=== PATIENT | female | born 1935 | race Caucasian/White ===

== ENCOUNTER → 2016-03-18 | Outpatient (CLI) | payer OTHER, MEDICARE ==
[~2016-03-18] MED LIST: ACET-1256 PO; ACET-1311 PO; AMIO200T PO; ASPEC81 PO; BUME1TAB PO; CALC-392 PO; CALC600T69 PO; CARV3.122 PO; CHOL2000 PO; CMD/25 PO; CMD4 PO; CPR500 PO; CRD60 PO; CRDCD180 PO; DILT30TA PO; ESTR1CRE PV; FAMO20TA11 PO; FERR325T18 PO; FLUT0.15 NAE; GABA-112 PO; GABA-113 PO; GABA1CAP PO; GABA1SOL4 PO; HYDR12.56 PO; INVAV1 IV; LACTCAP3 PO; LEVO50TA PO; LEVO75TA PO; LEVO75TA5 PO; LISI40TA PO; LPT20 PO; MCRK20 PO; METHPOW7 PO; METR500T PO; MGNO400 PO; NF84 PO; NRN/300 PO; OXYC1TAB3 PO; POLY1POW2 PO; POLY335019 PO; PRAV40TA2 PO; PRLSR20 PO; RXC5 PO; SERT25TA PO; TRAZ50TA35 PO; VANC5CAP PO; WARF1TAB PO; ZLF50 PO; ZNT150 PO
[2016-03-18 13:54] LABS: MEAN CORPUSCULAR HEMOGLOBIN 31.1 pg (25-34); MEAN CORPUSCULAR HGB CONC 33.1 g/dl (32-36); MEAN PLATELET VOLUME 10.5 fL (7.4-10.4); PLATELET COUNT 245 K/uL (130-400); RED BLOOD COUNT 3.83 M/uL (4.2-5.4); WHITE BLOOD COUNT 9.44 K/uL (4.8-10.8)
[2016-03-18 14:01] LABS: URINE APPEARANCE CLEAR (CLEAR); URINE BILIRUBIN NEG (NEG); URINE COLOR YELLOW; URINE EPITHELIAL CELL AUTO >30 /lpf (0-5); URINE NITRITE NEG (NEG); UROBILINOGEN NEG (NEG)
[2016-03-18 14:04] LABS: MANUAL MICROSCOPIC REQUIRED? NO; REVIEW REQ? YES
[2016-03-18 14:25] LABS: URINE PROTIEN/CREAT RATIO 0.1 (0-0.2); URINE TOTAL PROTEIN 7.9 mg/dl (0-11.9)
[2016-03-18 14:30] LABS: BLOOD UREA NITROGEN 46 mg/dl (7-18); BUN/CREATININE RATIO 26.8 (10-20); CALCIUM 9.6 mg/dl (8.5-10.1); CARBON DIOXIDE 26 mmol/L (21-32); CHLORIDE 103 mmol/L (98-107); GLUCOSE 103 mg/dl (70-99); MAGNESIUM 1.9 mg/dl (1.8-2.4); POTASSIUM 4.4 mmol/L (3.5-5.1); SODIUM 141 mmol/L (136-145)
== END | disposition home or self-care (01) ==
LOC: C.LABBC 10:06
PROVIDERS: ATTEND Internal Medicine Nephrology
DX: R60.9 Edema, unspecified (principal); N18.3 Chronic kidney disease, stage 3 (moderate); E22.9 Hyperfunction of pituitary gland, unspecified; D64.9 Anemia, unspecified; E03.9 Hypothyroidism, unspecified; B18.2 Chronic viral hepatitis C; I12.9 Hypertensive chronic kidney disease with stage 1 through stage 4 chronic kidney disease, or unspecified chronic kidney disease

== ENCOUNTER 2016-05-08 17:40 | Observation (INO) | payer OTHER, MEDICARE ==
[~2016-05-08] VITALS: Ht 149.9 cm; Wt 83.4 kg
[~2016-05-08 17:40] MED LIST changes: -ACET-1256 PO; -ACET-1311 PO; -ASPEC81 PO; -BUME1TAB PO; -CALC-392 PO; -CALC600T69 PO; -CARV3.122 PO; -CHOL2000 PO; -CMD4 PO; -CPR500 PO; -CRD60 PO; -CRDCD180 PO; -DILT30TA PO; -FAMO20TA11 PO; -FERR325T18 PO; -FLUT0.15 NAE; -GABA-112 PO; -GABA1CAP PO; -GABA1SOL4 PO; -INVAV1 IV; -LACTCAP3 PO; -LEVO75TA PO; -LEVO75TA5 PO; -LPT20 PO; -MCRK20 PO; -METHPOW7 PO; -METR500T PO; -MGNO400 PO; -NF84 PO; -NRN/300 PO; -OXYC1TAB3 PO; -POLY1POW2 PO; -POLY335019 PO; -RXC5 PO; -VANC5CAP PO; -WARF1TAB PO; -ZLF50 PO; -ZNT150 PO
--- NOTE | 2016-05-08 19:07 | EMERGENCY ROOM VISIT NOTE ---
History Report prepared by Abby: Mehdi Kern Under the Supervision of: Dr. Martin Nuñez M.D. First contact with patient: 18:44 Chief Complaint: ABDOMINAL PAIN Stated Complaint: ABD PAIN Nursing Triage Summary: pt reports LLQ pain since monday that has been intermittent , pt reports decreased po intake , states last normal BM mon, denies NV History of Present Illness The patient is a 81 year old female who presents to the Emergency Room with complaints of waxing and waning left lower quadrant abdominal pain that began on Monday morning, two days prior to arrival. The patient states that when her pain was most severe it was a 7/10 in severity. Her pain is worsened with movement, there is no radiation of her pain into her back. She does note having some lose stools recently, but no diarrhea. She does have black stools, which is at baseline for her due to the iron tablets that she takes. 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 She denies LOC, headache, fevers, chills, diaphoresis, visual changes, neck pain, chest pain, breathing difficulties, nausea, vomiting, hematochezia, urinary symptoms, numbness, weakness, lymphadenopathy, rash, or other complaints. 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 A total of ten systems were reviewed and were otherwise negative. Past Medical & Surgical Medical Problems: (1) Acute diverticulitis (2) Benign hypertension (3) Tonsillar cancer Surgical Problems: (1) S/P cholecystectomy Family History No pertinent family history secondary to age. Social History Smoking Status: Never Smoker Alcohol Use: none Marital Status: single Occupation Status: retired Current/Historical Medications Scheduled Amiodarone Hcl (Cordarone), 200 MG PO DAILY Hydrochlorothiazide (Hctz), 12.5 MG PO DAILY Levothyroxine Sodium (Synthroid), 50 MCG PO DAILY Lisinopril (Zestril), 40 MG PO DAILY Sertraline (Zoloft), 25 MG PO DAILY Warfarin Sod (Coumadin), 2.5-5 MG PO DAILY Scheduled PRN Gabapentin (Neurontin), 300-600 MG PO HS PRN Trazodone Hcl (Trazodone), 25-50 MG PO HS PRN Allergies Coded Allergies: Sulfa Antibiotics (Verified Allergy, Intermediate, fever, 05/08/16) Morphine and Related (Verified Allergy, Unknown, unknown, 05/08/16) Penicillins (Unverified Allergy, Unknown, HIVES, 05/08/16) Physical Exam Vital Signs Date Time Temp Pulse Resp B/P Pulse Ox O2 Delivery O2 Flow Rate FiO2 05/08/16 22:30 68 20 119/69 95 Room Air 05/08/16 20:45 64 16 138/78 97 Room Air 05/08/16 19:28 66 18 150/66 98 Room Air 05/08/16 17:51 36.9 67 18 135/79 97 Room Air Physical Exam GENERAL: Awake, alert, well-appearing, in no distress HENT: Normocephalic, atraumatic. Oropharynx unremarkable. EYES: Normal conjunctiva. Sclera non-icteric. NECK: Supple. No nuchal rigidity. FROM. No JVD. RESPIRATORY: Clear to auscultation. CARDIAC: Regular rate, normal rhythm. Extremities warm and well perfused. Pulses equal. ABDOMEN: Soft, non-distended. There is tenderness to palpation in the LLQ with rebounding. No masses. RECTAL: Deferred. MUSCULOSKELETAL: Chest examination reveals no tenderness. The back is symmetrical on inspection without obvious abnormality. There is no CVA tenderness to palpation. No joint edema. LOWER EXTREMITIES: Calves are equal size bilaterally and non-tender. 1+ edema bilaterally No discoloration. NEURO: Normal sensorium. No sensory or motor deficits noted. SKIN: No rash or jaundice noted. Medical Decision & Procedures ER Provider Diagnostic Interpretation: X ray results as stated below per my interpretation and radiologist interpretation. Other radiology results as stated below per my review and radiologist interpretation ABDOMEN AND PELVIS CT WITHOUT CONTRAST CT DOSE: 880.35 mGy.cm HISTORY: Left flank pain LLQ pain. Prior al. TECHNIQUE: Multiaxial CT images of the abdomen and pelvis were performed without contrast. COMPARISON STUDY: 01/26/2015 FINDINGS: Lung bases are clear. Prior cholecystectomy. Several calcified granulomas of the liver as well as spleen. Kidneys negative for hydronephrosis or calcification. Abdominal bowel pattern is nonobstructive. pelvis shows evidence for considerable wall thickening of the sigmoid with pericolonic infiltrative change. May be mild secondary inflammatory change of the left ovary with minimal inflammatory changes of the right. Abscess collection or phlegmon, however is not appreciated. Bladder is midline. There is no significant free fluid within the pelvic cul-de-sac. The appearance is consistent with that of acute diverticulitis. IMPRESSION: 1. Acute diverticulitis of the sigmoid. 2. Considerable wall thickening and pericolonic infiltrative change. 3. Infiltrative changes potentially extending to the ovaries 4. No evidence for abscess collection or obstruction Electronically signed by: Mich Velez M.D. 05/08/2016 9:30 PM Dictated Date/Time: 05/08/2016 9:27 PM Laboratory Results 05/08/16 19:42 Red Blood Count 4.01, Mean Corpuscular Volume 92.5, Mean Corpuscular Hemoglobin 31.4, Mean Corpuscular Hemoglobin Concent 34.0, Mean Platelet Volume 9.9, Neutrophils (%) (Auto) 77.2, Lymphocytes (%) (Auto) 13.5, Monocytes (%) (Auto) 7.3, Eosinophils (%) (Auto) 1.4, Basophils (%) (Auto) 0.2, Neutrophils # (Auto) 12.54, Lymphocytes # (Auto) 2.19, Monocytes # (Auto) 1.19, Eosinophils # (Auto) 0.22, Basophils # (Auto) 0.03 05/08/16 19:42 Test 05/08/16 19:42 05/08/16 20:45 White Blood Count 16.23 K/uL (4.8-10.8) Red Blood Count 4.01 M/uL (4.2-5.4) Hemoglobin 12.6 g/dL (12.0-16.0) Hematocrit 37.1 % (37-47) Mean Corpuscular Volume 92.5 fL (80-100) Mean Corpuscular Hemoglobin 31.4 pg (25-34) Mean Corpuscular Hemoglobin Concent 34.0 g/dl (32-36) Platelet Count 215 K/uL (130-400) Mean Platelet Volume 9.9 fL (7.4-10.4) Neutrophils (%) (Auto) 77.2 % Lymphocytes (%) (Auto) 13.5 % Monocytes (%) (Auto) 7.3 % Eosinophils (%) (Auto) 1.4 % Basophils (%) (Auto) 0.2 % Neutrophils # (Auto) 12.54 K/uL (1.4-6.5) Lymphocytes # (Auto) 2.19 K/uL (1.2-3.4) Monocytes # (Auto) 1.19 K/uL (0.11-0.59) Eosinophils # (Auto) 0.22 K/uL (0-0.5) Basophils # (Auto) 0.03 K/uL (0-0.2) RDW Standard Deviation 47.9 fL (36.4-46.3) RDW Coefficient of Variation 14.1 % (11.5-14.5) Immature Granulocyte % (Auto) 0.4 % Immature Granulocyte # (Auto) 0.06 K/uL (0.00-0.02) Prothrombin Time 40.8 SECONDS (9.0-12.0) Prothromb Time International Ratio 3.6 (0.9-1.1) Activated Partial Thromboplast Time 49.3 SECONDS (21.0-31.0) Partial Thromboplastin Ratio 1.9 Anion Gap 10.0 mmol/L (3-11) Est Creatinine Clear Calc Drug Dose 22.5 ml/min Estimated GFR () 29.9 Estimated GFR (Non- 25.8 BUN/Creatinine Ratio 28.6 (10-20) Calcium Level 9.6 mg/dl (8.5-10.1) Total Bilirubin 0.4 mg/dl (0.2-1) Direct Bilirubin 0.1 mg/dl (0-0.2) Aspartate Amino Transf (AST/SGOT) 19 U/L (15-37) Alanine Aminotransferase (ALT/SGPT) 27 U/L (12-78) Alkaline Phosphatase 112 U/L (45-117) Total Protein 7.2 gm/dl (6.4-8.2) Albumin 3.1 gm/dl (3.4-5.0) Lipase 150 U/L (73-393) Urine Color YELLOW Urine Appearance CLEAR (CLEAR) Urine pH 5.5 (4.5-7.5) Urine Specific [place] 1.020 (1.000-1.030) Urine Protein NEG (NEG) Urine Glucose (UA) NEG (NEG) Urine Ketones NEG (NEG) Urine Occult Blood TRACE (NEG) Urine Nitrite NEG (NEG) Urine Bilirubin NEG (NEG) Urine Urobilinogen NEG (NEG) Urine Leukocyte Esterase NEG (NEG) Urine RBC 0-4 /hpf (0-4) Urine WBC 1-5 /hpf (0-5) Urine Epithelial Cells 0-5 /lpf (0-5) Urine Bacteria 2+ (NEG) Laboratory results reviewed by me Medications Administered Medications (Trade) Dose Ordered Sig/Mazin Route Start Time Stop Time Status Last Admin Dose Admin Sodium Chloride (Nss 500ml) 500 ml @ 999 mls/hr Q31M STAT IV 05/08/16 19:44 05/08/16 20:14 DC 05/08/16 19:44 999 MLS/HR Ciprofloxacin/ Dextrose (Cipro / D5w) 400 mg NOW STAT IV 05/08/16 21:54 05/08/16 21:56 DC 05/08/16 22:24 400 MG Metronidazole (Flagyl / Nss) 500 mg NOW STAT IV 05/08/16 21:54 05/08/16 21:56 DC 05/08/16 22:23 500 MG ED Course 1858: The patient was evaluated in room A11. A complete history and physical exam was performed. 1941: I checked on the patient at this time, she does not want anything for her pain at this time. Her daughter is at bedside now. 1943: Ordered Sodium Chloride 500 mL @ 999 mL/hr IV 2153: Ordered Metronidazole 500 mg IV, Ciprofloxacin/Dextrose 400 mg IV. 2201: I checked on the patient at this time. She was doing well. 2209: I discussed the case with Dr. Rach Huynh [facility] Hospitalist at this time, he will evaluate the patient for further treatment. Medical Decision Triage Nursing notes reviewed. The patient's presentation and history were concerning for abdominal pain. Etiologies such as diverticulitis, obstruction, inflammatory bowel disease, renal colic, PUD, biliary pathology, pancreatitis, mesenteric ischemia, aortic pathology, infections, genitourinary, UTI, perforated viscus, appendicitis,as well as others were entertained. The patient was evaluated. She is tender in the left lower quadrant. She declined analgesia. The patient was hydrated. She had a 16,000 white count on CBC. Urinalysis was unremarkable. Creatinine revealed some mild renal insufficiency which the patient states is baseline. She had some dehydration noted as well. Her LFTs and lipase were unremarkable. CT imaging was performed and revealed acute diverticulitis. No abscess or perforation. Given the findings further evaluation and management in the hospital was felt to be appropriate. The patient was given Cipro and Flagyl IV. Consultation was made with internal medicine. The patient was evaluated for further treatment. The chart was completed utilizing [employer] Speech voice recognition software. Grammatical errors, random word insertions, pronoun errors, and incomplete sentences are an occasional consequence of this system due to software limitations, ambient noise, and hardware issues. Any formal questions or concerns about the content, text, or information contained within the body of this dictation should be directly addressed to the physician for clarification. Consults Time Called: 2199 Consulting Physician: Dr. Rach HICKS Hospitalist Returned Call: 2209 I discussed the case with Dr. Rach HICKS Hospitalanne-marie at this time, he will evaluate the patient for further treatment. Impression Primary Impression: Diverticulitis Scribe Attestation The scribe's documentation has been prepared under my direction and personally reviewed by me in its entirety. I confirm that the note above accurately reflects all work, treatment, procedures, and medical decision making performed by me. Departure Information Dispostion Being Evaluated By Hospitalist Referrals Kwadwo Cannon D.O.Int.Med. (PCP) Patient Instructions My [facility]
[2016-05-08] MEDS ORDERED: SODIUM CHLORIDE 0.9% 500ML 500 ML IV STA (19:44)
[2016-05-08 19:55] LABS: BASO % 0.2 %; BASO ABS # 0.03 K/uL (0-0.2); COMPLETE YES; EOS % 1.4 %; HEMATOCRIT 37.1 % (37-47); IG% 0.4 %; LYMPH % 13.5 %; LYMPH ABS # 2.19 K/uL (1.2-3.4); MEAN CELL VOLUME 92.5 fL (80-100); MEAN CORPUSCULAR HEMOGLOBIN 31.4 pg (25-34); MEAN PLATELET VOLUME 9.9 fL (7.4-10.4); MONO % 7.3 %; NEUT % 77.2 %; PLATELET COUNT 215 K/uL (130-400); RED BLOOD COUNT 4.01 M/uL (4.2-5.4); WHITE BLOOD COUNT 16.23 K/uL (4.8-10.8)
[2016-05-08 20:14] LABS: BUN/CREATININE RATIO 28.6 (10-20); CALCIUM 9.6 mg/dl (8.5-10.1); CREATININE 1.8 mg/dl (0.60-1.20); POTASSIUM 3.9 mmol/L (3.5-5.1)
[2016-05-08 21:28] LABS: MANUAL MICROSCOPIC REQUIRED? YES; URINE APPEARANCE CLEAR (CLEAR); URINE BILIRUBIN NEG (NEG); URINE COLOR YELLOW; URINE NITRITE NEG (NEG); URINE PH 5.5 (4.5-7.5); UROBILINOGEN NEG (NEG)
[2016-05-08 21:29] LABS: REVIEW REQ? NO
[2016-05-08 21:30] LABS: URINE RBC 0-4 /hpf (0-4)
[2016-05-08 21:31] LABS: URINE BACTERIA 2+ (NEG); ZZUR CULT IF INDIC CLEAN CATCH YES
--- NOTE | 2016-05-08 21:31 | DIAGNOSTIC IMAGING REPORT ---
ABDOMEN AND PELVIS CT WITHOUT CONTRAST CT DOSE: 880.35 mGy.cm HISTORY: Left flank pain LLQ pain. Prior al. TECHNIQUE: Multiaxial CT images of the abdomen and pelvis were performed without contrast. COMPARISON STUDY: 01/26/2015 FINDINGS: Lung bases are clear. Prior cholecystectomy. Several calcified granulomas of the liver as well as spleen. Kidneys negative for hydronephrosis or calcification. Abdominal bowel pattern is nonobstructive. pelvis shows evidence for considerable wall thickening of the sigmoid with pericolonic infiltrative change. May be mild secondary inflammatory change of the left ovary with minimal inflammatory changes of the right. Abscess collection or phlegmon, however is not appreciated. Bladder is midline. There is no significant free fluid within the pelvic cul-de-sac. The appearance is consistent with that of acute diverticulitis. IMPRESSION: 1. Acute diverticulitis of the sigmoid. 2. Considerable wall thickening and pericolonic infiltrative change. 3. Infiltrative changes potentially extending to the ovaries 4. No evidence for abscess collection or obstruction Electronically signed by: Mich Velez M.D. 05/08/2016 9:30 PM Dictated Date/Time: 05/08/2016 9:27 PM
[2016-05-08] MEDS ORDERED: METRONIDAZOLE 500MG / 100ML NSS IV STA (21:54)
[2016-05-08] MEDS ORDERED: CIPROFLOXACIN 400MG / 200ML D5W IV STA (21:54)
[2016-05-08 22:16] LABS: PARTIAL THROMBOPLASTIN RATIO 1.9; PROTHROMBIN TIME (PATIENT) 40.8 SECONDS (9.0-12.0)
[2016-05-08 22:31] LABS: INR 3.6 (0.9-1.1)
[2016-05-08] MEDS ORDERED: MAGNESIUM HYDROXIDE SUSP 30 ML UDC PO PRN (23:00)
[2016-05-08] MEDS ORDERED: TRAZODONE HCL 50 MG TAB PO PRN (23:00)
[2016-05-08] MEDS ORDERED: ACETAMINOPHEN 325 MG TAB PO PRN (23:00)
[2016-05-08] MEDS ORDERED: POLYETHYLENE (MIRALAX) 17 GM PACK PO PRN (23:00)
[2016-05-08] MEDS ORDERED: ONDANSETRON INJ 2 MG/ML 2 ML VIAL IV PRN (23:00)
[2016-05-08] MEDS ORDERED: GABAPENTIN 300 MG CAP PO PRN (23:00)
[2016-05-08] MEDS ORDERED: ALUMINUM/MAGNESIUM/SIMETH (MAALOX MAX) 30 ML UDC PO PRN (23:00)
--- NOTE | 2016-05-08 23:15 | History and Physical ---
History & Physical Date & Time of Service: May 08, 2016 at 23:07 Chief Complaint: Abd Pain Primary Care Physician: Kwadwo Cannon D.O.Int.Med. History of Present Illness Source: patient Bertha is an 81 year old female who has had a 4 day history of LLQ abdominal pain , nausea, loose stool and anorexia. She was found to have acute sigmoid diverticulitis on CT scan. She reports the pain is sharp, radiates across her abdomen, 7/10 severity, worse with movements, and does not have any factors which improve it. She thought she may have C. Difficile which she has had before. She has not had any recent antibiotic use. The nausea was intermittent and has not happened today, but was more over the first 2 days of her symptoms. Currently her pain is still 6/10 severity. Past Medical/Surgical History Medical Problems: Hypertension Tonsillar cancer History of stroke Atrial fibrillation, on coumadin PSHx: None Family History No pertinent FHx Social History Smoking Status: Never Smoker Marital Status: single Housing status: other (Lives in Assisted living at [facility]) Occupational Status: retired Allergies Coded Allergies: Sulfa Antibiotics (Verified Allergy, Intermediate, fever, 05/08/16) Morphine and Related (Verified Allergy, Unknown, unknown, 05/08/16) Penicillins (Unverified Allergy, Unknown, HIVES, 05/08/16) Home Medications Scheduled Amiodarone Hcl (Cordarone), 200 MG PO DAILY Hydrochlorothiazide (Hctz), 12.5 MG PO DAILY Levothyroxine Sodium (Synthroid), 50 MCG PO DAILY Lisinopril (Zestril), 40 MG PO DAILY Sertraline (Zoloft), 25 MG PO DAILY Warfarin Sod (Coumadin), 2.5-5 MG PO DAILY Scheduled PRN Gabapentin (Neurontin), 300-600 MG PO HS PRN Trazodone Hcl (Trazodone), 25-50 MG PO HS PRN Review of Systems See HPI for pertinent positives & negatives. A total of 10 systems reviewed and were otherwise negative. Physical Exam Vital Signs Date Time Temp Pulse Resp B/P Pulse Ox O2 Delivery O2 Flow Rate FiO2 05/08/16 22:30 68 20 119/69 95 Room Air 05/08/16 20:45 64 16 138/78 97 Room Air 05/08/16 19:28 66 18 150/66 98 Room Air 05/08/16 17:51 36.9 67 18 135/79 97 Room Air General Appearance: WD/WN, + mild distress Head: normocephalic, atraumatic Eyes: normal inspection, PERRL ENT: normal ENT inspection, TMs normal Neck: supple, no JVD Respiratory/Chest: chest non-tender, lungs clear, normal breath sounds, no respiratory distress Cardiovascular: regular rate, rhythm, no murmur, normal peripheral pulses Abdomen/GI: + tenderness (LLQ tenderness, faint bowel sounds, with guarding, no rebound), + distended, + guarding Back: no CVA tenderness, no muscle spasm Extremities/Musculoskelatal: no pedal edema Neurologic/Psych: alert, normal mood/affect, oriented x 3 Skin: no rash Diagnostics Laboratory Results Results Past 24 Hours Test 05/08/16 19:42 05/08/16 20:45 Range/Units White Blood Count 16.23 4.8-10.8 K/uL Red Blood Count 4.01 4.2-5.4 M/uL Hemoglobin 12.6 12.0-16.0 g/dL Hematocrit 37.1 37-47 % Mean Corpuscular Volume 92.5 80-100 fL Mean Corpuscular Hemoglobin 31.4 25-34 pg Mean Corpuscular Hemoglobin Concent 34.0 32-36 g/dl Platelet Count 215 130-400 K/uL Mean Platelet Volume 9.9 7.4-10.4 fL Neutrophils (%) (Auto) 77.2 % Lymphocytes (%) (Auto) 13.5 % Monocytes (%) (Auto) 7.3 % Eosinophils (%) (Auto) 1.4 % Basophils (%) (Auto) 0.2 % Neutrophils # (Auto) 12.54 1.4-6.5 K/uL Lymphocytes # (Auto) 2.19 1.2-3.4 K/uL Monocytes # (Auto) 1.19 0.11-0.59 K/uL Eosinophils # (Auto) 0.22 0-0.5 K/uL Basophils # (Auto) 0.03 0-0.2 K/uL RDW Standard Deviation 47.9 36.4-46.3 fL RDW Coefficient of Variation 14.1 11.5-14.5 % Immature Granulocyte % (Auto) 0.4 % Immature Granulocyte # (Auto) 0.06 0.00-0.02 K/uL Prothrombin Time 40.8 9.0-12.0 SECONDS Prothromb Time International Ratio 3.6 0.9-1.1 Activated Partial Thromboplast Time 49.3 21.0-31.0 SECONDS Partial Thromboplastin Ratio 1.9 Sodium Level 142 136-145 mmol/L Potassium Level 3.9 3.5-5.1 mmol/L Chloride Level 104 98-107 mmol/L Carbon Dioxide Level 28 21-32 mmol/L Anion Gap 10.0 3-11 mmol/L Blood Urea Nitrogen 52 7-18 mg/dl Creatinine 1.80 0.60-1.20 mg/dl Est Creatinine Clear Calc Drug Dose 22.5 ml/min Estimated GFR () 29.9 Estimated GFR (Non- 25.8 BUN/Creatinine Ratio 28.6 10-20 Random Glucose 100 70-99 mg/dl Calcium Level 9.6 8.5-10.1 mg/dl Total Bilirubin 0.4 0.2-1 mg/dl Direct Bilirubin 0.1 0-0.2 mg/dl Aspartate Amino Transf (AST/SGOT) 19 15-37 U/L Alanine Aminotransferase (ALT/SGPT) 27 12-78 U/L Alkaline Phosphatase 112 45-117 U/L Total Protein 7.2 6.4-8.2 gm/dl Albumin 3.1 3.4-5.0 gm/dl Lipase 150 73-393 U/L Urine Color YELLOW Urine Appearance CLEAR CLEAR Urine pH 5.5 4.5-7.5 Urine Specific [place] 1.020 1.000-1.030 Urine Protein NEG NEG Urine Glucose (UA) NEG NEG Urine Ketones NEG NEG Urine Occult Blood TRACE NEG Urine Nitrite NEG NEG Urine Bilirubin NEG NEG Urine Urobilinogen NEG NEG Urine Leukocyte Esterase NEG NEG Urine RBC 0-4 0-4 /hpf Urine WBC 1-5 0-5 /hpf Urine Epithelial Cells 0-5 0-5 /lpf Urine Bacteria 2+ NEG Microbiology Results 05/08/16 Urine Culture, Received Pending Diagnostic Radiology CT ABDOMEN PELVIS: IMPRESSION: 1. Acute diverticulitis of the sigmoid. 2. Considerable wall thickening and pericolonic infiltrative change. 3. Infiltrative changes potentially extending to the ovaries 4. No evidence for abscess collection or obstruction Impression Assessment and Plan Documented By: Wilfred Loyd 81 yo F with history of a fib on coumadin presents with LLQ abdominal pain, nausea, anorexia - found to have acute diverticulitis on CT. Has a WBC of 16, has been unable to keep PO down well. Plan: Acute diverticulitis - Clear liquid diet - Advance as tolerated - Continue Cipro and Flagyl IV, switch to PO when tolerating oral better Dehydration - 2L maintenance IV fluids overnight - Continue to monitor Atrial fibrillation - Continue amiodarone and coumadin Hypertension - Continue HCTZ and Lisinopril CKD stage 4 - Renal dosing of medications VTE: On coumadin Resident Physician Supervision Note: I was present with [Name of resident] during the history and exam. I discussed the case with the resident and agree with the findings and plan as documented in the note. Any exceptions or clarifications are listed here: 81 y/o F admitted with LLQ - diverticulitis diagnosed on CT Has not had fevers - poor kavita and weakness but no vomiting OE AAO x 3 CTAB NT, ND no C/C/E P: Monitor overnight due to pts age and weakness Introduce soft diet ABx IVF, pain control Consider AM DC if tolerating PO and pt feels she can manage independently Level of Care Med/Surg Resuscitation Status FULL RESUSCITATION VTE Prophylaxis VTE Risk Assessment Done? Y/N: Yes Risk Level: Moderate Given or contraindicated: Warfarin (Coumadin) Resident Tracking Resident Involvement: Resident Care Provided Care Provided: Adult Hospital Medicine
[2016-05-09] VITALS (7 sets, daily range): BP systolic 108–152; BP diastolic 52–72; PULSE 63–70; TEMP 36.8–37.4; O2SAT 94–97; Ht 149.9 cm; Wt 83.4 kg
[2016-05-09] MEDS ORDERED: CIPROFLOXACIN CONSULT ACTIVE PRN ×2 (01:00)
[2016-05-09] MEDS: SODIUM CHLOR 0.45% + 20MEQ KCL 1,000 ML IV SCH ×2 (01:06→11:19)
[2016-05-09] MEDS ORDERED: IV FLUIDS COMPLETED PRN (01:30)
[2016-05-09] MEDS: METRONIDAZOLE / NSS 500 MG in PREMIXED NSS 100 ML IV SCH ×3 (06:14→21:36)
[2016-05-09] MEDS: LEVOTHYROXINE 50 MCG TAB PO SCH (06:14)
[2016-05-09 06:44] LABS: BASO % 0.2 %; BASO ABS # 0.03 K/uL (0-0.2); COMPLETE YES; EOS % 1.8 %; HEMATOCRIT 33.8 % (37-47); IG% 0.3 %; LYMPH % 16.9 %; LYMPH ABS # 2.38 K/uL (1.2-3.4); MEAN CELL VOLUME 90.9 fL (80-100); MEAN CORPUSCULAR HEMOGLOBIN 30.4 pg (25-34); MEAN CORPUSCULAR HGB CONC 33.4 g/dl (32-36); MEAN PLATELET VOLUME 9.6 fL (7.4-10.4); MONO % 8.3 %; NEUT % 72.5 %; PLATELET COUNT 218 K/uL (130-400); RED BLOOD COUNT 3.72 M/uL (4.2-5.4); WHITE BLOOD COUNT 14.09 K/uL (4.8-10.8)
[2016-05-09 07:14] LABS: BUN/CREATININE RATIO 27.5 (10-20); CALCIUM 9.1 mg/dl (8.5-10.1); CREATININE 1.5 mg/dl (0.60-1.20); POTASSIUM 4.1 mmol/L (3.5-5.1)
[2016-05-09 07:17] LABS: ALB/GLOB RATIO 0.8 (0.9-2)
[2016-05-09] MEDS: HYDROCHLOROTHIAZIDE 25 MG TAB PO SCH (08:26)
[2016-05-09] MEDS: AMIODARONE 200 MG TAB PO SCH (08:28)
[2016-05-09] MEDS: SERTRALINE HCL 50 MG TAB PO SCH (08:28)
[2016-05-09] MEDS: LISINOPRIL 40 MG TAB PO SCH (08:28)
[2016-05-09 10:37] LABS: PROTHROMBIN TIME (PATIENT) 44.1 SECONDS (9.0-12.0)
[2016-05-09 10:46] LABS: INR 3.9 (0.9-1.1)
[2016-05-09] MEDS ORDERED: WARFARIN SOD 5 MG TAB PO SCH (16:00)
[2016-05-09] MEDS ORDERED: ACET-1311 PO (17:33)
[2016-05-09] MEDS ORDERED: BUME1TAB PO (17:38)
[2016-05-09] MEDS ORDERED: CALC600T69 PO (17:42)
[2016-05-09] MEDS ORDERED: CARV3.122 PO (17:44)
[2016-05-09] MEDS ORDERED: METHPOW7 PO (17:47)
[2016-05-09] MEDS ORDERED: FERR325T18 PO (17:47)
[2016-05-09] MEDS ORDERED: GABA1CAP PO (17:55)
[2016-05-09] MEDS ORDERED: GABA-113 PO (17:57)
[2016-05-09] MEDS ORDERED: LEVO75TA5 PO (17:58)
[2016-05-09] MEDS ORDERED: CHOL2000 PO (17:59)
[2016-05-09] MEDS ORDERED: POLY1POW2 PO (17:59)
[2016-05-09] MEDS ORDERED: TRAZ50TA35 PO (18:03)
--- NOTE | 2016-05-09 20:14 | Progress Note ---
Subjective Date of Service: May 09, 2016. Subjective Pt evaluation today including: conversation w/ patient, physical exam, chart review, lab review, review of studies, review of inpatient medication list feeling better pain better still has pain though but not as bad. had some diarrhea. ate clears OK but afraid to try much more solid yet. no f/c/s. Problem List Medical Problems: (1) Diverticulitis Status: Acute (2) Left lower quadrant pain Status: Acute Review of Systems ros otherwise negative except for as above Objective Vital Signs Date Time Temp Pulse Resp B/P Pulse Ox O2 Delivery O2 Flow Rate FiO2 05/09/16 16:09 148/67 05/09/16 16:05 97 Room Air 05/09/16 15:01 36.8 63 18 152/72 97 Room Air 05/09/16 07:52 Room Air 05/09/16 07:19 36.8 63 18 108/54 94 Room Air 05/09/16 00:20 36.9 69 18 138/68 97 Room Air 05/08/16 23:33 65 18 127/59 95 Room Air 05/08/16 22:30 68 20 119/69 95 Room Air 05/08/16 20:45 64 16 138/78 97 Room Air Physical Exam General Appearance: no apparent distress Eyes: EOMI ENT: hearing grossly normal Neck: trachea midline Respiratory/Chest: no respiratory distress, no accessory muscle use Abdomen: soft, + tenderness (LLQ no guarding rebound or rigidity) 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, alert, normal mood/affect Skin: normal color, warm/dry Laboratory Results Last 24 Hours Test 05/08/16 20:45 05/09/16 06:22 05/09/16 09:45 Urine Color YELLOW Urine Appearance CLEAR Urine pH 5.5 Urine Specific [place] 1.020 Urine Protein NEG Urine Glucose (UA) NEG Urine Ketones NEG Urine Occult Blood TRACE Urine Nitrite NEG Urine Bilirubin NEG Urine Urobilinogen NEG Urine Leukocyte Esterase NEG Urine RBC 0-4 /hpf Urine WBC 1-5 /hpf Urine Epithelial Cells 0-5 /lpf Urine Bacteria 2+ White Blood Count 14.09 K/uL Red Blood Count 3.72 M/uL Hemoglobin 11.3 g/dL Hematocrit 33.8 % Mean Corpuscular Volume 90.9 fL Mean Corpuscular Hemoglobin 30.4 pg Mean Corpuscular Hemoglobin Concent 33.4 g/dl Platelet Count 218 K/uL Mean Platelet Volume 9.6 fL Neutrophils (%) (Auto) 72.5 % Lymphocytes (%) (Auto) 16.9 % Monocytes (%) (Auto) 8.3 % Eosinophils (%) (Auto) 1.8 % Basophils (%) (Auto) 0.2 % Neutrophils # (Auto) 10.21 K/uL Lymphocytes # (Auto) 2.38 K/uL Monocytes # (Auto) 1.17 K/uL Eosinophils # (Auto) 0.26 K/uL Basophils # (Auto) 0.03 K/uL RDW Standard Deviation 46.5 fL RDW Coefficient of Variation 14.0 % Immature Granulocyte % (Auto) 0.3 % Immature Granulocyte # (Auto) 0.04 K/uL Sodium Level 141 mmol/L Potassium Level 4.1 mmol/L Chloride Level 107 mmol/L Carbon Dioxide Level 23 mmol/L Anion Gap 11.0 mmol/L Blood Urea Nitrogen 41 mg/dl Creatinine 1.50 mg/dl Est Creatinine Clear Calc Drug Dose 27.1 ml/min Estimated GFR () 37.2 Estimated GFR (Non- 32.1 BUN/Creatinine Ratio 27.5 Random Glucose 112 mg/dl Calcium Level 9.1 mg/dl Total Bilirubin 0.5 mg/dl Aspartate Amino Transf (AST/SGOT) 16 U/L Alanine Aminotransferase (ALT/SGPT) 25 U/L Alkaline Phosphatase 97 U/L Total Protein 6.4 gm/dl Albumin 2.9 gm/dl Globulin 3.5 gm/dl Albumin/Globulin Ratio 0.8 Prothrombin Time 44.1 SECONDS Prothromb Time International Ratio 3.9 Assessment and Plan Acute diverticulitis - imprvoing -change to full liquid -keep cipro/flagyl IV for now change to PO tomorrow Dehydration - continue IVFs, follow BMP and status Atrial fibrillation - Continue amiodarone and coumadin (holding for now since INR high) Hypertension - Continue HCTZ and Lisinopril, follow; hold bumex CKD stage 4 - Renal dosing of medications DVT proph -coumadin
[2016-05-09] MEDS ORDERED: CIPROFLOXACIN / D5W 400 MG in PREMIXED IN D5W 200 ML IV SCH (22:00)
[2016-05-09] MEDS ORDERED: GABAPENTIN 100 MG CAP PO ONE (22:37)
[2016-05-09] MEDS ORDERED: TRAZODONE HCL 50 MG TAB PO ONE (22:45)
[2016-05-09] MEDS ORDERED: CARVEDILOL 3.125 MG TAB PO ONE (22:45)
[2016-05-10] MEDS: METRONIDAZOLE / NSS 500 MG in PREMIXED NSS 100 ML IV SCH (05:48)
[2016-05-10] MEDS: LEVOTHYROXINE 50 MCG TAB PO SCH (05:49)
[2016-05-10 06:13] LABS: HEMATOCRIT 32.5 % (37-47); MEAN CELL VOLUME 92.3 fL (80-100); MEAN CORPUSCULAR HEMOGLOBIN 30.4 pg (25-34); MEAN CORPUSCULAR HGB CONC 32.9 g/dl (32-36); MEAN PLATELET VOLUME 10.1 fL (7.4-10.4); PLATELET COUNT 205 K/uL (130-400); RED BLOOD COUNT 3.52 M/uL (4.2-5.4); WHITE BLOOD COUNT 10.91 K/uL (4.8-10.8)
[2016-05-10 06:30] LABS: PROTHROMBIN TIME (PATIENT) 41.4 SECONDS (9.0-12.0)
[2016-05-10 06:32] LABS: INR 3.7 (0.9-1.1)
[2016-05-10 06:48] LABS: BUN/CREATININE RATIO 20.6 (10-20); CALCIUM 8.5 mg/dl (8.5-10.1); CREATININE 1.2 mg/dl (0.60-1.20)
[2016-05-10 07:24] VITALS: BP 102/64; PULSE 63; TEMP 36.5; O2SAT 95
[2016-05-10 08:15] VITALS: BP 116/74; PULSE 100
[2016-05-10] MEDS: SERTRALINE HCL 50 MG TAB PO SCH (08:40)
[2016-05-10] MEDS: LISINOPRIL 40 MG TAB PO SCH (08:41)
[2016-05-10] MEDS: AMIODARONE 200 MG TAB PO SCH (08:41)
[2016-05-10] MEDS: HYDROCHLOROTHIAZIDE 25 MG TAB PO SCH (08:42)
[2016-05-10] MEDS ORDERED: CIPROFLOXACIN 500 MG TAB PO SCH (09:00)
[2016-05-10] MEDS ORDERED: CARVEDILOL 3.125 MG TAB PO SCH (09:00)
[2016-05-10 09:17] VITALS: BP 116/74; PULSE 100
[2016-05-10] MEDS ORDERED: CPR500 PO (10:59)
[2016-05-10] MEDS ORDERED: METR500T PO (10:59)
--- NOTE | 2016-05-10 11:03 | Discharge Instructions ---
Discharge Instructions Date of Service May 10, 2016. Admission Reason for Admission: Acute Diverticulitis Discharge Discharge Diagnosis / Problem: diverticulitis Discharge Goals Goal(s): Diagnostic testing, Therapeutic intervention Activity Recommendations Activity Limitations: resume your previous activity . Instructions / Follow-Up Instructions / Follow-Up for the diverticulitis - continue your antibiotics for the next 10 days -- cipro next dose tonight, flagyl next dose late this afternoon -follow up with Dr Cannon by the end of the week --have labs checked on : PT/INR, BMP --while we're not technically changing your dose of coumadin - we want you to hold off on taking it for the next two days at least -- after your repeat INR on , your coumadin will either be resumed or held based on your lab results Current Hospital Diet Patient's current hospital diet: Regular Diet Discharge Diet Recommended Diet: Regular Diet Pending Studies Studies pending at discharge: no Medical Emergencies . Who to Call and When: Medical Emergencies: If at any time you feel your situation is an emergency, please call 911 immediately. . Non-Emergent Contact Non-Emergency issues call your: Primary Care Provider . . "Provider Documentation" section prepared by Haseeb Briggs. VTE Core Measure Inpt VTE Proph given/why not?: Warfarin (Coumadin)
[2016-05-10] MEDS ORDERED: METRONIDAZOLE 500 MG TAB PO SCH (14:00)
[2016-05-10 15:27] VITALS: BP 129/83; PULSE 103; TEMP 36.5; O2SAT 97
[2016-05-10 15:36] VITALS: PULSE 115
[2016-05-10] MEDS ORDERED: WARFARIN SOD 2.5 MG TAB PO SCH ×2 (16:00)
--- NOTE | 2016-05-10 19:49 | Discharge Summary ---
Discharge Summary Date of Service May 10, 2016. Discharge Summary Admission Date: May 08, 2016 at 23:06 Discharge Date: May 10, 2016 Discharge Disposition: Home Principal Diagnosis: diverticulitis Procedures: CT showing diverticulitis no perf presley snesitive E Coli on urine culture elevated INR Medication Reconciliation New Medications: Ciprofloxacin (Ciprofloxacin HCl) 500 Mg Tab 1 TAB PO BID, #20 TAB Metronidazole (Flagyl) 500 Mg Tab 500 MG PO TID, #30 TAB Continued Medications: Acetaminophen (Tylenol) 325 Mg Tab 650 MG PO Q8 PRN for Pain, TAB Bumetanide (Bumex) 1 Mg Tab 1 MG PO BID, TAB Calcium Carbonate (Calcium-Carb 600) 600 Mg Tab 1 TAB PO BID Carvedilol (Coreg) 3.125 Mg Tab 1 TAB PO BID for 30 Days, #60 TAB 3 Refills Cholecalciferol (Vitamin D3) 2,000 Unit Cap 1 CAP PO DAILY for 30 Days, #30 CAP 3 Refills Ferrous Gluconate (Ferrous Gluconate) 324 Mg Tab 324 MG PO DAILY, TAB Gabapentin (Neurontin) 100 Mg Cap 200 MG PO PM, CAP Gabapentin (Neurontin) 300 Mg Cap 300 MG PO PM, CAP Levothyroxine Sodium (Levothyroxine Sodium) 75 Mcg Tab 1 TAB PO DAILY for 30 Days, #30 TAB 5 Refills Lisinopril (Zestril) 40 Mg Tab 40 MG PO DAILY, TAB Methylcellulose (Laxative) (Citrucel Fiber Laxative) 1 Pow Pow PO DAILY PRN for Constipation Polyethylene Glycol 3350 (Bulk (Polyethylene Glycol 3350) 1 Pow Pow 17 GM PO DAILY for 30 Days, #527 GM 11 Refills Sertraline (Zoloft) 25 Mg Tab 25 MG PO DAILY, TAB Trazodone Hcl (Trazodone) 50 Mg Tab 50 MG PO PM, TAB Warfarin Sod (Coumadin) 2.5 Mg Tab 2.5-5 MG PO DAILY, TAB 2.5 mg TU, THURS, SAT, 5mg SUN, MON, WED, FRI Discharge Exam Physical Exam: General Appearance: no apparent distress Eyes: EOMI ENT: hearing grossly normal Neck: trachea midline Respiratory/Chest: no respiratory distress, no accessory muscle use Abdomen / GI: non tender (minimal LLQ tenderness), soft Neurologic/Psychiatric: 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 f/u BMP as outpt Atrial fibrillation - Continue amiodarone and coumadin (holding for now since INR high - next INR ) Hypertension - Continue HCTZ and Lisinopril, follow; BMP 05/12 CKD stage 4 - Renal dosing of medications DVT proph -coumadin (on hold pending further INR as above) Total Time Spent: Greater than 30 minutes This includes examination of the patient, discharge planning, medication reconciliation, and communication with other providers. Discharge Instructions Please refer to the electronic Patient Visit Report (Discharge Instructions) for additional information. Additional Copies To Kwadwo Cannon D.O.Int.Med.
[2016-05-10] MEDS ORDERED: TRAZODONE HCL 50 MG TAB PO SCH (21:00)
[2016-05-10] MEDS ORDERED: GABAPENTIN 100 MG CAP PO SCH (21:00)
[2016-07-25] MEDS ORDERED: CMD/25 PO (11:19)
[2016-07-25] MEDS ORDERED: WARF1TAB PO (11:19)
[2016-07-25] MEDS ORDERED: BUME1TAB PO (11:19)
[2016-07-25] MEDS ORDERED: FLUT0.15 NAE (11:19)
[2016-07-25] MEDS ORDERED: CHOL2000 PO (11:19)
[2016-07-25] MEDS ORDERED: LACTCAP3 PO (11:19)
[2016-07-25] MEDS ORDERED: CARV3.122 PO (11:19)
[2016-07-25] MEDS ORDERED: SERT25TA PO (11:19)
[2016-07-25] MEDS ORDERED: LISI40TA PO (11:19)
[2016-07-25] MEDS ORDERED: POLY335019 PO (11:19)
[2016-07-25] MEDS ORDERED: GABA-112 PO (11:19)
[2016-07-25] MEDS ORDERED: METHPOW7 PO (11:19)
[2016-07-25] MEDS ORDERED: LEVO75TA PO (11:19)
[2016-07-25] MEDS ORDERED: NRN/300 PO (11:19)
[2016-07-25] MEDS ORDERED: CALC-392 PO (11:19)
[2016-09-26] MEDS ORDERED: MCRK20 PO (13:56)
[2016-09-26] MEDS ORDERED: RXC5 PO (13:56)
[2016-09-26] MEDS ORDERED: MGNO400 PO (13:56)
[2016-09-26] MEDS ORDERED: INVAV1 IV (13:56)
[2016-09-26] MEDS ORDERED: ZLF50 PO (13:56)
[2016-09-26] MEDS ORDERED: VANC5CAP PO (13:56)
[2016-09-26] MEDS ORDERED: CRD60 PO (13:56)
[2016-09-26] MEDS ORDERED: ZNT150 PO (13:56)
[2016-09-27] MEDS ORDERED: INVAV1 IV (12:56)
[2016-09-27] MEDS ORDERED: VANC5CAP PO (12:56)
[2016-09-27] MEDS ORDERED: RXC5 PO (13:49)
[2016-10-06] MEDS ORDERED: LPT20 PO (09:38)
[2016-10-06] MEDS ORDERED: CMD4 PO (09:38)
[2016-10-06] MEDS ORDERED: CRDCD180 PO (09:38)
[2016-10-06] MEDS ORDERED: ASPEC81 PO (09:38)
[2016-10-06] MEDS ORDERED: GABA1SOL4 PO (09:38)
== END 2016-05-10 18:42 | disposition home or self-care (01) ==
LOC: ENRESERVDT → ENRESERVTM → C.EDB 17:40 → C.MSW 23:06
PROVIDERS: ADMIT Internal Medicine; ATTEND Family Medicine
DX: K57.92 Diverticulitis of intestine, part unspecified, without perforation or abscess without bleeding (principal); R79.1 Abnormal coagulation profile; E86.0 Dehydration; I48.91 Unspecified atrial fibrillation; N18.4 Chronic kidney disease, stage 4 (severe); I12.9 Hypertensive chronic kidney disease with stage 1 through stage 4 chronic kidney disease, or unspecified chronic kidney disease; Z88.2 Allergy status to sulfonamides; Z88.5 Allergy status to narcotic agent; Z88.0 Allergy status to penicillin; Z79.01 Long term (current) use of anticoagulants; Z86.73 Personal history of transient ischemic attack (TIA), and cerebral infarction without residual deficits; Z90.49 Acquired absence of other specified parts of digestive tract

== ENCOUNTER → 2016-07-29 | Day surgery (SDC) | payer OTHER, MEDICARE ==
[2016-07-22 13:41] VITALS: Ht 149.9 cm; Wt 80.9 kg
--- NOTE | 2016-07-25 11:36 | PAT Medication Instructions ---
Service Date Jul 25, 2016. Current Home Medication List Acetaminophen (Tylenol), 650 MG PO Q8 PRN for Pain Bumetanide (Bumex), 1 MG PO BID Calcium Carbonate (Calcium Carbonate), 1 TAB PO BID Carvedilol (Coreg), 3.125 MG PO BID Cholecalciferol (Vitamin D3), 1 CAP PO DAILY Fluticasone Propionate (Nasal) (Flonase Allergy Relief), 2 SPRAY KETTY DAILY PRN for PRN Gabapentin (Neurontin), 2 CAP PO QPM Gabapentin (Neurontin), 300 MG PO QPM Lactobacillus (Acidophilus), 1 CAP PO DAILY Levothyroxine Sodium (Synthroid), 75 MCG PO QAM Lisinopril (Zestril), 40 MG PO DAILY Methylcellulose (Laxative) (Citrucel Fiber Laxative), 1 TBS PO DAILY PRN for Constipation Polyethylene Glycol 3350 (Miralax), 17 GM PO DAILY PRN for Constipation Sertraline (Zoloft), 0.5 TAB PO DAILY Warfarin Sod (Coumadin), 2.5 MG PO 5XWK Warfarin Sodium (Coumadin), 1 TAB PO 2XWK Medication Instructions For Your Scheduled Surgery - Instructions per prescribing physician and : Warfarin Sod (Coumadin) - Hold the following medications the morning of surgery: Lisinopril (Zestril), 40 MG PO DAILY Cholecalciferol (Vitamin D3), 1 CAP PO DAILY Lactobacillus (Acidophilus), 1 CAP PO DAILY Methylcellulose (Laxative) (Citrucel Fiber Laxative), 1 TBS PO DAILY PRN for Constipation Polyethylene Glycol 3350 (Miralax), 17 GM PO DAILY PRN for Constipation Bumetanide (Bumex), 1 MG PO BID Calcium Carbonate (Calcium Carbonate), 1 TAB PO BID - Take the following medications the morning of surgery with a sip of water OTHERWISE NOTHING TO EAT OR DRINK AFTER MIDNIGHT: Acetaminophen (Tylenol), 650 MG PO Q8 PRN for Pain (may take if needed up to 4 hours prior to surgery) Carvedilol (Coreg), 3.125 MG PO BID Levothyroxine Sodium (Synthroid), 75 MCG PO QAM Sertraline (Zoloft), 0.5 TAB PO DAILY Fluticasone Propionate (Nasal) (Flonase Allergy Relief), 2 SPRAY KETTY DAILY PRN for PRN - Take the following medications as scheduled the night before surgery: Acetaminophen (Tylenol), 650 MG PO Q8 PRN for Pain Carvedilol (Coreg), 3.125 MG PO BID Gabapentin (Neurontin), 2 CAP PO QPM Gabapentin (Neurontin), 300 MG PO QPM Bumetanide (Bumex), 1 MG PO BID Calcium Carbonate (Calcium Carbonate), 1 TAB PO BID If you have any questions please call us at [phone] or [phone] or [phone]
[~2016-07-29] VITALS: Ht 149.9 cm; Wt 80.9 kg
[~2016-07-29] MED LIST changes: +ACET-1256 PO; +ACET-1311 PO; -AMIO200T PO; +ASPEC81 PO; +BUME1TAB PO; +CALC-392 PO; +CARV3.122 PO; +CHOL2000 PO; +CMD4 PO; +CRD60 PO; +CRDCD180 PO; +DILT30TA PO; -ESTR1CRE PV; +FAMO20TA11 PO; +FAMO40TA6 PO; +FLUT0.15 NAE; +GABA-112 PO; -GABA-113 PO; +GABA1SOL4 PO; -HYDR12.56 PO; +INVAV1 IV; +LACTCAP3 PO; -LEVO50TA PO; +LEVO75TA PO; +LIDOCAINE HCL 2% 2 ML VIAL (20MG/ML) ONE; +LPT20 PO; +MCRK20 PO; +METHPOW7 PO; +MGNO400 PO; +NF84 PO; +NRN/300 PO; +ONDA4TAB10 SL; +OXYC1TAB3 PO; +POLY335019 PO; -PRAV40TA2 PO; -PRLSR20 PO; +PROPOFOL IV EMULSION 10 MG/ML 20 ML VIAL IV ONE; +RXC5 PO; +SODIUM CHLORIDE 0.9% 500ML 500 ML IV ONE; -TRAZ50TA35 PO; +VANC5CAP PO; +WARF1TAB PO; +ZLF50 PO; +ZNT150 PO
[2016-07-29 13:03] VITALS: TEMP 36.5
--- NOTE | 2016-07-29 13:36 | Endo History and Physical ---
History & Physical Date of Service: Jul 29, 2016. Chief Complaint: Anemia Referring Physician: Kwadwo Cannon History of Present Illness 81 yo CF who presents for EGD and colonoscopy secondary to anemia. Past Surgical History Hx Cardiac Surgery: No Hx Internal Defibrillator: No Hx Pacemaker: No Hx Abdominal Surgery: Yes (CHRISTEN, D&C) Hx of Implantable Prosthesis: No Hx Post-Op Nausea and Vomiting: No Hx Cancer Surgery: Yes (VULVECTOMY, TONSILLAR BIOPSIES) Hx Thoracic Surgery: No Hx Orthopedic: No Hx Urinary Tract Surgery: No Family History None Social History Smoking Status: Former Smoker Hx Substance Use: No Hx Alcohol Use: Yes (OCCASIONAL) Allergies Coded Allergies: Morphine and Related (Verified Allergy, Severe, "IT STOPPED MY HEART", 07/22) Sulfa Antibiotics (Verified Allergy, Intermediate, fever, 07/22/16) Penicillins (Unverified Allergy, Unknown, HIVES, 07/22/16) Current Medications Reported Home Medications Medications Dose Route/Sig Max Daily Dose Days Date Category Vitamin D3 (Cholecalciferol) 2,000 Unit Cap 1 Cap PO DAILY 90 07/25/16 Reported Zoloft (Sertraline HCl) 25 Mg Tab 0.5 Tab PO DAILY 07/25/16 Reported Miralax (Polyethylene Glycol 3350) 1 Pow Pow 17 Gm PO DAILY PRN 07/25/16 Reported Zestril (Lisinopril) 40 Mg Tab 40 Mg PO DAILY 07/25/16 Reported Synthroid (Levothyroxine Sodium) 75 Mcg Tab 75 Mcg PO QAM 07/25/16 Reported Neurontin (Gabapentin) 300 Mg Cap 300 Mg PO QPM 07/25/16 Reported Neurontin (Gabapentin) 100 Mg Cap 2 Cap PO QPM 07/25/16 Reported Flonase Allergy Relief (Fluticasone Propionate (Nasal)) 50 Mcg/Act Spr 2 [place] KETTY DAILY PRN 07/25/16 Reported Coumadin (Warfarin Sodium) 1 Mg Tab 1 Tab PO 2XWK 30 07/25/16 Reported Coumadin (Warfarin Sod) 2.5 Mg Tab 2.5 Mg PO 5XWK 07/25/16 Reported Citrucel Fiber Laxative (Methylcellulose (Laxative)) 1 Pow Pow 1 Tbs PO DAILY PRN 07/25/16 Reported Coreg (Carvedilol) 3.125 Mg Tab 3.125 Mg PO BID 07/25/16 Reported Calcium Carbonate 600 Mg Tab 1 Tab PO BID 07/25/16 Reported Bumex (Bumetanide) 1 Mg Tab 1 Mg PO BID 07/25/16 Reported Acidophilus (Lactobacillus) 1 Cap Cap 1 Cap PO DAILY 07/25/16 Reported Tylenol (Acetaminophen) 325 Mg Tab 650 Mg PO Q8 PRN 05/09/16 Reported Vital Signs Weight (Kilograms): 80.91 Height (Feet): 4 Height (Inches): 11 Date Time Temp Pulse Resp B/P (MAP) Pulse Ox O2 Delivery O2 Flow Rate FiO2 07/29/16 13:03 36.5 59 20 172/69 (103) 99 Room Air Physical Exam General Appearance: WD/WN, no apparent distress Respiratory/Chest: Auscultation: breath sounds normal Cardiovascular: Heart Auscultation: RRR Abdomen: Bowel Sounds: normal Inspection & Palpation: soft, non-distended, no tenderness, guarding & rebound Assessment and Plan Assessment: 81 yo CF who presents for EGD and colonoscopy secondary to anemia. Plan: Proceed with EGD and colonoscopy.
--- NOTE | 2016-07-29 13:55 | Discharge Instructions ---
Endoscopy Patient Instructions Date / Procedure(s) Performed Jul 29, 2016. Colonoscopy, EGD Allergy Information Coded Allergies: Morphine and Related (Verified Allergy, Severe, "IT STOPPED MY HEART", 07/22) Sulfa Antibiotics (Verified Allergy, Intermediate, fever, 07/22/16) Penicillins (Unverified Allergy, Unknown, HIVES, 07/22/16) Discharge Date / Findings Jul 29, 2016. EGD: Mild Gastritis Colonoscopy: Diverticulosis, Internal hemorrhoids Medication Instructions Stopped Medication(s): Coumadin, bridged with lovenox 07/28/16 OK to resume all medications today as prescribed Medications Dose Route/Sig Max Daily Dose Days Date Category Vitamin D3 (Cholecalciferol) 2,000 Unit Cap 1 Cap PO DAILY 90 07/25/16 Reported Zoloft (Sertraline HCl) 25 Mg Tab 0.5 Tab PO DAILY 07/25/16 Reported Miralax (Polyethylene Glycol 3350) 1 Pow Pow 17 Gm PO DAILY PRN 07/25/16 Reported Zestril (Lisinopril) 40 Mg Tab 40 Mg PO DAILY 07/25/16 Reported Synthroid (Levothyroxine Sodium) 75 Mcg Tab 75 Mcg PO QAM 07/25/16 Reported Neurontin (Gabapentin) 300 Mg Cap 300 Mg PO QPM 07/25/16 Reported Neurontin (Gabapentin) 100 Mg Cap 2 Cap PO QPM 07/25/16 Reported Flonase Allergy Relief (Fluticasone Propionate (Nasal)) 50 Mcg/Act Spr 2 [place] KETTY DAILY PRN 07/25/16 Reported Coumadin (Warfarin Sodium) 1 Mg Tab 1 Tab PO 2XWK 30 07/25/16 Reported Coumadin (Warfarin Sod) 2.5 Mg Tab 2.5 Mg PO 5XWK 07/25/16 Reported Citrucel Fiber Laxative (Methylcellulose (Laxative)) 1 Pow Pow 1 Tbs PO DAILY PRN 07/25/16 Reported Coreg (Carvedilol) 3.125 Mg Tab 3.125 Mg PO BID 07/25/16 Reported Calcium Carbonate 600 Mg Tab 1 Tab PO BID 07/25/16 Reported Bumex (Bumetanide) 1 Mg Tab 1 Mg PO BID 07/25/16 Reported Acidophilus (Lactobacillus) 1 Cap Cap 1 Cap PO DAILY 07/25/16 Reported Tylenol (Acetaminophen) 325 Mg Tab 650 Mg PO Q8 PRN 05/09/16 Reported Provider Instructions Activity Restrictions - No exercising or heavy lifting for 24 hours. - Do not drink alcohol the day of the procedure. - Do not drive a car or operate machinery until the day after the procedure. - Do not make any important decisions or sign important papers in 24 hours after the procedure. Following Day: - Return to full activity which may include returning to work/school. Diet Start your diet with liquids and light foods (jello, soup, juice, toast). Then eat your usual diet if not nauseated. Treatment For Common After Affects For mild abdominal pain, bloating, or excessive gas: - Rest - Eat lightly - Lie on right side Follow-Up Information Follow-up with Kwadwo Cannon as scheduled Anesthesia Information What You Should Know You have had a procedure that required some medicine to reduce anxiety and discomfort. This treatment is called moderate sedation. After receiving the treatment, you may be sleepy, but you will be able to breathe on your own. The effects of the treatment may last for several hours. Follow these instructions along with Activity/Diet recommendations noted above: * Do NOT do anything where dizziness or clumsiness would be dangerous. * Rest quietly at home today, then you can be up and about tomorrow. * Have a responsible person stay with you the rest of today. * You may have had an I.V. today. If so, you may take the dressing off later today. Recommendations Call your doctor if: * Trouble breathing * Continuous vomiting for more than 24 hours * Temperature above 101 degrees * Severe abdominal pain or bloating * Pain not relieved by pain medicine ordered * There is increased drainage or redness from any incision * A large amount of rectal bleeding greater than 2-3 tablespoons. (If you had a polyp/s removed or have hemorrhoids, a small amount of blood - from the rectum is to be expected.) * You have any unanswered questions or concerns. IN THE EVENT OF A SERIOUS EMERGENCY, GO TO THE NEAREST EMERGENCY ROOM Your discharge instructions were prepared by provider Ronald Greenfield. Patient Instructions Signature Page Bertha Dubose Patient (or Guardian) Signature/Date: I have read and understand the instructions given to me by my caregivers. Caregiver/RN/Doctor Signature/Date: The above-named patient and/or guardian has received patient instructions on this date. + Original Patient Signature Page (only) stays with chart. Please make copy for patient.
--- NOTE | 2016-07-29 14:00 | GI REPORT ---
Procedure Date: 07/29/2016 1:19 PM Procedure: Upper GI endoscopy Indications: Iron deficiency anemia Medicines: Monitored Anesthesia Care Complications: No immediate complications. Estimated Blood Loss: Estimated blood loss: none. Procedure: Pre-Anesthesia Assessment: - Prior to the procedure, a History and Physical was performed, and patient medications and allergies were reviewed. The patient's tolerance of previous anesthesia was also reviewed. The risks and benefits of the procedure and the sedation options and risks were discussed with the patient. All questions were answered, and informed consent was obtained. Prior Anticoagulants: The patient last took Coumadin (warfarin) 2 days and Lovenox (enoxaparin) 1 day prior to the procedure. ASA Grade Assessment: III - A patient with severe systemic disease. After reviewing the risks and benefits, the patient was deemed in satisfactory condition to undergo the procedure. After obtaining informed consent, the endoscope was passed under direct vision. Throughout the procedure, the patient's blood pressure, pulse, and oxygen saturations were monitored continuously. The scope was introduced through the mouth, and advanced to the second part of duodenum. The upper GI endoscopy was accomplished without difficulty. The patient tolerated the procedure well. Findings: The esophagus was normal. Localized minimal inflammation characterized by erythema was found in the gastric antrum. The examined duodenum was normal. Impression: - Normal esophagus. - Gastritis. - Normal examined duodenum. - No specimens collected. Recommendation: - Resume previous diet. - Continue present medications. - Perform a colonoscopy today. Ronald Greenfield DO 07/29/2016 1:59:47 PM This report has been signed electronically. Note Initiated On: 07/29/2016 1:19 PM I attest to the content of the Intraoperative Record and orders documented therein, exceptions below
--- NOTE | 2016-07-29 14:04 | GI REPORT ---
Procedure Date: 07/29/2016 1:42 PM Procedure: Colonoscopy Indications: Iron deficiency anemia Medicines: Monitored Anesthesia Care Complications: No immediate complications. Estimated Blood Loss: Estimated blood loss: none. Procedure: Pre-Anesthesia Assessment: - Prior to the procedure, a History and Physical was performed, and patient medications and allergies were reviewed. The patient's tolerance of previous anesthesia was also reviewed. The risks and benefits of the procedure and the sedation options and risks were discussed with the patient. All questions were answered, and informed consent was obtained. Prior Anticoagulants: The patient last took Coumadin (warfarin) 2 days and Lovenox (enoxaparin) 1 day prior to the procedure. ASA Grade Assessment: III - A patient with severe systemic disease. After reviewing the risks and benefits, the patient was deemed in satisfactory condition to undergo the procedure. After I obtained informed consent, the scope was passed under direct vision. Throughout the procedure, the patient's blood pressure, pulse, and oxygen saturations were monitored continuously. The Scope was introduced through the anus and advanced to the terminal ileum. The colonoscopy was performed without difficulty. The patient tolerated the procedure well. The quality of the bowel preparation was good. The terminal ileum, ileocecal valve, appendiceal orifice, and rectum were photographed. Findings: Multiple small-mouthed diverticula were found in the sigmoid colon. Non-bleeding internal hemorrhoids were found during retroflexion. The hemorrhoids were small. Impression: - Diverticulosis in the sigmoid colon. - Non-bleeding internal hemorrhoids. - No specimens collected. Recommendation: - Resume previous diet. - Continue present medications. - No repeat colonoscopy due to age and the absence of advanced adenomas. - Return to primary care physician as previously scheduled. - No findings on this exam to explain patient's anemia. Ronald Greenfield DO 07/29/2016 2:04:26 PM This report has been signed electronically. Note Initiated On: 07/29/2016 1:42 PM I attest to the content of the Intraoperative Record and orders documented therein, exceptions below
[2016-07-29 14:40] VITALS: BP 134/48; PULSE 59; O2SAT 99
--- NOTE | 2016-07-29 14:42 | Anesthesiology Progress Note ---
Anesthesia Post Op Note Date & Time Jul 29, 2016 at 14:41 Vital Signs Pain Intensity: 0 Vital Signs Past 12 Hours Date Time Temp Pulse Resp B/P (MAP) Pulse Ox O2 Delivery O2 Flow Rate FiO2 07/29/16 14:26 58 18 130/61 (84) 99 Room Air 07/29/16 14:14 56 18 121/47 (71) 100 Room Air 07/29/16 13:58 57 18 109/39 (62) 99 Room Air 07/29/16 13:03 36.5 59 20 172/69 (103) 99 Room Air Notes Mental Status: alert / awake / arousable, participated in evaluation Pt Amnestic to Procedure: Yes Nausea / Vomiting: adequately controlled Pain: adequately controlled Airway Patency, RR, SpO2: stable & adequate BP & HR: stable & adequate Hydration State: stable & adequate Anesthetic Complications: no major complications apparent
== END | disposition home or self-care (01) ==
LOC: C.GI 12:18
PROVIDERS: ATTEND Internal Medicine
DX: D50.9 Iron deficiency anemia, unspecified (principal); K29.70 Gastritis, unspecified, without bleeding; K57.30 Diverticulosis of large intestine without perforation or abscess without bleeding; K64.8 Other hemorrhoids

== ENCOUNTER → 2016-08-16 | Outpatient (CLI) | payer OTHER, MEDICARE ==
[~2016-08-16] MED LIST changes: -LIDOCAINE HCL 2% 2 ML VIAL (20MG/ML) ONE; -PROPOFOL IV EMULSION 10 MG/ML 20 ML VIAL IV ONE; -SODIUM CHLORIDE 0.9% 500ML 500 ML IV ONE
--- NOTE | 2016-08-16 14:37 | DIAGNOSTIC IMAGING REPORT ---
VIDEO SWALLOW HISTORY: R13.14 Esophageal [id number] TECHNIQUE: Video fluoroscopic evaluation of swallowing was performed in the AP and lateral projections by the speech pathology staff. The patient is fed nectar-thick and thin liquid barium, a barium coated wafer, and barium pudding. FLUOROSCOPY TIME: 2.7 minutes. A cine loop submitted. COMPARISON STUDY: Barium swallow 01/23/2015. FINDINGS: Multiple episodes of penetration. However, no aspiration identified during the examination. Mild vallecular residue with the barium pudding. IMPRESSION: 1. No aspiration identified. 2. Please see the speech pathologist report for detailed findings and recommendations. Electronically signed by: Ellis Oquendo M.D. 08/16/2016 2:36 PM Dictated Date/Time: 08/16/2016 2:33 PM
--- NOTE | 2016-08-16 16:28 | SWALLOWING EVALUATION ---
HISTORY: This 81 year-old woman, was referred for a VFSS at [facility] in order address concerns of swallowing difficulty and feelings of food getting stuck. 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 Patient had an EGD on 07/29/2016 results showed a normal esophagus. She also had a Barium Swallow Study in 2014 that demonstrated BUSHRA, hiatal hernia and inability of a barium tablet to pass through the G-E junction. Currently the patient's diet level is regular and she is self-limiting to slippery solids. PROCEDURE: The patient was seen in the Radiology Department of [facility] for the VFSS. Cursory examination of the oral cavity revealed adequate dentition. Movement of the articulators was WNL. It should be noted that on palpation the patient's (L) neck (where she received XRT) was noted to be fibrosed and rigid as compared to her (R) neck. The patient was seated on a stool and was viewed in both the Anterior-Posterior (A-P) and Lateral planes. Volitional phonation exercises completed in the A-P plane revealed bilateral vocal fold movement and vocal intensity within functional limits. In the lateral plane, the patient was given the following boluses: 1 tsp. thin liquid barium x 2, single swallow thin liquid barium self-presented from a cup, sequential swallows of thin liquid barium self-presented from a cup, 1 tsp. nectar-thick liquid barium, single swallow nectar-thick liquid barium self-presented from a cup, sequential swallows nectar-thick liquid barium self-presented from a cup, 1 tsp. barium pudding, and 1 club cracker with barium pudding. The patient was then repositioned into the A-P plane and given 1 tsp. barium pudding. RESULTS: Oral Stage: Labial closure was adequate. There was a cohesive bolus held between the tongue and the palatal seal. Mastication was slow and disorganized. There was slowed tongue motion in bolus transport, but bolus always moved posteriorly. There was a collection of residue on the oral structures after the first swallow, but sequential swallows cleared all of the bolus. Swallow was delayed with the bolus head at the level of the pyriforms when pharyngeal swallow was initiated. Patient showed mild oral dysphagia, but can be considered to be WFL for her age. Pharyngeal Stage: Soft palate elevation was complete. There was partial superior movement of thyroid cartilage and partial approximation of the arytenoids to the base of the epiglottis. There was partial anterior excursion of the hyoid. Epiglottic inversion was complete. Laryngeal vestibular closure was incomplete with a narrow column of contrast in the laryngeal vestibule. Pharyngeal stripping wave was present, but diminished. Pharyngeal contraction was complete. There was partial distension and partial obstruction of flow of the pharyngoesophageal segment opening. Tongue base retraction was complete. There was pharyngeal residue with trace residue on the valleculae and in the pyriforms. Patient showed mild pharyngeal dysphagia without penetration or aspiration. Movement of the pharyngeal structures was reduced; however, this is secondary to the radiation therapy sustained tonsillar cancer. Reduced movement causes difficulty clearing residue from the pharyngeal cavity. Esophageal Stage: There was no significant esophageal bolus retention with the pudding bolus given in the AP plane; however, this patient has a history of esophageal dysmotility and had marked difficulty clearing the cracker bolus from the pharynx and cervical esophagus. SUMMARY/RECOMMENDATIONS: This patient presents with mild oral-pharyngeal dysphagia characterized by reduced tongue movement and reduced movement of the pharyngeal structures. In addition, the patient presents with s/s esophageal dysfunction. The following is recommended: 1. Slippery regular diet. Choose foods that are loose, slippery, and moist. Avoid foods that thick, pasty, and doughy. Use condiments as necessary to make foods slippery. 2. GERD precautions: patient should be seated fully upright during and for 30 minutes after meals. Alternate solids and liquids. Take small bites and sips. Head of bed elevated AT LEAST 30-degrees at ALL times-even for sleep. 3. Patient would benefit from a GI consultation re: s/s BUSHRA, esophageal motility disorder, and globus sensation. 4. Patient would benefit from outpatient speech services for strengthening muscles used in swallowing. 5. Patient and her son are interested in pursuing therapeutic massage and/or acupuncture to address the fibrotic tissue in the patient's (L) neck s/p XRT. This was encouraged by CASHIER MANAGER. A summary of the results and recommendations was discussed with patient and her son and understanding was verbalized immediately following the study. Thank you for referral of this patient. Please contact me at if any additional information is needed. Phyllis Kasper STSLP
== END | disposition home or self-care (01) ==
LOC: C.RAD 13:19
PROVIDERS: ATTEND Family Medicine
DX: R13.14 Dysphagia, pharyngoesophageal phase (principal); R63.3 Feeding difficulties; M26.4 Malocclusion, unspecified

== ENCOUNTER 2016-09-16 01:43 | Inpatient (IN) | payer OTHER, MEDICARE ==
[~2016-09-16] VITALS: Ht 149.9 cm; Wt 76.6 kg
[2016-09-16] VITALS (40 sets, daily range): BP systolic 75–165; BP diastolic 40–81; PULSE 60–86; TEMP 36.7–37.7; O2SAT 88–100; Ht 149.9 cm; Wt 76.6 kg
[~2016-09-16 01:43] MED LIST changes: -ACET-1256 PO; -ASPEC81 PO; -CMD4 PO; -CRD60 PO; -CRDCD180 PO; -DILT30TA PO; -FAMO20TA11 PO; -FAMO40TA6 PO; -GABA1SOL4 PO; -INVAV1 IV; -LPT20 PO; -MCRK20 PO; -MGNO400 PO; -NF84 PO; -ONDA4TAB10 SL; -OXYC1TAB3 PO; -RXC5 PO; -VANC5CAP PO; -ZLF50 PO; -ZNT150 PO
[2016-09-16] MEDS ORDERED: ONDANSETRON INJ 2 MG/ML 2 ML VIAL IV STA (01:56)
[2016-09-16] MEDS ORDERED: MoRPHine SULFATE 4 MG/ML 1 ML CARP\\VIAL IV STA (01:56)
[2016-09-16] MEDS ORDERED: FENTANYL CITRATE INJ 50 MCG/1 ML 2 ML VIAL IV STA (02:00)
[2016-09-16] MEDS ORDERED: OPTIRAY 320 IV PRN (02:15)
[2016-09-16 02:23] LABS: URINE APPEARANCE CLEAR (CLEAR); URINE BILIRUBIN NEG (NEG); URINE COLOR YELLOW; URINE NITRITE NEG (NEG); URINE SPECIFIC GRAVITY 1.019 (1.000-1.030); UROBILINOGEN NEG (NEG); ZZUR CULT IF INDIC CLEAN CATCH NO
[2016-09-16 02:26] LABS: MANUAL MICROSCOPIC REQUIRED? NO; REVIEW REQ? NO
[2016-09-16 03:04] LABS: BASO % 0.2 %; BASO ABS # 0.02 K/uL (0-0.2); COMPLETE YES; EOS % 3.5 %; HEMATOCRIT 37.9 % (37-47); IG% 0.3 %; LYMPH % 19.7 %; LYMPH ABS # 2.02 K/uL (1.2-3.4); MEAN CELL VOLUME 92.9 fL (80-100); MEAN CORPUSCULAR HEMOGLOBIN 30.1 pg (25-34); MEAN CORPUSCULAR HGB CONC 32.5 g/dl (32-36); MEAN PLATELET VOLUME 9.5 fL (7.4-10.4); MONO % 6.7 %; NEUT % 69.6 %; PLATELET COUNT 232 K/uL (130-400); RED BLOOD COUNT 4.08 M/uL (4.2-5.4); WHITE BLOOD COUNT 10.23 K/uL (4.8-10.8)
[2016-09-16 03:22] LABS: BUN/CREATININE RATIO 22.3 (10-20); CALCIUM 8.7 mg/dl (8.5-10.1); CREATININE 1.7 mg/dl (0.60-1.20); POTASSIUM 4.3 mmol/L (3.5-5.1)
[2016-09-16] MEDS ORDERED: METRONIDAZOLE 500MG / 100ML NSS IV STA (04:46)
[2016-09-16] MEDS ORDERED: LEVAQUIN 750MG / 150ML D5W IV ONE (05:00)
[2016-09-16] MEDS ORDERED: PHYTONADIONE INJ 5 MG in SODIUM CHLORIDE 0.9% 50ML 50 ML IV ONE (05:00)
[2016-09-16 05:02] LABS: INR 1.3 (0.9-1.1); PROTHROMBIN TIME (PATIENT) 13.5 SECONDS (9.0-12.0)
--- NOTE | 2016-09-16 05:35 | EMERGENCY ROOM VISIT NOTE ---
History Report prepared by Abby: Sánchez Gallardo Under the Supervision of: Dr. Finn Villagran D.O. First contact with patient: 01:51 Chief Complaint: ABDOMINAL PAIN Stated Complaint: AB PAIN History of Present Illness The patient is a 81 year old female who presents to the Emergency Room with complaints of persistent left sided abdominal pain beginning several hours ago. She has a history of diverticulitis and states that her current pain feels similar. She states that nothing improves or worsens her symptoms. The patient denies any fevers, vomiting, or diarrhea. Her diverticulitis has been treated with antibiotics in the past. She notes that she recently had a biopsy of her tongue and tonsil at [facility]. She is on Coumadin for A-fib. Source of History: patient Onset: several hours ago Position: abdomen (left side) Timing: other (persistent) Modifying Factors (Worsening): other (none) Modifying Factors (Relieving): other (none) Associated Symptoms: No fevers, No vomiting, No diarrhea Review of Systems See HPI for pertinent positives and negatives. A total of ten systems were reviewed and were otherwise negative. Past Medical & Surgical Medical Problems: (1) A-fib (2) Acute diverticulitis (3) Benign hypertension (4) Tonsillar cancer Surgical Problems: (1) S/P cholecystectomy Family History No pertinent family history stated. Social History Smoking Status: Former Smoker Alcohol Use: none Marital Status: single Occupation Status: retired Current/Historical Medications Scheduled Bumetanide (Bumex), 1 MG PO BID Calcium Carbonate (Calcium Carbonate), 1 TAB PO BID Carvedilol (Coreg), 3.125 MG PO BID Cholecalciferol (Vitamin D3), 1 CAP PO DAILY Gabapentin (Neurontin), 2 CAP PO QPM Gabapentin (Neurontin), 300 MG PO QPM Lactobacillus (Acidophilus), 1 CAP PO DAILY Levothyroxine Sodium (Synthroid), 75 MCG PO QAM Lisinopril (Zestril), 40 MG PO DAILY Sertraline (Zoloft), 0.5 TAB PO DAILY Warfarin Sod (Coumadin), 2.5 MG PO 5XWK Warfarin Sodium (Coumadin), 1 TAB PO 2XWK Scheduled PRN Acetaminophen (Tylenol), 650 MG PO Q8 PRN for Pain Fluticasone Propionate (Nasal) (Flonase Allergy Relief), 2 SPRAY KETTY DAILY PRN for PRN Methylcellulose (Laxative) (Citrucel Fiber Laxative), 1 TBS PO DAILY PRN for Constipation Polyethylene Glycol 3350 (Miralax), 17 GM PO DAILY PRN for Constipation Allergies Coded Allergies: Morphine and Related (Verified Allergy, Severe, "IT STOPPED MY HEART", ) Sulfa Antibiotics (Verified Allergy, Intermediate, fever, 09/16/16) Penicillins (Verified Allergy, Unknown, HIVES, 09/16/16) Physical Exam Vital Signs Date Time Temp Pulse Resp B/P (MAP) Pulse Ox O2 Delivery O2 Flow Rate FiO2 09/16/16 05:15 83 09/16/16 04:43 82 16 94 09/16/16 04:31 109/57 09/16/16 04:28 84 17 92 09/16/16 04:13 81 15 93 09/16/16 03:58 82 18 95 09/16/16 03:31 111/32 09/16/16 03:28 84 12 95 09/16/16 03:13 82 12 94 09/16/16 03:01 118/37 09/16/16 02:58 82 21 95 09/16/16 02:43 84 16 97 09/16/16 02:31 133/64 09/16/16 02:28 83 18 97 09/16/16 02:13 83 17 97 09/16/16 02:01 124/55 09/16/16 02:01 83 09/16/16 01:58 83 17 95 09/16/16 01:51 37.2 84 18 129/77 95 Room Air 09/16/16 01:50 129/77 Physical Exam GENERAL: Awake, alert, well-appearing, in no distress HENT: Normocephalic, atraumatic. Oropharynx unremarkable. EYES: Normal conjunctiva. Sclera non-icteric. NECK: Supple. No nuchal rigidity. FROM. No JVD. RESPIRATORY: Clear to auscultation. CARDIAC: Regular rate, normal rhythm. Extremities warm and well perfused. Pulses equal. ABDOMEN: Soft, non-distended. Mild LLQ tenderness to palpation. No rebound or guarding. No masses . RECTAL: Deferred. MUSCULOSKELETAL: Chest examination reveals no tenderness. The back is symmetrical on inspection without obvious abnormality. There is no CVA tenderness to palpation. No joint edema. LOWER EXTREMITIES: Calves are equal size bilaterally and non-tender. No edema. No discoloration. NEURO: Normal sensorium. No sensory or motor deficits noted. SKIN: No rash or jaundice noted. Medical Decision & Procedures ER Provider Diagnostic Interpretation: CT results per statrad and my review. CT ABDOMEN & PELVIS: Comparison: CT Abdomen/pelvis 05/08/16. Mild inflammatory change adjacent to the sigmoid colon, compatible with acute diverticulitis, complicated by perforation with scattered intraperitoneal free air throughout the abdomen. No evidence of bowel obstruction. Appendix is normal. Gallbladder is surgically absent. Several small calcified granulomas in the liver and spleen. Small hiatal hernia. One View Chest X-ray interpreted by me: negative for infiltrate. Laboratory Results 09/16/16 02:55 Red Blood Count 4.08, Mean Corpuscular Volume 92.9, Mean Corpuscular Hemoglobin 30.1, Mean Corpuscular Hemoglobin Concent 32.5, Mean Platelet Volume 9.5, Neutrophils (%) (Auto) 69.6, Lymphocytes (%) (Auto) 19.7, Monocytes (%) (Auto) 6.7, Eosinophils (%) (Auto) 3.5, Basophils (%) (Auto) 0.2, Neutrophils # (Auto) 7.11, Lymphocytes # (Auto) 2.02, Monocytes # (Auto) 0.69, Eosinophils # (Auto) 0.36, Basophils # (Auto) 0.02 09/16/16 02:55 Test 09/16/16 02:05 09/16/16 02:55 Urine Color YELLOW Urine Appearance CLEAR (CLEAR) Urine pH 8.0 (4.5-7.5) Urine Specific [place] 1.019 (1.000-1.030) Urine Protein NEG (NEG) Urine Glucose (UA) NEG (NEG) Urine Ketones NEG (NEG) Urine Occult Blood NEG (NEG) Urine Nitrite NEG (NEG) Urine Bilirubin NEG (NEG) Urine Urobilinogen NEG (NEG) Urine Leukocyte Esterase MODERATE (NEG) Urine WBC (Auto) 5-10 /hpf (0-5) Urine RBC (Auto) 0-4 /hpf (0-4) Urine Hyaline Casts (Auto) 0 /lpf (0-5) Urine Epithelial Cells (Auto) 10-20 /lpf (0-5) Urine Bacteria (Auto) NEG (NEG) White Blood Count 10.23 K/uL (4.8-10.8) Red Blood Count 4.08 M/uL (4.2-5.4) Hemoglobin 12.3 g/dL (12.0-16.0) Hematocrit 37.9 % (37-47) Mean Corpuscular Volume 92.9 fL (80-100) Mean Corpuscular Hemoglobin 30.1 pg (25-34) Mean Corpuscular Hemoglobin Concent 32.5 g/dl (32-36) Platelet Count 232 K/uL (130-400) Mean Platelet Volume 9.5 fL (7.4-10.4) Neutrophils (%) (Auto) 69.6 % Lymphocytes (%) (Auto) 19.7 % Monocytes (%) (Auto) 6.7 % Eosinophils (%) (Auto) 3.5 % Basophils (%) (Auto) 0.2 % Neutrophils # (Auto) 7.11 K/uL (1.4-6.5) Lymphocytes # (Auto) 2.02 K/uL (1.2-3.4) Monocytes # (Auto) 0.69 K/uL (0.11-0.59) Eosinophils # (Auto) 0.36 K/uL (0-0.5) Basophils # (Auto) 0.02 K/uL (0-0.2) RDW Standard Deviation 46.4 fL (36.4-46.3) RDW Coefficient of Variation 13.7 % (11.5-14.5) Immature Granulocyte % (Auto) 0.3 % Immature Granulocyte # (Auto) 0.03 K/uL (0.00-0.02) Prothrombin Time 13.5 SECONDS (9.0-12.0) Prothromb Time International Ratio 1.3 (0.9-1.1) Anion Gap 6.0 mmol/L (3-11) Est Creatinine Clear Calc Drug Dose 23.7 ml/min Estimated GFR () 32.0 Estimated GFR (Non- 27.6 BUN/Creatinine Ratio 22.3 (10-20) Calcium Level 8.7 mg/dl (8.5-10.1) Total Bilirubin 0.3 mg/dl (0.2-1) Direct Bilirubin 0.1 mg/dl (0-0.2) Aspartate Amino Transf (AST/SGOT) 22 U/L (15-37) Alanine Aminotransferase (ALT/SGPT) 31 U/L (12-78) Alkaline Phosphatase 96 U/L (45-117) Total Protein 6.4 gm/dl (6.4-8.2) Albumin 2.6 gm/dl (3.4-5.0) Lipase 102 U/L (73-393) Laboratory results reviewed by me Medications Administered Medications (Trade) Dose Ordered Sig/Mazin Route Start Time Stop Time Status Last Admin Dose Admin Ondansetron HCl (Zofran Inj) 4 mg NOW STAT IV 09/16/16 01:56 09/16/16 01:59 DC 09/16/16 02:42 4 MG Fentanyl Citrate (Fentanyl Inj) 25 mcg NOW STAT IV 09/16/16 02:00 09/16/16 02:01 DC 09/16/16 02:41 25 MCG Metronidazole (Flagyl / Nss) 500 mg NOW STAT IV 09/16/16 04:46 09/16/16 04:48 DC 09/16/16 05:23 500 MG Levofloxacin (Levaquin / D5W) 750 mg NOW ONCE IV 09/16/16 05:00 09/16/16 05:01 DC 09/16/16 05:23 750 MG ED Course 0153: The patient was evaluated in room B12B. A complete history and physical exam was performed. 0156: Ordered Zofran Inj 4 mg IV. 0200: Ordered Fentanyl Inj 25 mcg IV. 0446: Ordered Flagyl / NSS 500 mg IV. 0500: Ordered Levaquin / D5w 750 mg IV, Phytonadione 5 mg / Sodium Chloride 50.5 ml @ 101 mls/hr IV. Upon reexamination, the patient was resting comfortably. I discussed the test results and treatment plan with her. The patient will be evaluated for further management. Medical Decision Differential diagnosis: Etiologies such as appendicitis, diverticulitis, PUD, biliary pathology, UTI, pancreatitis, obstruction, mesenteric ischemia, aortic pathology, infections, inflammatory bowel disease, renal colic, as well as others were entertained. Spoke with the patient's son was a test fixture designer in [place] he states that she has been on a course of prednisone for an issue with her jaw and has been seen at [facility] over the past 2 weeks. Patient also has been off her Coumadin and has been bridged with heparin and Lovenox for her atrial fibrillation she is prone to TIAs due to her atrial fibrillation if she is not anticoagulated. Patient's INR is currently 1.3 I will not give the patient vitamin K the INR will be watched and the patient's clinical course will be evaluated for potential surgery Case was discussed with Dr. Vera from surgery and the case was discussed with the [facility] medical hospitalist specialists Consults Time Called: [id number] Consulting Physician: Dr. Vera -General Surgery Returned Call: [phone] Discussed the patient's case. Dr. Vera recommends that the patient be admitted as an inpatient to the hospitalist service and he will see the patient as an inpatient. Additional Consults: Time Called: [id number] Consulted Physician: Dr. Aceves -[facility] [place] Returned Call: [phone] Additional Comments: Discussed the patient's case. The patient will be evaluated for further treatment and disposition. Impression Primary Impression: Diverticulitis of intestine with perforation Scribe Attestation The scribe's documentation has been prepared under my direction and personally reviewed by me in its entirety. I confirm that the note above accurately reflects all work, treatment, procedures, and medical decision making performed by me. Departure Information Dispostion Being Evaluated By Hospitalist Referrals No Doctor, Assigned (PCP) Patient Instructions My [facility]
[2016-09-16] MEDS ORDERED: AZTREONAM IV 2,000 MG in DEXTROSE 5% 100ML 100 ML IV SCH ×2 (07:00→08:00)
[2016-09-16] MEDS ORDERED: NURSING VERBAL MED ORDER ONE ×5 (07:00→20:00)
[2016-09-16] MEDS ORDERED: SODIUM CHLORIDE 0.9% 500ML 500 ML IV SCH ×2 (07:15)
--- NOTE | 2016-09-16 07:26 | DIAGNOSTIC IMAGING REPORT ---
CT SCAN OF THE ABDOMEN AND PELVIS WITHOUT IV CONTRAST CLINICAL HISTORY: Generalized abdominal pain. COMPARISON STUDY: Abdominal CT dated 05/08/2016. TECHNIQUE: CT scan of the abdomen and pelvis is performed from the lung bases to the proximal femora. Images are reviewed in the axial, sagittal, and coronal planes. IV contrast was not administered for this examination as per the referring clinician. Note that the examination was performed and significant suboptimal fashion without oral and IV contrast. Automated dose control exposure was utilized. A dose lowering technique was utilized adhering to the principles of ALARA. CT DOSE: 810.37 mGycm FINDINGS: Lung bases: The heart is normal in size and without pericardial effusion. The lung bases are clear. There is a small hiatal hernia. Liver: The unenhanced liver is normal in size, contour, and attenuation. There are numerous calcified hepatic granulomas. There is no intrahepatic biliary ductal dilatation. Gallbladder: Surgically absent noting clips in the gallbladder fossa. Spleen: Normal in size and attenuation. There are numerous calcified splenic granulomas. Pancreas: The unenhanced pancreas is moderately atrophic and grossly unremarkable. Adrenal glands: Unremarkable. Kidneys: The unenhanced kidneys are atrophic and without hydronephrosis. There are no renal calculi identified. There is no evidence of contour deforming renal mass lesion. Abdominal vasculature: The abdominal aorta is normal in course and caliber noting moderate atherosclerotic calcification. Bowel: No bowel obstruction is seen. There is mild to moderate colonic diverticulosis. There is only mild induration seen around the proximal sigmoid colon with trace fluid in the left paracolic gutter. This may represent early/mild versus resolving diverticulitis. No organized fluid collection is seen to suggest abscess. The appendix is well-visualized and normal. Peritoneum: There are numerous small foci of intraperitoneal free air, greatest below the diaphragm and in the pelvis. No abdominal ascites is identified. A fat-containing umbilical hernia is identified. Foci of induration within the ventral abdominal pannus are likely related to subcutaneous injections. Lymphadenopathy: None. Pelvic viscera: The bladder, uterus, and adnexa are normal as visualized. Skeletal structures: The skeletal structures are osteopenic. Mild to moderate lumbosacral spondylosis is observed. No lytic or blastic lesions are seen. IMPRESSION: 1. Suboptimal examination without oral and IV contrast. 2. There is mild to moderate colonic diverticulosis. Mild inflammatory change and trace fluid is seen adjacent to the sigmoid colon suggesting mild/early versus resolving diverticulitis. 3. There is evidence of perforation, with numerous small foci of intraperitoneal free air. No abscess is seen. Surgical consultation is advised. 4. There is no bowel obstruction. 5. Small hiatal hernia. 6. Additional findings as above. Electronically signed by: Inocencio Rivera M.D. 09/16/2016 7:24 AM Dictated Date/Time: 09/16/2016 7:18 AM
[2016-09-16] MEDS ORDERED: VANCOMYCIN INJ 1,000 MG in SODIUM CHLORIDE 0.9% 250ML 250 ML IV SCH ×2 (07:30→10:00)
[2016-09-16] MEDS ORDERED: VANCOMYCIN CONSULT ACTIVE PRN (07:30)
--- NOTE | 2016-09-16 07:42 | DIAGNOSTIC IMAGING REPORT ---
CHEST ONE VIEW PORTABLE CLINICAL HISTORY: 81 years-old Female presenting with preop. TECHNIQUE: Portable upright AP view of the chest was obtained. COMPARISON: 08/30/2013. FINDINGS: Atherosclerosis of aortic arch. Cardiac silhouette remains enlarged. Lungs and pleural spaces clear. Osseous structures and upper abdomen normal. IMPRESSION: 1. No acute cardiopulmonary disease. 2. Cardiomegaly. Electronically signed by: Conor Mojica M.D. 09/16/2016 7:40 AM Dictated Date/Time: 09/16/2016 7:39 AM
[2016-09-16] MEDS ORDERED: METOPROLOL TARTRATE 1 MG/ML VIAL IV PRN (08:00)
[2016-09-16] MEDS ORDERED: METRONIDAZOLE / NSS 500 MG in PREMIXED NSS 100 ML IV SCH (08:00)
[2016-09-16] MEDS ORDERED: LORAZEPAM 2 MG/ML 1 ML VIAL IV PRN (08:00)
[2016-09-16] MEDS: ALBUMIN HUMAN 25% 12.5 GM/50 ML VIAL IV SCH ×6 (08:30→23:47)
--- NOTE | 2016-09-16 09:27 | History and Physical ---
History & Physical Date & Time of Service: Sep 16, 2016 at 09:15 Chief Complaint: Perforated Abdominal Viscus, Sepsis Primary Care Physician: Kwadwo Cannon, D.O.Int.Med. History of Present Illness This patient presented with left lower quadrant abdominal pain and history of diverticulitis. She was treated for diverticulosis in the spring. She has such going colonoscopy which showed diverticulitis. She has been recently bridged with anticoagulation for a tongue biopsy. 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 General surgery was consulted and felt this should be managed conservatively. The patient however was behaving slightly like septic shock in the ER with low blood pressure and is elected that she be placed in the intensive care unit for closer monitoring at time of my visiting her lactic acid was pending she only received 500 mL's of volume resuscitation I ordered additional liter with close monitoring of her blood pressure when she goes to the ICU because of a history of diastolic heart failure being on Lasix and metoprolol at home. Past Medical/Surgical History Medical Problems: (1) A-fib Status: Chronic (2) Benign hypertension Status: Resolved (3) Tonsillar cancer Status: Resolved Chronic diastolic heart failure Diverticulitis Chronic kidney disease stage III CVA Hypertension sick sinus syndrome, left bundle branch block Hypothyroidism Depression Family History Family history of coronary disease Social History Smoking Status: Former Smoker Marital Status: single Housing status: other Occupational Status: retired Allergies Coded Allergies: Morphine and Related (Verified Allergy, Severe, "IT STOPPED MY HEART", ) Sulfa Antibiotics (Verified Allergy, Intermediate, fever, 09/16/16) Penicillins (Verified Allergy, Unknown, HIVES, 09/16/16) Home Medications Scheduled Bumetanide (Bumex), 1 MG PO BID Calcium Carbonate (Calcium Carbonate), 1 TAB PO BID Carvedilol (Coreg), 3.125 MG PO BID Cholecalciferol (Vitamin D3), 1 CAP PO DAILY Gabapentin (Neurontin), 2 CAP PO QPM Gabapentin (Neurontin), 300 MG PO QPM Lactobacillus (Acidophilus), 1 CAP PO DAILY Levothyroxine Sodium (Synthroid), 75 MCG PO QAM Lisinopril (Zestril), 40 MG PO DAILY Sertraline (Zoloft), 0.5 TAB PO DAILY Warfarin Sod (Coumadin), 2.5 MG PO 5XWK Warfarin Sodium (Coumadin), 1 TAB PO 2XWK Scheduled PRN Acetaminophen (Tylenol), 650 MG PO Q8 PRN for Pain Fluticasone Propionate (Nasal) (Flonase Allergy Relief), 2 SPRAY KETTY DAILY PRN for PRN Methylcellulose (Laxative) (Citrucel Fiber Laxative), 1 TBS PO DAILY PRN for Constipation Polyethylene Glycol 3350 (Miralax), 17 GM PO DAILY PRN for Constipation Review of Systems ROS: well nourished well developed No double vision blurry vision No problems with speech or swallowing No palpitations, chest pain or pressure No Wheezing or breathing issues LLQ abdominal pain but no nausea vomiting diarrhea changes in appetite or weight No burning urine urine frequency or changes in color No focal joint pain or muscle pain No skin rashes or oral lesions No unusual bruising or bleeding No focused back pain or numbness or loss of strength No changes in memory or confusion Physical Exam Vital Signs Date Time Temp Pulse Resp B/P (MAP) Pulse Ox O2 Delivery O2 Flow Rate FiO2 09/16/16 09:07 37.2 72 18 126/59 (81) 94 Room Air 09/16/16 08:34 80 22 99/27 96 09/16/16 08:10 74 09/16/16 08:00 73 22 101/42 94 Room Air 09/16/16 07:58 75 18 94 09/16/16 07:53 96 Room Air 09/16/16 07:51 98/43 09/16/16 07:48 80 17 97 09/16/16 07:41 100/52 09/16/16 07:39 111/45 09/16/16 07:38 80 13 98 09/16/16 07:31 98/50 09/16/16 07:28 81 14 99 09/16/16 07:26 85/59 09/16/16 07:18 80 20 96 09/16/16 07:11 101/53 09/16/16 07:08 85 18 96 09/16/16 07:01 102/47 09/16/16 06:58 81 18 93 09/16/16 06:56 95/46 09/16/16 06:48 83 15 94 09/16/16 06:47 86/46 09/16/16 06:38 81 12 92 09/16/16 06:31 80/40 09/16/16 06:28 88 20 09/16/16 06:18 85 17 95 09/16/16 06:08 82 14 95 09/16/16 06:01 104/44 09/16/16 05:58 83 15 94 09/16/16 05:48 82 14 95 09/16/16 05:38 81 112/49 96 Room Air 09/16/16 05:38 81 17 112/49 95 09/16/16 05:33 82 16 96 09/16/16 05:31 86/46 09/16/16 05:18 83 15 96 09/16/16 05:15 83 09/16/16 05:03 84 19 94 09/16/16 05:01 118/51 09/16/16 04:48 82 13 93 09/16/16 04:43 82 16 94 09/16/16 04:31 109/57 09/16/16 04:28 84 17 92 09/16/16 04:13 81 15 93 09/16/16 03:58 82 18 95 09/16/16 03:31 111/32 09/16/16 03:28 84 12 95 09/16/16 03:13 82 12 94 09/16/16 03:01 118/37 09/16/16 02:58 82 21 95 09/16/16 02:43 84 16 97 09/16/16 02:31 133/64 09/16/16 02:28 83 18 97 09/16/16 02:13 83 17 97 09/16/16 02:01 124/55 09/16/16 02:01 83 09/16/16 01:58 83 17 95 09/16/16 01:51 37.2 84 18 129/77 95 Room Air 09/16/16 01:50 129/77 General Appearance: WD/WN, + mild distress Head: normocephalic, atraumatic Eyes: PERRL, EOMI Neck: supple, no JVD Respiratory/Chest: chest non-tender, lungs clear, normal breath sounds Cardiovascular: regular rate, rhythm, no murmur Abdomen/GI: normal bowel sounds, + tenderness, + guarding, + pertinent finding (peritoneal irritation) Back: normal inspection, no CVA tenderness Extremities/Musculoskelatal: no pedal edema, normal range of motion Neurologic/Psych: alert, oriented x 3 Diagnostics Laboratory Results Results Past 24 Hours Test 09/16/16 02:05 09/16/16 02:55 09/16/16 07:49 Range/Units Urine Color YELLOW Urine Appearance CLEAR CLEAR Urine pH 8.0 4.5-7.5 Urine Specific [place] 1.019 1.000-1.030 Urine Protein NEG NEG Urine Glucose (UA) NEG NEG Urine Ketones NEG NEG Urine Occult Blood NEG NEG Urine Nitrite NEG NEG Urine Bilirubin NEG NEG Urine Urobilinogen NEG NEG Urine Leukocyte Esterase MODERATE NEG Urine WBC (Auto) 5-10 0-5 /hpf Urine RBC (Auto) 0-4 0-4 /hpf Urine Hyaline Casts (Auto) 0 0-5 /lpf Urine Epithelial Cells (Auto) 10-20 0-5 /lpf Urine Bacteria (Auto) NEG NEG White Blood Count 10.23 4.8-10.8 K/uL Red Blood Count 4.08 4.2-5.4 M/uL Hemoglobin 12.3 12.0-16.0 g/dL Hematocrit 37.9 37-47 % Mean Corpuscular Volume 92.9 80-100 fL Mean Corpuscular Hemoglobin 30.1 25-34 pg Mean Corpuscular Hemoglobin Concent 32.5 32-36 g/dl Platelet Count 232 130-400 K/uL Mean Platelet Volume 9.5 7.4-10.4 fL Neutrophils (%) (Auto) 69.6 % Lymphocytes (%) (Auto) 19.7 % Monocytes (%) (Auto) 6.7 % Eosinophils (%) (Auto) 3.5 % Basophils (%) (Auto) 0.2 % Neutrophils # (Auto) 7.11 1.4-6.5 K/uL Lymphocytes # (Auto) 2.02 1.2-3.4 K/uL Monocytes # (Auto) 0.69 0.11-0.59 K/uL Eosinophils # (Auto) 0.36 0-0.5 K/uL Basophils # (Auto) 0.02 0-0.2 K/uL RDW Standard Deviation 46.4 36.4-46.3 fL RDW Coefficient of Variation 13.7 11.5-14.5 % Immature Granulocyte % (Auto) 0.3 % Immature Granulocyte # (Auto) 0.03 0.00-0.02 K/uL Prothrombin Time 13.5 9.0-12.0 SECONDS Prothromb Time International Ratio 1.3 0.9-1.1 Sodium Level 139 136-145 mmol/L Potassium Level 4.3 3.5-5.1 mmol/L Chloride Level 105 98-107 mmol/L Carbon Dioxide Level 28 21-32 mmol/L Anion Gap 6.0 3-11 mmol/L Blood Urea Nitrogen 38 7-18 mg/dl Creatinine 1.70 0.60-1.20 mg/dl Est Creatinine Clear Calc Drug Dose 23.7 ml/min Estimated GFR () 32.0 Estimated GFR (Non- 27.6 BUN/Creatinine Ratio 22.3 10-20 Random Glucose 124 70-99 mg/dl Calcium Level 8.7 8.5-10.1 mg/dl Total Bilirubin 0.3 0.2-1 mg/dl Direct Bilirubin 0.1 0-0.2 mg/dl Aspartate Amino Transf (AST/SGOT) 22 15-37 U/L Alanine Aminotransferase (ALT/SGPT) 31 12-78 U/L Alkaline Phosphatase 96 45-117 U/L Total Protein 6.4 6.4-8.2 gm/dl Albumin 2.6 3.4-5.0 gm/dl Lipase 102 73-393 U/L Microbiology Results 09/16/16 Blood Culture, Manda Batch Pending 09/16/16 Blood Culture, Manda Batch Pending Diagnostic Radiology CT scan abdomen and pelvis shows colonic diverticuli and free air present in the abdomen other (sinus rhythm) Impression Assessment and Plan [id number] female with sepsis from ruptured viscus Sepsis lactic acid is pending 1500 MLS of fluid given her history of diastolic heart failure ICU monitoring blood cultures evaluated by general surgery Desire George serial labs History of A. fib currently in sinus given hypotension we'll hold carvedilol and anticoagulation will a cardiology oversight reinstitute beta faustino when possible when necessary metoprolol if needed IV Nothing by mouth status converting Synthroid iv History of chronic diastolic heart failure we will hold Bumex Oral thrush was noted on initial intake exam we'll use Diflucan as his nothing by mouth For depression as a left ventricular resident on his held if needed Ativan with me use IV Advanced Directives Existing Living Will: No Existing Power of Sales Performance Manager: No VTE Prophylaxis VTE Risk Assessment Done? Y/N: Yes Risk Level: Moderate Given or contraindicated: T.E.D. Stockings, SCD's
[2016-09-16] MEDS ORDERED: HYDROmorphone INJ 1 MG/ML SYR ONE (09:29)
--- NOTE | 2016-09-16 09:40 | Surgery Consultation ---
Consultation Date of Consultation: Sep 16, 2016. Attending Physician: Nathen Deras M.D. History of Present Illness pt had recent tongue bx ( benign according to pt)...has been constipated secondary to pain meds. yesterday afternoon she started having suprapubic pain which worsened. had her first bout of diverticulitis requiring hospitilization in April of this year. CT shows diverticulitis with small pockets of free air. Past Medical/Surgical History Medical Problems: (1) Diverticulitis Status: Acute (2) Diverticulitis of intestine with perforation Status: Acute (3) Left lower quadrant pain Status: Acute Social History Smoking Status: Former Smoker Marital Status: single Occupation Status: retired Allergies Coded Allergies: Morphine and Related (Verified Allergy, Severe, "IT STOPPED MY HEART", ) Sulfa Antibiotics (Verified Allergy, Intermediate, fever, 09/16/16) Penicillins (Verified Allergy, Unknown, HIVES, 09/16/16) Home Medications Scheduled Bumetanide (Bumex), 1 MG PO BID Calcium Carbonate (Calcium Carbonate), 1 TAB PO BID Carvedilol (Coreg), 3.125 MG PO BID Cholecalciferol (Vitamin D3), 1 CAP PO DAILY Gabapentin (Neurontin), 2 CAP PO QPM Gabapentin (Neurontin), 300 MG PO QPM Lactobacillus (Acidophilus), 1 CAP PO DAILY Levothyroxine Sodium (Synthroid), 75 MCG PO QAM Lisinopril (Zestril), 40 MG PO DAILY Sertraline (Zoloft), 0.5 TAB PO DAILY Warfarin Sod (Coumadin), 2.5 MG PO 5XWK Warfarin Sodium (Coumadin), 1 TAB PO 2XWK Scheduled PRN Acetaminophen (Tylenol), 650 MG PO Q8 PRN for Pain Fluticasone Propionate (Nasal) (Flonase Allergy Relief), 2 SPRAY KETTY DAILY PRN for PRN Methylcellulose (Laxative) (Citrucel Fiber Laxative), 1 TBS PO DAILY PRN for Constipation Polyethylene Glycol 3350 (Miralax), 17 GM PO DAILY PRN for Constipation Current Inpatient Medications Current Inpatient Medications Medications (Trade) Dose Ordered Sig/Mazin Route Start Time Stop Time Status Last Admin Dose Admin Ioversol (Optiray 320) 100 ml UD PRN IV 09/16/16 02:15 8/1/17 02:14 Vancomycin HCl 1000 mg/Sodium Chloride 270 ml @ 125 mls/hr TODAY@0730 IV 09/16/16 07:30 09/16/16 12:00 09/16/16 07:38 125 MLS/HR Aztreonam 2000 mg/ Dextrose 110 ml @ 100 mls/hr Q8H IV 09/16/16 07:00 09/26/16 06:59 UNV Metronidazole 500 mg/Prmx 100 ml @ 100 mls/hr Q8H IV 09/16/16 07:00 09/26/16 06:59 UNV Albumin Human (Albumin 25%) 12.5 gm TODAY@0730,0830 IV 09/16/16 07:30 09/16/16 12:00 Aztreonam 2000 mg/ Dextrose 110 ml @ 100 mls/hr TODAY@0800 IV 09/16/16 08:00 09/16/16 14:00 09/16/16 07:39 100 MLS/HR Vancomycin HCl (Consult) 1 ea UD PRN N/A 09/16/16 07:30 10/16/16 07:29 Sodium Chloride 1,000 ml @ 80 mls/hr [id number] IV 09/16/16 07:54 10/16/16 07:53 Lorazepam (Ativan Inj) 0.5 mg Q4H PRN IV 09/16/16 08:00 10/16/16 07:59 Ciprofloxacin/ Dextrose 400 mg/ Prmx 200 ml @ 100 mls/hr Q12 IV 09/16/16 09:00 09/26/16 08:59 UNV Levothyroxine Sodium 35 mcg/ Syringe 1.75 ml @ 2 mls/min DAILY@09 IV 09/16/16 10:00 10/16/16 09:59 Metoprolol Tartrate (Lopressor Iv) 5 mg Q4H PRN IV 09/16/16 08:00 10/16/16 07:59 Vancomycin HCl 1000 mg/Sodium Chloride 270 ml @ 125 mls/hr 1000 IV 09/16/16 10:00 09/16/16 12:10 Fluconazole/ Sodium Chloride 100 mg/Prmx 50 ml @ 100 mls/hr DAILY IV 09/17/16 09:00 09/27/16 08:59 UNV Hydromorphone HCl (Dilaudid Inj) 1 mg NOW ONCE IV 09/16/16 09:45 09/16/16 09:46 Review of Systems Constitutional: + fever ENT: + problem reported (recent tongue biopsy) Abdomen: + pain, + constipation Physical Exam Date Time Temp Pulse Resp B/P (MAP) Pulse Ox O2 Delivery O2 Flow Rate FiO2 09/16/16 09:07 37.2 72 18 126/59 (81) 94 Room Air 09/16/16 08:34 80 22 99/27 96 09/16/16 08:10 74 09/16/16 08:00 73 22 101/42 94 Room Air 09/16/16 07:58 75 18 94 09/16/16 07:53 96 Room Air 09/16/16 07:51 98/43 09/16/16 07:48 80 17 97 09/16/16 07:41 100/52 09/16/16 07:39 111/45 09/16/16 07:38 80 13 98 09/16/16 07:31 98/50 09/16/16 07:28 81 14 99 09/16/16 07:26 85/59 09/16/16 07:18 80 20 96 09/16/16 07:11 101/53 09/16/16 07:08 85 18 96 09/16/16 07:01 102/47 09/16/16 06:58 81 18 93 09/16/16 06:56 95/46 09/16/16 06:48 83 15 94 09/16/16 06:47 86/46 09/16/16 06:38 81 12 92 09/16/16 06:31 80/40 09/16/16 06:28 88 20 09/16/16 06:18 85 17 95 09/16/16 06:08 82 14 95 09/16/16 06:01 104/44 09/16/16 05:58 83 15 94 09/16/16 05:48 82 14 95 09/16/16 05:38 81 112/49 96 Room Air 09/16/16 05:38 81 17 112/49 95 09/16/16 05:33 82 16 96 09/16/16 05:31 86/46 09/16/16 05:18 83 15 96 09/16/16 05:15 83 09/16/16 05:03 84 19 94 09/16/16 05:01 118/51 09/16/16 04:48 82 13 93 09/16/16 04:43 82 16 94 09/16/16 04:31 109/57 09/16/16 04:28 84 17 92 09/16/16 04:13 81 15 93 09/16/16 03:58 82 18 95 09/16/16 03:31 111/32 09/16/16 03:28 84 12 95 09/16/16 03:13 82 12 94 09/16/16 03:01 118/37 09/16/16 02:58 82 21 95 09/16/16 02:43 84 16 97 09/16/16 02:31 133/64 09/16/16 02:28 83 18 97 09/16/16 02:13 83 17 97 09/16/16 02:01 124/55 09/16/16 02:01 83 09/16/16 01:58 83 17 95 09/16/16 01:51 37.2 84 18 129/77 95 Room Air 09/16/16 01:50 129/77 General Appearance: + mild distress Head: normocephalic, atraumatic Eyes: PERRL, EOMI ENT: hearing grossly normal Neck: supple, no JVD Respiratory/Chest: no respiratory distress, no accessory muscle use Cardiovascular: + irregularly irregular Abdomen/GI: + pertinent finding (soft. suprapubic and LLQ ttp. no peritoneal signs. ) Neurologic/Psych: alert, oriented x 3 Skin: normal color, warm/dry Laboratory Results Last 24 Hours Test 09/16/16 02:05 09/16/16 02:55 09/16/16 07:49 Urine Color YELLOW Urine Appearance CLEAR Urine pH 8.0 Urine Specific [place] 1.019 Urine Protein NEG Urine Glucose (UA) NEG Urine Ketones NEG Urine Occult Blood NEG Urine Nitrite NEG Urine Bilirubin NEG Urine Urobilinogen NEG Urine Leukocyte Esterase MODERATE Urine WBC (Auto) 5-10 /hpf Urine RBC (Auto) 0-4 /hpf Urine Hyaline Casts (Auto) 0 /lpf Urine Epithelial Cells (Auto) 10-20 /lpf Urine Bacteria (Auto) NEG White Blood Count 10.23 K/uL Red Blood Count 4.08 M/uL Hemoglobin 12.3 g/dL Hematocrit 37.9 % Mean Corpuscular Volume 92.9 fL Mean Corpuscular Hemoglobin 30.1 pg Mean Corpuscular Hemoglobin Concent 32.5 g/dl Platelet Count 232 K/uL Mean Platelet Volume 9.5 fL Neutrophils (%) (Auto) 69.6 % Lymphocytes (%) (Auto) 19.7 % Monocytes (%) (Auto) 6.7 % Eosinophils (%) (Auto) 3.5 % Basophils (%) (Auto) 0.2 % Neutrophils # (Auto) 7.11 K/uL Lymphocytes # (Auto) 2.02 K/uL Monocytes # (Auto) 0.69 K/uL Eosinophils # (Auto) 0.36 K/uL Basophils # (Auto) 0.02 K/uL RDW Standard Deviation 46.4 fL RDW Coefficient of Variation 13.7 % Immature Granulocyte % (Auto) 0.3 % Immature Granulocyte # (Auto) 0.03 K/uL Prothrombin Time 13.5 SECONDS Prothromb Time International Ratio 1.3 Sodium Level 139 mmol/L Potassium Level 4.3 mmol/L Chloride Level 105 mmol/L Carbon Dioxide Level 28 mmol/L Anion Gap 6.0 mmol/L Blood Urea Nitrogen 38 mg/dl Creatinine 1.70 mg/dl Est Creatinine Clear Calc Drug Dose 23.7 ml/min Estimated GFR () 32.0 Estimated GFR (Non- 27.6 BUN/Creatinine Ratio 22.3 Random Glucose 124 mg/dl Calcium Level 8.7 mg/dl Total Bilirubin 0.3 mg/dl Direct Bilirubin 0.1 mg/dl Aspartate Amino Transf (AST/SGOT) 22 U/L Alanine Aminotransferase (ALT/SGPT) 31 U/L Alkaline Phosphatase 96 U/L Total Protein 6.4 gm/dl Albumin 2.6 gm/dl Lipase 102 U/L Assessment & Plan 1. diverticulitis with perforation clinically stable and pain localized will try conservative tx. not out of the babb yet for possible ex-lap rec IV heparin over lovenox in case she needs urgent OR NPO/IV antibiotics will need to follow closely clinically
[2016-09-16] MEDS ORDERED: HYDROmorphone INJ 1 MG/ML SYR IV ONE (09:45)
[2016-09-16] MEDS: SODIUM CHLORIDE 0.9% 1000ML 1,000 ML IV SCH ×2 (09:48→20:03)
[2016-09-16] MEDS ORDERED: CIPROFLOXACIN / D5W 400 MG in PREMIXED IN D5W 200 ML IV SCH (10:00)
[2016-09-16] MEDS: FLUCONAZOLE / NSS 100 MG in PREMIXED NSS 50 ML IV SCH (10:25)
[2016-09-16] MEDS: LEVOTHYROXINE SODIUM INJ 35 MCG in SYRINGE 0 ML IV SCH (10:25)
[2016-09-16] MEDS ORDERED: HEPARIN 25,000 UNIT/500ML D5W 500 ML IV PRN (11:15)
[2016-09-16] MEDS ORDERED: HEPARIN IV BOLUS 5,000 UNIT in SYRINGE 0 ML IV ONE (11:15)
[2016-09-16 11:54] LABS: MEAN CELL VOLUME 94.2 fL (80-100); MEAN CORPUSCULAR HEMOGLOBIN 30.7 pg (25-34); MEAN PLATELET VOLUME 9.3 fL (7.4-10.4); PLATELET COUNT 199 K/uL (130-400); RED BLOOD COUNT 3.29 M/uL (4.2-5.4); WHITE BLOOD COUNT 8.67 K/uL (4.8-10.8)
[2016-09-16 11:59] LABS: INR 1.4 (0.9-1.1); PARTIAL THROMBOPLASTIN RATIO 1.2
[2016-09-16 12:00] LABS: MEAN CORPUSCULAR HGB CONC 32.6 g/dl (32-36)
--- NOTE | 2016-09-16 13:35 | Critical Care Consultation ---
Critical Care Consultation Date of Consultation: Sep 16, 2016. Attending Physician: Nathen Deras M.D. Reason for Consultation: Severe sepsis History of Present Illness This is a pleasant 81 year old female with h/o diverticulosis with diverticulitis earlier this year came to ED complaining of abdominal pain in the LLQ and lower abdomen. It started yesterday, similar to her last episode of diverticulitis except for lower abdomen/suprapubic pain. Denies nausea and vomiting, had fever of 102F last night, denies chills. Occasionally she has blood in her stool, per patient secondary to hemorrhoids, was investigated with a colonoscopy. She has a history of a-fib, on Coumadin for many years. It was held and changed to Coumadin for tongue biopsy 4 days ago. She continued Lovenox, last dose was yesterday, and started Coumadin 3 days ago. She felt constipated post procedure The patient received approx 1.5 liters NS so far. She also has a history of CKD stage 3, mild emphysema, and tonsillar cancer. Currently she feels well, hemodynamics improved quickly and remained stable. 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 H/o cholecystectomy Social History Smoking Status: Former Smoker Marital Status: single Occupation Status: retired Allergies Coded Allergies: Sulfa Antibiotics (Verified Allergy, Intermediate, fever, 09/16/16) Penicillins (Verified Allergy, Unknown, HIVES, 09/16/16) Home Medications Scheduled Bumetanide (Bumex), 1 MG PO BID Calcium Carbonate (Calcium Carbonate), 1 TAB PO BID Carvedilol (Coreg), 3.125 MG PO BID Cholecalciferol (Vitamin D3), 1 CAP PO DAILY Gabapentin (Neurontin), 2 CAP PO QPM Gabapentin (Neurontin), 300 MG PO QPM Lactobacillus (Acidophilus), 1 CAP PO DAILY Levothyroxine Sodium (Synthroid), 75 MCG PO QAM Lisinopril (Zestril), 40 MG PO DAILY Sertraline (Zoloft), 0.5 TAB PO DAILY Warfarin Sod (Coumadin), 2.5 MG PO 5XWK Warfarin Sodium (Coumadin), 1 TAB PO 2XWK Scheduled PRN Acetaminophen (Tylenol), 650 MG PO Q8 PRN for Pain Fluticasone Propionate (Nasal) (Flonase Allergy Relief), 2 SPRAY KETTY DAILY PRN for PRN Methylcellulose (Laxative) (Citrucel Fiber Laxative), 1 TBS PO DAILY PRN for Constipation Polyethylene Glycol 3350 (Miralax), 17 GM PO DAILY PRN for Constipation Current Inpatient Medications Current Inpatient Medications Medications (Trade) Dose Ordered Sig/Mazin Route Start Time Stop Time Status Last Admin Dose Admin Ioversol (Optiray 320) 100 ml UD PRN IV 09/16/16 02:15 09/20/16 02:14 Metronidazole 500 mg/Prmx 100 ml @ 100 mls/hr Q8H IV 09/16/16 14:00 09/26/16 13:59 Sodium Chloride 1,000 ml @ 80 mls/hr [id number] IV 09/16/16 07:54 10/16/16 07:53 09/16/16 09:48 80 MLS/HR Lorazepam (Ativan Inj) 0.5 mg Q4H PRN IV 09/16/16 08:00 10/16/16 07:59 Ciprofloxacin/ Dextrose 400 mg/ Prmx 200 ml @ 100 mls/hr Q12H IV 09/16/16 10:00 09/26/16 09:59 09/16/16 09:48 100 MLS/HR Levothyroxine Sodium 35 mcg/ Syringe 1.75 ml @ 2 mls/min DAILY@09 IV 09/16/16 10:00 10/16/16 09:59 09/16/16 10:25 2 MLS/MIN Metoprolol Tartrate (Lopressor Iv) 5 mg Q4H PRN IV 09/16/16 08:00 10/16/16 07:59 Fluconazole/ Sodium Chloride 100 mg/Prmx 50 ml @ 100 mls/hr Q24H IV 09/16/16 10:00 09/26/16 09:59 09/16/16 10:25 100 MLS/HR Albumin Human (Albumin 25%) 25 gm Q6H IV 09/16/16 12:00 09/19/16 10:44 Heparin Sodium/ Dextrose 500 ml @ 22 mls/hr [id number] PRN IV 09/16/16 11:15 10/16/16 11:14 09/16/16 11:24 22 MLS/HR Review of Systems Constitutional: + fever, No chills Respiratory: No cough, No sputum, No wheezing, No shortness of breath, No dyspnea on exertion Cardiovascular: No chest pain, No edema Abdomen: + pain, + constipation, + GI bleeding (Occasionally), No nausea, No vomiting Genitourinary - Female: No dysuria, No urinary frequency Neurologic: No memory loss, No weakness Physical Exam Date Time Temp Pulse Resp B/P (MAP) Pulse Ox O2 Delivery O2 Flow Rate FiO2 09/16/16 12:01 100 Nasal Cannula 2.0 09/16/16 11:01 37.1 63 15 92/41 (58) 99 Room Air 09/16/16 10:30 68 12 111/53 (72) 100 09/16/16 10:01 63 12 108/40 (62) 09/16/16 09:07 37.2 72 18 126/59 (81) 94 Room Air 09/16/16 08:34 80 22 99/27 96 09/16/16 08:10 74 09/16/16 08:00 73 22 101/42 94 Room Air 09/16/16 07:58 75 18 94 09/16/16 07:53 96 Room Air 09/16/16 07:51 98/43 09/16/16 07:48 80 17 97 09/16/16 07:41 100/52 09/16/16 07:39 111/45 09/16/16 07:38 80 13 98 09/16/16 07:31 98/50 09/16/16 07:28 81 14 99 09/16/16 07:26 85/59 09/16/16 07:18 80 20 96 09/16/16 07:11 101/53 09/16/16 07:08 85 18 96 09/16/16 07:01 102/47 09/16/16 06:58 81 18 93 09/16/16 06:56 95/46 09/16/16 06:48 83 15 94 09/16/16 06:47 86/46 09/16/16 06:38 81 12 92 09/16/16 06:31 80/40 09/16/16 06:28 88 20 09/16/16 06:18 85 17 95 09/16/16 06:08 82 14 95 09/16/16 06:01 104/44 09/16/16 05:58 83 15 94 09/16/16 05:48 82 14 95 09/16/16 05:38 81 112/49 96 Room Air 09/16/16 05:38 81 17 112/49 95 09/16/16 05:33 82 16 96 09/16/16 05:31 86/46 09/16/16 05:18 83 15 96 09/16/16 05:15 83 09/16/16 05:03 84 19 94 09/16/16 05:01 118/51 09/16/16 04:48 82 13 93 09/16/16 04:43 82 16 94 09/16/16 04:31 109/57 09/16/16 04:28 84 17 92 09/16/16 04:13 81 15 93 09/16/16 03:58 82 18 95 09/16/16 03:31 111/32 09/16/16 03:28 84 12 95 09/16/16 03:13 82 12 94 09/16/16 03:01 118/37 09/16/16 02:58 82 21 95 09/16/16 02:43 84 16 97 09/16/16 02:31 133/64 09/16/16 02:28 83 18 97 09/16/16 02:13 83 17 97 09/16/16 02:01 124/55 09/16/16 02:01 83 09/16/16 01:58 83 17 95 09/16/16 01:51 37.2 84 18 129/77 95 Room Air 09/16/16 01:50 129/77 General Appearance: well-appearing, WD/WN, no apparent distress Head: normocephalic, atraumatic Eyes: PERRLA, no discharge Neck: trachea midline, supple Respiratory: clear to auscultation, no respiratory distress Cardiovasular: regular rate/rhythm, normal S1S2, no M/G/R Abdomen: LLQ TTP, suprapubic TTP, guarding Upper Extremities: no edema Lower Extremities: no edema Neuro: alert, oriented x 3, normal motor exam, normal sensation Laboratory Results Last 24 Hours Test 09/16/16 02:05 09/16/16 02:55 09/16/16 09:40 09/16/16 11:23 Urine Color YELLOW Urine Appearance CLEAR Urine pH 8.0 Urine Specific [place] 1.019 Urine Protein NEG Urine Glucose (UA) NEG Urine Ketones NEG Urine Occult Blood NEG Urine Nitrite NEG Urine Bilirubin NEG Urine Urobilinogen NEG Urine Leukocyte Esterase MODERATE Urine WBC (Auto) 5-10 /hpf Urine RBC (Auto) 0-4 /hpf Urine Hyaline Casts (Auto) 0 /lpf Urine Epithelial Cells (Auto) 10-20 /lpf Urine Bacteria (Auto) NEG White Blood Count 10.23 K/uL 8.67 K/uL Red Blood Count 4.08 M/uL 3.29 M/uL Hemoglobin 12.3 g/dL 10.1 g/dL Hematocrit 37.9 % 31.0 % Mean Corpuscular Volume 92.9 fL 94.2 fL Mean Corpuscular Hemoglobin 30.1 pg 30.7 pg Mean Corpuscular Hemoglobin Concent 32.5 g/dl 32.6 g/dl Platelet Count 232 K/uL 199 K/uL Mean Platelet Volume 9.5 fL 9.3 fL Neutrophils (%) (Auto) 69.6 % Lymphocytes (%) (Auto) 19.7 % Monocytes (%) (Auto) 6.7 % Eosinophils (%) (Auto) 3.5 % Basophils (%) (Auto) 0.2 % Neutrophils # (Auto) 7.11 K/uL Lymphocytes # (Auto) 2.02 K/uL Monocytes # (Auto) 0.69 K/uL Eosinophils # (Auto) 0.36 K/uL Basophils # (Auto) 0.02 K/uL RDW Standard Deviation 46.4 fL 48.6 fL RDW Coefficient of Variation 13.7 % 14.2 % Immature Granulocyte % (Auto) 0.3 % Immature Granulocyte # (Auto) 0.03 K/uL Prothrombin Time 13.5 SECONDS 15.0 SECONDS Prothromb Time International Ratio 1.3 1.4 Sodium Level 139 mmol/L Potassium Level 4.3 mmol/L Chloride Level 105 mmol/L Carbon Dioxide Level 28 mmol/L Anion Gap 6.0 mmol/L Blood Urea Nitrogen 38 mg/dl Creatinine 1.70 mg/dl Est Creatinine Clear Calc Drug Dose 23.7 ml/min Estimated GFR () 32.0 Estimated GFR (Non- 27.6 BUN/Creatinine Ratio 22.3 Random Glucose 124 mg/dl Calcium Level 8.7 mg/dl Total Bilirubin 0.3 mg/dl Direct Bilirubin 0.1 mg/dl Aspartate Amino Transf (AST/SGOT) 22 U/L Alanine Aminotransferase (ALT/SGPT) 31 U/L Alkaline Phosphatase 96 U/L Total Protein 6.4 gm/dl Albumin 2.6 gm/dl Lipase 102 U/L Lactic Acid Level 0.5 mmol/L Activated Partial Thromboplast Time 32.4 SECONDS Partial Thromboplastin Ratio 1.[address] abdomen/pelvis: 1. Suboptimal examination without oral and IV contrast. 2. There is mild to moderate colonic diverticulosis. Mild inflammatory change and trace fluid is seen adjacent to the sigmoid colon suggesting mild/early versus resolving diverticulitis. 3. There is evidence of perforation, with numerous small foci of intraperitoneal free air. No abscess is seen. Surgical consultation is advised. 4. There is no bowel obstruction. 5. Small hiatal hernia. 6. Additional findings as above Assessment & Plan 81 year old female presents with: Perforated viscus Diverticulitis A-fib Diastolic dysfunction CKD stage III Plan: Continue on antibiotics, on Cipro and Flagyl. S/p Vanco, Levaquin and Azactam Check blood cultures Not in shock, normal hemodynamics, lactic acid negative NPO Albumin infusion every 6 hours, can reduce mortality in case of peritonitis Surgical evaluation noted, non-surgical management for the time being. Possible exploratory laparotomy depending on her evolution Hold diuretics, continue maintenance IV fluids Hold antihypertensives as well for the time being Start on heparin drip for afib. Per son she had CVA in the past after withholding anticoagulation for a short period of time. Renal function at baseline Critical care time spent 30 minutes Discussed with the patient's 2 sons.
[2016-09-16] MEDS ORDERED: ACETAMINOPHEN 1000 MG/100 ML IV IV ONE (13:47)
--- NOTE | 2016-09-16 14:13 | CARDIOLOGY CONSULTATION ---
DATE OF CONSULTATION: 09/16/2016 CONSULTATION REQUESTED BY: Dr. Deras. REASON FOR CONSULTATION: Anticoagulation management, atrial fibrillation, diastolic heart failure. HISTORY OF PRESENT ILLNESS: Mrs. Tina Guillaume is a very pleasant 81-year-old woman well known to me from the outpatient setting with a history of atrial fibrillation and chronic diastolic heart failure who was readmitted overnight in the setting of abdominal pain. The patient has a longstanding history of atrial fibrillation that has previously been managed on antiarrhythmics and has been on longstanding Coumadin. Her atrial fibrillation has previously been complicated by a prior stroke while was off of anticoagulation for prior procedures. More recently, her care has been complicated by a questionable mass on the base of her tongue, for which she underwent a recent biopsy at [facility] earlier this week. For that, the patient was bridged with Lovenox to Coumadin. Most recently, she has restarted Coumadin 2 days ago. Her INR on presentation was 1.3. 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 On the day prior to admission, she began developing worsening left lower quadrant abdominal pain and as a result presented to the ED. A CT scan in the ED showed diverticulosis with some evidence of diverticulitis and possible perforated viscus. She was evaluated by general surgery who recommended conservative management. She is now in the intensive care unit due to borderline hypotension and has received IV fluids with resolution/improvement in her pressures. PAST MEDICAL HISTORY: 1. Atrial fibrillation as discussed above. 2. Chronic diastolic heart failure, last EF 50-55% with grade 1 diastolic dysfunction, normal RV size and no valvular abnormalities. 3. History of diverticulosis and diverticulitis. 4. Left bundle branch block. 5. Questionable sick sinus syndrome. 6. Prior CVA. 7. Hypertension. 8. Hypothyroidism. 9. Stage III chronic kidney disease. 10. Anemia. 11. Osteoarthritis. 12. Osteopenia. FAMILY HISTORY: Brother had an acute UT and son also had an acute UT. SOCIAL HISTORY: She is single. Denies any tobacco or alcohol use. HOME MEDICATIONS: Include Bumex 1 tab in the morning 1 mg, carvedilol 3.125 b.i.d., gabapentin, levothyroxine, sertraline, trazodone, vitamin D3 and Coumadin. REVIEW OF SYSTEMS: 10-point review of systems complete and otherwise negative, as stated in HPI. PHYSICAL EXAMINATION: VITAL SIGNS: Temperature 37.1, pulse 63, blood pressure 92/41 with a mean of 58, satting 99% on room air. GENERAL: The patient appears comfortable, no acute distress. HEENT: Sclerae are anicteric. Oropharynx is clear. Mucous membranes are moist. NECK: Supple with no lymphadenopathy. LUNGS: Clear to auscultation bilaterally. CARDIAC: She is regular to bradycardic. She has no appreciable murmurs, rubs or gallops. ABDOMEN: Soft. She has tenderness in the left lower quadrant. No guarding or rebound. She has diminished bowel sounds. EXTREMITIES: Warm. She has intact distal pulses. SKIN: Shows no rashes or lesions. NEUROLOGIC: Nonfocal. PSYCHIATRIC: She is alert, oriented and appropriate. LABORATORY DATA: White blood cell count is 8.7, hemoglobin is 10.1, platelets 199. INR is 1.4. Sodium 139, potassium 4.3, BUN 38, creatinine of 1.7. LFTs are within normal limits. EKG showed sinus rhythm with left bundle branch block in the 60s. CT scan of her abdomen showed diverticulosis with a suggestion of diverticulitis and perforated viscus. A chest x-ray showed no acute cardiopulmonary process and known cardiomegaly. IMPRESSION AND PLAN: 1. Diverticulitis with perforated viscus. 2. Atrial fibrillation, on anticoagulation. 3. History of prior stroke. 4. Chronic diastolic heart failure. Mrs. Tina Guillaume is here with acute onset of abdominal pain in the setting of diverticulosis with potentially perforated viscus. She is at present being managed conservatively by surgery. From a heart standpoint, she has a history of atrial fibrillation which has been complicated by her prior CVA. She was most recently being bridged for another procedure with Lovenox to Coumadin. Going forward with her anticoagulation, agree with anticoagulation with heparin in the setting of potential need for GI surgery. Would hold Coumadin, does not need additional vitamin K. Will consider additional bridging once GI issues are resolved. Otherwise, would continue to hold patient's carvedilol and lisinopril in the setting of relative hypotension. No other cardiac testing or medications necessary at this time. We will continue to follow while in hospital. Thank you for consultation.
[2016-09-16] MEDS ORDERED: ONDANSETRON INJ 2 MG/ML 2 ML VIAL ONE (15:42)
[2016-09-16] MEDS: METRONIDAZOLE / NSS 500 MG in PREMIXED NSS 100 ML IV SCH ×2 (16:13→21:42)
[2016-09-16] MEDS ORDERED: SODIUM CHLORIDE 0.9% 1000ML 500 ML IV SCH (16:30)
[2016-09-16] MEDS ORDERED: HYDROmorphone INJ 0.5 MG/0.5 ML SYR IV PRN (17:00)
[2016-09-16] MEDS ORDERED: HYDROmorphone INJ 0.5 MG/0.5 ML SYR ONE (17:01)
[2016-09-16 18:16] LABS: BASO % 0.1 %; BASO ABS # 0.01 K/uL (0-0.2); COMPLETE YES; EOS % 3.9 %; HEMATOCRIT 28.5 % (37-47); IG% 0.5 %; LYMPH % 21.8 %; LYMPH ABS # 1.61 K/uL (1.2-3.4); MEAN CELL VOLUME 93.8 fL (80-100); MEAN CORPUSCULAR HEMOGLOBIN 30.3 pg (25-34); MEAN CORPUSCULAR HGB CONC 32.3 g/dl (32-36); MONO % 6.9 %; NEUT % 66.8 %; PLATELET COUNT 176 K/uL (130-400); RED BLOOD COUNT 3.04 M/uL (4.2-5.4); WHITE BLOOD COUNT 7.39 K/uL (4.8-10.8)
--- NOTE | 2016-09-16 18:28 | DIAGNOSTIC IMAGING REPORT ---
ABD/PELVIS NO IV OR ORAL CONT HISTORY: 81 years-old Female Perforation, worsening diffuse abdominal pain with sigmoid diverticulitis and evidence of perforation seen on study of same day at 3:42 AM COMPARISON: 09/16/2016 CT abdomen and pelvis TECHNIQUE: Multiple axial CT images of the abdomen and pelvis were obtained without IV contrast. A dose lowering technique was used consistent with the principals of MARYANN. FINDINGS: Trace pleural effusions are noted with dependent subsegmental consolidative opacities suggesting atelectasis. The heart is enlarged with decreased attenuation of the cardiac blood pool suggesting anemia. Coronary arterial calcifications are noted. Innumerable calcifications are seen throughout the splenic and hepatic parenchyma compatible with healed granulomatous disease. Prior cholecystectomy. There is mild pancreatic atrophy. The adrenal glands appear unremarkable. There is mild nonspecific stranding the bilateral kidneys. Ureters, urinary bladder are within normal limits. Vascular calcifications involve the mildly filled uterus. There is moderate atherosclerotic plaquing of the abdominal aorta and its branches. No bulky adenopathy of the abdomen or pelvis is identified. Small sliding type hiatal hernia is seen. There is no bowel obstruction or pneumatosis identified. There is wall thickening of the mid sigmoid colon with with mild degree of stranding inflammatory stranding. There is progressive thickening of the peritoneum in the left lower quadrant of the abdomen with increased amount of mesenteric edema and trace ascites. Increased amount of pneumoperitoneum is also noted compatible with perforation. No large abscess or drainable collection is identified. Induration of the lower anterior abdominal wall suggests injection sites. The bones are mildly demineralized and appear intact. Intervertebral disc space narrowing is seen at L4-L5. IMPRESSION: 1. Progressive inflammatory changes about the mid sigmoid colon with increased amount of edema within the sigmoid mesocolon is noted along with increased amount of pneumoperitoneum compatible with worsening sigmoid diverticulitis and perforation. 2. No drainable collection or abscess is seen at this time. 3. Trace pleural effusions with subsegmental bibasilar consolidations suggesting atelectasis. 4. Incidental findings include suggested anemia, small sliding-type hiatal hernia, prior cholecystectomy and evidence of healed granulomatous disease. The above report was generated using voice recognition software. It may contain grammatical, syntax or spelling errors. Electronically signed by: Jose Armando Lopez M.D. 09/16/2016 6:26 PM Dictated Date/Time: 09/16/2016 6:19 PM
[2016-09-16 18:37] LABS: PARTIAL THROMBOPLASTIN RATIO 2.7
[2016-09-16 18:49] LABS: ALB/GLOB RATIO 0.8 (0.9-2); CALCIUM 7.2 mg/dl (8.5-10.1); CREATININE 1.4 mg/dl (0.60-1.20); MAGNESIUM 1.6 mg/dl (1.8-2.4); PHOSPHORUS 1.7 mg/dl (2.5-4.9)
[2016-09-16] MEDS ORDERED: CALCIUM GLUCONATE 10% 1,000 MG in SODIUM CHLORIDE 0.9% 50ML 50 ML IV ONE (19:00)
[2016-09-16] MEDS: MAGNESIUM SULFATE 1GM / D5W 1 GM in PREMIXED IN D5W 100 ML IV SCH ×2 (19:51→20:54)
[2016-09-16] MEDS: AZTREONAM IV 2,000 MG in DEXTROSE 5% 100ML 100 ML IV SCH (20:23)
[2016-09-16 22:41] LABS: HEMATOCRIT 31.6 % (37-47); MEAN CELL VOLUME 94.6 fL (80-100); MEAN CORPUSCULAR HEMOGLOBIN 30.5 pg (25-34); MEAN CORPUSCULAR HGB CONC 32.3 g/dl (32-36); MEAN PLATELET VOLUME 8.9 fL (7.4-10.4); PLATELET COUNT 159 K/uL (130-400); RED BLOOD COUNT 3.34 M/uL (4.2-5.4); WHITE BLOOD COUNT 6.85 K/uL (4.8-10.8)
[2016-09-16] MEDS: HYDROmorphone INJ 0.5 MG/0.5 ML SYR IV PRN (22:50)
[2016-09-16 22:59] LABS: BUN/CREATININE RATIO 18.4 (10-20); CREATININE 1.4 mg/dl (0.60-1.20); POTASSIUM 4.1 mmol/L (3.5-5.1)
[2016-09-16] MEDS: ACETAMINOPHEN IV 1000MG/100ML IV PRN (23:30)
[2016-09-17] VITALS (63 sets, daily range): BP systolic 75–167; BP diastolic 35–91; PULSE 64–140; TEMP 36.4–38.1; O2SAT 90–100
[2016-09-17] MEDS ORDERED: NURSING VERBAL MED ORDER ONE ×6 (01:15→22:00)
[2016-09-17] MEDS: SODIUM CHLORIDE 0.9% 1000ML 1,000 ML IV SCH ×2 (01:20→11:01)
[2016-09-17] MEDS ORDERED: SODIUM CHLORIDE 0.9% 1000ML 1,000 ML IV SCH (01:30)
[2016-09-17 03:43] LABS: INR 1.5 (0.9-1.1); PARTIAL THROMBOPLASTIN RATIO 1.4; PROTHROMBIN TIME (PATIENT) 16.8 SECONDS (9.0-12.0)
[2016-09-17] MEDS: AZTREONAM IV 2,000 MG in DEXTROSE 5% 100ML 100 ML IV SCH ×3 (04:56→20:04)
[2016-09-17] MEDS: HYDROmorphone INJ 0.5 MG/0.5 ML SYR IV PRN ×2 (04:59→08:07)
[2016-09-17] MEDS: ALBUMIN HUMAN 25% 12.5 GM/50 ML VIAL IV SCH ×4 (06:17→22:32)
[2016-09-17 06:22] LABS: BASO % 0.2 %; BASO ABS # 0.01 K/uL (0-0.2); COMPLETE YES; EOS % 4.9 %; HEMATOCRIT 27.9 % (37-47); IG% 0.6 %; LYMPH % 16.5 %; LYMPH ABS # 1.09 K/uL (1.2-3.4); MEAN CELL VOLUME 95.2 fL (80-100); MEAN CORPUSCULAR HEMOGLOBIN 30.7 pg (25-34); MEAN CORPUSCULAR HGB CONC 32.3 g/dl (32-36); MEAN PLATELET VOLUME 8.9 fL (7.4-10.4); MONO % 7.3 %; NEUT % 70.5 %; PLATELET COUNT 169 K/uL (130-400); RED BLOOD COUNT 2.93 M/uL (4.2-5.4); WHITE BLOOD COUNT 6.59 K/uL (4.8-10.8)
[2016-09-17] MEDS: METRONIDAZOLE / NSS 500 MG in PREMIXED NSS 100 ML IV SCH ×3 (06:29→22:31)
[2016-09-17 07:06] LABS: BUN/CREATININE RATIO 16.2 (10-20); CALCIUM 7.5 mg/dl (8.5-10.1); CREATININE 1.3 mg/dl (0.60-1.20); MAGNESIUM 2.2 mg/dl (1.8-2.4); PHOSPHORUS 1.6 mg/dl (2.5-4.9); POTASSIUM 3.9 mmol/L (3.5-5.1)
--- NOTE | 2016-09-17 07:47 | DIAGNOSTIC IMAGING REPORT ---
CHEST ONE VIEW PORTABLE CLINICAL HISTORY: Severe sepsis, r/o pulmonary congestion COMPARISON STUDY: Chest radiograph September 16, 2016. FINDINGS: Mild cardiomegaly is unchanged. There is no pneumothorax or pleural effusion. There is mild left basilar opacity. Lucency under the right hemidiaphragm indicates pneumoperitoneum. This has increased. There is pulmonary vascular congestion. IMPRESSION: 1. Increasing pneumoperitoneum, better depicted on CT of September 16, 2016. This suggests a perforated hollow viscus. 2. Pulmonary vascular congestion. 3. Mild left basilar opacity which favors atelectasis. Electronically signed by: Lucian Combs M.D. 09/17/2016 7:46 AM Dictated Date/Time: 09/17/2016 7:42 AM
[2016-09-17] MEDS ORDERED: SODIUM PHOSPHATE 3 MMOL/1 ML INFUSION IV STA (08:19)
[2016-09-17] MEDS ORDERED: SODIUM PHOSPHATE INJ 15 MMOL in SODIUM CHLORIDE 0.9% 250ML 250 ML IV SCH (09:00)
[2016-09-17] MEDS: GLYCERIN ADULT 1 EA SUPP PR ONE ×2 (09:34→15:58)
[2016-09-17] MEDS: ONDANSETRON INJ 2 MG/ML 2 ML VIAL IV PRN (09:35)
[2016-09-17] MEDS: LEVOTHYROXINE SODIUM INJ 35 MCG in SYRINGE 0 ML IV SCH (09:35)
--- NOTE | 2016-09-17 10:20 | Surgery Progress Note ---
Surgery Progress Note Date of Service Sep 17, 2016. Subjective + nausea, + vomiting, No bowel movement, No flatus Having more pain today. Has developed A. fib with RVR. Develop nausea this morning. She has not vomited. Objective Vital Signs: Date Time Temp Pulse Resp B/P (MAP) Pulse Ox O2 Delivery O2 Flow Rate FiO2 09/17/16 05:01 78 21 128/70 (89) 96 Nasal Cannula 2.0 09/17/16 04:36 77 20 118/55 (76) 96 Nasal Cannula 2.0 09/17/16 04:01 36.6 64 14 124/55 (78) 99 Nasal Cannula 2.0 09/17/16 04:00 Nasal Cannula 2.0 09/17/16 03:46 72 12 122/72 (89) 99 Nasal Cannula 2.0 09/17/16 03:31 76 18 126/59 (81) 99 Nasal Cannula 2.0 09/17/16 03:16 78 21 145/55 (85) 96 Nasal Cannula 2.0 09/17/16 03:01 70 15 123/62 (82) 97 2.0 09/17/16 02:46 71 16 115/55 (75) 97 2.0 09/17/16 02:31 66 15 111/55 (73) 98 2.0 09/17/16 02:16 74 14 109/52 (71) 97 2.0 09/17/16 02:01 74 16 106/50 (68) 97 2.0 09/17/16 01:46 75 11 106/46 (66) 97 2.0 09/17/16 01:31 77 13 108/47 (67) 96 2.0 09/17/16 01:16 79 16 97/45 (62) 97 2.0 09/17/16 01:01 79 13 99/43 (61) 97 2.0 09/17/16 00:47 81 14 89/44 (59) 95 Nasal Cannula 2.0 09/17/16 00:46 80 17 85/42 (56) 95 Nasal Cannula 2.0 09/17/16 00:31 84 16 96/45 (62) 96 Nasal Cannula 2.0 09/17/16 00:16 74 15 115/50 (71) 97 Nasal Cannula 2.0 09/17/16 00:01 Nasal Cannula 2.0 09/17/16 00:01 74 16 108/44 (65) 97 Nasal Cannula 2.0 09/16/16 23:46 37.7 78 18 121/49 (73) 97 Nasal Cannula 2.0 09/16/16 23:31 84 21 132/57 (82) 97 Nasal Cannula 2.0 09/16/16 23:16 82 21 131/59 (83) 97 Nasal Cannula 2.0 09/16/16 23:01 83 20 131/67 (88) 95 Nasal Cannula 2.0 09/16/16 22:46 84 22 143/81 (101) 99 Nasal Cannula 2.0 09/16/16 22:42 82 21 139/58 (85) 99 Nasal Cannula 2.0 09/16/16 22:01 80 19 114/55 (74) 96 Nasal Cannula 2.0 09/16/16 21:46 81 22 117/76 (90) 96 Nasal Cannula 2.0 09/16/16 21:31 82 18 116/56 (76) 98 Nasal Cannula 2.0 09/16/16 21:17 84 22 122/51 (74) 97 Nasal Cannula 2.0 09/16/16 21:01 82 20 138/60 (86) 98 Nasal Cannula 2.0 09/16/16 20:46 85 22 131/78 (95) 99 Nasal Cannula 2.0 09/16/16 20:31 72 25 122/69 (86) 99 Nasal Cannula 2.0 09/16/16 20:20 76 18 130/58 (82) 88 Room Air 09/16/16 20:01 37.4 72 18 135/62 (86) 95 Room Air 09/16/16 20:00 Nasal Cannula 2.0 09/16/16 19:46 80 17 165/72 (103) 90 Room Air 09/16/16 19:31 74 16 134/61 (85) 95 Room Air 09/16/16 19:18 76 21 104/49 (67) 91 Room Air 09/16/16 19:01 86 19 104/76 (85) 92 Room Air 09/16/16 18:02 36.9 80 18 156/75 (102) 95 Room Air 09/16/16 17:31 70 11 94/41 (58) 92 09/16/16 17:01 36.7 70 12 110/48 (68) 96 Room Air 09/16/16 16:31 60 25 104/54 (71) 95 09/16/16 16:02 100 Room Air 09/16/16 15:31 70 14 105/46 (65) 94 09/16/16 15:01 68 15 98/44 (62) 95 09/16/16 14:31 68 13 101/41 (61) 09/16/16 14:04 73 15 90/55 (67) 09/16/16 14:03 66 20 75/50 (58) 09/16/16 13:31 36.8 73 14 98/56 (70) 97 Nasal Cannula 2.0 09/16/16 13:01 74 20 123/66 (85) 09/16/16 12:31 70 15 112/47 (68) 97 09/16/16 12:06 71 14 109/48 (68) 99 09/16/16 12:01 100 Nasal Cannula 2.0 09/16/16 12:01 73 17 91/46 (61) 99 09/16/16 11:31 74 13 97/60 (72) 99 09/16/16 11:01 37.1 63 15 92/41 (58) 99 Room Air 09/16/16 10:30 68 12 111/53 (72) 100 Abdomen: soft, + abnormal bowel sounds (absent), + distended, + tenderness ( slightly more tender in the lower abdomen) Laboratory Results: Results Past 24 Hours Test 09/16/16 11:23 09/16/16 15:46 09/16/16 18:00 09/16/16 22:10 Range/Units White Blood Count 8.67 7.39 6.85 4.8-10.8 K/uL Red Blood Count 3.29 3.04 3.34 4.2-5.4 M/uL Hemoglobin 10.1 9.2 10.2 12.0-16.0 g/dL Hematocrit 31.0 28.5 31.6 37-47 % Mean Corpuscular Volume 94.2 93.8 94.6 80-100 fL Mean Corpuscular Hemoglobin 30.7 30.3 30.5 25-34 pg Mean Corpuscular Hemoglobin Concent 32.6 32.3 32.3 32-36 g/dl RDW Standard Deviation 48.6 49.4 49.6 36.4-46.3 fL RDW Coefficient of Variation 14.2 14.4 14.4 11.5-14.5 % Platelet Count 199 176 159 130-400 K/uL Mean Platelet Volume 9.3 9.0 8.9 7.4-10.4 fL Prothrombin Time 15.0 9.0-12.0 SECONDS Prothromb Time International Ratio 1.4 0.9-1.1 Activated Partial Thromboplast Time 32.4 70.0 21.0-31.0 SECONDS Partial Thromboplastin Ratio 1.2 2.7 Bedside Glucose 94 70-90 mg/dl Neutrophils (%) (Auto) 66.8 % Lymphocytes (%) (Auto) 21.8 % Monocytes (%) (Auto) 6.9 % Eosinophils (%) (Auto) 3.9 % Basophils (%) (Auto) 0.1 % Neutrophils # (Auto) 4.93 1.4-6.5 K/uL Lymphocytes # (Auto) 1.61 1.2-3.4 K/uL Monocytes # (Auto) 0.51 0.11-0.59 K/uL Eosinophils # (Auto) 0.29 0-0.5 K/uL Basophils # (Auto) 0.01 0-0.2 K/uL Immature Granulocyte % (Auto) 0.5 % Immature Granulocyte # (Auto) 0.04 0.00-0.02 K/uL Sodium Level 141 136-145 mmol/L Potassium Level 4.0 3.5-5.1 mmol/L Chloride Level 111 98-107 mmol/L Carbon Dioxide Level 25 21-32 mmol/L Anion Gap 5.0 3-11 mmol/L Blood Urea Nitrogen 29 7-18 mg/dl Creatinine 1.40 0.60-1.20 mg/dl Est Creatinine Clear Calc Drug Dose 28.7 ml/min Estimated GFR () 40.5 Estimated GFR (Non- 34.9 BUN/Creatinine Ratio 21.0 10-20 Random Glucose 102 70-99 mg/dl Lactic Acid Level 0.7 0.4-2.0 mmol/L Calcium Level 7.2 8.5-10.1 mg/dl Ionized Calcium 1.00 1.12-1.32 mmol/l Phosphorus Level 1.7 2.5-4.9 mg/dl Magnesium Level 1.6 1.8-2.4 mg/dl Total Bilirubin 0.3 0.2-1 mg/dl Aspartate Amino Transf (AST/SGOT) 23 15-37 U/L Alanine Aminotransferase (ALT/SGPT) 27 12-78 U/L Alkaline Phosphatase 75 45-117 U/L Total Protein 5.2 6.4-8.2 gm/dl Albumin 2.3 3.4-5.0 gm/dl Globulin 2.9 2.5-4.0 gm/dl Albumin/Globulin Ratio 0.8 0.9-2 Procalcitonin 0.26 0-0.5 ng/ml Test 09/16/16 22:25 09/17/16 02:53 09/17/16 06:13 Range/Units Sodium Level 140 141 136-145 mmol/L Potassium Level 4.1 3.9 3.5-5.1 mmol/L Chloride Level 108 113 98-107 mmol/L Carbon Dioxide Level 26 23 21-32 mmol/L Anion Gap 6.0 5.0 3-11 mmol/L Blood Urea Nitrogen 26 21 7-18 mg/dl Creatinine 1.40 1.30 0.60-1.20 mg/dl Est Creatinine Clear Calc Drug Dose 28.7 31.7 ml/min Estimated GFR () 40.5 44.2 Estimated GFR (Non- 34.9 38.2 BUN/Creatinine Ratio 18.4 16.2 10-20 Random Glucose 108 111 70-99 mg/dl Lactic Acid Level 1.1 0.6 0.4-2.0 mmol/L Calcium Level 8.0 7.5 8.5-10.1 mg/dl Prothrombin Time 16.8 9.0-12.0 SECONDS Prothromb Time International Ratio 1.5 0.9-1.1 Activated Partial Thromboplast Time 35.2 21.0-31.0 SECONDS Partial Thromboplastin Ratio 1.4 White Blood Count 6.59 4.8-10.8 K/uL Red Blood Count 2.93 4.2-5.4 M/uL Hemoglobin 9.0 12.0-16.0 g/dL Hematocrit 27.9 37-47 % Mean Corpuscular Volume 95.2 80-100 fL Mean Corpuscular Hemoglobin 30.7 25-34 pg Mean Corpuscular Hemoglobin Concent 32.3 32-36 g/dl Platelet Count 169 130-400 K/uL Mean Platelet Volume 8.9 7.4-10.4 fL Neutrophils (%) (Auto) 70.5 % Lymphocytes (%) (Auto) 16.5 % Monocytes (%) (Auto) 7.3 % Eosinophils (%) (Auto) 4.9 % Basophils (%) (Auto) 0.2 % Neutrophils # (Auto) 4.65 1.4-6.5 K/uL Lymphocytes # (Auto) 1.09 1.2-3.4 K/uL Monocytes # (Auto) 0.48 0.11-0.59 K/uL Eosinophils # (Auto) 0.32 0-0.5 K/uL Basophils # (Auto) 0.01 0-0.2 K/uL RDW Standard Deviation 50.5 36.4-46.3 fL RDW Coefficient of Variation 14.5 11.5-14.5 % Immature Granulocyte % (Auto) 0.6 % Immature Granulocyte # (Auto) 0.04 0.00-0.02 K/uL Ionized Calcium 1.05 1.12-1.32 mmol/l Phosphorus Level 1.6 2.5-4.9 mg/dl Magnesium Level 2.2 1.8-2.4 mg/dl Total Bilirubin 0.5 0.2-1 mg/dl Direct Bilirubin 0.2 0-0.2 mg/dl Aspartate Amino Transf (AST/SGOT) 44 15-37 U/L Alanine Aminotransferase (ALT/SGPT) 43 12-78 U/L Alkaline Phosphatase 80 45-117 U/L Total Protein 5.7 6.4-8.2 gm/dl Albumin 2.8 3.4-5.0 gm/dl Microbiology Results 09/16/16 Urine Culture, Received Pending Diagnostic Interpretation: COMPARISON STUDY: Chest radiograph September 16, 2016. FINDINGS: Mild cardiomegaly is unchanged. There is no pneumothorax or pleural effusion. There is mild left basilar opacity. Lucency under the right hemidiaphragm indicates pneumoperitoneum. This has increased. There is pulmonary vascular congestion. IMPRESSION: 1. Increasing pneumoperitoneum, better depicted on CT of September 16, 2016. This suggests a perforated hollow viscus. 2. Pulmonary vascular congestion. 3. Mild left basilar opacity which favors atelectasis. Assessment & Plan Her pain is increased. She now is in A. fib with RVR. Her white count remains normal however. Her chest x-ray however now shows free air under the diaphragm which did not show yesterday. That would seem to indicate that there is a continuing leak. I explained this to the patient. I discussed with her son. At this point I think exploratory laparotomy with sigmoid colon resection and formation of colostomy would be the best course. I explained to the patient the procedure. I explained that we'll probably leave her skin open and that she will have a wound VAC. I explained the possible complications. She has signed a consent form.
[2016-09-17] MEDS ORDERED: DILTIAZEM HCL 5 MG/ML 5 ML VIAL ONE ×2 (10:27→15:27)
[2016-09-17] MEDS ORDERED: CEFOXITIN SOD 1 GM VIAL ONE (10:33)
[2016-09-17] MEDS ORDERED: FENTANYL CITRATE INJ 50 MCG/1 ML 2 ML VIAL ONE (11:08)
[2016-09-17] MEDS ORDERED: MIDAZOLAM HCL 1 MG/ML 2ML VIAL ONE (11:10)
[2016-09-17] MEDS ORDERED: ALBUMIN HUMAN 5% 12.5 GM/250 ML VIAL IV ONE (11:12)
[2016-09-17] MEDS ORDERED: EpHEDrine SULFATE INJ 50 MG/ML AMP IV PRN (11:15)
[2016-09-17] MEDS ORDERED: ATROPINE SULFATE 0.1 MG/ML 5ML SYR IV PRN (11:15)
[2016-09-17] MEDS ORDERED: HYDROmorphone INJ 1 MG/ML SYR IV PRN (11:15)
[2016-09-17] MEDS ORDERED: ONDANSETRON INJ 2 MG/ML 2 ML VIAL IV PRN (11:15)
[2016-09-17] MEDS ORDERED: FENTANYL CITRATE INJ 50 MCG/1 ML 2 ML VIAL IV PRN (11:15)
--- NOTE | 2016-09-17 11:34 | Procedure Note ---
Procedure Note Procedure Date Sep 17, 2016. Central Line Procedure time out: side/site verified, patient ID confirmed, sterile procedure used Consent obtained: written Time of procedure: 10:40 Performed by: attending Indications: poor venous access Prep: chlorhexadine prep, sterile drape, sterile procedures used Anesthesia: local injection, lidocaine 1% without epi Central line lumen: triple Central line location: internal jugular (R) Additional details: percutaneous placement, ultrasound guidance, Selinger technique used, line sutured, good blood return CXR: appropriate position, no pneumothorax, other
[2016-09-17] MEDS: CIPROFLOXACIN / D5W 400 MG in PREMIXED IN D5W 200 ML IV SCH (11:49)
[2016-09-17] MEDS: FLUCONAZOLE / NSS 100 MG in PREMIXED NSS 50 ML IV SCH (11:49)
--- NOTE | 2016-09-17 12:10 | DIAGNOSTIC IMAGING REPORT ---
CHEST ONE VIEW PORTABLE CLINICAL HISTORY: S/p right IJ TLC COMPARISON STUDY: Chest radiograph performed earlier today. FINDINGS: There has been interval placement of a right internal jugular central line. Catheter tip projects over the distal SVC. Lucency under the right hemidiaphragm represents pneumoperitoneum. This has slightly increased since prior exam. Cardiomegaly is noted. Pulmonary vascular congestion has increased. There is suspected mild pulmonary edema. There are hazy bibasilar opacities. IMPRESSION: 1. No pneumothorax following placement of a right internal jugular central line. 2. Pneumoperitoneum which has slightly increased since prior exam. 3. Increase in pulmonary vascular congestion with suspected mild pulmonary edema. 4. Hazy bibasilar opacities. Electronically signed by: Lucian Combs M.D. 09/17/2016 12:09 PM Dictated Date/Time: 09/17/2016 12:07 PM
[2016-09-17] MEDS ORDERED: HYDROmorphone INJ 2 MG/ML SYR/VIAL ONE (12:33)
[2016-09-17] MEDS ORDERED: ONDANSETRON INJ 2 MG/ML 2 ML VIAL ONE (13:24)
[2016-09-17] MEDS ORDERED: ESMOLOL HCL 10 MG/ML 10 ML VIAL ONE (13:24)
[2016-09-17] MEDS ORDERED: PHENYLEPHRINE HCL INJ 10 MG/ML VIAL ONE (13:24)
[2016-09-17] MEDS ORDERED: LIDOCAINE HCL 2% 2 ML VIAL (20MG/ML) ONE (13:24)
[2016-09-17] MEDS ORDERED: PROPOFOL IV EMULSION 10 MG/ML 20 ML VIAL IV ONE (13:24)
[2016-09-17] MEDS ORDERED: PHENYLEPHRINE 100MCG/ML 5ML SYR ONE (13:24)
[2016-09-17] MEDS ORDERED: ROCURONIUM BROMIDE 10 MG/ML 5 ML VIAL ONE (13:24)
[2016-09-17] MEDS ORDERED: METOPROLOL TARTRATE 1 MG/ML VIAL ONE (13:32)
--- NOTE | 2016-09-17 13:48 | Progress Note ---
Subjective Date of Service: Sep 17, 2016. Subjective pt has clinically deteriorated overnight, with increased abdominal distension and signs of free air on imaging, despite this does not have dramatic acidosis nor leukocytosis, taken to OR 09/17 Problem List Medical Problems: (1) Diverticulitis Status: Acute (2) Diverticulitis of intestine with perforation Status: Acute (3) Left lower quadrant pain Status: Acute Review of Systems Constitutional: + weakness, + fatigue, No fever, No chills Respiratory: + shortness of breath, + dyspnea at rest, No cough Cardiac: + orthopnea, No chest pain, No PND, No edema Abdomen: + pain, + nausea, No vomiting, No diarrhea Female : No dysuria, No urinary frequency Psychiatric: + depression symptoms, + anxiety Objective Vital Signs Date Time Temp Pulse Resp B/P (MAP) Pulse Ox O2 Delivery O2 Flow Rate FiO2 09/17/16 11:16 93 28 139/71 (93) 91 CPAP 5.0 09/17/16 11:01 100 22 149/81 (103) 91 CPAP 5.0 09/17/16 10:56 107 21 148/77 (100) 92 CPAP 5.0 09/17/16 10:50 123 22 162/70 (100) 92 CPAP 5.0 09/17/16 10:46 123 28 160/75 (103) 92 Nasal Cannula 3.0 09/17/16 10:31 132 31 167/78 (107) 93 Nasal Cannula 3.0 09/17/16 10:01 140 18 153/76 (101) 90 Nasal Cannula 3.0 09/17/16 09:35 115 25 124/90 (101) 91 Nasal Cannula 2.0 09/17/16 09:01 83 30 147/72 (97) 93 Nasal Cannula 2.0 09/17/16 08:28 85 27 157/74 (101) 93 Nasal Cannula 2.0 09/17/16 08:01 36.6 72 15 141/64 (89) 100 Nasal Cannula 2.0 09/17/16 08:00 Nasal Cannula 2.0 09/17/16 07:31 73 17 122/63 (82) 100 Nasal Cannula 2.0 09/17/16 07:01 80 27 124/62 (82) 99 Nasal Cannula 2.0 09/17/16 05:01 78 21 128/70 (89) 96 Nasal Cannula 2.0 09/17/16 04:36 77 20 118/55 (76) 96 Nasal Cannula 2.0 09/17/16 04:01 36.6 64 14 124/55 (78) 99 Nasal Cannula 2.0 09/17/16 04:00 Nasal Cannula 2.0 09/17/16 03:46 72 12 122/72 (89) 99 Nasal Cannula 2.0 09/17/16 03:31 76 18 126/59 (81) 99 Nasal Cannula 2.0 09/17/16 03:16 78 21 145/55 (85) 96 Nasal Cannula 2.0 09/17/16 03:01 70 15 123/62 (82) 97 2.0 09/17/16 02:46 71 16 115/55 (75) 97 2.0 09/17/16 02:31 66 15 111/55 (73) 98 2.0 09/17/16 02:16 74 14 109/52 (71) 97 2.0 09/17/16 02:01 74 16 106/50 (68) 97 2.0 09/17/16 01:46 75 11 106/46 (66) 97 2.0 09/17/16 01:31 77 13 108/47 (67) 96 2.0 09/17/16 01:16 79 16 97/45 (62) 97 2.0 09/17/16 01:01 79 13 99/43 (61) 97 2.0 09/17/16 00:47 81 14 89/44 (59) 95 Nasal Cannula 2.0 09/17/16 00:46 80 17 85/42 (56) 95 Nasal Cannula 2.0 09/17/16 00:31 84 16 96/45 (62) 96 Nasal Cannula 2.0 09/17/16 00:16 74 15 115/50 (71) 97 Nasal Cannula 2.0 09/17/16 00:01 Nasal Cannula 2.0 09/17/16 00:01 74 16 108/44 (65) 97 Nasal Cannula 2.0 09/16/16 23:46 37.7 78 18 121/49 (73) 97 Nasal Cannula 2.0 09/16/16 23:31 84 21 132/57 (82) 97 Nasal Cannula 2.0 09/16/16 23:16 82 21 131/59 (83) 97 Nasal Cannula 2.0 09/16/16 23:01 83 20 131/67 (88) 95 Nasal Cannula 2.0 09/16/16 22:46 84 22 143/81 (101) 99 Nasal Cannula 2.0 09/16/16 22:42 82 21 139/58 (85) 99 Nasal Cannula 2.0 09/16/16 22:01 80 19 114/55 (74) 96 Nasal Cannula 2.0 09/16/16 21:46 81 22 117/76 (90) 96 Nasal Cannula 2.0 09/16/16 21:31 82 18 116/56 (76) 98 Nasal Cannula 2.0 09/16/16 21:17 84 22 122/51 (74) 97 Nasal Cannula 2.0 09/16/16 21:01 82 20 138/60 (86) 98 Nasal Cannula 2.0 09/16/16 20:46 85 22 131/78 (95) 99 Nasal Cannula 2.0 09/16/16 20:31 72 25 122/69 (86) 99 Nasal Cannula 2.0 09/16/16 20:20 76 18 130/58 (82) 88 Room Air 09/16/16 20:01 37.4 72 18 135/62 (86) 95 Room Air 09/16/16 20:00 Nasal Cannula 2.0 09/16/16 19:46 80 17 165/72 (103) 90 Room Air 09/16/16 19:31 74 16 134/61 (85) 95 Room Air 09/16/16 19:18 76 21 104/49 (67) 91 Room Air 09/16/16 19:01 86 19 104/76 (85) 92 Room Air 09/16/16 18:02 36.9 80 18 156/75 (102) 95 Room Air 09/16/16 17:31 70 11 94/41 (58) 92 09/16/16 17:01 36.7 70 12 110/48 (68) 96 Room Air 09/16/16 16:31 60 25 104/54 (71) 95 09/16/16 16:02 100 Room Air 09/16/16 15:31 70 14 105/46 (65) 94 09/16/16 15:01 68 15 98/44 (62) 95 09/16/16 14:31 68 13 101/41 (61) 09/16/16 14:04 73 15 90/55 (67) 7/28/17 14:03 66 20 75/50 (58) Physical Exam General Appearance: WD/WN, + moderate distress Eyes: PERRL, EOMI Neck: supple, no JVD Respiratory/Chest: + decreased breath sounds, + accessory muscle use Cardiovascular: + tachycardia, + systolic murmur Abdomen: + abnormal bowel sounds, + distended, + guarding, + rebound, + tenderness Extremities: no pedal edema, no calf tenderness Neurologic/Psychiatric: alert, oriented x 3 Laboratory Results Last 24 Hours Test 09/16/16 15:46 09/16/16 18:00 09/16/16 22:10 09/16/16 22:25 Bedside Glucose 94 mg/dl White Blood Count 7.39 K/uL 6.85 K/uL Red Blood Count 3.04 M/uL 3.34 M/uL Hemoglobin 9.2 g/dL 10.2 g/dL Hematocrit 28.5 % 31.6 % Mean Corpuscular Volume 93.8 fL 94.6 fL Mean Corpuscular Hemoglobin 30.3 pg 30.5 pg Mean Corpuscular Hemoglobin Concent 32.3 g/dl 32.3 g/dl Platelet Count 176 K/uL 159 K/uL Mean Platelet Volume 9.0 fL 8.9 fL Neutrophils (%) (Auto) 66.8 % Lymphocytes (%) (Auto) 21.8 % Monocytes (%) (Auto) 6.9 % Eosinophils (%) (Auto) 3.9 % Basophils (%) (Auto) 0.1 % Neutrophils # (Auto) 4.93 K/uL Lymphocytes # (Auto) 1.61 K/uL Monocytes # (Auto) 0.51 K/uL Eosinophils # (Auto) 0.29 K/uL Basophils # (Auto) 0.01 K/uL RDW Standard Deviation 49.4 fL 49.6 fL RDW Coefficient of Variation 14.4 % 14.4 % Immature Granulocyte % (Auto) 0.5 % Immature Granulocyte # (Auto) 0.04 K/uL Activated Partial Thromboplast Time 70.0 SECONDS Partial Thromboplastin Ratio 2.7 Sodium Level 141 mmol/L 140 mmol/L Potassium Level 4.0 mmol/L 4.1 mmol/L Chloride Level 111 mmol/L 108 mmol/L Carbon Dioxide Level 25 mmol/L 26 mmol/L Anion Gap 5.0 mmol/L 6.0 mmol/L Blood Urea Nitrogen 29 mg/dl 26 mg/dl Creatinine 1.40 mg/dl 1.40 mg/dl Est Creatinine Clear Calc Drug Dose 28.7 ml/min 28.7 ml/min Estimated GFR () 40.5 40.5 Estimated GFR (Non- 34.9 34.9 BUN/Creatinine Ratio 21.0 18.4 Random Glucose 102 mg/dl 108 mg/dl Lactic Acid Level 0.7 mmol/L 1.1 mmol/L Calcium Level 7.2 mg/dl 8.0 mg/dl Ionized Calcium 1.00 mmol/l Phosphorus Level 1.7 mg/dl Magnesium Level 1.6 mg/dl Total Bilirubin 0.3 mg/dl Aspartate Amino Transf (AST/SGOT) 23 U/L Alanine Aminotransferase (ALT/SGPT) 27 U/L Alkaline Phosphatase 75 U/L Total Protein 5.2 gm/dl Albumin 2.3 gm/dl Globulin 2.9 gm/dl Albumin/Globulin Ratio 0.8 Procalcitonin 0.26 ng/ml Test 09/17/16 02:53 09/17/16 06:13 Prothrombin Time 16.8 SECONDS Prothromb Time International Ratio 1.5 Activated Partial Thromboplast Time 35.2 SECONDS Partial Thromboplastin Ratio 1.4 White Blood Count 6.59 K/uL Red Blood Count 2.93 M/uL Hemoglobin 9.0 g/dL Hematocrit 27.9 % Mean Corpuscular Volume 95.2 fL Mean Corpuscular Hemoglobin 30.7 pg Mean Corpuscular Hemoglobin Concent 32.3 g/dl Platelet Count 169 K/uL Mean Platelet Volume 8.9 fL Neutrophils (%) (Auto) 70.5 % Lymphocytes (%) (Auto) 16.5 % Monocytes (%) (Auto) 7.3 % Eosinophils (%) (Auto) 4.9 % Basophils (%) (Auto) 0.2 % Neutrophils # (Auto) 4.65 K/uL Lymphocytes # (Auto) 1.09 K/uL Monocytes # (Auto) 0.48 K/uL Eosinophils # (Auto) 0.32 K/uL Basophils # (Auto) 0.01 K/uL RDW Standard Deviation 50.5 fL RDW Coefficient of Variation 14.5 % Immature Granulocyte % (Auto) 0.6 % Immature Granulocyte # (Auto) 0.04 K/uL Sodium Level 141 mmol/L Potassium Level 3.9 mmol/L Chloride Level 113 mmol/L Carbon Dioxide Level 23 mmol/L Anion Gap 5.0 mmol/L Blood Urea Nitrogen 21 mg/dl Creatinine 1.30 mg/dl Est Creatinine Clear Calc Drug Dose 31.7 ml/min Estimated GFR () 44.2 Estimated GFR (Non- 38.2 BUN/Creatinine Ratio 16.2 Random Glucose 111 mg/dl Lactic Acid Level 0.6 mmol/L Calcium Level 7.5 mg/dl Ionized Calcium 1.05 mmol/l Phosphorus Level 1.6 mg/dl Magnesium Level 2.2 mg/dl Total Bilirubin 0.5 mg/dl Direct Bilirubin 0.2 mg/dl Aspartate Amino Transf (AST/SGOT) 44 U/L Alanine Aminotransferase (ALT/SGPT) 43 U/L Alkaline Phosphatase 80 U/L Total Protein 5.7 gm/dl Albumin 2.8 gm/dl Assessment and Plan 81fyear-old female with free air in abdomen and SIRS not clear sepsis and no lactic acid nor wbc elevation sirs, peritonitis, volume resuscitated with caution with history of diastolic heart failure taken to OR 09/17 by general surgery aztreonam, and Flagyl, was given albumen History of A. fib currently hypotension prevented use of carvedilol now in tachycardic irregular rhythm and anticoagulation was with IV heparin appropirately held for surgery Hypothyroidism Synthroid iv History of chronic diastolic heart failure we will hold Bumex, eval and treat volume status prn Oral thrush was noted on initial intake exam we'll use Diflucan as his nothing by mouth Ativan with me use IV
[2016-09-17 14:39] LABS: HEMATOCRIT 27.5 % (37-47)
--- NOTE | 2016-09-17 14:55 | [facility] Post Operative Brief Note ---
Immediate Operative Summary Operative Date Sep 17, 2016. Pre-Operative Diagnosis Perforation of sigmoid diverticulitis Post-Operative Diagnosis Same Procedure(s) Performed Exploratory Laparotomy, Sigmoid Colon Resection with Colostomy Surgeon Dr Valdovinos [employer] Surgeon(s) None Estimated Blood Loss 300ML Findings See dictation Specimens Culture #1 intra abdominal fluid for aerobic and anaerobic culture A.Portion of sigmoid colon Drains None Anesthesia General Complication(s) None Disposition Recovery Room / PACU
[2016-09-17] MEDS ORDERED: PROPOFOL IV EMULSION 10 MG/ML 100 ML VIAL IV ONE (15:04)
--- NOTE | 2016-09-17 15:45 | Anesthesiology Progress Note ---
Anesthesia Post Op Note Date & Time Sep 17, 2016 at 15:41 Vital Signs Pain Intensity: 0 Vital Signs Past 12 Hours Date Time Temp Pulse Resp B/P (MAP) Pulse Ox O2 Delivery O2 Flow Rate FiO2 09/17/16 15:15 36.9 132 16 182/135 94 Mechanical Ventilator 50 09/17/16 15:05 129 16 179/125 95 Mechanical Ventilator 50 09/17/16 14:55 116 16 129/80 96 Mechanical Ventilator 50 09/17/16 14:45 50 09/17/16 14:45 36.6 95 16 170/113 100 Mechanical Ventilator 50 09/17/16 11:16 93 28 139/71 (93) 91 CPAP 5.0 09/17/16 11:01 100 22 149/81 (103) 91 CPAP 5.0 09/17/16 10:56 107 21 148/77 (100) 92 CPAP 5.0 09/17/16 10:50 123 22 162/70 (100) 92 CPAP 5.0 09/17/16 10:46 123 28 160/75 (103) 92 Nasal Cannula 3.0 09/17/16 10:31 132 31 167/78 (107) 93 Nasal Cannula 3.0 09/17/16 10:01 140 18 153/76 (101) 90 Nasal Cannula 3.0 09/17/16 09:35 115 25 124/90 (101) 91 Nasal Cannula 2.0 09/17/16 09:01 83 30 147/72 (97) 93 Nasal Cannula 2.0 09/17/16 08:28 85 27 157/74 (101) 93 Nasal Cannula 2.0 09/17/16 08:01 36.6 72 15 141/64 (89) 100 Nasal Cannula 2.0 09/17/16 08:00 Nasal Cannula 2.0 09/17/16 07:31 73 17 122/63 (82) 100 Nasal Cannula 2.0 09/17/16 07:01 80 27 124/62 (82) 99 Nasal Cannula 2.0 09/17/16 05:01 78 21 128/70 (89) 96 Nasal Cannula 2.0 09/17/16 04:36 77 20 118/55 (76) 96 Nasal Cannula 2.0 09/17/16 04:01 36.6 64 14 124/55 (78) 99 Nasal Cannula 2.0 7/29/17 04:00 Nasal Cannula 2.0 09/17/16 03:46 72 12 122/72 (89) 99 Nasal Cannula 2.0 Notes Pt Amnestic to Procedure: Yes Nausea / Vomiting: adequately controlled Pain: adequately controlled Airway Patency, RR, SpO2: see Notes BP & HR: stable & adequate Hydration State: stable & adequate Anesthetic Complications: no major complications apparent Pt transported to ICU intubated on monitors. VSS not on any pressor. Pt currently on propofol drip for sedation and will remain intubated overnight. [employer] Systems Administrator was at bedside managing patient while report was given.
[2016-09-17 15:51] LABS: ISTAT ARTERIAL BLOOD GAS HCO3 19 meq/L (19-24); ISTAT ARTERIAL BLOOD GAS PCO2 43 mmHg (35-46); ISTAT ARTERIAL BLOOD GAS PO2 67 mmHg (80-95); ISTAT ARTERIAL BLOOD GAS pH 7.24 (7.35-7.45); ISTAT CARBON DIOXIDE 20 mEq/l (24-31); ISTAT DELIVERY SYSTEM Ventilator; ISTAT FIO2 50 %; ISTAT PEEP 5; ISTAT RATE 16; ISTAT SITE Art Line; VE 6.8; Vt 450
--- NOTE | 2016-09-17 16:44 | DIAGNOSTIC IMAGING REPORT ---
CHEST ONE VIEW PORTABLE CLINICAL HISTORY: s/p intubation, post-op COMPARISON STUDY: Chest radiograph September 17, 2016 11:19 AM FINDINGS: The tip of the endotracheal tube is 2.2 cm above the christine. The tip of the nasogastric tube is within the gastric body. There are cholecystectomy clips. A right internal jugular central line is in place. There is no pneumothorax. Cardiomegaly is unchanged. There is pulmonary vascular congestion. There are bibasilar opacities. IMPRESSION: 1. Satisfactory positioning of lines and tubes. 2. Pulmonary vascular congestion. 3. Bibasilar opacities, left greater than right. Electronically signed by: Lucian Combs M.D. 09/17/2016 4:43 PM Dictated Date/Time: 09/17/2016 4:41 PM
[2016-09-17 17:19] LABS: HEMATOCRIT 25.9 % (37-47); MEAN CELL VOLUME 94.2 fL (80-100); MEAN CORPUSCULAR HEMOGLOBIN 28.7 pg (25-34); MEAN PLATELET VOLUME 8.5 fL (7.4-10.4); PLATELET COUNT 167 K/uL (130-400); RED BLOOD COUNT 2.75 M/uL (4.2-5.4); WHITE BLOOD COUNT 4.97 K/uL (4.8-10.8)
[2016-09-17 17:54] LABS: ALB/GLOB RATIO 1.4 (0.9-2); BUN/CREATININE RATIO 16.6 (10-20); CALCIUM 6.9 mg/dl (8.5-10.1); MAGNESIUM 1.9 mg/dl (1.8-2.4); POTASSIUM 3.9 mmol/L (3.5-5.1)
[2016-09-17 17:58] LABS: MEAN CORPUSCULAR HGB CONC 30.5 g/dl (32-36)
[2016-09-17 17:59] LABS: BASO % 0.2 %; BASO ABS # 0.01 K/uL (0-0.2); COMPLETE YES; EOS % 0.6 %; IG% 0.6 %; LYMPH % 10.1 %; MONO % 6.6 %; NEUT % 81.9 %
[2016-09-17 18:03] LABS: PHOSPHORUS 2.7 mg/dl (2.5-4.9)
[2016-09-17] MEDS ORDERED: METOPROLOL TARTRATE 1 MG/ML VIAL IV ONE (18:20)
[2016-09-17] MEDS: NORMOSOL R 1,000 ML IV SCH (18:21)
[2016-09-17 18:28] LABS: ISTAT ARTERIAL BLOOD GAS HCO3 17 meq/L (19-24); ISTAT ARTERIAL BLOOD GAS PCO2 34 mmHg (35-46); ISTAT ARTERIAL BLOOD GAS PO2 136 mmHg (80-95); ISTAT ARTERIAL BLOOD GAS pH 7.32 (7.35-7.45); ISTAT CARBON DIOXIDE 18 mEq/l (24-31); ISTAT DELIVERY SYSTEM Ventilator; ISTAT FIO2 50 %; ISTAT PEEP 5; ISTAT RATE 20; ISTAT SITE Art Line; VE 8.8; Vt 450
--- NOTE | 2016-09-17 18:31 | Critical Care Progress Note ---
Critical Care Progress Note Date of Service Sep 17, 2016. Attending Dr. Cruz Subjective Had worsening symptoms this AM, more abdominal pain and distension, visible pneumoperitoneum on CXR, went to OR for exploratory laparotomy, sigmoid colon resection with creation of colostomy. EBL was 300 ml. Remained intubated, now sedated with Propofol. Earlier this AM before the surgery she developed a-fib with RVR, requiring Cardizem injections. Right IJ TLC placed because of difficulty obtaining blood. Also she was noted to have wheezing and mild hypoxia, fluids were held in AM Objective General: Elderly female, intubated, sedated, comfortable Heent: NC/AT, dry oral mucosa, thrush over the tongue CVS: S1S2 irregular, no murmurs Lungs: B/l wheezing and crackles Abdomen: Soft, mildly distended, was tender preop diffusely but more in the lower abdomen. 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 Post-op she woke up appropriately CXR today: 1. Satisfactory positioning of lines and tubes. 2. Pulmonary vascular congestion. 3. Bibasilar opacities, left greater than right. CT scan yesterday: 1. Progressive inflammatory changes about the mid sigmoid colon with increased amount of edema within the sigmoid mesocolon is noted along with increased amount of pneumoperitoneum compatible with worsening sigmoid diverticulitis and perforation. 2. No drainable collection or abscess is seen at this time. 3. Trace pleural effusions with subsegmental bibasilar consolidations suggesting atelectasis. 4. Incidental findings include suggested anemia, small sliding-type hiatal hernia, prior cholecystectomy and evidence of healed granulomatous disease. The above report was generated using voice recognition software. It may contain grammatical, syntax or spelling errors. 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 Has right radial a-line and right IJ TLC A-fib with RVR. Aim for rate control only. Avoid amiodarone, may convert her to NSR and increase the risk for cardioembolic events. Cardizem as needed, or start Cardizem drip. Will also start beta-blockers Start heparin drip when OK with surgery. Pulmonary: Gentle hydration, has pulmonary edema. Consider starting diuresis soon. May attempt to extubate her tomorrow Elevate head ID: Continue on antibiotics, on Azactam, Cipro and Flagyl. F/u blood cultures, negative so far. Washout cultures sent. Will need wound VAC Renal/metabolic: Creatinine at baseline Diuresis soon Gentle hydration for now Albumin infusion for peritonitis Maintain [place] Lactic acid persistently normal GI: NG to suction Monitor colostomy output Monitor GENNY output I understand that she did not gross peritonitis, and the sigmoid was not significantly inflamed NPO Continue Albumin infusion No need to initiate TPN at this point Start famotidine IV for GI bleeding prophylaxis Endo: Continue iv levothyroxine DVT prophylaxis: Start heparin. SCDs Critical care time spent 75 minutes Discussed with the patient's sons and daughter Consults & Procedures Consultants: Surgery - Dr Valdovinos Cardiology - Dr Vera Procedures: 09/17 right IJ TLC 09/17 ex-lap with sigmoid resection and colostomy 09/17 right radial a-line Data Medications: Current Inpatient Medications Medications (Trade) Dose Ordered Sig/Mazin Route Start Time Stop Time Status Last Admin Dose Admin Ioversol (Optiray 320) 100 ml UD PRN IV 09/16/16 02:15 09/20/16 02:14 Metronidazole 500 mg/Prmx 100 ml @ 100 mls/hr Q8H IV 09/16/16 14:00 09/26/16 13:59 09/17/16 15:58 100 MLS/HR Lorazepam (Ativan Inj) 0.5 mg Q4H PRN IV 09/16/16 08:00 10/16/16 07:59 Levothyroxine Sodium 35 mcg/ Syringe 1.75 ml @ 2 mls/min DAILY@09 IV 09/16/16 10:00 10/16/16 09:59 09/17/16 09:35 2 MLS/MIN Metoprolol Tartrate (Lopressor Iv) 5 mg Q4H PRN IV 09/16/16 08:00 10/16/16 07:59 Fluconazole/ Sodium Chloride 100 mg/Prmx 50 ml @ 100 mls/hr Q24H IV 09/16/16 10:00 09/26/16 09:59 09/16/16 10:25 100 MLS/HR Albumin Human (Albumin 25%) 25 gm Q6H IV 09/16/16 12:00 09/19/16 10:44 09/17/16 16:16 25 GM Heparin Sodium/ Dextrose 500 ml @ 22 mls/hr [id number] PRN IV 09/16/16 11:15 10/16/16 11:14 09/16/16 11:24 22 MLS/HR Acetaminophen 100 ml @ 400 mls/hr Q8H PRN IV 09/16/16 14:00 10/16/16 13:59 09/16/16 23:30 400 MLS/HR Ciprofloxacin/ Dextrose 400 mg/ Prmx 200 ml @ 100 mls/hr DAILY@1000 IV 09/17/16 10:00 09/26/16 09:59 Aztreonam 2000 mg/ Dextrose 110 ml @ 100 mls/hr Q8H IV 09/16/16 20:00 09/26/16 19:59 09/17/16 15:57 100 MLS/HR Ondansetron HCl (Zofran Inj) 4 mg Q6H PRN IV 09/17/16 08:45 10/17/16 08:44 09/17/16 09:35 4 MG Propofol (Diprivan Iv Emulsion 100ml Vial) 1 dose UD IV 09/17/16 16:00 09/20/16 15:59 Parenteral Electrolyte Solution 1,000 ml @ 50 mls/hr Q20H IV 09/17/16 17:00 10/17/16 16:59 Fentanyl Citrate (Fentanyl Inj) 50 mcg Q2H PRN IV 09/17/16 17:00 10/01/16 16:59 I & O: 24-Hour Column 09/18/16 08:00 Intake Total 1792 ml Output Total 880 ml Balance 912 ml Vital Signs: Date Time Temp Pulse Resp B/P (MAP) Pulse Ox O2 Delivery O2 Flow Rate FiO2 09/17/16 16:00 50 09/17/16 16:00 Mechanical Ventilator 50 09/17/16 15:15 36.9 132 16 182/135 94 Mechanical Ventilator 50 09/17/16 15:05 129 16 179/125 95 Mechanical Ventilator 50 09/17/16 14:55 116 16 129/80 96 Mechanical Ventilator 50 09/17/16 14:45 50 09/17/16 14:45 36.6 95 16 170/113 100 Mechanical Ventilator 50 09/17/16 11:16 93 28 139/71 (93) 91 CPAP 5.0 09/17/16 11:01 100 22 149/81 (103) 91 CPAP 5.0 09/17/16 10:56 107 21 148/77 (100) 92 CPAP 5.0 09/17/16 10:50 123 22 162/70 (100) 92 CPAP 5.0 09/17/16 10:46 123 28 160/75 (103) 92 Nasal Cannula 3.0 09/17/16 10:31 132 31 167/78 (107) 93 Nasal Cannula 3.0 09/17/16 10:01 140 18 153/76 (101) 90 Nasal Cannula 3.0 09/17/16 09:35 115 25 124/90 (101) 91 Nasal Cannula 2.0 09/17/16 09:01 83 30 147/72 (97) 93 Nasal Cannula 2.0 09/17/16 08:28 85 27 157/74 (101) 93 Nasal Cannula 2.0 09/17/16 08:01 36.6 72 15 141/64 (89) 100 Nasal Cannula 2.0 09/17/16 08:00 Nasal Cannula 2.0 09/17/16 07:31 73 17 122/63 (82) 100 Nasal Cannula 2.0 09/17/16 07:01 80 27 124/62 (82) 99 Nasal Cannula 2.0 09/17/16 05:01 78 21 128/70 (89) 96 Nasal Cannula 2.0 09/17/16 04:36 77 20 118/55 (76) 96 Nasal Cannula 2.0 09/17/16 04:01 36.6 64 14 124/55 (78) 99 Nasal Cannula 2.0 09/17/16 04:00 Nasal Cannula 2.0 09/17/16 03:46 72 12 122/72 (89) 99 Nasal Cannula 2.0 09/17/16 03:31 76 18 126/59 (81) 99 Nasal Cannula 2.0 09/17/16 03:16 78 21 145/55 (85) 96 Nasal Cannula 2.0 09/17/16 03:01 70 15 123/62 (82) 97 2.0 09/17/16 02:46 71 16 115/55 (75) 97 2.0 09/17/16 02:31 66 15 111/55 (73) 98 2.0 09/17/16 02:16 74 14 109/52 (71) 97 2.0 09/17/16 02:01 74 16 106/50 (68) 97 2.0 09/17/16 01:46 75 11 106/46 (66) 97 2.0 09/17/16 01:31 77 13 108/47 (67) 96 2.0 09/17/16 01:16 79 16 97/45 (62) 97 2.0 09/17/16 01:01 79 13 99/43 (61) 97 2.0 09/17/16 00:47 81 14 89/44 (59) 95 Nasal Cannula 2.0 09/17/16 00:46 80 17 85/42 (56) 95 Nasal Cannula 2.0 09/17/16 00:31 84 16 96/45 (62) 96 Nasal Cannula 2.0 09/17/16 00:16 74 15 115/50 (71) 97 Nasal Cannula 2.0 09/17/16 00:01 Nasal Cannula 2.0 09/17/16 00:01 74 16 108/44 (65) 97 Nasal Cannula 2.0 09/16/16 23:46 37.7 78 18 121/49 (73) 97 Nasal Cannula 2.0 09/16/16 23:31 84 21 132/57 (82) 97 Nasal Cannula 2.0 09/16/16 23:16 82 21 131/59 (83) 97 Nasal Cannula 2.0 09/16/16 23:01 83 20 131/67 (88) 95 Nasal Cannula 2.0 09/16/16 22:46 84 22 143/81 (101) 99 Nasal Cannula 2.0 09/16/16 22:42 82 21 139/58 (85) 99 Nasal Cannula 2.0 09/16/16 22:01 80 19 114/55 (74) 96 Nasal Cannula 2.0 09/16/16 21:46 81 22 117/76 (90) 96 Nasal Cannula 2.0 09/16/16 21:31 82 18 116/56 (76) 98 Nasal Cannula 2.0 09/16/16 21:17 84 22 122/51 (74) 97 Nasal Cannula 2.0 09/16/16 21:01 82 20 138/60 (86) 98 Nasal Cannula 2.0 09/16/16 20:46 85 22 131/78 (95) 99 Nasal Cannula 2.0 09/16/16 20:31 72 25 122/69 (86) 99 Nasal Cannula 2.0 09/16/16 20:20 76 18 130/58 (82) 88 Room Air 09/16/16 20:01 37.4 72 18 135/62 (86) 95 Room Air 09/16/16 20:00 Nasal Cannula 2.0 09/16/16 19:46 80 17 165/72 (103) 90 Room Air 09/16/16 19:31 74 16 134/61 (85) 95 Room Air 09/16/16 19:18 76 21 104/49 (67) 91 Room Air 09/16/16 19:01 86 19 104/76 (85) 92 Room Air 09/16/16 18:02 36.9 80 18 156/75 (102) 95 Room Air Laboratory Results: Last 24 Hours Test 09/16/16 18:00 09/16/16 22:10 09/16/16 22:25 09/17/16 02:53 White Blood Count 7.39 K/uL 6.85 K/uL Red Blood Count 3.04 M/uL 3.34 M/uL Hemoglobin 9.2 g/dL 10.2 g/dL Hematocrit 28.5 % 31.6 % Mean Corpuscular Volume 93.8 fL 94.6 fL Mean Corpuscular Hemoglobin 30.3 pg 30.5 pg Mean Corpuscular Hemoglobin Concent 32.3 g/dl 32.3 g/dl Platelet Count 176 K/uL 159 K/uL Mean Platelet Volume 9.0 fL 8.9 fL Neutrophils (%) (Auto) 66.8 % Lymphocytes (%) (Auto) 21.8 % Monocytes (%) (Auto) 6.9 % Eosinophils (%) (Auto) 3.9 % Basophils (%) (Auto) 0.1 % Neutrophils # (Auto) 4.93 K/uL Lymphocytes # (Auto) 1.61 K/uL Monocytes # (Auto) 0.51 K/uL Eosinophils # (Auto) 0.29 K/uL Basophils # (Auto) 0.01 K/uL RDW Standard Deviation 49.4 fL 49.6 fL RDW Coefficient of Variation 14.4 % 14.4 % Immature Granulocyte % (Auto) 0.5 % Immature Granulocyte # (Auto) 0.04 K/uL Activated Partial Thromboplast Time 70.0 SECONDS 35.2 SECONDS Partial Thromboplastin Ratio 2.7 1.4 Sodium Level 141 mmol/L 140 mmol/L Potassium Level 4.0 mmol/L 4.1 mmol/L Chloride Level 111 mmol/L 108 mmol/L Carbon Dioxide Level 25 mmol/L 26 mmol/L Anion Gap 5.0 mmol/L 6.0 mmol/L Blood Urea Nitrogen 29 mg/dl 26 mg/dl Creatinine 1.40 mg/dl 1.40 mg/dl Est Creatinine Clear Calc Drug Dose 28.7 ml/min 28.7 ml/min Estimated GFR () 40.5 40.5 Estimated GFR (Non- 34.9 34.9 BUN/Creatinine Ratio 21.0 18.4 Random Glucose 102 mg/dl 108 mg/dl Lactic Acid Level 0.7 mmol/L 1.1 mmol/L Calcium Level 7.2 mg/dl 8.0 mg/dl Ionized Calcium 1.00 mmol/l Phosphorus Level 1.7 mg/dl Magnesium Level 1.6 mg/dl Total Bilirubin 0.3 mg/dl Aspartate Amino Transf (AST/SGOT) 23 U/L Alanine Aminotransferase (ALT/SGPT) 27 U/L Alkaline Phosphatase 75 U/L Total Protein 5.2 gm/dl Albumin 2.3 gm/dl Globulin 2.9 gm/dl Albumin/Globulin Ratio 0.8 Procalcitonin 0.26 ng/ml Prothrombin Time 16.8 SECONDS Prothromb Time International Ratio 1.5 Test 09/17/16 06:13 09/17/16 14:28 09/17/16 15:40 09/17/16 17:08 White Blood Count 6.59 K/uL 4.97 K/uL Red Blood Count 2.93 M/uL 2.75 M/uL Hemoglobin 9.0 g/dL 8.7 g/dL 7.9 g/dL Hematocrit 27.9 % 27.5 % 25.9 % Mean Corpuscular Volume 95.2 fL 94.2 fL Mean Corpuscular Hemoglobin 30.7 pg 28.7 pg Mean Corpuscular Hemoglobin Concent 32.3 g/dl Platelet Count 169 K/uL 167 K/uL Mean Platelet Volume 8.9 fL 8.5 fL Neutrophils (%) (Auto) 70.5 % Lymphocytes (%) (Auto) 16.5 % Monocytes (%) (Auto) 7.3 % Eosinophils (%) (Auto) 4.9 % Basophils (%) (Auto) 0.2 % Neutrophils # (Auto) 4.65 K/uL Lymphocytes # (Auto) 1.09 K/uL Monocytes # (Auto) 0.48 K/uL Eosinophils # (Auto) 0.32 K/uL Basophils # (Auto) 0.01 K/uL RDW Standard Deviation 50.5 fL 50.5 fL RDW Coefficient of Variation 14.5 % 14.6 % Immature Granulocyte % (Auto) 0.6 % Immature Granulocyte # (Auto) 0.04 K/uL Sodium Level 141 mmol/L 140 mmol/L Potassium Level 3.9 mmol/L 3.9 mmol/L Chloride Level 113 mmol/L 114 mmol/L Carbon Dioxide Level 23 mmol/L 20 mmol/L Anion Gap 5.0 mmol/L 6.0 mmol/L Blood Urea Nitrogen 21 mg/dl 17 mg/dl Creatinine 1.30 mg/dl 1.00 mg/dl Est Creatinine Clear Calc Drug Dose 31.7 ml/min 41.2 ml/min Estimated GFR () 44.2 60.8 Estimated GFR (Non- 38.2 52.4 BUN/Creatinine Ratio 16.2 16.6 Random Glucose 111 mg/dl 146 mg/dl Lactic Acid Level 0.6 mmol/L Calcium Level 7.5 mg/dl 6.9 mg/dl Ionized Calcium 1.05 mmol/l 0.94 mmol/l Phosphorus Level 1.6 mg/dl Magnesium Level 2.2 mg/dl 1.9 mg/dl Total Bilirubin 0.5 mg/dl 0.6 mg/dl Direct Bilirubin 0.2 mg/dl Aspartate Amino Transf (AST/SGOT) 44 U/L 33 U/L Alanine Aminotransferase (ALT/SGPT) 43 U/L 39 U/L Alkaline Phosphatase 80 U/L 66 U/L Total Protein 5.7 gm/dl 5.2 gm/dl Albumin 2.8 gm/dl 3.0 gm/dl Blood Gas Sample Site Art Line Bedside Blood Gas pH (LAB) 7.24 Bedside Blood Gas pCO2 (LAB) 43 mmHg Bedside Blood Gas pO2 (LAB) 67 mmHg Bedside Blood Gas HCO3 (LAB) 19 meq/L Bedside Blood Gas Total CO2 20 mEq/l Bedside Blood Gas Base Excess (LAB) -9.0 meq/L Bedside Blood Gas O2 Saturation 90.0 % Yasmani Test NA Oxygen Delivery Device Ventilator Bedside Oxygen Rate (breaths/min) 16 Blood Gas Minute Ventilation 6.8 Bedside FiO2 50 % Blood Gas Tidal Volume 450 Blood Gas PEEP 5 Globulin 2.2 gm/dl Albumin/Globulin Ratio 1.4
[2016-09-17] MEDS: FAMOTIDINE IV INJ 20 MG in DEXTROSE 5% 100ML 100 ML IV SCH (20:03)
[2016-09-17] MEDS: FENTANYL CITRATE INJ 50 MCG/1 ML 2 ML VIAL IV PRN (20:09)
[2016-09-17] MEDS ORDERED: CALCIUM GLUCONATE 10% 2,000 MG in SODIUM CHLORIDE 0.9% 50ML 50 ML IV ONE (20:15)
[2016-09-17] MEDS: ACETAMINOPHEN IV 1000MG/100ML IV PRN (21:04)
[2016-09-17] MEDS: PROPOFOL IV EMULSION 10 MG/ML 100 ML VIAL IV SCH (21:06)
[2016-09-17] MEDS ORDERED: SODIUM CHLORIDE 0.9% 250ML 250 ML IV ONE (22:00)
[2016-09-18] VITALS (63 sets, daily range): BP systolic 82–184; BP diastolic 41–108; PULSE 61–125; TEMP 37–37.7; O2SAT 90–100
[2016-09-18] MEDS ORDERED: METOPROLOL TARTRATE 1 MG/ML VIAL IV. SCH
[2016-09-18 00:01] LABS: BASO % 0.2 %; BASO ABS # 0.01 K/uL (0-0.2); EOS % 0.8 %; HEMATOCRIT 22.3 % (37-47); IG% 0.6 %; LYMPH % 23.9 %; LYMPH ABS # 1.19 K/uL (1.2-3.4); MEAN CELL VOLUME 93.3 fL (80-100); MEAN CORPUSCULAR HEMOGLOBIN 30.1 pg (25-34); MEAN CORPUSCULAR HGB CONC 32.3 g/dl (32-36); MEAN PLATELET VOLUME 8.5 fL (7.4-10.4); MONO % 7.6 %; NEUT % 66.9 %; PLATELET COUNT 152 K/uL (130-400); RED BLOOD COUNT 2.39 M/uL (4.2-5.4); WHITE BLOOD COUNT 4.97 K/uL (4.8-10.8)
[2016-09-18 00:25] LABS: ISTAT ARTERIAL BLOOD GAS HCO3 18 meq/L (19-24); ISTAT ARTERIAL BLOOD GAS PCO2 31 mmHg (35-46); ISTAT ARTERIAL BLOOD GAS PO2 175 mmHg (80-95); ISTAT ARTERIAL BLOOD GAS pH 7.37 (7.35-7.45); ISTAT CARBON DIOXIDE 19 mEq/l (24-31); ISTAT DELIVERY SYSTEM Ventilator; ISTAT FIO2 45 %; ISTAT PEEP 5; ISTAT RATE 20; ISTAT SITE Art Line; VE 8.6; Vt 450
[2016-09-18 00:26] LABS: ALB/GLOB RATIO 1.3 (0.9-2); BUN/CREATININE RATIO 13.8 (10-20); CALCIUM 7.2 mg/dl (8.5-10.1); CREATININE 1.2 mg/dl (0.60-1.20); MAGNESIUM 1.9 mg/dl (1.8-2.4); PHOSPHORUS 1.9 mg/dl (2.5-4.9); POTASSIUM 4.1 mmol/L (3.5-5.1)
[2016-09-18] MEDS ORDERED: NURSING VERBAL MED ORDER ONE ×7 (01:00→22:30)
[2016-09-18 01:02] LABS: COMPLETE YES
[2016-09-18] MEDS ORDERED: CALCIUM GLUCONATE 10% 1,000 MG in SODIUM CHLORIDE 0.9% 50ML 50 ML IV ONE ×2 (01:15→18:15)
[2016-09-18] MEDS: AZTREONAM IV 2,000 MG in DEXTROSE 5% 100ML 100 ML IV SCH ×3 (04:22→19:32)
[2016-09-18] MEDS: FENTANYL CITRATE INJ 50 MCG/1 ML 2 ML VIAL IV PRN ×4 (05:32→22:44)
[2016-09-18] MEDS: ALBUMIN HUMAN 25% 12.5 GM/50 ML VIAL IV SCH ×4 (05:55→23:36)
[2016-09-18] MEDS: METRONIDAZOLE / NSS 500 MG in PREMIXED NSS 100 ML IV SCH ×3 (05:55→21:20)
--- NOTE | 2016-09-18 06:41 | DIAGNOSTIC IMAGING REPORT ---
CHEST ONE VIEW PORTABLE CLINICAL HISTORY: Post-op, respiratory failure dyspnea COMPARISON STUDY: 09/17/2016 FINDINGS: Endotracheal tube remains 2 cm above the christine. Mild stable cardiomegaly. Nasogastric tube within the stomach. Persistent prominence of the pulmonary vasculature. Persistent consolidative change left and to a lesser extent right base. IMPRESSION: Stable exam. Unchanging pulmonary vascular congestion with basilar atelectatic/consolidative change. The above report was generated using voice recognition software. It may contain grammatical, syntax or spelling errors. Electronically signed by: Mich Velez M.D. 09/18/2016 6:40 AM Dictated Date/Time: 09/18/2016 6:39 AM
[2016-09-18] MEDS: FAMOTIDINE IV INJ 20 MG in DEXTROSE 5% 100ML 100 ML IV SCH ×2 (07:41→19:32)
[2016-09-18] MEDS: PROPOFOL IV EMULSION 10 MG/ML 100 ML VIAL IV SCH (07:45)
[2016-09-18 08:14] LABS: ISTAT ARTERIAL BLOOD GAS HCO3 17 meq/L (19-24); ISTAT ARTERIAL BLOOD GAS PCO2 29 mmHg (35-46); ISTAT ARTERIAL BLOOD GAS PO2 110 mmHg (80-95); ISTAT ARTERIAL BLOOD GAS pH 7.37 (7.35-7.45); ISTAT CARBON DIOXIDE 17 mEq/l (24-31); ISTAT DELIVERY SYSTEM Ventilator; ISTAT FIO2 40 %; ISTAT PEEP 5; ISTAT RATE 20; ISTAT SITE Art Line; VE 8.8; Vt 450
[2016-09-18 08:15] LABS: BASO % 0.2 %; BASO ABS # 0.01 K/uL (0-0.2); COMPLETE YES; EOS % 2.6 %; HEMATOCRIT 28.3 % (37-47); IG% 0.7 %; LYMPH % 19.8 %; LYMPH ABS # 1.06 K/uL (1.2-3.4); MEAN CELL VOLUME 91.3 fL (80-100); MEAN CORPUSCULAR HEMOGLOBIN 30.3 pg (25-34); MEAN CORPUSCULAR HGB CONC 33.2 g/dl (32-36); MEAN PLATELET VOLUME 9.2 fL (7.4-10.4); NEUT % 68.7 %; PLATELET COUNT 153 K/uL (130-400); WHITE BLOOD COUNT 5.35 K/uL (4.8-10.8)
[2016-09-18 08:23] LABS: INR 1.7 (0.9-1.1); PARTIAL THROMBOPLASTIN RATIO 1.4; PROTHROMBIN TIME (PATIENT) 18.1 SECONDS (9.0-12.0)
--- NOTE | 2016-09-18 08:26 | OPERATIVE REPORT ---
DATE OF OPERATION: 09/17/2016 PREOPERATIVE DIAGNOSIS: Perforated sigmoid diverticulitis. POSTOPERATIVE DIAGNOSIS: Same. PROCEDURE: Exploratory laparotomy with removal of portion of sigmoid colon and formation of end colostomy. SURGEON: Dr. Mich Valdovinos. FINDINGS: Upon entering the abdomen, there was a small amount of free air. There was a small amount of fluid that was cultured. There was thickening of the mid portion of the sigmoid colon with thickening of the bile wall as well as thickening of the fat of the mesentery and of the epiploica surrounding it. The bowels proximal and distal to that were normal. The resection was taken down to just above the sacral promontory. The colostomy was formed. There was good blood supply to that and then, the colostomy tissue was pink. There was not a lot of redundant sigmoid colon available and so, I had to mobilize the entire left side of the colon. That allowed me to extract the bowel through the opening for the colostomy considering a thickness of her abdominal wall. The remainder of the colon that was inspected was normal. The NG tube was in good position. The liver was palpated and was normal. The uterus was small. TECHNIQUE: The patient was given a general anesthetic and the area was prepped and draped in the usual sterile fashion. A vertical midline incision was made. This had to be increased in length superiorly, but was carried down through the subcutaneous tissue to the fascia, which was opened in the midline. The posterior sheath was opened in the midline. The peritoneum was identified, opened and the abdomen was entered. The incision was made along the length of the skin incision through all layers. The abdomen was explored with findings as above. I then began to mobilize the sigmoid colon along the line of Toldt on the lateral side and peeled it medially. There were some adhesions of the omentum and of the small bowel that had to be taken down bluntly. This was all then retracted superiorly and the Bookwalter retractor was placed. Further dissection of the sigmoid colon was performed more distally, which allowed me to reflect it medially and bring it up towards the incision. I then worked up along the lateral side of the descending colon and mobilized it up to just distal to the splenic flexure. That allowed me to reflect it medially and find the area that appeared to be normal bowel. The mesentery was away from the bowel there and it was divided using the SHERINE stapler. I then divided the mesentery of the sigmoid colon, working down towards the sacral promontory, using a clamp-clamp divide and ligate technique using 2-0 silk suture ligatures and ties where appropriate. I carried the dissection down until I was beyond the thickening in the sigmoid colon down to get normal bowel. It was divided by the mesentery away and dividing it using the SHERINE. The remainder of the mesentery was divided using a clamp-clamp divide and ligate technique and using 2-0 silk and the specimen was passed off. A 2-0 Prolene was placed on the lateral edge of the staple line and a long tail was left to aide in identification of the staple line should reversal be entertained in the future. I then realized that I was not going to be able to bring the colon through the thickness of the abdominal wall and I mobilized it further up along the line of Toldt. I then also had to mobilize the very base of the mesentery working inferior to superior and eventually, I was able to mobilize enough the small of the colon. It was clear that I would then come through the thickness of the abdominal wall. I then chose a site for formation of colostomy and remove the circular portion of skin, dissected using cautery down to the fascia and opened the fascia in a cruciate manner. Two fingers were able to pass through that opening and the colon was brought out through that with ease. There was good blood supply and the bowel was pink. The abdomen was irrigated with a copious amount of saline and that was removed. A separate stab incision was made in the right side of the abdomen, through which a 19-Portuguese round drain was brought. It was placed in the pelvis and cut to size. It was secured with 3-0 nylon at the skin level. The fascia of the vertical midline incision was closed with a running #1 PDS. The colostomy was then matured. The staple line was removed and 3-0 Vicryl sutures were used to approximate the colon to the edge of the dermis of the circular skin opening with 4 sutures 90 degrees away from each other using a comanche technique. The remainder was sutured directly to the dermis. Again, the colostomy appeared pink. Sponge, needle, and instrument counts were correct prior to closure and then once after closure. The estimated blood loss was 300 mL. The wound was packed with saline soaked packing and a dressing was placed. The colostomy bag was placed over the ostomy. Estimated blood loss was 300 mL. The patient tolerated the surgical procedure and was transferred back to the intensive care unit. I attest to the content of the Intraoperative Record and any orders documented therein. Any exceptions are noted below. MTDD
[2016-09-18 09:19] LABS: ALB/GLOB RATIO 1.3 (0.9-2); BUN/CREATININE RATIO 14.8 (10-20); CALCIUM 7.5 mg/dl (8.5-10.1); MAGNESIUM 2.1 mg/dl (1.8-2.4); PHOSPHORUS 1.3 mg/dl (2.5-4.9); POTASSIUM 3.6 mmol/L (3.5-5.1)
[2016-09-18] MEDS ORDERED: POTASSIUM PHOS 3 MMOL/1 ML INFUSION IV STA (09:36)
[2016-09-18] MEDS: LEVOTHYROXINE SODIUM INJ 35 MCG in SYRINGE 0 ML IV SCH (09:39)
[2016-09-18] MEDS: FLUCONAZOLE / NSS 100 MG in PREMIXED NSS 50 ML IV SCH (09:39)
[2016-09-18] MEDS: CIPROFLOXACIN / D5W 400 MG in PREMIXED IN D5W 200 ML IV SCH (09:39)
[2016-09-18] MEDS ORDERED: FUROSEMIDE 40 MG/4 ML VIAL IV ONE ×2 (09:50→23:30)
[2016-09-18] MEDS ORDERED: POTASSIUM PHOSPHATE INJ 30 MMOL in SODIUM CHLORIDE 0.9% 500ML 500 ML IV SCH (10:00)
[2016-09-18] MEDS: HEPARIN 25,000 UNIT/500ML D5W 500 ML IV PRN (10:34)
[2016-09-18] MEDS: NORMOSOL R 1,000 ML IV SCH (12:14)
--- NOTE | 2016-09-18 12:59 | Anesthesiology Progress Note ---
Anesthesia Post Op Note Date & Time Sep 18, 2016 at 12:58 Vital Signs Pain Intensity: 5.0 Vital Signs Past 12 Hours Date Time Temp Pulse Resp B/P (MAP) Pulse Ox O2 Delivery O2 Flow Rate FiO2 09/18/16 12:01 37.0 125 22 149/91 (110) 94 Nasal Cannula 4.0 09/18/16 12:00 Nasal Cannula 4.0 09/18/16 11:01 113 23 139/69 (92) 92 Nasal Cannula 4.0 09/18/16 11:00 112 21 143/66 (91) 92 Nasal Cannula 3.0 09/18/16 10:01 105 18 150/76 (100) 98 Mechanical Ventilator 40 09/18/16 09:30 106 19 147/62 (90) 99 Mechanical Ventilator 40 09/18/16 09:01 96 16 113/76 (88) 99 Mechanical Ventilator 40 09/18/16 09:00 91 16 120/54 (76) 99 Mechanical Ventilator 40 09/18/16 08:01 37.4 95 20 129/65 (86) 99 Mechanical Ventilator 40 09/18/16 08:00 Mechanical Ventilator 40 09/18/16 08:00 40 09/18/16 07:50 40 09/18/16 07:01 91 20 115/60 (78) 97 Mechanical Ventilator 40 09/18/16 07:00 106 20 112/55 (74) 97 Mechanical Ventilator 40 09/18/16 06:01 103 20 119/60 95 09/18/16 05:59 102 20 116/72 95 112/54 09/18/16 05:46 111 20 123/61 94 121/54 09/18/16 05:45 37.2 103 20 112/53 94 09/18/16 05:43 40 09/18/16 05:31 104 23 159/82 97 150/68 09/18/16 05:16 108 20 132/76 97 140/63 09/18/16 05:01 92 20 140/65 99 148/66 09/18/16 05:00 101 20 145/64 99 09/18/16 04:46 93 20 137/80 100 138/62 09/18/16 04:31 92 20 115/62 99 118/54 09/18/16 04:16 94 20 118/69 99 127/53 09/18/16 04:01 37.2 97 20 116/57 99 114/50 09/18/16 04:00 40 09/18/16 04:00 Mechanical Ventilator 40 09/18/16 04:00 37.2 98 20 113/49 98 09/18/16 03:46 99 20 115/68 99 106/47 09/18/16 03:31 98 20 114/66 99 106/50 09/18/16 03:24 37.2 103 20 127/69 100 09/18/16 03:24 104 20 127/69 100 125/55 09/18/16 03:16 113 20 108/67 99 126/56 09/18/16 03:10 40 09/18/16 03:01 116 20 120/68 99 135/55 09/18/16 03:00 37.4 96 20 130/56 99 09/18/16 02:46 102 20 133/73 99 128/57 09/18/16 02:45 103 20 124/55 99 09/18/16 02:31 99 20 128/71 99 131/59 09/18/16 02:16 105 20 121/75 100 131/55 09/18/16 02:01 104 20 125/67 100 129/55 09/18/16 01:46 101 20 116/68 100 134/53 09/18/16 01:45 37.5 91 20 119/78 100 09/18/16 01:31 114 20 119/78 98 132/53 09/18/16 01:28 106 20 133/77 99 122/53 09/18/16 01:27 37.2 104 20 133/77 99 09/18/16 01:16 85 20 101/51 99 92/41 09/18/16 01:01 102 20 93/47 98 100/45 Notes Pt POD#1 s/p colectomy and colostomy. Patient has been extubated and maintaining airway without problem. Awake and doing well this morning. No apparent anesthetic complication seen.
[2016-09-18] MEDS ORDERED: HYDROmorphone INJ 0.5 MG/0.5 ML SYR ONE (13:02)
[2016-09-18] MEDS: ACETAMINOPHEN IV 1000MG/100ML IV PRN (13:06)
--- NOTE | 2016-09-18 13:28 | Surgery Progress Note ---
Surgery Progress Note Date of Service Sep 18, 2016. Subjective Post OP Day: 1 Extubated, awake, alert Objective Vital Signs: Date Time Temp Pulse Resp B/P (MAP) Pulse Ox O2 Delivery O2 Flow Rate FiO2 09/18/16 12:01 37.0 125 22 149/91 (110) 94 Nasal Cannula 4.0 09/18/16 12:00 Nasal Cannula 4.0 09/18/16 11:01 113 23 139/69 (92) 92 Nasal Cannula 4.0 09/18/16 11:00 112 21 143/66 (91) 92 Nasal Cannula 3.0 09/18/16 10:01 105 18 150/76 (100) 98 Mechanical Ventilator 40 09/18/16 09:30 106 19 147/62 (90) 99 Mechanical Ventilator 40 09/18/16 09:01 96 16 113/76 (88) 99 Mechanical Ventilator 40 09/18/16 09:00 91 16 120/54 (76) 99 Mechanical Ventilator 40 09/18/16 08:01 37.4 95 20 129/65 (86) 99 Mechanical Ventilator 40 09/18/16 08:00 Mechanical Ventilator 40 09/18/16 08:00 40 09/18/16 07:50 40 09/18/16 07:01 91 20 115/60 (78) 97 Mechanical Ventilator 40 09/18/16 07:00 106 20 112/55 (74) 97 Mechanical Ventilator 40 09/18/16 06:01 103 20 119/60 95 09/18/16 05:59 102 20 116/72 95 112/54 09/18/16 05:46 111 20 123/61 94 121/54 09/18/16 05:45 37.2 103 20 112/53 94 09/18/16 05:43 40 09/18/16 05:31 104 23 159/82 97 150/68 09/18/16 05:16 108 20 132/76 97 140/63 09/18/16 05:01 92 20 140/65 99 148/66 09/18/16 05:00 101 20 145/64 99 09/18/16 04:46 93 20 137/80 100 138/62 09/18/16 04:31 92 20 115/62 99 118/54 09/18/16 04:16 94 20 118/69 99 127/53 09/18/16 04:01 37.2 97 20 116/57 99 114/50 09/18/16 04:00 40 09/18/16 04:00 Mechanical Ventilator 40 09/18/16 04:00 37.2 98 20 113/49 98 09/18/16 03:46 99 20 115/68 99 106/47 09/18/16 03:31 98 20 114/66 99 106/50 09/18/16 03:24 37.2 103 20 127/69 100 09/18/16 03:24 104 20 127/69 100 125/55 09/18/16 03:16 113 20 108/67 99 126/56 09/18/16 03:10 40 09/18/16 03:01 116 20 120/68 99 135/55 09/18/16 03:00 37.4 96 20 130/56 99 09/18/16 02:46 102 20 133/73 99 128/57 09/18/16 02:45 103 20 124/55 99 09/18/16 02:31 99 20 128/71 99 131/59 09/18/16 02:16 105 20 121/75 100 131/55 09/18/16 02:01 104 20 125/67 100 129/55 09/18/16 01:46 101 20 116/68 100 134/53 09/18/16 01:45 37.5 91 20 119/78 100 09/18/16 01:31 114 20 119/78 98 132/53 09/18/16 01:28 106 20 133/77 99 122/53 09/18/16 01:27 37.2 104 20 133/77 99 09/18/16 01:16 85 20 101/51 99 92/41 09/18/16 01:01 102 20 93/47 98 100/45 09/18/16 00:46 96 20 98/47 98 82/41 09/18/16 00:31 96 20 104/63 98 106/46 09/18/16 00:19 40 09/18/16 00:16 88 20 112/60 100 107/43 09/18/16 00:01 Mechanical Ventilator 40 09/18/16 00:01 37.7 95 20 110/49 99 112/50 09/18/16 00:01 40 09/17/16 23:46 96 20 92/63 100 111/48 09/17/16 23:31 104 20 122/66 100 112/53 09/17/16 23:27 92 20 112/61 99 120/52 09/17/16 23:16 96 20 105/52 98 102/47 09/17/16 23:01 110 20 87/49 98 78/43 09/17/16 22:46 93 20 89/60 98 91/43 09/17/16 22:31 92 20 86/46 99 84/40 09/17/16 22:16 99 20 112/57 99 102/48 09/17/16 22:11 83 20 102/48 99 103/45 09/17/16 22:06 91 20 97/52 99 102/43 09/17/16 22:01 38.0 80 20 90/47 99 95/40 09/17/16 21:56 79 20 86/45 99 92/38 09/17/16 21:51 96 20 90/53 99 88/41 09/17/16 21:46 89 20 91/45 99 93/42 09/17/16 21:43 92 20 87/51 100 92/42 09/17/16 21:31 84 20 85/38 99 76/36 09/17/16 21:30 95 20 87/51 99 77/37 09/17/16 21:25 85 20 89/45 99 75/35 09/17/16 21:01 91 20 124/70 99 127/49 09/17/16 20:50 80 25 129/74 100 134/58 09/17/16 20:49 86 27 107/69 100 135/61 09/17/16 20:34 121 155/65 09/17/16 20:31 129 23 132/82 98 156/64 09/17/16 20:02 45 09/17/16 20:01 38.1 107 27 137/70 100 137/57 09/17/16 20:00 Mechanical Ventilator 45 09/17/16 20:00 45 09/17/16 19:53 89 24 125/78 96 130/54 09/17/16 19:01 85 20 86/47 96 111/45 09/17/16 18:23 50 09/17/16 18:01 37.1 87 20 103/57 (72) 98 Mechanical Ventilator 50 121/56 (77) 09/17/16 18:00 92 20 114/48 (70) 97 Mechanical Ventilator 50 09/17/16 16:18 123 13 130/50 (76) 94 Mechanical Ventilator 50 09/17/16 16:00 50 09/17/16 16:00 Mechanical Ventilator 50 09/17/16 16:00 88 16 95/38 (57) 93 Mechanical Ventilator 50 09/17/16 15:33 36.4 96 16 147/91 (109) 98 Mechanical Ventilator 50 09/17/16 15:15 36.9 132 16 182/135 94 Mechanical Ventilator 50 09/17/16 15:05 129 16 179/125 95 Mechanical Ventilator 50 09/17/16 14:55 116 16 129/80 96 Mechanical Ventilator 50 09/17/16 14:45 50 09/17/16 14:45 36.6 95 16 170/113 100 Mechanical Ventilator 50 Physical Exam: GENNY drainage (90 cc yesterday, 150 cc last shift) Abdomen: + abnormal bowel sounds (absent), + distended, + pertinent finding ( colosomy pink) Laboratory Results: Results Past 24 Hours Test 09/17/16 14:28 09/17/16 15:40 09/17/16 17:08 09/17/16 18:09 Range/Units Hemoglobin 8.7 7.9 12.0-16.0 g/dL Hematocrit 27.5 25.9 37-47 % Blood Gas Sample Site Art Line Art Line Bedside Blood Gas pH (LAB) 7.24 7.32 7.35-7.45 Bedside Blood Gas pCO2 (LAB) 43 34 35-46 mmHg Bedside Blood Gas pO2 (LAB) 67 136 80-95 mmHg Bedside Blood Gas HCO3 (LAB) 19 17 19-24 meq/L Bedside Blood Gas Total CO2 20 18 24-31 mEq/l Bedside Blood Gas Base Excess (LAB) -9.0 -9.0 -9-1.8 meq/L Bedside Blood Gas O2 Saturation 90.0 99.0 90-95 % Yasmani Test NA NA Oxygen Delivery Device Ventilator Ventilator Bedside Oxygen Rate (breaths/min) 16 20 Blood Gas Minute Ventilation 6.8 8.8 Bedside FiO2 50 50 % Blood Gas Tidal Volume 450 450 Blood Gas PEEP 5 5 White Blood Count 4.97 4.8-10.8 K/uL Red Blood Count 2.75 4.2-5.4 M/uL Mean Corpuscular Volume 94.2 80-100 fL Mean Corpuscular Hemoglobin 28.7 25-34 pg Mean Corpuscular Hemoglobin Concent 30.5 32-36 g/dl Platelet Count 167 130-400 K/uL Mean Platelet Volume 8.5 7.4-10.4 fL Neutrophils (%) (Auto) 81.9 % Lymphocytes (%) (Auto) 10.1 % Monocytes (%) (Auto) 6.6 % Eosinophils (%) (Auto) 0.6 % Basophils (%) (Auto) 0.2 % Neutrophils # (Auto) 4.07 1.4-6.5 K/uL Lymphocytes # (Auto) 0.50 1.2-3.4 K/uL Monocytes # (Auto) 0.33 0.11-0.59 K/uL Eosinophils # (Auto) 0.03 0-0.5 K/uL Basophils # (Auto) 0.01 0-0.2 K/uL RDW Standard Deviation 50.5 36.4-46.3 fL RDW Coefficient of Variation 14.6 11.5-14.5 % Immature Granulocyte % (Auto) 0.6 % Immature Granulocyte # (Auto) 0.03 0.00-0.02 K/uL Red Blood Cell Morphology Unremarkable Sodium Level 140 136-145 mmol/L Potassium Level 3.9 3.5-5.1 mmol/L Chloride Level 114 98-107 mmol/L Carbon Dioxide Level 20 21-32 mmol/L Anion Gap 6.0 3-11 mmol/L Blood Urea Nitrogen 17 7-18 mg/dl Creatinine 1.00 0.60-1.20 mg/dl Est Creatinine Clear Calc Drug Dose 41.2 ml/min Estimated GFR () 60.8 Estimated GFR (Non- 52.4 BUN/Creatinine Ratio 16.6 10-20 Random Glucose 146 70-99 mg/dl Lactic Acid Level 0.7 0.4-2.0 mmol/L Calcium Level 6.9 8.5-10.1 mg/dl Ionized Calcium 0.94 1.12-1.32 mmol/l Phosphorus Level 2.7 2.5-4.9 mg/dl Magnesium Level 1.9 1.8-2.4 mg/dl Total Bilirubin 0.6 0.2-1 mg/dl Aspartate Amino Transf (AST/SGOT) 33 15-37 U/L Alanine Aminotransferase (ALT/SGPT) 39 12-78 U/L Alkaline Phosphatase 66 45-117 U/L Pro-B-Type Natriuretic Peptide 6529 0-1800 pg/ml Total Protein 5.2 6.4-8.2 gm/dl Albumin 3.0 3.4-5.0 gm/dl Globulin 2.2 2.5-4.0 gm/dl Albumin/Globulin Ratio 1.4 0.9-2 Test 09/17/16 23:48 09/18/16 00:09 09/18/16 00:14 09/18/16 07:47 Range/Units White Blood Count 4.97 5.35 4.8-10.8 K/uL Red Blood Count 2.39 3.10 4.2-5.4 M/uL Hemoglobin 7.2 9.4 12.0-16.0 g/dL Hematocrit 22.3 28.3 37-47 % Mean Corpuscular Volume 93.3 91.3 80-100 fL Mean Corpuscular Hemoglobin 30.1 30.3 25-34 pg Mean Corpuscular Hemoglobin Concent 32.3 33.2 32-36 g/dl Platelet Count 152 153 130-400 K/uL Mean Platelet Volume 8.5 9.2 7.4-10.4 fL Neutrophils (%) (Auto) 66.9 68.7 % Lymphocytes (%) (Auto) 23.9 19.8 % Monocytes (%) (Auto) 7.6 8.0 % Eosinophils (%) (Auto) 0.8 2.6 % Basophils (%) (Auto) 0.2 0.2 % Neutrophils # (Auto) 3.32 3.67 1.4-6.5 K/uL Lymphocytes # (Auto) 1.19 1.06 1.2-3.4 K/uL Monocytes # (Auto) 0.38 0.43 0.11-0.59 K/uL Eosinophils # (Auto) 0.04 0.14 0-0.5 K/uL Basophils # (Auto) 0.01 0.01 0-0.2 K/uL RDW Standard Deviation 50.5 49.7 36.4-46.3 fL RDW Coefficient of Variation 14.7 14.8 11.5-14.5 % Immature Granulocyte % (Auto) 0.6 0.7 % Immature Granulocyte # (Auto) 0.03 0.04 0.00-0.02 K/uL Red Blood Cell Morphology Unremarkable Sodium Level 143 143 136-145 mmol/L Potassium Level 4.1 3.6 3.5-5.1 mmol/L Chloride Level 114 114 98-107 mmol/L Carbon Dioxide Level 21 18 21-32 mmol/L Anion Gap 8.0 11.0 3-11 mmol/L Blood Urea Nitrogen 17 15 7-18 mg/dl Creatinine 1.20 1.00 0.60-1.20 mg/dl Est Creatinine Clear Calc Drug Dose 34.3 41.4 ml/min Estimated GFR () 48.7 60.8 Estimated GFR (Non- 42.1 52.4 BUN/Creatinine Ratio 13.8 14.8 10-20 Random Glucose 112 119 70-99 mg/dl Lactic Acid Level 0.7 0.7 0.4-2.0 mmol/L Calcium Level 7.2 7.5 8.5-10.1 mg/dl Ionized Calcium 1.02 1.01 1.12-1.32 mmol/l Phosphorus Level 1.9 1.3 2.5-4.9 mg/dl Magnesium Level 1.9 2.1 1.8-2.4 mg/dl Total Bilirubin 0.5 0.8 0.2-1 mg/dl Aspartate Amino Transf (AST/SGOT) 26 29 15-37 U/L Alanine Aminotransferase (ALT/SGPT) 32 34 12-78 U/L Alkaline Phosphatase 59 65 45-117 U/L Total Protein 5.3 5.5 6.4-8.2 gm/dl Albumin 3.0 3.1 3.4-5.0 gm/dl Globulin 2.3 2.4 2.5-4.0 gm/dl Albumin/Globulin Ratio 1.3 1.3 0.9-2 Bedside Glucose 112 70-90 mg/dl Blood Gas Sample Site Art Line Bedside Blood Gas pH (LAB) 7.37 7.35-7.45 Bedside Blood Gas pCO2 (LAB) 31 35-46 mmHg Bedside Blood Gas pO2 (LAB) 175 80-95 mmHg Bedside Blood Gas HCO3 (LAB) 18 19-24 meq/L Bedside Blood Gas Total CO2 19 24-31 mEq/l Bedside Blood Gas Base Excess (LAB) -7.0 -9-1.8 meq/L Bedside Blood Gas O2 Saturation 100.0 90-95 % Yasmani Test NA Oxygen Delivery Device Ventilator Bedside Oxygen Rate (breaths/min) 20 Blood Gas Minute Ventilation 8.6 Bedside FiO2 45 % Blood Gas Tidal Volume 450 Blood Gas PEEP 5 Direct Bilirubin 0.4 0-0.2 mg/dl Test 09/18/16 07:50 09/18/16 07:54 Range/Units Prothrombin Time 18.1 9.0-12.0 SECONDS Prothromb Time International Ratio 1.7 0.9-1.1 Activated Partial Thromboplast Time 37.5 21.0-31.0 SECONDS Partial Thromboplastin Ratio 1.4 Blood Gas Sample Site Art Line Bedside Blood Gas pH (LAB) 7.37 7.35-7.45 Bedside Blood Gas pCO2 (LAB) 29 35-46 mmHg Bedside Blood Gas pO2 (LAB) 110 80-95 mmHg Bedside Blood Gas HCO3 (LAB) 17 19-24 meq/L Bedside Blood Gas Total CO2 17 24-31 mEq/l Bedside Blood Gas Base Excess (LAB) -9.0 -9-1.8 meq/L Bedside Blood Gas O2 Saturation 98.0 90-95 % Yasmani Test NA Oxygen Delivery Device Ventilator Bedside Oxygen Rate (breaths/min) 20 Blood Gas Minute Ventilation 8.8 Bedside FiO2 40 % Blood Gas Tidal Volume 450 Blood Gas PEEP 5 Assessment & Plan S/P Ochoa procedure Ostomy has not begun to function Continue NGT Urine output good especially after Lasix H&H good s/p 2 unit transfusion
[2016-09-18 14:44] LABS: ISTAT ARTERIAL BLOOD GAS HCO3 17 meq/L (19-24); ISTAT ARTERIAL BLOOD GAS PCO2 31 mmHg (35-46); ISTAT ARTERIAL BLOOD GAS PO2 76 mmHg (80-95); ISTAT ARTERIAL BLOOD GAS pH 7.35 (7.35-7.45); ISTAT CARBON DIOXIDE 18 mEq/l (24-31); ISTAT DELIVERY SYSTEM Cannula; ISTAT SITE Art Line
--- NOTE | 2016-09-18 14:52 | Progress Note ---
Subjective Date of Service: Sep 18, 2016. Subjective pt is extubated 09/18 has some abdominal pain but doing well, resumed heparin gtt and now afib rvr Problem List Medical Problems: (1) Diverticulitis Status: Acute (2) Diverticulitis of intestine with perforation Status: Acute (3) Left lower quadrant pain Status: Acute Review of Systems Constitutional: + weakness, No fever, No chills Respiratory: + cough, + shortness of breath, No sputum, No dyspnea on exertion Cardiac: No edema Abdomen: + pain, No nausea, No vomiting Female : No dysuria, No urinary frequency Objective Vital Signs Date Time Temp Pulse Resp B/P (MAP) Pulse Ox O2 Delivery O2 Flow Rate FiO2 09/18/16 14:01 105 18 134/89 (104) 97 Nasal Cannula 4.0 09/18/16 13:01 118 17 139/87 (104) 95 Nasal Cannula 4.0 09/18/16 13:00 110 20 143/68 (93) 95 Nasal Cannula 4.0 09/18/16 12:01 37.0 125 22 149/91 (110) 94 Nasal Cannula 4.0 09/18/16 12:00 Nasal Cannula 4.0 09/18/16 11:01 113 23 139/69 (92) 92 Nasal Cannula 4.0 09/18/16 11:00 112 21 143/66 (91) 92 Nasal Cannula 3.0 09/18/16 10:01 105 18 150/76 (100) 98 Mechanical Ventilator 40 09/18/16 09:30 106 19 147/62 (90) 99 Mechanical Ventilator 40 09/18/16 09:01 96 16 113/76 (88) 99 Mechanical Ventilator 40 09/18/16 09:00 91 16 120/54 (76) 99 Mechanical Ventilator 40 09/18/16 08:01 37.4 95 20 129/65 (86) 99 Mechanical Ventilator 40 09/18/16 08:00 Mechanical Ventilator 40 09/18/16 08:00 40 09/18/16 07:50 40 09/18/16 07:01 91 20 115/60 (78) 97 Mechanical Ventilator 40 09/18/16 07:00 106 20 112/55 (74) 97 Mechanical Ventilator 40 09/18/16 06:01 103 20 119/60 95 09/18/16 05:59 102 20 116/72 95 112/54 09/18/16 05:46 111 20 123/61 94 121/54 09/18/16 05:45 37.2 103 20 112/53 94 09/18/16 05:43 40 09/18/16 05:31 104 23 159/82 97 150/68 09/18/16 05:16 108 20 132/76 97 140/63 09/18/16 05:01 92 20 140/65 99 148/66 09/18/16 05:00 101 20 145/64 99 09/18/16 04:46 93 20 137/80 100 138/62 09/18/16 04:31 92 20 115/62 99 118/54 09/18/16 04:16 94 20 118/69 99 127/53 09/18/16 04:01 37.2 97 20 116/57 99 114/50 09/18/16 04:00 40 09/18/16 04:00 Mechanical Ventilator 40 09/18/16 04:00 37.2 98 20 113/49 98 09/18/16 03:46 99 20 115/68 99 106/47 09/18/16 03:31 98 20 114/66 99 106/50 09/18/16 03:24 37.2 103 20 127/69 100 09/18/16 03:24 104 20 127/69 100 125/55 09/18/16 03:16 113 20 108/67 99 126/56 09/18/16 03:10 40 09/18/16 03:01 116 20 120/68 99 135/55 17 03:00 37.4 96 20 130/56 99 09/18/16 02:46 102 20 133/73 99 128/57 09/18/16 02:45 103 20 124/55 99 09/18/16 02:31 99 20 128/71 99 131/59 17 02:16 105 20 121/75 100 131/55 17 02:01 104 20 125/67 100 129/55 17 01:46 101 20 116/68 100 134/53 09/18/17 01:45 37.5 91 20 119/78 100 30/ 01:31 114 20 119/78 98 132/53 17 01:28 106 20 133/77 99 122/53 09/18/16 01:27 37.2 104 20 133/77 99 09/18/16 01:16 85 20 101/51 99 92/41 09/18/16 01:01 102 20 93/47 98 100/45 09/18/16 00:46 96 20 98/47 98 82/41 09/18/16 00:31 96 20 104/63 98 106/46 09/18/16 00:19 40 09/18/16 00:16 88 20 112/60 100 107/43 09/18/16 00:01 Mechanical Ventilator 40 09/18/16 00:01 37.7 95 20 110/49 99 112/50 09/18/16 00:01 40 09/17/16 23:46 96 20 92/63 100 111/48 09/17/16 23:31 104 20 122/66 100 112/53 09/17/16 23:27 92 20 112/61 99 120/52 09/17/16 23:16 96 20 105/52 98 102/47 09/17/16 23:01 110 20 87/49 98 78/43 09/17/16 22:46 93 20 89/60 98 91/43 09/17/16 22:31 92 20 86/46 99 84/40 09/17/16 22:16 99 20 112/57 99 102/48 09/17/16 22:11 83 20 102/48 99 103/45 09/17/16 22:06 91 20 97/52 99 102/43 09/17/16 22:01 38.0 80 20 90/47 99 95/40 09/17/16 21:56 79 20 86/45 99 92/38 09/17/16 21:51 96 20 90/53 99 88/41 09/17/16 21:46 89 20 91/45 99 93/42 09/17/16 21:43 92 20 87/51 100 92/42 09/17/16 21:31 84 20 85/38 99 76/36 09/17/16 21:30 95 20 87/51 99 77/37 09/17/16 21:25 85 20 89/45 99 75/35 09/17/16 21:01 91 20 124/70 99 127/49 09/17/16 20:50 80 25 129/74 100 134/58 09/17/16 20:49 86 27 107/69 100 135/61 09/17/16 20:34 121 155/65 09/17/16 20:31 129 23 132/82 98 156/64 09/17/16 20:02 45 09/17/16 20:01 38.1 107 27 137/70 100 137/57 09/17/16 20:00 Mechanical Ventilator 45 09/17/16 20:00 45 09/17/16 19:53 89 24 125/78 96 130/54 09/17/16 19:01 85 20 86/47 96 111/45 09/17/16 18:23 50 09/17/16 18:01 37.1 87 20 103/57 (72) 98 Mechanical Ventilator 50 121/56 (77) 09/17/16 18:00 92 20 114/48 (70) 97 Mechanical Ventilator 50 09/17/16 16:18 123 13 130/50 (76) 94 Mechanical Ventilator 50 09/17/16 16:00 50 09/17/16 16:00 Mechanical Ventilator 50 09/17/16 16:00 88 16 95/38 (57) 93 Mechanical Ventilator 50 09/17/16 15:33 36.4 96 16 147/91 (109) 98 Mechanical Ventilator 50 09/17/16 15:15 36.9 132 16 182/135 94 Mechanical Ventilator 50 09/17/16 15:05 129 16 179/125 95 Mechanical Ventilator 50 09/17/16 14:55 116 16 129/80 96 Mechanical Ventilator 50 Physical Exam General Appearance: WD/WN, + moderate distress Neck: supple, no JVD Respiratory/Chest: + decreased breath sounds, + accessory muscle use Cardiovascular: + tachycardia, + irregularly irregular Abdomen: soft, + guarding, + tenderness Extremities: no pedal edema, no calf tenderness Neurologic/Psychiatric: alert, oriented x 3 Laboratory Results Last 24 Hours Test 09/17/16 15:40 09/17/16 17:08 09/17/16 18:09 09/17/16 23:48 Blood Gas Sample Site Art Line Art Line Bedside Blood Gas pH (LAB) 7.24 7.32 Bedside Blood Gas pCO2 (LAB) 43 mmHg 34 mmHg Bedside Blood Gas pO2 (LAB) 67 mmHg 136 mmHg Bedside Blood Gas HCO3 (LAB) 19 meq/L 17 meq/L Bedside Blood Gas Total CO2 20 mEq/l 18 mEq/l Bedside Blood Gas Base Excess (LAB) -9.0 meq/L -9.0 meq/L Bedside Blood Gas O2 Saturation 90.0 % 99.0 % Yasmani Test NA NA Oxygen Delivery Device Ventilator Ventilator Bedside Oxygen Rate (breaths/min) 16 20 Blood Gas Minute Ventilation 6.8 8.8 Bedside FiO2 50 % 50 % Blood Gas Tidal Volume 450 450 Blood Gas PEEP 5 5 White Blood Count 4.97 K/uL 4.97 K/uL Red Blood Count 2.75 M/uL 2.39 M/uL Hemoglobin 7.9 g/dL 7.2 g/dL Hematocrit 25.9 % 22.3 % Mean Corpuscular Volume 94.2 fL 93.3 fL Mean Corpuscular Hemoglobin 28.7 pg 30.1 pg Mean Corpuscular Hemoglobin Concent 30.5 g/dl 32.3 g/dl Platelet Count 167 K/uL 152 K/uL Mean Platelet Volume 8.5 fL 8.5 fL Neutrophils (%) (Auto) 81.9 % 66.9 % Lymphocytes (%) (Auto) 10.1 % 23.9 % Monocytes (%) (Auto) 6.6 % 7.6 % Eosinophils (%) (Auto) 0.6 % 0.8 % Basophils (%) (Auto) 0.2 % 0.2 % Neutrophils # (Auto) 4.07 K/uL 3.32 K/uL Lymphocytes # (Auto) 0.50 K/uL 1.19 K/uL Monocytes # (Auto) 0.33 K/uL 0.38 K/uL Eosinophils # (Auto) 0.03 K/uL 0.04 K/uL Basophils # (Auto) 0.01 K/uL 0.01 K/uL RDW Standard Deviation 50.5 fL 50.5 fL RDW Coefficient of Variation 14.6 % 14.7 % Immature Granulocyte % (Auto) 0.6 % 0.6 % Immature Granulocyte # (Auto) 0.03 K/uL 0.03 K/uL Red Blood Cell Morphology Unremarkable Unremarkable Sodium Level 140 mmol/L 143 mmol/L Potassium Level 3.9 mmol/L 4.1 mmol/L Chloride Level 114 mmol/L 114 mmol/L Carbon Dioxide Level 20 mmol/L 21 mmol/L Anion Gap 6.0 mmol/L 8.0 mmol/L Blood Urea Nitrogen 17 mg/dl 17 mg/dl Creatinine 1.00 mg/dl 1.20 mg/dl Est Creatinine Clear Calc Drug Dose 41.2 ml/min 34.3 ml/min Estimated GFR () 60.8 48.7 Estimated GFR (Non- 52.4 42.1 BUN/Creatinine Ratio 16.6 13.8 Random Glucose 146 mg/dl 112 mg/dl Lactic Acid Level 0.7 mmol/L 0.7 mmol/L Calcium Level 6.9 mg/dl 7.2 mg/dl Ionized Calcium 0.94 mmol/l 1.02 mmol/l Phosphorus Level 2.7 mg/dl 1.9 mg/dl Magnesium Level 1.9 mg/dl 1.9 mg/dl Total Bilirubin 0.6 mg/dl 0.5 mg/dl Aspartate Amino Transf (AST/SGOT) 33 U/L 26 U/L Alanine Aminotransferase (ALT/SGPT) 39 U/L 32 U/L Alkaline Phosphatase 66 U/L 59 U/L Pro-B-Type Natriuretic Peptide 6529 pg/ml Total Protein 5.2 gm/dl 5.3 gm/dl Albumin 3.0 gm/dl 3.0 gm/dl Globulin 2.2 gm/dl 2.3 gm/dl Albumin/Globulin Ratio 1.4 1.3 Test 09/18/16 00:09 09/18/16 00:14 09/18/16 07:47 09/18/16 07:50 Bedside Glucose 112 mg/dl Blood Gas Sample Site Art Line Bedside Blood Gas pH (LAB) 7.37 Bedside Blood Gas pCO2 (LAB) 31 mmHg Bedside Blood Gas pO2 (LAB) 175 mmHg Bedside Blood Gas HCO3 (LAB) 18 meq/L Bedside Blood Gas Total CO2 19 mEq/l Bedside Blood Gas Base Excess (LAB) -7.0 meq/L Bedside Blood Gas O2 Saturation 100.0 % Yasmani Test NA Oxygen Delivery Device Ventilator Bedside Oxygen Rate (breaths/min) 20 Blood Gas Minute Ventilation 8.6 Bedside FiO2 45 % Blood Gas Tidal Volume 450 Blood Gas PEEP 5 White Blood Count 5.35 K/uL Red Blood Count 3.10 M/uL Hemoglobin 9.4 g/dL Hematocrit 28.3 % Mean Corpuscular Volume 91.3 fL Mean Corpuscular Hemoglobin 30.3 pg Mean Corpuscular Hemoglobin Concent 33.2 g/dl Platelet Count 153 K/uL Mean Platelet Volume 9.2 fL Neutrophils (%) (Auto) 68.7 % Lymphocytes (%) (Auto) 19.8 % Monocytes (%) (Auto) 8.0 % Eosinophils (%) (Auto) 2.6 % Basophils (%) (Auto) 0.2 % Neutrophils # (Auto) 3.67 K/uL Lymphocytes # (Auto) 1.06 K/uL Monocytes # (Auto) 0.43 K/uL Eosinophils # (Auto) 0.14 K/uL Basophils # (Auto) 0.01 K/uL RDW Standard Deviation 49.7 fL RDW Coefficient of Variation 14.8 % Immature Granulocyte % (Auto) 0.7 % Immature Granulocyte # (Auto) 0.04 K/uL Sodium Level 143 mmol/L Potassium Level 3.6 mmol/L Chloride Level 114 mmol/L Carbon Dioxide Level 18 mmol/L Anion Gap 11.0 mmol/L Blood Urea Nitrogen 15 mg/dl Creatinine 1.00 mg/dl Est Creatinine Clear Calc Drug Dose 41.4 ml/min Estimated GFR () 60.8 Estimated GFR (Non- 52.4 BUN/Creatinine Ratio 14.8 Random Glucose 119 mg/dl Lactic Acid Level 0.7 mmol/L Calcium Level 7.5 mg/dl Ionized Calcium 1.01 mmol/l Phosphorus Level 1.3 mg/dl Magnesium Level 2.1 mg/dl Total Bilirubin 0.8 mg/dl Direct Bilirubin 0.4 mg/dl Aspartate Amino Transf (AST/SGOT) 29 U/L Alanine Aminotransferase (ALT/SGPT) 34 U/L Alkaline Phosphatase 65 U/L Total Protein 5.5 gm/dl Albumin 3.1 gm/dl Globulin 2.4 gm/dl Albumin/Globulin Ratio 1.3 Prothrombin Time 18.1 SECONDS Prothromb Time International Ratio 1.7 Activated Partial Thromboplast Time 37.5 SECONDS Partial Thromboplastin Ratio 1.4 Test 09/18/16 07:54 09/18/16 14:30 Blood Gas Sample Site Art Line Art Line Bedside Blood Gas pH (LAB) 7.37 7.35 Bedside Blood Gas pCO2 (LAB) 29 mmHg 31 mmHg Bedside Blood Gas pO2 (LAB) 110 mmHg 76 mmHg Bedside Blood Gas HCO3 (LAB) 17 meq/L 17 meq/L Bedside Blood Gas Total CO2 17 mEq/l 18 mEq/l Bedside Blood Gas Base Excess (LAB) -9.0 meq/L -8.0 meq/L Bedside Blood Gas O2 Saturation 98.0 % 95.0 % Yasmani Test NA NA Oxygen Delivery Device Ventilator Cannula Bedside Oxygen Rate (breaths/min) 20 Blood Gas Minute Ventilation 8.8 Bedside FiO2 40 % Blood Gas Tidal Volume 450 Blood Gas PEEP 5 Assessment and Plan 81 year-old female with free air in abdomen and SIRS progressive worsening of free air taken to OR 09/17 with sigmoid resection and colostomy, afib rvr occured pre op sirs, peritonitis, volume resuscitated with caution with history of diastolic heart failure taken to OR 09/17 by general surgery aztreonam, and Flagyl, was given albumen q 6, required lasix 09/17, History of A. fib initially held home carvedilol due to low blood pressure, using metoprolol and diltiazem, has history of cva off AC from afib so started post op by ICU Hypothyroidism Synthroid iv until taking po again History of chronic diastolic heart failure eval daily and treat volume status prn Oral thrush was noted on initial intake exam used diflucan until taking po dvt prevention is hepain iv
[2016-09-18] MEDS: ONDANSETRON INJ 2 MG/ML 2 ML VIAL IV PRN ×2 (15:59→18:47)
--- NOTE | 2016-09-18 16:34 | Critical Care Progress Note ---
Critical Care Progress Note Date of Service Sep 18, 2016. ICU Day ICU Day Number: [address] Cruz Subjective POD#1 s/p ex-lap with sigmoid resection and colostomy creation. Extubated this AM, doing well so far Diuresed today, great urine output, 2500 ml so far C/o some abdominal pain, but overall seems comfortable Minimal GENNY output Remains in a-fib (started pre-op) S/p 2 units PRBC overnight Objective General: Elderly female, awake, comfortable Heent: NC/AT, dry oral mucosa, thrush over the tongue, NGT CVS: S1S2 irregular, no murmurs Lungs: B/l wheezing and crackles Abdomen: Soft, mildly distended, diffuse tenderness. 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 Mild stable cardiomegaly. Nasogastric tube within the stomach. Persistent prominence of the pulmonary vasculature. Persistent consolidative change left and to a lesser extent right base. IMPRESSION: Stable exam. Unchanging pulmonary vascular congestion with basilar atelectatic/consolidative change. 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 prn Dilaudid prn acetaminophen CVS: Has right radial a-line and right IJ TLC A-fib with RVR. Aim for rate control only. Avoid amiodarone, may convert her to NSR and increase the risk for cardioembolic events. Cardizem as needed, or start Cardizem drip. Around the clock metoprolol BP fairly well controlled for most part Start heparin drip today Pulmonary: Extubated today Supplement O2 Started diuresis today to improve the pulmonary edema Elevate head. Incentive spirometry Cannot use CPAP for now with the NGT in place ID: Continue on antibiotics, on Azactam, Cipro and Flagyl. F/u blood cultures, negative so far. Washout cultures sent, growing GNR Will need wound VAC (Monday) Renal/metabolic: Creatinine improved significantly, much better than her actual baseline Stop iv fluids Gave a dose of Lasix today Supplement Phos aggressively. Supplement K. Monitor closely while diuresing Albumin infusion for peritonitis, day 3 Maintain [place] Lactic acid persistently normal GI: NG to suction Monitor colostomy output Monitor GENNY output I understand that she did not gross peritonitis, and the sigmoid was not significantly inflamed NPO Continue Albumin infusion No need to initiate TPN at this point Famotidine IV for GI bleeding prophylaxis Endo: Continue iv levothyroxine DVT prophylaxis: On heparin drip. SCDs OOB to chair when feasible from a surgical standpoint Critical care time spent 55 minutes Discussed with the patient's son at bedside Consults & Procedures Consultants: Surgery - Dr Valdovinos Cardiology - Dr Vera Procedures: 09/17 right IJ TLC 09/17 ex-lap with sigmoid resection and colostomy 09/17 right radial a-line Data Medications: Current Inpatient Medications Medications (Trade) Dose Ordered Sig/Mazin Route Start Time Stop Time Status Last Admin Dose Admin Ioversol (Optiray 320) 100 ml UD PRN IV 09/16/16 02:15 09/20/16 02:14 Metronidazole 500 mg/Prmx 100 ml @ 100 mls/hr Q8H IV 09/16/16 14:00 09/26/16 13:59 09/18/16 13:06 100 MLS/HR Lorazepam (Ativan Inj) 0.5 mg Q4H PRN IV 09/16/16 08:00 10/16/16 07:59 Levothyroxine Sodium 35 mcg/ Syringe 1.75 ml @ 2 mls/min DAILY@09 IV 09/16/16 10:00 10/16/16 09:59 09/18/16 09:39 2 MLS/MIN Fluconazole/ Sodium Chloride 100 mg/Prmx 50 ml @ 100 mls/hr Q24H IV 09/16/16 10:00 09/26/16 09:59 09/18/16 09:39 100 MLS/HR Albumin Human (Albumin 25%) 25 gm Q6H IV 09/16/16 12:00 09/19/16 10:44 09/18/16 12:14 25 GM Acetaminophen 100 ml @ 400 mls/hr Q8H PRN IV 09/16/16 14:00 10/16/16 13:59 09/18/16 13:06 400 MLS/HR Ciprofloxacin/ Dextrose 400 mg/ Prmx 200 ml @ 100 mls/hr DAILY@1000 IV 09/17/16 10:00 09/26/16 09:59 09/18/16 09:39 100 MLS/HR Aztreonam 2000 mg/ Dextrose 110 ml @ 100 mls/hr Q8H IV 09/16/16 20:00 09/26/16 19:59 09/18/16 12:13 100 MLS/HR Ondansetron HCl (Zofran Inj) 4 mg Q6H PRN IV 09/17/16 08:45 10/17/16 08:44 09/18/16 15:59 4 MG Propofol (Diprivan Iv Emulsion 100ml Vial) 1 dose UD IV 09/17/16 16:00 09/20/16 15:59 09/18/16 07:45 1 DOSE Parenteral Electrolyte Solution 1,000 ml @ 50 mls/hr Q20H IV 09/17/16 17:00 10/17/16 16:59 09/17/16 18:21 50 MLS/HR Fentanyl Citrate (Fentanyl Inj) 50 mcg Q2H PRN IV 09/17/16 17:00 10/01/16 16:59 09/18/16 10:20 50 MCG Famotidine 20 mg/ Dextrose 102 ml @ 200 mls/hr Q12 IV 09/17/16 18:30 10/17/16 18:29 09/18/16 07:41 200 MLS/HR Metoprolol Tartrate (Lopressor Iv) 2.5 mg Q3H PRN IV 09/18/16 02:00 10/16/16 07:59 Heparin Sodium/ Dextrose 500 ml @ 22 mls/hr [id number] PRN IV 09/18/16 10:00 10/18/16 09:59 09/18/16 10:34 22 MLS/HR Hydromorphone HCl (Dilaudid Inj) 0.5 mg Q2H PRN IV 09/18/16 12:30 10/02/16 12:29 I & O: 24-Hour Column 09/19/16 08:00 Intake Total 2079 ml Output Total 2720 ml Balance -641 ml Vital Signs: Date Time Temp Pulse Resp B/P (MAP) Pulse Ox O2 Delivery O2 Flow Rate FiO2 09/18/16 14:01 105 18 134/89 (104) 97 Nasal Cannula 4.0 09/18/16 13:01 118 17 139/87 (104) 95 Nasal Cannula 4.0 09/18/16 13:00 110 20 143/68 (93) 95 Nasal Cannula 4.0 09/18/16 12:01 37.0 125 22 149/91 (110) 94 Nasal Cannula 4.0 09/18/16 12:00 Nasal Cannula 4.0 09/18/16 11:01 113 23 139/69 (92) 92 Nasal Cannula 4.0 09/18/16 11:00 112 21 143/66 (91) 92 Nasal Cannula 3.0 09/18/16 10:01 105 18 150/76 (100) 98 Mechanical Ventilator 40 09/18/16 09:30 106 19 147/62 (90) 99 Mechanical Ventilator 40 09/18/16 09:01 96 16 113/76 (88) 99 Mechanical Ventilator 40 09/18/16 09:00 91 16 120/54 (76) 99 Mechanical Ventilator 40 09/18/16 08:01 37.4 95 20 129/65 (86) 99 Mechanical Ventilator 40 09/18/16 08:00 Mechanical Ventilator 40 09/18/16 08:00 40 09/18/16 07:50 40 09/18/16 07:01 91 20 115/60 (78) 97 Mechanical Ventilator 40 09/18/16 07:00 106 20 112/55 (74) 97 Mechanical Ventilator 40 09/18/16 06:01 103 20 119/60 95 09/18/16 05:59 102 20 116/72 95 112/54 09/18/16 05:46 111 20 123/61 94 121/54 09/18/16 05:45 37.2 103 20 112/53 94 09/18/16 05:43 40 09/18/16 05:31 104 23 159/82 97 150/68 09/18/16 05:16 108 20 132/76 97 140/63 09/18/16 05:01 92 20 140/65 99 148/66 09/18/16 05:00 101 20 145/64 99 09/18/16 04:46 93 20 137/80 100 138/62 09/18/16 04:31 92 20 115/62 99 118/54 09/18/16 04:16 94 20 118/69 99 127/53 09/18/16 04:01 37.2 97 20 116/57 99 114/50 09/18/16 04:00 40 09/18/16 04:00 Mechanical Ventilator 40 09/18/16 04:00 37.2 98 20 113/49 98 09/18/16 03:46 99 20 115/68 99 106/47 09/18/16 03:31 98 20 114/66 99 106/50 09/18/16 03:24 37.2 103 20 127/69 100 09/18/16 03:24 104 20 127/69 100 125/55 09/18/16 03:16 113 20 108/67 99 126/56 09/18/16 03:10 40 09/18/16 03:01 116 20 120/68 99 135/55 09/18/16 03:00 37.4 96 20 130/56 99 09/18/16 02:46 102 20 133/73 99 128/57 09/18/16 02:45 103 20 124/55 99 09/18/16 02:31 99 20 128/71 99 131/59 09/18/16 02:16 105 20 121/75 100 131/55 09/18/16 02:01 104 20 125/67 100 129/55 09/18/16 01:46 101 20 116/68 100 134/53 09/18/16 01:45 37.5 91 20 119/78 100 09/18/16 01:31 114 20 119/78 98 132/53 09/18/16 01:28 106 20 133/77 99 122/53 09/18/16 01:27 37.2 104 20 133/77 99 09/18/16 01:16 85 20 101/51 99 92/41 09/18/16 01:01 102 20 93/47 98 100/45 09/18/16 00:46 96 20 98/47 98 82/41 09/18/16 00:31 96 20 104/63 98 106/46 09/18/16 00:19 40 09/18/16 00:16 88 20 112/60 100 107/43 09/18/16 00:01 Mechanical Ventilator 40 09/18/16 00:01 37.7 95 20 110/49 99 112/50 09/18/16 00:01 40 09/17/16 23:46 96 20 92/63 100 111/48 09/17/16 23:31 104 20 122/66 100 112/53 09/17/16 23:27 92 20 112/61 99 120/52 09/17/16 23:16 96 20 105/52 98 102/47 09/17/16 23:01 110 20 87/49 98 78/43 09/17/16 22:46 93 20 89/60 98 91/43 09/17/16 22:31 92 20 86/46 99 84/40 09/17/16 22:16 99 20 112/57 99 102/48 09/17/16 22:11 83 20 102/48 99 103/45 09/17/16 22:06 91 20 97/52 99 102/43 09/17/16 22:01 38.0 80 20 90/47 99 95/40 09/17/16 21:56 79 20 86/45 99 92/38 09/17/16 21:51 96 20 90/53 99 88/41 09/17/16 21:46 89 20 91/45 99 93/42 09/17/16 21:43 92 20 87/51 100 92/42 09/17/16 21:31 84 20 85/38 99 76/36 09/17/16 21:30 95 20 87/51 99 77/37 09/17/16 21:25 85 20 89/45 99 75/35 09/17/16 21:01 91 20 124/70 99 127/49 09/17/16 20:50 80 25 129/74 100 134/58 09/17/16 20:49 86 27 107/69 100 135/61 09/17/16 20:34 121 155/65 09/17/16 20:31 129 23 132/82 98 156/64 09/17/16 20:02 45 09/17/16 20:01 38.1 107 27 137/70 100 137/57 09/17/16 20:00 Mechanical Ventilator 45 09/17/16 20:00 45 09/17/16 19:53 89 24 125/78 96 130/54 09/17/16 19:01 85 20 86/47 96 111/45 09/17/16 18:23 50 7//17 18:01 37.1 87 20 103/57 (72) 98 Mechanical Ventilator 50 121/56 (77) 09/17/16 18:00 92 20 114/48 (70) 97 Mechanical Ventilator 50 09/17/16 16:18 123 13 130/50 (76) 94 Mechanical Ventilator 50 Laboratory Results: Last 24 Hours Test 09/17/16 17:08 09/17/16 18:09 09/17/16 23:48 09/18/16 00:09 White Blood Count 4.97 K/uL 4.97 K/uL Red Blood Count 2.75 M/uL 2.39 M/uL Hemoglobin 7.9 g/dL 7.2 g/dL Hematocrit 25.9 % 22.3 % Mean Corpuscular Volume 94.2 fL 93.3 fL Mean Corpuscular Hemoglobin 28.7 pg 30.1 pg Mean Corpuscular Hemoglobin Concent 30.5 g/dl 32.3 g/dl Platelet Count 167 K/uL 152 K/uL Mean Platelet Volume 8.5 fL 8.5 fL Neutrophils (%) (Auto) 81.9 % 66.9 % Lymphocytes (%) (Auto) 10.1 % 23.9 % Monocytes (%) (Auto) 6.6 % 7.6 % Eosinophils (%) (Auto) 0.6 % 0.8 % Basophils (%) (Auto) 0.2 % 0.2 % Neutrophils # (Auto) 4.07 K/uL 3.32 K/uL Lymphocytes # (Auto) 0.50 K/uL 1.19 K/uL Monocytes # (Auto) 0.33 K/uL 0.38 K/uL Eosinophils # (Auto) 0.03 K/uL 0.04 K/uL Basophils # (Auto) 0.01 K/uL 0.01 K/uL RDW Standard Deviation 50.5 fL 50.5 fL RDW Coefficient of Variation 14.6 % 14.7 % Immature Granulocyte % (Auto) 0.6 % 0.6 % Immature Granulocyte # (Auto) 0.03 K/uL 0.03 K/uL Red Blood Cell Morphology Unremarkable Unremarkable Sodium Level 140 mmol/L 143 mmol/L Potassium Level 3.9 mmol/L 4.1 mmol/L Chloride Level 114 mmol/L 114 mmol/L Carbon Dioxide Level 20 mmol/L 21 mmol/L Anion Gap 6.0 mmol/L 8.0 mmol/L Blood Urea Nitrogen 17 mg/dl 17 mg/dl Creatinine 1.00 mg/dl 1.20 mg/dl Est Creatinine Clear Calc Drug Dose 41.2 ml/min 34.3 ml/min Estimated GFR () 60.8 48.7 Estimated GFR (Non- 52.4 42.1 BUN/Creatinine Ratio 16.6 13.8 Random Glucose 146 mg/dl 112 mg/dl Lactic Acid Level 0.7 mmol/L 0.7 mmol/L Calcium Level 6.9 mg/dl 7.2 mg/dl Ionized Calcium 0.94 mmol/l 1.02 mmol/l Phosphorus Level 2.7 mg/dl 1.9 mg/dl Magnesium Level 1.9 mg/dl 1.9 mg/dl Total Bilirubin 0.6 mg/dl 0.5 mg/dl Aspartate Amino Transf (AST/SGOT) 33 U/L 26 U/L Alanine Aminotransferase (ALT/SGPT) 39 U/L 32 U/L Alkaline Phosphatase 66 U/L 59 U/L Pro-B-Type Natriuretic Peptide 6529 pg/ml Total Protein 5.2 gm/dl 5.3 gm/dl Albumin 3.0 gm/dl 3.0 gm/dl Globulin 2.2 gm/dl 2.3 gm/dl Albumin/Globulin Ratio 1.4 1.3 Blood Gas Sample Site Art Line Bedside Blood Gas pH (LAB) 7.32 Bedside Blood Gas pCO2 (LAB) 34 mmHg Bedside Blood Gas pO2 (LAB) 136 mmHg Bedside Blood Gas HCO3 (LAB) 17 meq/L Bedside Blood Gas Total CO2 18 mEq/l Bedside Blood Gas Base Excess (LAB) -9.0 meq/L Bedside Blood Gas O2 Saturation 99.0 % Yasmani Test NA Oxygen Delivery Device Ventilator Bedside Oxygen Rate (breaths/min) 20 Blood Gas Minute Ventilation 8.8 Bedside FiO2 50 % Blood Gas Tidal Volume 450 Blood Gas PEEP 5 Bedside Glucose 112 mg/dl Test 09/18/16 00:14 09/18/16 07:47 09/18/16 07:50 09/18/16 07:54 Blood Gas Sample Site Art Line Art Line Bedside Blood Gas pH (LAB) 7.37 7.37 Bedside Blood Gas pCO2 (LAB) 31 mmHg 29 mmHg Bedside Blood Gas pO2 (LAB) 175 mmHg 110 mmHg Bedside Blood Gas HCO3 (LAB) 18 meq/L 17 meq/L Bedside Blood Gas Total CO2 19 mEq/l 17 mEq/l Bedside Blood Gas Base Excess (LAB) -7.0 meq/L -9.0 meq/L Bedside Blood Gas O2 Saturation 100.0 % 98.0 % Yasmani Test NA NA Oxygen Delivery Device Ventilator Ventilator Bedside Oxygen Rate (breaths/min) 20 20 Blood Gas Minute Ventilation 8.6 8.8 Bedside FiO2 45 % 40 % Blood Gas Tidal Volume 450 450 Blood Gas PEEP 5 5 White Blood Count 5.35 K/uL Red Blood Count 3.10 M/uL Hemoglobin 9.4 g/dL Hematocrit 28.3 % Mean Corpuscular Volume 91.3 fL Mean Corpuscular Hemoglobin 30.3 pg Mean Corpuscular Hemoglobin Concent 33.2 g/dl Platelet Count 153 K/uL Mean Platelet Volume 9.2 fL Neutrophils (%) (Auto) 68.7 % Lymphocytes (%) (Auto) 19.8 % Monocytes (%) (Auto) 8.0 % Eosinophils (%) (Auto) 2.6 % Basophils (%) (Auto) 0.2 % Neutrophils # (Auto) 3.67 K/uL Lymphocytes # (Auto) 1.06 K/uL Monocytes # (Auto) 0.43 K/uL Eosinophils # (Auto) 0.14 K/uL Basophils # (Auto) 0.01 K/uL RDW Standard Deviation 49.7 fL RDW Coefficient of Variation 14.8 % Immature Granulocyte % (Auto) 0.7 % Immature Granulocyte # (Auto) 0.04 K/uL Sodium Level 143 mmol/L Potassium Level 3.6 mmol/L Chloride Level 114 mmol/L Carbon Dioxide Level 18 mmol/L Anion Gap 11.0 mmol/L Blood Urea Nitrogen 15 mg/dl Creatinine 1.00 mg/dl Est Creatinine Clear Calc Drug Dose 41.4 ml/min Estimated GFR () 60.8 Estimated GFR (Non- 52.4 BUN/Creatinine Ratio 14.8 Random Glucose 119 mg/dl Lactic Acid Level 0.7 mmol/L Calcium Level 7.5 mg/dl Ionized Calcium 1.01 mmol/l Phosphorus Level 1.3 mg/dl Magnesium Level 2.1 mg/dl Total Bilirubin 0.8 mg/dl Direct Bilirubin 0.4 mg/dl Aspartate Amino Transf (AST/SGOT) 29 U/L Alanine Aminotransferase (ALT/SGPT) 34 U/L Alkaline Phosphatase 65 U/L Total Protein 5.5 gm/dl Albumin 3.1 gm/dl Globulin 2.4 gm/dl Albumin/Globulin Ratio 1.3 Prothrombin Time 18.1 SECONDS Prothromb Time International Ratio 1.7 Activated Partial Thromboplast Time 37.5 SECONDS Partial Thromboplastin Ratio 1.4 Test 09/18/16 14:30 Blood Gas Sample Site Art Line Bedside Blood Gas pH (LAB) 7.35 Bedside Blood Gas pCO2 (LAB) 31 mmHg Bedside Blood Gas pO2 (LAB) 76 mmHg Bedside Blood Gas HCO3 (LAB) 17 meq/L Bedside Blood Gas Total CO2 18 mEq/l Bedside Blood Gas Base Excess (LAB) -8.0 meq/L Bedside Blood Gas O2 Saturation 95.0 % Yasmani Test NA Oxygen Delivery Device Cannula
[2016-09-18] MEDS: HYDROmorphone INJ 0.5 MG/0.5 ML SYR IV PRN ×3 (17:05→23:06)
[2016-09-18 17:13] LABS: BASO % 0.3 %; BASO ABS # 0.02 K/uL (0-0.2); COMPLETE YES; EOS % 1.9 %; HEMATOCRIT 28.8 % (37-47); LYMPH % 19.8 %; LYMPH ABS # 1.36 K/uL (1.2-3.4); MEAN CELL VOLUME 90.3 fL (80-100); MEAN CORPUSCULAR HGB CONC 34.4 g/dl (32-36); MEAN PLATELET VOLUME 8.9 fL (7.4-10.4); MONO % 7.8 %; NEUT % 69.2 %; PLATELET COUNT 161 K/uL (130-400); RED BLOOD COUNT 3.19 M/uL (4.2-5.4); WHITE BLOOD COUNT 6.88 K/uL (4.8-10.8)
[2016-09-18 17:30] LABS: PARTIAL THROMBOPLASTIN RATIO 2.8
[2016-09-18 17:34] LABS: BUN/CREATININE RATIO 12.3 (10-20); CALCIUM 7.2 mg/dl (8.5-10.1); CREATININE 1.2 mg/dl (0.60-1.20); POTASSIUM 3.7 mmol/L (3.5-5.1)
[2016-09-18] MEDS ORDERED: METOPROLOL TARTRATE 1 MG/ML VIAL IV ONE (18:44)
[2016-09-18] MEDS ORDERED: ONDANSETRON INJ 2 MG/ML 2 ML VIAL IV ONE (19:30)
[2016-09-18] MEDS ORDERED: HydrALAZINE HCL 20 MG/ML VIAL IV. PRN (20:45)
[2016-09-18 21:36] LABS: MAGNESIUM 1.8 mg/dl (1.8-2.4)
[2016-09-18 22:14] LABS: ISTAT ARTERIAL BLOOD GAS HCO3 17 meq/L (19-24); ISTAT ARTERIAL BLOOD GAS PCO2 32 mmHg (35-46); ISTAT ARTERIAL BLOOD GAS PO2 124 mmHg (80-95); ISTAT ARTERIAL BLOOD GAS pH 7.34 (7.35-7.45); ISTAT CARBON DIOXIDE 18 mEq/l (24-31); ISTAT DELIVERY SYSTEM Cannula; ISTAT SITE Art Line
[2016-09-18] MEDS ORDERED: PROMETHAZINE HCL INJ 12.5 MG in SODIUM CHLORIDE 0.9% 50ML 50 ML IV PRN (22:15)
[2016-09-18] MEDS: MAGNESIUM SULFATE 1GM / D5W 1 GM in PREMIXED IN D5W 100 ML IV SCH (23:08)
[2016-09-18] MEDS: POTASSIUM CHLR 10MEQ / WTR IV SCH (23:08)
[2016-09-19] VITALS (35 sets, daily range): BP systolic 120–182; BP diastolic 47–119; PULSE 64–139; TEMP 36.7–37.3; O2SAT 91–99
[2016-09-19] MEDS ORDERED: METOPROLOL TARTRATE 1 MG/ML VIAL IV. SCH
[2016-09-19] MEDS: POTASSIUM CHLR 10MEQ / WTR IV SCH (00:07)
[2016-09-19] MEDS: MAGNESIUM SULFATE 1GM / D5W 1 GM in PREMIXED IN D5W 100 ML IV SCH (00:07)
[2016-09-19 00:13] LABS: PARTIAL THROMBOPLASTIN RATIO 2.7
[2016-09-19] MEDS: HYDROmorphone INJ 0.5 MG/0.5 ML SYR IV PRN ×7 (01:05→19:39)
[2016-09-19] MEDS: METOPROLOL TARTRATE 1 MG/ML VIAL IV. SCH ×4 (02:15→19:19)
[2016-09-19] MEDS: ONDANSETRON INJ 2 MG/ML 2 ML VIAL IV PRN ×3 (02:21→19:39)
[2016-09-19] MEDS: AZTREONAM IV 2,000 MG in DEXTROSE 5% 100ML 100 ML IV SCH (03:39)
[2016-09-19] MEDS: ALBUT/IPRATROP 3MG/0.5MG NEB 3 ML VIAL INH SCH ×6 (04:00→19:24)
[2016-09-19] MEDS: ALBUMIN HUMAN 25% 12.5 GM/50 ML VIAL IV SCH (05:26)
[2016-09-19] MEDS: METRONIDAZOLE / NSS 500 MG in PREMIXED NSS 100 ML IV SCH (05:29)
[2016-09-19 05:50] LABS: BASO % 0.4 %; BASO ABS # 0.03 K/uL (0-0.2); COMPLETE YES; EOS % 4.6 %; HEMATOCRIT 27.8 % (37-47); IG% 1.8 %; LYMPH % 18.7 %; LYMPH ABS # 1.52 K/uL (1.2-3.4); MEAN CELL VOLUME 91.1 fL (80-100); MEAN CORPUSCULAR HEMOGLOBIN 30.8 pg (25-34); MEAN CORPUSCULAR HGB CONC 33.8 g/dl (32-36); MEAN PLATELET VOLUME 9.2 fL (7.4-10.4); MONO % 9.3 %; NEUT % 65.2 %; PLATELET COUNT 196 K/uL (130-400); RED BLOOD COUNT 3.05 M/uL (4.2-5.4); WHITE BLOOD COUNT 8.13 K/uL (4.8-10.8)
[2016-09-19 06:08] LABS: INR 1.3 (0.9-1.1); PARTIAL THROMBOPLASTIN RATIO 2.8; PROTHROMBIN TIME (PATIENT) 14.5 SECONDS (9.0-12.0)
[2016-09-19 06:22] LABS: BUN/CREATININE RATIO 13.2 (10-20); CALCIUM 7.7 mg/dl (8.5-10.1); CREATININE 1.2 mg/dl (0.60-1.20); MAGNESIUM 2.4 mg/dl (1.8-2.4); POTASSIUM 3.7 mmol/L (3.5-5.1)
[2016-09-19 06:33] LABS: PHOSPHORUS 1.8 mg/dl (2.5-4.9)
--- NOTE | 2016-09-19 07:08 | DIAGNOSTIC IMAGING REPORT ---
CHEST ONE VIEW PORTABLE HISTORY: Short of breath. pulmonary edema COMPARISON: Chest 09/18/2016. FINDINGS: Nasogastric tube terminates in the stomach. Right jugular central venous catheter terminates in the SVC. The heart remains mildly enlarged. Small bilateral pleural effusions and bibasilar densities are not significantly changed. No pneumothorax. Mild pulmonary vascular congestion without overt edema. IMPRESSION: No change in the small bilateral pleural effusions and bibasilar densities. Satisfactory support line placement. Electronically signed by: Ellis Oquendo M.D. 09/19/2016 7:07 AM Dictated Date/Time: 09/19/2016 7:05 AM
[2016-09-19 07:28] LABS: IPAP 12; ISTAT ARTERIAL BLOOD GAS HCO3 18 meq/L (19-24); ISTAT ARTERIAL BLOOD GAS PCO2 32 mmHg (35-46); ISTAT ARTERIAL BLOOD GAS PO2 108 mmHg (80-95); ISTAT ARTERIAL BLOOD GAS pH 7.34 (7.35-7.45); ISTAT CARBON DIOXIDE 18 mEq/l (24-31); ISTAT DELIVERY SYSTEM BIPAP; ISTAT FIO2 40 %; ISTAT RATE 12; ISTAT SITE Art Line
--- NOTE | 2016-09-19 07:40 | Clinical Documentation Query ---
CLINICAL DOCUMENTATION QUERY H&P clearly documents Sepsis, but since that time its' documentation has fallen of the record. Unless continued onto DC summary, sepsis and its' associated Severity of Illness (SOI) will be lost. In your clinical opinion is this patient being managed for: ( X ) Sepsis POA ( ) Sepsis occurring after admission. ( ) Not Agree Please clarify and document your clinical opinion in the progress notes and discharge summary. Terms such as "probable", "suspected", "likely", "questionable", "possible", or "still to be ruled out" are acceptable. IF IN AGREEMENT, YOU MUST DOCUMENT ABOVE DIAGNOSTIC STATEMENT IN DAILY PROGRESS NOTES AND DISCHARGE SUMMARY. This document is not part of the patient's record. Thank You, Addy Ochoa, RN [phone]
[2016-09-19] MEDS: FAMOTIDINE IV INJ 20 MG in DEXTROSE 5% 100ML 100 ML IV SCH ×2 (08:44→20:39)
[2016-09-19] MEDS: LEVOTHYROXINE SODIUM INJ 35 MCG in SYRINGE 0 ML IV SCH (08:44)
--- NOTE | 2016-09-19 09:36 | Surgery Progress Note ---
Surgery Progress Note Date of Service Sep 19, 2016. Subjective Post OP Day: 2 + pain controlled, No chest pain, No SOB, No bowel movement, No flatus, No nausea, No vomiting very sleepy on encounter this am denies above Objective Vital Signs: Date Time Temp Pulse Resp B/P (MAP) Pulse Ox O2 Delivery O2 Flow Rate FiO2 09/19/16 08:45 136 136/72 09/19/16 08:00 Nasal Cannula 4.0 09/19/16 08:00 37.1 85 20 164/68 (100) 96 Nasal Cannula 4.0 09/19/16 07:35 71 14 98 BiPAP/CPAP 40 09/19/16 07:27 71 98 09/19/16 05:01 86 24 152/76 (101) 97 BiPAP 40 153/61 (91) 09/19/16 04:01 37.3 65 19 143/64 (90) 98 BiPAP 40 136/54 (81) 09/19/16 04:00 BiPAP 40 09/19/16 03:00 64 14 138/63 (88) 99 BiPAP 40 131/53 (79) 09/19/16 02:15 77 140/70 09/19/16 02:01 81 13 140/70 (93) 96 BiPAP 40 145/59 (87) 09/19/16 01:02 94 21 146/64 (91) 95 BiPAP 40 138/66 (90) 09/19/16 00:16 86 24 127/61 (86) 96 127/52 09/19/16 00:01 37.0 83 15 122/59 (80) 98 129/50 09/19/16 00:01 37.0 83 15 122/59 (80) 98 BiPAP 40 123/47 (72) 09/19/16 00:01 Nasal Cannula 40 09/18/16 23:46 85 18 132/77 (95) 90 133/51 09/18/16 23:39 96 20 94 BiPAP/CPAP 09/18/16 23:38 96 94 09/18/16 23:31 85 22 137/63 (100) 95 141/53 09/18/16 23:30 84 16 140/63 (78) 96 132/48 09/18/16 23:01 103 35 184/108 (127) 92 171/67 09/18/16 23:00 107 38 173/63 (99) 90 Nasal Cannula 4.0 184/108 (133) 09/18/16 22:01 75 22 158/83 (108) 96 145/55 09/18/16 21:01 72 20 148/81 (105) 98 152/61 09/18/16 20:01 37.0 61 18 156/73 (107) 98 155/59 (103) 09/18/16 20:00 Nasal Cannula 4.0 09/18/16 19:54 81 141/75 09/18/16 19:01 80 13 141/75 (104) 97 141/56 (102) 09/18/16 18:00 80 19 146/60 (88) 98 Nasal Cannula 4.0 09/18/16 16:01 37.7 107 17 120/85 (97) 98 Nasal Cannula 4.0 09/18/16 16:00 Nasal Cannula 4.0 09/18/16 15:01 118 19 140/74 (96) 97 Nasal Cannula 4.0 09/18/16 15:00 107 15 121/54 (76) 98 Nasal Cannula 4.0 09/18/16 14:01 105 18 134/89 (104) 97 Nasal Cannula 4.0 09/18/16 13:01 118 17 139/87 (104) 95 Nasal Cannula 4.0 09/18/16 13:00 110 20 143/68 (93) 95 Nasal Cannula 4.0 09/18/16 12:01 37.0 125 22 149/91 (110) 94 Nasal Cannula 4.0 09/18/16 12:00 Nasal Cannula 4.0 09/18/16 11:01 113 23 139/69 (92) 92 Nasal Cannula 4.0 09/18/16 11:00 112 21 143/66 (91) 92 Nasal Cannula 3.0 09/18/16 10:01 105 18 150/76 (100) 98 Mechanical Ventilator 40 Physical Exam: GENNY drainage (serosanguineous), nasogastric drainage (bilious) General Appearance: WD/WN, + mild distress, + obese Head: normocephalic, atraumatic Neck: trachea midline, + pertinent finding (Right IJ TLC present, no surrounding erythema) Respiratory/Chest: no respiratory distress, no accessory muscle use, + crackles (bilaterally anterior lung smith), + rales Cardiovascular: no murmur, + tachycardia, + irregularly irregular Abdomen: soft, + abnormal bowel sounds (hypoactive bowel sounds), + distended, + tenderness (appropriate post op), + pertinent finding (ostomy with serosanguineous draiange, no stool, pink) Incision(s): clean, dry, intact, findings (wound present with packing, clean, no fibrinous tissue or necrosis) Extremities: no pedal edema Laboratory Results: Results Past 24 Hours Test 09/18/16 14:30 09/18/16 16:59 09/18/16 22:01 09/18/16 23:44 Range/Units Blood Gas Sample Site Art Line Art Line Bedside Blood Gas pH (LAB) 7.35 7.34 7.35-7.45 Bedside Blood Gas pCO2 (LAB) 31 32 35-46 mmHg Bedside Blood Gas pO2 (LAB) 76 124 80-95 mmHg Bedside Blood Gas HCO3 (LAB) 17 17 19-24 meq/L Bedside Blood Gas Total CO2 18 18 24-31 mEq/l Bedside Blood Gas Base Excess (LAB) -8.0 -9.0 -9-1.8 meq/L Bedside Blood Gas O2 Saturation 95.0 99.0 90-95 % Yasmani Test NA NA Oxygen Delivery Device Cannula Cannula White Blood Count 6.88 4.8-10.8 K/uL Red Blood Count 3.19 4.2-5.4 M/uL Hemoglobin 9.9 12.0-16.0 g/dL Hematocrit 28.8 37-47 % Mean Corpuscular Volume 90.3 80-100 fL Mean Corpuscular Hemoglobin 31.0 25-34 pg Mean Corpuscular Hemoglobin Concent 34.4 32-36 g/dl Platelet Count 161 130-400 K/uL Mean Platelet Volume 8.9 7.4-10.4 fL Neutrophils (%) (Auto) 69.2 % Lymphocytes (%) (Auto) 19.8 % Monocytes (%) (Auto) 7.8 % Eosinophils (%) (Auto) 1.9 % Basophils (%) (Auto) 0.3 % Neutrophils # (Auto) 4.76 1.4-6.5 K/uL Lymphocytes # (Auto) 1.36 1.2-3.4 K/uL Monocytes # (Auto) 0.54 0.11-0.59 K/uL Eosinophils # (Auto) 0.13 0-0.5 K/uL Basophils # (Auto) 0.02 0-0.2 K/uL RDW Standard Deviation 49.5 36.4-46.3 fL RDW Coefficient of Variation 15.0 11.5-14.5 % Immature Granulocyte % (Auto) 1.0 % Immature Granulocyte # (Auto) 0.07 0.00-0.02 K/uL Activated Partial Thromboplast Time 71.7 70.2 21.0-31.0 SECONDS Partial Thromboplastin Ratio 2.8 2.7 Sodium Level 143 136-145 mmol/L Potassium Level 3.7 3.5-5.1 mmol/L Chloride Level 111 98-107 mmol/L Carbon Dioxide Level 21 21-32 mmol/L Anion Gap 11.0 3-11 mmol/L Blood Urea Nitrogen 15 7-18 mg/dl Creatinine 1.20 0.60-1.20 mg/dl Est Creatinine Clear Calc Drug Dose 34.5 ml/min Estimated GFR () 48.7 Estimated GFR (Non- 42.1 BUN/Creatinine Ratio 12.3 10-20 Random Glucose 114 70-99 mg/dl Calcium Level 7.2 8.5-10.1 mg/dl Ionized Calcium 0.96 1.12-1.32 mmol/l Phosphorus Level 3.0 2.5-4.9 mg/dl Magnesium Level 1.8 1.8-2.4 mg/dl Test 09/18/16 23:47 09/19/16 05:40 09/19/16 07:17 Range/Units Bedside Glucose 110 70-90 mg/dl White Blood Count 8.13 4.8-10.8 K/uL Red Blood Count 3.05 4.2-5.4 M/uL Hemoglobin 9.4 12.0-16.0 g/dL Hematocrit 27.8 37-47 % Mean Corpuscular Volume 91.1 80-100 fL Mean Corpuscular Hemoglobin 30.8 25-34 pg Mean Corpuscular Hemoglobin Concent 33.8 32-36 g/dl Platelet Count 196 130-400 K/uL Mean Platelet Volume 9.2 7.4-10.4 fL Neutrophils (%) (Auto) 65.2 % Lymphocytes (%) (Auto) 18.7 % Monocytes (%) (Auto) 9.3 % Eosinophils (%) (Auto) 4.6 % Basophils (%) (Auto) 0.4 % Neutrophils # (Auto) 5.30 1.4-6.5 K/uL Lymphocytes # (Auto) 1.52 1.2-3.4 K/uL Monocytes # (Auto) 0.76 0.11-0.59 K/uL Eosinophils # (Auto) 0.37 0-0.5 K/uL Basophils # (Auto) 0.03 0-0.2 K/uL RDW Standard Deviation 51.3 36.4-46.3 fL RDW Coefficient of Variation 15.3 11.5-14.5 % Immature Granulocyte % (Auto) 1.8 % Immature Granulocyte # (Auto) 0.15 0.00-0.02 K/uL Prothrombin Time 14.5 9.0-12.0 SECONDS Prothromb Time International Ratio 1.3 0.9-1.1 Activated Partial Thromboplast Time 71.6 21.0-31.0 SECONDS Partial Thromboplastin Ratio 2.8 Sodium Level 142 136-145 mmol/L Potassium Level 3.7 3.5-5.1 mmol/L Chloride Level 112 98-107 mmol/L Carbon Dioxide Level 20 21-32 mmol/L Anion Gap 10.0 3-11 mmol/L Blood Urea Nitrogen 16 7-18 mg/dl Creatinine 1.20 0.60-1.20 mg/dl Est Creatinine Clear Calc Drug Dose 34.5 ml/min Estimated GFR () 48.7 Estimated GFR (Non- 42.1 BUN/Creatinine Ratio 13.2 10-20 Random Glucose 123 70-99 mg/dl Lactic Acid Level 0.8 0.4-2.0 mmol/L Calcium Level 7.7 8.5-10.1 mg/dl Ionized Calcium 0.98 1.12-1.32 mmol/l Phosphorus Level 1.8 2.5-4.9 mg/dl Magnesium Level 2.4 1.8-2.4 mg/dl Total Bilirubin 0.6 0.2-1 mg/dl Direct Bilirubin 0.3 0-0.2 mg/dl Aspartate Amino Transf (AST/SGOT) 14 15-37 U/L Alanine Aminotransferase (ALT/SGPT) 32 12-78 U/L Alkaline Phosphatase 68 45-117 U/L Total Protein 6.2 6.4-8.2 gm/dl Albumin 3.8 3.4-5.0 gm/dl Blood Gas Sample Site Art Line Bedside Blood Gas pH (LAB) 7.34 7.35-7.45 Bedside Blood Gas pCO2 (LAB) 32 35-46 mmHg Bedside Blood Gas pO2 (LAB) 108 80-95 mmHg Bedside Blood Gas HCO3 (LAB) 18 19-24 meq/L Bedside Blood Gas Total CO2 18 24-31 mEq/l Bedside Blood Gas Base Excess (LAB) -8.0 -9-1.8 meq/L Bedside Blood Gas O2 Saturation 98.0 90-95 % Yasmani Test NA Oxygen Delivery Device BIPAP Bedside Oxygen Rate (breaths/min) 12 Bedside FiO2 40 % Blood Gas IPAP 12 Assessment & Plan POD # 2 s/p Sigmoid colon resection, Noah Procedure and ostomy formation -Hypertensive - atrial fibrillation - adequate urine output - wound clean, no necrosis - ostomy pink with serosanguineous/bloody drainage, no stool - absent bowel sounds - NGT with bilious output Plan: Continue pain management as needed Continue NPO, may have oral medications NGT clamped, will await to see if patient tolerates, may start tube feeds Continue [place] to gravity Continue IV antibiotics, switched to IV Invanz today due to culture sensitivities. Wound vac to be placed today Continue GENNY to bulb suction Daily dressing changes Encourage incentive spirometry Continue current medical and ICU management Dr. Valdovinos has seen and examined patient, agrees with above
[2016-09-19] MEDS: ACETAMINOPHEN IV 1000MG/100ML IV PRN (09:37)
[2016-09-19] MEDS: FLUCONAZOLE / NSS 100 MG in PREMIXED NSS 50 ML IV SCH (10:03)
[2016-09-19] MEDS: CIPROFLOXACIN / D5W 400 MG in PREMIXED IN D5W 200 ML IV SCH (10:26)
[2016-09-19] MEDS: METOPROLOL TARTRATE 1 MG/ML VIAL IV PRN ×3 (11:31→22:13)
[2016-09-19] MEDS ORDERED: POTASSIUM PHOSPHATE INJ 24 MMOL in SODIUM CHLORIDE 0.9% 500ML 500 ML IV SCH (13:30)
[2016-09-19] MEDS ORDERED: CALCIUM GLUCONATE 10% 1,000 MG in SODIUM CHLORIDE 0.9% 50ML 50 ML IV ONE (14:00)
[2016-09-19 14:30] LABS: PARTIAL THROMBOPLASTIN RATIO 2.4
[2016-09-19] MEDS: ERTAPENEM IV 1 GM in SODIUM CHLOR 0.9% AD-VAN 50ML IV SCH (14:37)
--- NOTE | 2016-09-19 15:43 | Critical Care Progress Note ---
Critical Care Progress Note Date of Service Sep 19, 2016. ICU Day ICU Day Number: [address] Cooney Subjective This is a pleasant 81 yo female admitted to the ICU s/p colectomy with colostomy after a perforation of the viscous with Dr. Valdovinos. She is POD#2. She is seen at bedside with the son Rodríguez at her side. She states that she has not been out of bed. Her pain is generally controlled when sedentary. She does have pain with movement. She denies fever or chills. She has no significant nausea or vomiting. She continues to be NPO and has a NGT in place. It was clamped this morning. Nursing reports that her dressing has been dry. She has a GENNY drain and a salinas catheter in place. She denies SOB or chest presley. She is unaware of any residual leaking from her rectum. She has no other acute complaints Objective Vital Signs - as noted below Laboratory Data - as noted below Physical Exam: General - NAD. Pleasant Eyes - No icterus, gaze conjugate. PEERL ENT - Mucosa moist, no lesions. Candidiasis improved Neck - Supple, No JVD. RIJ 2L CVC in place with dressing intact with chlorhexidine disc in place Lungs - No bronchospasm, rales, or rhonchi. Good inspiratory effort Heart - Irregular, irregular, rate in the 1-teens. No appreciation os murmur Abdomen - Soft, tender to palpation. Soft bowel sounds appreciated in the left upper quadrant. Colostomy bag with serosanguineous drainage but no stool. Dressing dry and in place. GENNY drain in place Extremities - No edema, pedal pulses intact Neuro - A&OX3 Current SOFA Score SOFA Score Response (Comments) Value PaO2/FiO2 (mmHg) < 300 2 Platelets (x10) > 150 0 Bilirubin (mg/dL) < 1.2 0 Florence Coma Score 15 0 Level of Hypotension No Hypotension 0 Creatinine (mg/dL) < 1.2 0 Total 2 Previous SOFA Scores 6 Assessment & Plan DIVERTICULAR PERFORATION POD#2 sigmoid resection with colostomy Washings with multi-resistant E. coli Discontinue Aztreonam, Ciprofloxacin, and Metronidazole Start Ertapenem for 10 days - today will be 03/01 Ostomy nurse consulted to place wound VAC NUTRITION Will place coresafe in Duodenum Trickle feed as tolerated Albumin 3.8 Nutrition consult ELECTROLYTES Phos 1.8 K+ 3.7 Gave K-Phos 24 mmoL Ca+ 7.7 Ionized Ca+ 0.98 Gave 1gm Calcium Gluconate Follow serial labs and replete as needed ID E. coli in washings from the sigmoid resection - multi-resistant Oral candidiasis - discontinue Fluconazole and start Nystatin swish and spit QID BC negative Discontinue Aztreonam, Metronidazole, and Ciprofloxacin Start 10 days of Ertapenem HEME H&H stable Serosanguineous drainage in the GENNY drain and the colostomy bag PT 14.5 INR 1.3 aPTT 71.6 PULMONARY CPAP at home for sleep apnea Continue BiPAP as needed watch for abdominal distention Currently requiring supplemental O2 with SaO2 of 93% Continue incentive spirometry IV ACCESS Right 3L IJ CVC PIV in place CARDIAC Hemodynamically stable Arterial line discontinue today Atrial fibrillation - heparin gtt Diastolic dysfunction RENAL CKD III BUN 16 Batter Depositor 1.[address] - adequate urine output GI Omeprazole at home Famotidine IV inpatient Change to pantoprazole when able to change to PO NEURO A+OX3 Extremity strength and sensory intact and appropriate ENDOCRINE Hypothyroidism - continue Levothyroxine DVT PROPHYLAXIS Heparin gtt SCDs CCT: 60 minutes independent of any procedures. Included discussion with other providers, consultants, and with the patient's son Rodríguez Thank you for including us in the care of this patient. Please refer to Dr. Cooney's addendum for further recommendations I have personally evaluated and examined this patient. I agree with assessment and plan of Carlie Osuna PA-C. Increase metoprolol for rate control. Small dose of diuretics given 6 liters positive and afib. Monitor NG output, trickle feeding once coresafe post- pyloric. Consults & Procedures Consultants: Surgery - Dr Valdovinos Cardiology - Dr Vera Procedures: 09/17 right IJ 3L CVC 09/17 ex-lap with sigmoid resection and colostomy with Dr. Valdovinos 09/17 right radial a-line placed and removed 09/19 Data Medications: Current Inpatient Medications Medications (Trade) Dose Ordered Sig/Mazin Route Start Time Stop Time Status Last Admin Dose Admin Ioversol (Optiray 320) 100 ml UD PRN IV 09/16/16 02:15 09/20/16 02:14 Lorazepam (Ativan Inj) 0.5 mg Q4H PRN IV 09/16/16 08:00 10/16/16 07:59 Levothyroxine Sodium 35 mcg/ Syringe 1.75 ml @ 2 mls/min DAILY@09 IV 09/16/16 10:00 10/16/16 09:59 09/19/16 08:44 2 MLS/MIN Acetaminophen 100 ml @ 400 mls/hr Q8H PRN IV 09/16/16 14:00 10/16/16 13:59 09/19/16 09:37 400 MLS/HR Ondansetron HCl (Zofran Inj) 4 mg Q6H PRN IV 09/17/16 08:45 10/17/16 08:44 09/19/16 13:05 4 MG Fentanyl Citrate (Fentanyl Inj) 50 mcg Q2H PRN IV 09/17/16 17:00 10/01/16 16:59 09/18/16 22:44 50 MCG Famotidine 20 mg/ Dextrose 102 ml @ 200 mls/hr Q12 IV 09/17/16 18:30 10/17/16 18:29 09/19/16 08:44 200 MLS/HR Metoprolol Tartrate (Lopressor Iv) 2.5 mg Q3H PRN IV 09/18/16 02:00 10/16/16 07:59 09/19/16 11:31 2.5 MG Heparin Sodium/ Dextrose 500 ml @ 19 mls/hr Q24H PRN IV 09/18/16 10:00 10/18/16 09:59 09/18/16 10:34 22 MLS/HR Hydromorphone HCl (Dilaudid Inj) 0.5 mg Q2H PRN IV 09/18/16 12:30 10/02/16 12:29 09/19/16 11:29 0.5 MG Metoprolol Tartrate (Lopressor Iv) 2.5 mg Q6H IV. 09/19/16 02:00 10/19/16 01:59 09/19/16 14:38 2.5 MG Hydralazine HCl (HydrALAZINE INJ) 10 mg Q4H PRN IV. 09/18/16 20:45 10/18/16 20:44 09/18/16 22:18 10 MG Promethazine HCl 12.5 mg/Sodium Chloride 50.5 ml @ 202 mls/hr Q6H PRN IV 09/18/16 22:15 10/18/16 22:14 09/18/16 22:18 202 MLS/HR Albuterol/ Ipratropium (Duoneb) 3 ml Q4R INH 09/19/16 00:00 10/19/16 00:00 09/19/16 14:30 3 ML Ertapenem 1 gm/ Sodium Chloride 50 ml @ 100 mls/hr Q24H IV 09/19/16 14:00 09/29/16 13:59 09/19/16 14:37 100 MLS/HR Nystatin (Mycostatin Susp) 5 ml QID PO 09/19/16 17:00 09/29/16 16:59 Potassium Phosphate 24 mmol/ Sodium Chloride 508 ml @ 88 mls/hr TODAY@1330 IV 09/19/16 13:30 09/19/16 19:17 09/19/16 14:37 88 MLS/HR Vital Signs: Date Time Temp Pulse Resp B/P (MAP) Pulse Ox O2 Delivery O2 Flow Rate FiO2 09/19/16 14:38 124 129/84 09/19/16 14:31 115 14 97 Nasal Cannula 4.0 09/19/16 12:00 Nasal Cannula 4.0 09/19/16 12:00 36.7 113 20 123/88 (100) 93 Nasal Cannula 4.0 09/19/16 11:31 125 140/92 09/19/16 11:07 117 14 96 Nasal Cannula 4.0 09/19/16 10:00 104 20 146/76 (99) 94 Nasal Cannula 4.0 09/19/16 08:45 136 136/72 09/19/16 08:00 Nasal Cannula 4.0 09/19/16 08:00 37.1 85 20 164/68 (100) 96 Nasal Cannula 4.0 09/19/16 08:00 Nasal Cannula 09/19/16 07:35 71 14 98 BiPAP/CPAP 40 09/19/16 07:27 71 98 09/19/16 05:01 86 24 152/76 (101) 97 BiPAP 40 153/61 (91) 09/19/16 04:01 37.3 65 19 143/64 (90) 98 BiPAP 40 136/54 (81) 09/19/16 04:00 BiPAP 40 09/19/16 03:00 64 14 138/63 (88) 99 BiPAP 40 131/53 (79) 09/19/16 02:15 77 140/70 09/19/16 02:01 81 13 140/70 (93) 96 BiPAP 40 145/59 (87) 09/19/16 01:02 94 21 146/64 (91) 95 BiPAP 40 138/66 (90) 09/19/16 00:16 86 24 127/61 (86) 96 127/52 09/19/16 00:01 37.0 83 15 122/59 (80) 98 129/50 09/19/16 00:01 37.0 83 15 122/59 (80) 98 BiPAP 40 123/47 (72) 09/19/16 00:01 Nasal Cannula 40 09/18/16 23:46 85 18 132/77 (95) 90 133/51 09/18/16 23:39 96 20 94 BiPAP/CPAP 09/18/16 23:38 96 94 09/18/16 23:31 85 22 137/63 (100) 95 141/53 09/18/16 23:30 84 16 140/63 (78) 96 132/48 09/18/16 23:01 103 35 184/108 (127) 92 171/67 09/18/16 23:00 107 38 173/63 (99) 90 Nasal Cannula 4.0 184/108 (133) 09/18/16 22:01 75 22 158/83 (108) 96 145/55 09/18/16 21:01 72 20 148/81 (105) 98 152/61 09/18/16 20:01 37.0 61 18 156/73 (107) 98 155/59 (103) 09/18/16 20:00 Nasal Cannula 4.0 09/18/16 19:54 81 141/75 09/18/16 19:01 80 13 141/75 (104) 97 141/56 (102) 09/18/16 18:00 80 19 146/60 (88) 98 Nasal Cannula 4.0 09/18/16 16:01 37.7 107 17 120/85 (97) 98 Nasal Cannula 4.0 09/18/16 16:00 Nasal Cannula 4.0 09/18/16 15:01 118 19 140/74 (96) 97 Nasal Cannula 4.0 09/18/16 15:00 107 15 121/54 (76) 98 Nasal Cannula 4.0 Laboratory Results: Last 24 Hours Test 09/18/16 16:59 09/18/16 22:01 09/18/16 23:44 09/18/16 23:47 White Blood Count 6.88 K/uL Red Blood Count 3.19 M/uL Hemoglobin 9.9 g/dL Hematocrit 28.8 % Mean Corpuscular Volume 90.3 fL Mean Corpuscular Hemoglobin 31.0 pg Mean Corpuscular Hemoglobin Concent 34.4 g/dl Platelet Count 161 K/uL Mean Platelet Volume 8.9 fL Neutrophils (%) (Auto) 69.2 % Lymphocytes (%) (Auto) 19.8 % Monocytes (%) (Auto) 7.8 % Eosinophils (%) (Auto) 1.9 % Basophils (%) (Auto) 0.3 % Neutrophils # (Auto) 4.76 K/uL Lymphocytes # (Auto) 1.36 K/uL Monocytes # (Auto) 0.54 K/uL Eosinophils # (Auto) 0.13 K/uL Basophils # (Auto) 0.02 K/uL RDW Standard Deviation 49.5 fL RDW Coefficient of Variation 15.0 % Immature Granulocyte % (Auto) 1.0 % Immature Granulocyte # (Auto) 0.07 K/uL Activated Partial Thromboplast Time 71.7 SECONDS 70.2 SECONDS Partial Thromboplastin Ratio 2.8 2.7 Sodium Level 143 mmol/L Potassium Level 3.7 mmol/L Chloride Level 111 mmol/L Carbon Dioxide Level 21 mmol/L Anion Gap 11.0 mmol/L Blood Urea Nitrogen 15 mg/dl Creatinine 1.20 mg/dl Est Creatinine Clear Calc Drug Dose 34.5 ml/min Estimated GFR () 48.7 Estimated GFR (Non- 42.1 BUN/Creatinine Ratio 12.3 Random Glucose 114 mg/dl Calcium Level 7.2 mg/dl Ionized Calcium 0.96 mmol/l Phosphorus Level 3.0 mg/dl Magnesium Level 1.8 mg/dl Blood Gas Sample Site Art Line Bedside Blood Gas pH (LAB) 7.34 Bedside Blood Gas pCO2 (LAB) 32 mmHg Bedside Blood Gas pO2 (LAB) 124 mmHg Bedside Blood Gas HCO3 (LAB) 17 meq/L Bedside Blood Gas Total CO2 18 mEq/l Bedside Blood Gas Base Excess (LAB) -9.0 meq/L Bedside Blood Gas O2 Saturation 99.0 % Yasmani Test NA Oxygen Delivery Device Cannula Bedside Glucose 110 mg/dl Test 09/19/16 05:40 09/19/16 07:17 09/19/16 13:41 White Blood Count 8.13 K/uL Red Blood Count 3.05 M/uL Hemoglobin 9.4 g/dL Hematocrit 27.8 % Mean Corpuscular Volume 91.1 fL Mean Corpuscular Hemoglobin 30.8 pg Mean Corpuscular Hemoglobin Concent 33.8 g/dl Platelet Count 196 K/uL Mean Platelet Volume 9.2 fL Neutrophils (%) (Auto) 65.2 % Lymphocytes (%) (Auto) 18.7 % Monocytes (%) (Auto) 9.3 % Eosinophils (%) (Auto) 4.6 % Basophils (%) (Auto) 0.4 % Neutrophils # (Auto) 5.30 K/uL Lymphocytes # (Auto) 1.52 K/uL Monocytes # (Auto) 0.76 K/uL Eosinophils # (Auto) 0.37 K/uL Basophils # (Auto) 0.03 K/uL RDW Standard Deviation 51.3 fL RDW Coefficient of Variation 15.3 % Immature Granulocyte % (Auto) 1.8 % Immature Granulocyte # (Auto) 0.15 K/uL Prothrombin Time 14.5 SECONDS Prothromb Time International Ratio 1.3 Activated Partial Thromboplast Time 71.6 SECONDS 61.2 SECONDS Partial Thromboplastin Ratio 2.8 2.4 Sodium Level 142 mmol/L Potassium Level 3.7 mmol/L Chloride Level 112 mmol/L Carbon Dioxide Level 20 mmol/L Anion Gap 10.0 mmol/L Blood Urea Nitrogen 16 mg/dl Creatinine 1.20 mg/dl Est Creatinine Clear Calc Drug Dose 34.5 ml/min Estimated GFR () 48.7 Estimated GFR (Non- 42.1 BUN/Creatinine Ratio 13.2 Random Glucose 123 mg/dl Lactic Acid Level 0.8 mmol/L Calcium Level 7.7 mg/dl Ionized Calcium 0.98 mmol/l Phosphorus Level 1.8 mg/dl Magnesium Level 2.4 mg/dl Total Bilirubin 0.6 mg/dl Direct Bilirubin 0.3 mg/dl Aspartate Amino Transf (AST/SGOT) 14 U/L Alanine Aminotransferase (ALT/SGPT) 32 U/L Alkaline Phosphatase 68 U/L Total Protein 6.2 gm/dl Albumin 3.8 gm/dl Blood Gas Sample Site Art Line Bedside Blood Gas pH (LAB) 7.34 Bedside Blood Gas pCO2 (LAB) 32 mmHg Bedside Blood Gas pO2 (LAB) 108 mmHg Bedside Blood Gas HCO3 (LAB) 18 meq/L Bedside Blood Gas Total CO2 18 mEq/l Bedside Blood Gas Base Excess (LAB) -8.0 meq/L Bedside Blood Gas O2 Saturation 98.0 % Yasmani Test NA Oxygen Delivery Device BIPAP Bedside Oxygen Rate (breaths/min) 12 Bedside FiO2 40 % Blood Gas IPAP 12
--- NOTE | 2016-09-19 17:17 | DIAGNOSTIC IMAGING REPORT ---
[place] CLINICAL HISTORY: Verify NGT (Core safe) placement COMPARISON STUDY: No previous studies for comparison. FINDINGS: Moderate cardiac enlargement. Feeding tube gastric fundus. Nasogastric tube mid gastric body. Bilateral pleural effusions. IMPRESSION: 1. Feeding tube gastric fundus. 2. Nasogastric tube mid stomach.. 3. Bilateral pleural effusions. The above report was generated using voice recognition software. It may contain grammatical, syntax or spelling errors. Electronically signed by: Mich Velez M.D. 09/19/2016 5:16 PM Dictated Date/Time: 09/19/2016 5:14 PM
[2016-09-19] MEDS: NYSTATIN SUSP 500,000 U/5 ML UDC PO SCH ×2 (17:27→20:39)
--- NOTE | 2016-09-19 17:48 | Progress Note ---
Subjective Date of Service: Sep 19, 2016. Subjective Pt evaluation today including: conversation w/ patient, conversation w/ family , physical exam, chart review, lab review, review of studies, review of inpatient medication list Problem List Medical Problems: (1) Diverticulitis Status: Acute (2) Diverticulitis of intestine with perforation Status: Acute (3) Left lower quadrant pain Status: Acute Review of Systems Constitutional: No see HPI, No fever, No chills, No sweats, No weight loss, No weakness, No fatigue, No problem reported Eyes: No see HPI, No worsening of vision, No eye pain, No redness, No discharge , No diplopia, No problem reported ENT: No see HPI, No hearing loss, No unusual epistaxis, No nasal symptoms, No sore throat, No tinnitus, No dental problems, No trouble swallowing, No problem reported Respiratory: No see HPI, No cough, No sputum, No wheezing, No shortness of breath, No dyspnea on exertion, No dyspnea at rest, No hemoptysis, No problem reported Cardiac: No see HPI, No chest pain, No orthopnea, No PND, No edema, No claudication, No palpitations, No problem reported Abdomen: No see HPI, No pain, No nausea, No vomiting, No diarrhea, No constipation, No GI bleeding, No problem reported Musculoskeletal: No see HPI, No joint pain, No muscle pain, No swelling, No calf pain, No problem reported Neurologic: No see HPI, No memory loss, No paralysis, No weakness, No numbness/ tingling, No vertigo, No balance problems, No problem reported Psychiatric: No see HPI, No depression symptoms, No anhedonism, No anxiety, No insomnia, No substance abuse, No problem reported Heme: No see HPI, No abnormal bleeding/bruising, No clotting problems, No swollen lymph nodes, No night sweats, No problem reported Endo: No see HPI, No fatigue, No excessive thirst, No excessive urination, No problem reported Skin: No see HPI, No rash, No itch, No new/changing skin lesions, No color change, No bleeding, No problem reported Objective Vital Signs Date Time Temp Pulse Resp B/P (MAP) Pulse Ox O2 Delivery O2 Flow Rate FiO2 09/19/16 16:00 36.7 112 14 138/81 (100) 91 Nasal Cannula 3.0 09/19/16 16:00 Nasal Cannula 3.0 09/19/16 14:38 124 129/84 09/19/16 14:31 115 14 97 Nasal Cannula 4.0 09/19/16 14:00 122 15 120/103 (109) 95 Nasal Cannula 4.0 09/19/16 12:00 Nasal Cannula 4.0 09/19/16 12:00 36.7 113 20 123/88 (100) 93 Nasal Cannula 4.0 09/19/16 11:31 125 140/92 09/19/16 11:07 117 14 96 Nasal Cannula 4.0 09/19/16 10:00 104 20 146/76 (99) 94 Nasal Cannula 4.0 09/19/16 08:45 136 136/72 09/19/16 08:00 Nasal Cannula 4.0 09/19/16 08:00 37.1 85 20 164/68 (100) 96 Nasal Cannula 4.0 09/19/16 08:00 Nasal Cannula 09/19/16 07:35 71 14 98 BiPAP/CPAP 40 09/19/16 07:27 71 98 09/19/16 05:01 86 24 152/76 (101) 97 BiPAP 40 153/61 (91) 09/19/16 04:01 37.3 65 19 143/64 (90) 98 BiPAP 40 136/54 (81) 09/19/16 04:00 BiPAP 40 09/19/16 03:00 64 14 138/63 (88) 99 BiPAP 40 131/53 (79) 09/19/16 02:15 77 140/70 09/19/16 02:01 81 13 140/70 (93) 96 BiPAP 40 145/59 (87) 09/19/16 01:02 94 21 146/64 (91) 95 BiPAP 40 138/66 (90) 09/19/16 00:16 86 24 127/61 (86) 96 127/52 09/19/16 00:01 37.0 83 15 122/59 (80) 98 129/50 09/19/16 00:01 37.0 83 15 122/59 (80) 98 BiPAP 40 123/47 (72) 09/19/16 00:01 Nasal Cannula 40 09/18/16 23:46 85 18 132/77 (95) 90 133/51 09/18/16 23:39 96 20 94 BiPAP/CPAP 09/18/16 23:38 96 94 09/18/16 23:31 85 22 137/63 (100) 95 141/53 09/18/16 23:30 84 16 140/63 (78) 96 132/48 09/18/16 23:01 103 35 184/108 (127) 92 171/67 09/18/16 23:00 107 38 173/63 (99) 90 Nasal Cannula 4.0 184/108 (133) 09/18/16 22:01 75 22 158/83 (108) 96 145/55 09/18/16 21:01 72 20 148/81 (105) 98 152/61 09/18/16 20:01 37.0 61 18 156/73 (107) 98 155/59 (103) 09/18/16 20:00 Nasal Cannula 4.0 09/18/16 19:54 81 141/75 09/18/16 19:01 80 13 141/75 (104) 97 141/56 (102) 09/18/16 18:00 80 19 146/60 (88) 98 Nasal Cannula 4.0 Physical Exam General Appearance: WD/WN, no apparent distress Eyes: normal inspection, EOMI ENT: normal ENT inspection, hearing grossly normal Neck: supple Respiratory/Chest: chest non-tender, lungs clear, normal breath sounds, no respiratory distress Cardiovascular: regular rate, rhythm, no edema, no gallop, no JVD, no murmur Abdomen: normal bowel sounds, non tender, soft, no organomegaly Extremities: normal range of motion, non-tender, no pedal edema 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, no motor/sensory deficits, alert, normal mood/affect, oriented x 3 Skin: normal color, warm/dry, no rash Laboratory Results Last 24 Hours Test 09/18/16 22:01 09/18/16 23:44 09/18/16 23:47 09/19/16 05:40 Blood Gas Sample Site Art Line Bedside Blood Gas pH (LAB) 7.34 Bedside Blood Gas pCO2 (LAB) 32 mmHg Bedside Blood Gas pO2 (LAB) 124 mmHg Bedside Blood Gas HCO3 (LAB) 17 meq/L Bedside Blood Gas Total CO2 18 mEq/l Bedside Blood Gas Base Excess (LAB) -9.0 meq/L Bedside Blood Gas O2 Saturation 99.0 % Yasmani Test NA Oxygen Delivery Device Cannula Activated Partial Thromboplast Time 70.2 SECONDS 71.6 SECONDS Partial Thromboplastin Ratio 2.7 2.8 Bedside Glucose 110 mg/dl White Blood Count 8.13 K/uL Red Blood Count 3.05 M/uL Hemoglobin 9.4 g/dL Hematocrit 27.8 % Mean Corpuscular Volume 91.1 fL Mean Corpuscular Hemoglobin 30.8 pg Mean Corpuscular Hemoglobin Concent 33.8 g/dl Platelet Count 196 K/uL Mean Platelet Volume 9.2 fL Neutrophils (%) (Auto) 65.2 % Lymphocytes (%) (Auto) 18.7 % Monocytes (%) (Auto) 9.3 % Eosinophils (%) (Auto) 4.6 % Basophils (%) (Auto) 0.4 % Neutrophils # (Auto) 5.30 K/uL Lymphocytes # (Auto) 1.52 K/uL Monocytes # (Auto) 0.76 K/uL Eosinophils # (Auto) 0.37 K/uL Basophils # (Auto) 0.03 K/uL RDW Standard Deviation 51.3 fL RDW Coefficient of Variation 15.3 % Immature Granulocyte % (Auto) 1.8 % Immature Granulocyte # (Auto) 0.15 K/uL Prothrombin Time 14.5 SECONDS Prothromb Time International Ratio 1.3 Sodium Level 142 mmol/L Potassium Level 3.7 mmol/L Chloride Level 112 mmol/L Carbon Dioxide Level 20 mmol/L Anion Gap 10.0 mmol/L Blood Urea Nitrogen 16 mg/dl Creatinine 1.20 mg/dl Est Creatinine Clear Calc Drug Dose 34.5 ml/min Estimated GFR () 48.7 Estimated GFR (Non- 42.1 BUN/Creatinine Ratio 13.2 Random Glucose 123 mg/dl Lactic Acid Level 0.8 mmol/L Calcium Level 7.7 mg/dl Ionized Calcium 0.98 mmol/l Phosphorus Level 1.8 mg/dl Magnesium Level 2.4 mg/dl Total Bilirubin 0.6 mg/dl Direct Bilirubin 0.3 mg/dl Aspartate Amino Transf (AST/SGOT) 14 U/L Alanine Aminotransferase (ALT/SGPT) 32 U/L Alkaline Phosphatase 68 U/L Total Protein 6.2 gm/dl Albumin 3.8 gm/dl Test 09/19/16 07:17 09/19/16 13:41 Blood Gas Sample Site Art Line Bedside Blood Gas pH (LAB) 7.34 Bedside Blood Gas pCO2 (LAB) 32 mmHg Bedside Blood Gas pO2 (LAB) 108 mmHg Bedside Blood Gas HCO3 (LAB) 18 meq/L Bedside Blood Gas Total CO2 18 mEq/l Bedside Blood Gas Base Excess (LAB) -8.0 meq/L Bedside Blood Gas O2 Saturation 98.0 % Yasmani Test NA Oxygen Delivery Device BIPAP Bedside Oxygen Rate (breaths/min) 12 Bedside FiO2 40 % Blood Gas IPAP 12 Activated Partial Thromboplast Time 61.2 SECONDS Partial Thromboplastin Ratio 2.4 Assessment and Plan 81/F p/w perforated bowel s/p colectomy with colostomy. yesterday had some fluid overload and was started on BIPAP. today doing well but remains NPO Assessment: diverticular perforation s/p resection w colostomy POD # 2 continue Ertapenem for 10 days - today will be 03/01 Ostomy nurse consulted to place wound VAC Trickle feed as tolerated via duodenal coresafe Electrolyte imbalance, replaced by ICU team Intraabdominal sepsis E. coli from the sigmoid resection - multi-resistant, continue Ertapenem Oral candidiasis - discontinue Fluconazole and start Nystatin swish and spit QID Fluid overload/acute on chronic diastolic CHF: CPAP at home for sleep apnea Continue BiPAP as needed watch for abdominal distention continue supplemental O2 with SaO2 of 93% Atrial fibrillation - heparin gtt CKD III continue to observe avoid nephrotoxic Hypothyroidism - continue Levothyroxine GI/ DVT PROPHYLAXIS Heparin gtt SCDs Famotidine IV inpatient
[2016-09-19] MEDS ORDERED: NURSING VERBAL MED ORDER ONE (18:15)
[2016-09-19] MEDS ORDERED: METOPROLOL TARTRATE 1 MG/ML VIAL IV STA ×2 (22:44→23:19)
[2016-09-19] MEDS ORDERED: CHLOROTHIAZIDE INJ 500 MG in DEXTROSE 5% 50ML 50 ML IV STA (22:52)
[2016-09-19] MEDS ORDERED: METOPROLOL TARTRATE 1 MG/ML VIAL IV ONE (23:30)
[2016-09-19] MEDS ORDERED: LEVALBUTEROL/IPRATROPIUM NEB INH SCH (23:45)
[2016-09-19] MEDS: LEVALBUTEROL 1.25MG/0.5ML NEB INH SCH (23:46)
[2016-09-19] MEDS: IPRATROPIUM BROMIDE NEB SOLN 0.02% 2.5 ML VIAL INH SCH (23:46)
[2016-09-20] VITALS (31 sets, daily range): BP systolic 111–173; BP diastolic 77–116; PULSE 104–162; TEMP 36.5–37.3; O2SAT 90–99
[2016-09-20] MEDS ORDERED: BUMETANIDE IV 1 MG in SYRINGE 0 ML IV ONE (00:15)
[2016-09-20] MEDS: METOPROLOL TARTRATE 1 MG/ML VIAL IV. SCH ×2 (01:38→07:30)
[2016-09-20] MEDS: ONDANSETRON INJ 2 MG/ML 2 ML VIAL IV PRN ×2 (02:24→18:31)
[2016-09-20] MEDS: HYDROmorphone INJ 0.5 MG/0.5 ML SYR IV PRN ×5 (02:24→20:27)
[2016-09-20] MEDS: METOPROLOL TARTRATE 1 MG/ML VIAL IV PRN ×2 (03:41→15:47)
[2016-09-20] MEDS: LEVALBUTEROL 1.25MG/0.5ML NEB INH SCH ×6 (03:51→23:25)
[2016-09-20] MEDS: IPRATROPIUM BROMIDE NEB SOLN 0.02% 2.5 ML VIAL INH SCH ×6 (03:51→23:25)
[2016-09-20 05:01] LABS: BASO % 0.7 %; BASO ABS # 0.07 K/uL (0-0.2); COMPLETE YES; EOS % 1.4 %; IG% 2.2 %; LYMPH % 21.9 %; LYMPH ABS # 2.22 K/uL (1.2-3.4); MEAN CELL VOLUME 91.4 fL (80-100); MEAN CORPUSCULAR HEMOGLOBIN 30.7 pg (25-34); MEAN CORPUSCULAR HGB CONC 33.5 g/dl (32-36); MEAN PLATELET VOLUME 8.7 fL (7.4-10.4); MONO % 9.4 %; NEUT % 64.4 %; PLATELET COUNT 267 K/uL (130-400); RED BLOOD COUNT 3.39 M/uL (4.2-5.4); WHITE BLOOD COUNT 10.14 K/uL (4.8-10.8)
[2016-09-20 05:23] LABS: INR 1.3 (0.9-1.1); PARTIAL THROMBOPLASTIN RATIO 2.2; PROTHROMBIN TIME (PATIENT) 14.2 SECONDS (9.0-12.0)
[2016-09-20 05:29] LABS: BUN/CREATININE RATIO 13.8 (10-20); CALCIUM 8.8 mg/dl (8.5-10.1); CREATININE 1.2 mg/dl (0.60-1.20); MAGNESIUM 2.1 mg/dl (1.8-2.4); POTASSIUM 3.9 mmol/L (3.5-5.1)
[2016-09-20 05:32] LABS: PHOSPHORUS 2.8 mg/dl (2.5-4.9)
[2016-09-20] MEDS: HEPARIN 25,000 UNIT/500ML D5W 500 ML IV PRN (06:01)
[2016-09-20] MEDS ORDERED: METOPROLOL TARTRATE 1 MG/ML VIAL ONE (06:27)
--- NOTE | 2016-09-20 07:11 | DIAGNOSTIC IMAGING REPORT ---
[facility] CLINICAL HISTORY: HYPOXIA dyspnea COMPARISON STUDY: 09/19/2016 FINDINGS: Moderate cardiomegaly considered stable. Nasogastric and feeding tubes within the stomach. Central catheter is in the superior vena cava. Basilar infiltrative and consolidative changes considered stable. IMPRESSION: No change compared to the prior study. Tubes and lines positioned as noted. No new or interval change. The above report was generated using voice recognition software. It may contain grammatical, syntax or spelling errors. Electronically signed by: Mich Velez M.D. 09/20/2016 7:10 AM Dictated Date/Time: 09/20/2016 7:09 AM
--- NOTE | 2016-09-20 07:11 | DIAGNOSTIC IMAGING REPORT ---
[facility] CLINICAL HISTORY: CORESAFE PLACEMENT COMPARISON STUDY: 09/19/2016 FINDINGS: The examination is compromised due to motion artifact. 2 enteric tubes are visualized within the stomach. There is no pathologic bowel dilatation. There is a catheter projected over the central pelvis, possibly representing a surgical drain. IMPRESSION: 1. No evidence of pathologic bowel dilatation 2. 2 enteric tubes are visualized within the stomach Electronically signed by: Chang Rascon M.D. 09/20/2016 7:10 AM Dictated Date/Time: 09/20/2016 7:05 AM
--- NOTE | 2016-09-20 07:39 | Surgery Progress Note ---
Surgery Progress Note Date of Service Sep 20, 2016. Subjective Post OP Day: 3 No bowel movement (No colostomy output as yet), No nausea, No vomiting Objective Vital Signs: Date Time Temp Pulse Resp B/P (MAP) Pulse Ox O2 Delivery O2 Flow Rate FiO2 09/20/16 07:30 142 152/110 09/20/16 06:32 125 15 136/101 (107) 92 09/20/16 06:30 145 169/81 09/20/16 06:02 127 24 169/81 (102) 93 09/20/16 05:34 135 20 113/87 (96) 92 09/20/16 04:31 162 25 143/84 (96) 90 09/20/16 04:00 93 Nasal Cannula 4.0 09/20/16 03:52 37.2 09/20/16 03:51 127 18 95 Nasal Cannula 4.0 09/20/16 03:41 132 145/100 09/20/16 03:40 142 21 145/100 (120) 93 09/20/16 03:01 131 19 156/99 (115) 94 09/20/16 02:31 133 15 142/97 (122) 93 09/20/16 02:01 135 30 135/94 (101) 93 09/20/16 01:38 143 156/104 09/20/16 01:37 134 26 156/104 (126) 92 09/20/16 01:31 129 23 128/102 (108) 93 09/20/16 01:13 128 21 144/95 (104) 92 09/20/16 00:31 134 16 141/100 (113) 92 09/20/16 00:01 131 28 173/99 (140) 97 09/20/16 00:01 37.3 09/19/16 23:59 96 BiPAP 40 09/19/16 23:46 122 19 97 BiPAP/CPAP 40 09/19/16 23:46 121 19 96 BiPAP 40 09/19/16 23:38 124 25 148/97 (128) 96 09/19/16 23:37 122 140/119 09/19/16 23:31 123 15 140/119 (125) 96 09/19/16 23:24 133 15 150/100 (106) 96 09/19/16 23:24 123 150/100 7/31/17 23:07 129 152/86 09/19/16 23:01 133 21 152/86 (117) 95 09/19/16 23:00 123 19 93 09/19/16 22:42 132 28 159/97 (115) 94 09/19/16 22:13 147 131/76 09/19/16 22:02 128 14 131/76 (95) 94 09/19/16 22:00 131 94 09/19/16 21:33 132 24 182/87 (102) 91 09/19/16 21:15 123 19 140/96 (120) 93 09/19/16 20:31 115 16 157/107 (129) 92 09/19/16 20:01 126 14 142/89 (102) 94 09/19/16 20:00 94 Nasal Cannula 4.0 09/19/16 20:00 36.7 09/19/16 19:31 138 27 124/97 (106) 96 09/19/16 19:24 121 14 94 Nasal Cannula 4.0 09/19/16 19:19 125 142/112 09/19/16 19:01 139 27 142/115 (131) 95 09/19/16 18:17 135 141/91 09/19/16 18:00 127 15 141/91 (108) 94 Nasal Cannula 4.0 09/19/16 16:00 36.7 112 14 138/81 (100) 91 Nasal Cannula 3.0 09/19/16 16:00 Nasal Cannula 3.0 09/19/16 14:38 124 129/84 09/19/16 14:31 115 14 97 Nasal Cannula 4.0 09/19/16 14:00 122 15 120/103 (109) 95 Nasal Cannula 4.0 09/19/16 12:00 Nasal Cannula 4.0 09/19/16 12:00 36.7 113 20 123/88 (100) 93 Nasal Cannula 4.0 09/19/16 11:31 125 140/92 09/19/16 11:07 117 14 96 Nasal Cannula 4.0 09/19/16 10:00 104 20 146/76 (99) 94 Nasal Cannula 4.0 09/19/16 08:45 136 136/72 09/19/16 08:00 Nasal Cannula 4.0 09/19/16 08:00 37.1 85 20 164/68 (100) 96 Nasal Cannula 4.0 09/19/16 08:00 Nasal Cannula Abdomen: non distended, soft, + abnormal bowel sounds Incision(s): clean, no erythema, no drainage, findings (Wound vac in place) Laboratory Results: Results Past 24 Hours Test 09/19/16 13:41 09/20/16 04:52 09/20/16 05:19 Range/Units Activated Partial Thromboplast Time 61.2 57.1 21.0-31.0 SECONDS Partial Thromboplastin Ratio 2.4 2.2 White Blood Count 10.14 4.8-10.8 K/uL Red Blood Count 3.39 4.2-5.4 M/uL Hemoglobin 10.4 12.0-16.0 g/dL Hematocrit 31.0 37-47 % Mean Corpuscular Volume 91.4 80-100 fL Mean Corpuscular Hemoglobin 30.7 25-34 pg Mean Corpuscular Hemoglobin Concent 33.5 32-36 g/dl Platelet Count 267 130-400 K/uL Mean Platelet Volume 8.7 7.4-10.4 fL Neutrophils (%) (Auto) 64.4 % Lymphocytes (%) (Auto) 21.9 % Monocytes (%) (Auto) 9.4 % Eosinophils (%) (Auto) 1.4 % Basophils (%) (Auto) 0.7 % Neutrophils # (Auto) 6.54 1.4-6.5 K/uL Lymphocytes # (Auto) 2.22 1.2-3.4 K/uL Monocytes # (Auto) 0.95 0.11-0.59 K/uL Eosinophils # (Auto) 0.14 0-0.5 K/uL Basophils # (Auto) 0.07 0-0.2 K/uL RDW Standard Deviation 52.2 36.4-46.3 fL RDW Coefficient of Variation 15.5 11.5-14.5 % Immature Granulocyte % (Auto) 2.2 % Immature Granulocyte # (Auto) 0.22 0.00-0.02 K/uL Nucleated RBC Absolute Count (auto) 0.03 0-0 K/uL Nucleated Red Blood Cells % 0.2 % Prothrombin Time 14.2 9.0-12.0 SECONDS Prothromb Time International Ratio 1.3 0.9-1.1 Sodium Level 142 136-145 mmol/L Potassium Level 3.9 3.5-5.1 mmol/L Chloride Level 111 98-107 mmol/L Carbon Dioxide Level 22 21-32 mmol/L Anion Gap 9.0 3-11 mmol/L Blood Urea Nitrogen 17 7-18 mg/dl Creatinine 1.20 0.60-1.20 mg/dl Est Creatinine Clear Calc Drug Dose 34.5 ml/min Estimated GFR () 48.7 Estimated GFR (Non- 42.1 BUN/Creatinine Ratio 13.8 10-20 Random Glucose 112 70-99 mg/dl Calcium Level 8.8 8.5-10.1 mg/dl Phosphorus Level 2.8 2.5-4.9 mg/dl Magnesium Level 2.1 1.8-2.4 mg/dl Bedside Glucose 105 70-90 mg/dl Assessment & Plan S/P Ochoa procedure Ostomy has not begun to function Continue NGT Agree with feeding tube, hopefully can get it into the duodenum Urine output good H&H stable OOB today Continue antibiotics
[2016-09-20] MEDS ORDERED: NURSING VERBAL MED ORDER ONE (08:30)
--- NOTE | 2016-09-20 08:49 | DIAGNOSTIC IMAGING REPORT ---
KUB HISTORY: Check placement of Coresafe - advanced 20 cm COMPARISON: KUB 09/20/2016. FINDINGS: The bowel gas pattern is unremarkable. There are no dilated loops of small bowel to suggest an obstruction. The feeding tube has been advanced and is seen within a postpyloric position. Specifically, the tip is likely at the level of the ligament of Treitz. There is also a nasogastric tube which terminates in the distal stomach. There appear to be trace bilateral pleural effusions. No pneumoperitoneum or pneumatosis. IMPRESSION: 1. Feeding tube has been advanced and terminates at the expected location of the ligament of Treitz. 2. Nasogastric tube terminates in the distal stomach, unchanged. Electronically signed by: Ellis Oquendo M.D. 09/20/2016 8:48 AM Dictated Date/Time: 09/20/2016 8:47 AM
[2016-09-20] MEDS ORDERED: DIGOXIN IV 250 MCG in SYRINGE 9 ML IV ONE (09:00)
[2016-09-20] MEDS: LEVOTHYROXINE SODIUM INJ 35 MCG in SYRINGE 0 ML IV SCH (09:34)
[2016-09-20] MEDS: NYSTATIN SUSP 500,000 U/5 ML UDC PO SCH ×4 (09:35→20:19)
[2016-09-20] MEDS: FAMOTIDINE IV INJ 20 MG in DEXTROSE 5% 100ML 100 ML IV SCH ×2 (09:36→21:48)
[2016-09-20] MEDS ORDERED: TRAZODONE HCL 50 MG TAB PO PRN (10:15)
[2016-09-20] MEDS ORDERED: POTASSIUM PHOSPHATE INJ 24 MMOL in SODIUM CHLORIDE 0.9% 500ML 500 ML IV SCH (10:30)
[2016-09-20] MEDS: METRONIDAZOLE 500MG / NSS IV SCH ×2 (12:05→20:19)
[2016-09-20] MEDS ORDERED: LACTOBACILLUS ACIDOPHILUS 1 GM PACK NG ONE (14:00)
[2016-09-20] MEDS: ACETAMINOPHEN IV 1000MG/100ML IV SCH ×2 (14:36→22:20)
[2016-09-20] MEDS: ERTAPENEM IV 1 GM in SODIUM CHLOR 0.9% AD-VAN 50ML IV SCH (14:37)
[2016-09-20] MEDS ORDERED: DIGOXIN IV 125 MCG in SYRINGE 9.5 ML IV SCH (15:00)
[2016-09-20] MEDS: PEPTAMEN INTENSE VHP 1000ML BAG NG SCH (15:46)
--- NOTE | 2016-09-20 16:15 | Critical Care Progress Note ---
Critical Care Progress Note Date of Service Sep 20, 2016. ICU Day ICU Day Number: [address] Cooney Subjective This is a 81-year-old female that is postoperative sigmoid resection with colostomy for perforated viscus. Surgery was performed by Dr. Valdovinos.She is currently POD#3. NG tube had minimal output last night with intermittent suction. A course a feeding tube was placed and was floated into in testing this morning and trickle feeds have begun. The patient has been out of bed to chair today. She was a max assist but pain was well-controlled and she tolerated her time out of bed well. She denies shortness of breath or chest pain today. She has no fever. Nausea has improved. Pain is generally controlled. She has no acute complaints today. Objective Vital Signs - as noted below Laboratory Data - as noted below Physical Exam: General - NAD. Pleasant Eyes - No icterus, gaze conjugate. PEERL ENT - Mucosa moist, no lesions. Large bore NG tube is in the right nares. A coresafe feeding tube is in the left nares Neck - Supple, No JVD. RIJ 2L CVC in place with dressing intact with chlorhexidine disc in place Lungs - No bronchospasm, rales, or rhonchi. Heart - Irregular, irregular, continues with tachycardia Abdomen - Soft, tender to palpation. Soft bowel sounds appreciated in the left upper quadrant. Colostomy bag with serosanguineous drainage but no stool. Dressing dry and in place. GENNY drain in place. Wound VAC is now in place with minimal drainage Extremities - No edema, pedal pulses intact. While sitting in the chair patient is able to independently raise and lower bilateral legs Neuro - A&OX3 Current SOFA Score SOFA Score Response (Comments) Value PaO2/FiO2 (mmHg) < 300 2 Platelets (x10) > 150 0 Bilirubin (mg/dL) < 1.2 0 Florence Coma Score 15 0 Level of Hypotension No Hypotension 0 Creatinine (mg/dL) < 1.2 0 Total 2 Previous SOFA Scores 6 Assessment & Plan DIVERTICULAR PERFORATION POD #3 sigmoid resection with colostomy Day 10 ertapenem for multi resistant Escherichia coli from washings Wound VAC in place Pain generally controlled Continues with serosanguineous fluid in the ostomy bag with no evidence of bowel movement at this time ATRIAL FIBRILLATION Patient continues to be tachycardic Continue beta faustino Restart Coreg at home dose via feeding tube Start digitoxin 250 mg loading dose followed by 125 mg every 6 hours Continue to monitor on telemetry Continue heparin drip per weight base protocol NUTRITION Coresafe placed and confirmed with KUB Peptomin VHP started at 10 mL per hour - goal rate is 55 mL per hour but will hold at 10 and evaluate again tomorrow Patient continues to be nothing by mouth per surgery Continue current treatment for now ELECTROLYTES We'll give an additional K-Phos 24 mmol today No further treatment for calcium at this time Continue to follow serial labs ID Escherichia coli with multi resistant findings Day 04/01 ertapenem Aztreonam and ciprofloxacin discontinued yesterday Restart metronidazole for prophylactic control of history of recurrent C. difficile As patient is able to tolerate by mouth then we will change metronidazole IV to vancomycin by mouth VENOUS ACCESS Triple lumen right IJ catheter in place Peripheral IV in place Avoid PICC line if possible due to history of cancer HEME No active bleeding H&H stable PULMONARY Only tolerated CPAP for 4 hours last night Continues to be oxygen dependent with supplemental O2 at 4 L/m Continue incentive spirometry No indication of pneumonia Follow clinically RENAL CKD III Creatinine remained stable at 1.[address] Continue strict I's and O's Home dose of Bumex started today Patient continues to be 5 L positive for this hospital stay Medications, tube feeds amount to close to 3 L/24 hours Monitor fluid status closely GI Continue famotidine IV until patient is able to take orals Changed to pantoprazole by mouth when able NEURO Alert and oriented 3 Patient will support herself or short period on both feet standing at bedside today No acute neurological deficits noted ENDOCRINE Continue levothyroxine for hypothyroidism DVT PROPHYLAXIS Heparin drip for atrial fibrillation SCDs in place at the time of my examination CCT: 45 minutes including discussion with resident and with family and independent of any other procedures Thank you for including us in the care of this patient. Please refer to Dr. juarez's addendum for further recommendations I have personally evaluated and examined this patient. I agree with assessment and plan of Carlie Osuna PA-C. Bowel function appears to be returning. Requiring more heart rate control. Consults & Procedures Consultants: Surgery - Dr Valdovinos Cardiology - Dr Vera Procedures: 09/17 right IJ 3L CVC 09/17 ex-lap with sigmoid resection and colostomy with Dr. Valdovinos 09/17 right radial a-line placed and removed 09/19 Data Medications: Current Inpatient Medications Medications (Trade) Dose Ordered Sig/Mazin Route Start Time Stop Time Status Last Admin Dose Admin Levothyroxine Sodium 35 mcg/ Syringe 1.75 ml @ 2 mls/min DAILY@09 IV 09/16/16 10:00 10/16/16 09:59 09/20/16 09:34 2 MLS/MIN Ondansetron HCl (Zofran Inj) 4 mg Q6H PRN IV 09/17/16 08:45 10/17/16 08:44 09/20/16 02:24 4 MG Famotidine 20 mg/ Dextrose 102 ml @ 200 mls/hr Q12 IV 09/17/16 18:30 10/17/16 18:29 09/20/16 09:36 200 MLS/HR Heparin Sodium/ Dextrose 500 ml @ 19 mls/hr Q24H PRN IV 09/18/16 10:00 10/18/16 09:59 09/20/16 06:01 19 MLS/HR Hydralazine HCl (HydrALAZINE INJ) 10 mg Q4H PRN IV. 09/18/16 20:45 10/18/16 20:44 09/18/16 22:18 10 MG Promethazine HCl 12.5 mg/Sodium Chloride 50.5 ml @ 202 mls/hr Q6H PRN IV 09/18/16 22:15 10/18/16 22:14 09/18/16 22:18 202 MLS/HR Ertapenem 1 gm/ Sodium Chloride 50 ml @ 100 mls/hr Q24H IV 09/19/16 14:00 09/29/16 13:59 09/20/16 14:37 100 MLS/HR Nystatin (Mycostatin Susp) 5 ml QID PO 09/19/16 17:00 09/29/16 16:59 09/20/16 12:05 5 ML Ipratropium [place] (Atrovent 0.02% 0.5MG/2.5ML Neb) 0.5 mg Q4R INH 09/20/16 00:15 10/20/16 00:14 09/20/16 15:00 0.5 MG Levalbuterol (Xopenex 1.25MG/ 0.5ML Neb) 1.25 mg Q4R INH 09/20/16 00:15 10/20/16 00:14 09/20/16 15:00 1.25 MG Metoprolol Tartrate (Lopressor Iv) 5 mg Q2H PRN IV 09/20/16 06:30 10/16/16 07:59 Potassium Phosphate 24 mmol/ Sodium Chloride 508 ml @ 88 mls/hr TODAY@1030 IV 09/20/16 10:30 09/20/16 16:17 09/20/16 10:30 88 MLS/HR Bumetanide (Bumex Tab) 1 mg BID17 NG 09/20/16 17:00 10/20/16 16:59 Carvedilol (Coreg Tab) 3.125 mg BID NG 09/20/16 21:00 10/20/16 20:59 Lisinopril (Zestril Tab) 40 mg DAILY NG 09/21/16 09:00 10/21/16 08:59 Metronidazole 500 mg/Prmx 100 ml @ 100 mls/hr Q8@04,12,20 IV 09/20/16 12:00 10/04/16 11:59 09/20/16 12:05 100 MLS/HR Trazodone HCl (Desyrel Tab) 50 mg HS PRN PO 09/20/16 10:15 10/20/16 10:14 Acetaminophen 100 ml @ 400 mls/hr Q8 IV 09/20/16 14:00 10/20/16 13:59 09/20/16 14:36 400 MLS/HR Hydromorphone HCl (Dilaudid Inj) 0.5 mg Q4 PRN IV 09/20/16 10:15 10/04/16 10:14 09/20/16 11:22 0.5 MG Enteral Nutritional Formula (Peptamen Intense VHP) 1,000 ml UD NG 09/20/16 15:00 10/20/16 14:59 Lactobacillus Acidophilus (Lactinex Granules Pack) 1 gm DAILY NG 09/21/16 09:00 10/21/16 08:59 Vital Signs: Date Time Temp Pulse Resp B/P (MAP) Pulse Ox O2 Delivery O2 Flow Rate FiO2 09/20/16 15:00 119 20 94 Nasal Cannula 4.0 09/20/16 14:36 126 09/20/16 12:00 Nasal Cannula 4.0 09/20/16 11:14 119 18 96 Nasal Cannula 4.0 09/20/16 10:00 129 15 152/116 (128) 94 Nasal Cannula 4.0 09/20/16 09:34 120 09/20/16 08:00 36.5 116 16 132/110 (117) 93 Nasal Cannula 4.0 09/20/16 08:00 Nasal Cannula 09/20/16 08:00 Nasal Cannula 4.0 09/20/16 07:41 117 18 94 Nasal Cannula 4.0 09/20/16 07:30 142 152/110 09/20/16 06:32 125 15 136/101 (107) 92 09/20/16 06:30 145 169/81 09/20/16 06:02 127 24 169/81 (102) 93 09/20/16 05:34 135 20 113/87 (96) 92 09/20/16 04:31 162 25 143/84 (96) 90 09/20/16 04:00 93 Nasal Cannula 4.0 09/20/16 03:52 37.2 09/20/16 03:51 127 18 95 Nasal Cannula 4.0 09/20/16 03:41 132 145/100 09/20/16 03:40 142 21 145/100 (120) 93 09/20/16 03:01 131 19 156/99 (115) 94 09/20/16 02:31 133 15 142/97 (122) 93 09/20/16 02:01 135 30 135/94 (101) 93 09/20/16 01:38 143 156/104 09/20/16 01:37 134 26 156/104 (126) 92 09/20/16 01:31 129 23 128/102 (108) 93 09/20/16 01:13 128 21 144/95 (104) 92 09/20/16 00:31 134 16 141/100 (113) 92 09/20/16 00:01 131 28 173/99 (140) 97 09/20/16 00:01 37.3 09/19/16 23:59 96 BiPAP 40 09/19/16 23:46 122 19 97 BiPAP/CPAP 40 09/19/16 23:46 121 19 96 BiPAP 40 09/19/16 23:38 124 25 148/97 (128) 96 09/19/16 23:37 122 140/119 09/19/16 23:31 123 15 140/119 (125) 96 09/19/16 23:24 133 15 150/100 (106) 96 09/19/16 23:24 123 150/100 09/19/16 23:07 129 152/86 09/19/16 23:01 133 21 152/86 (117) 95 09/19/16 23:00 123 19 93 09/19/16 22:42 132 28 159/97 (115) 94 09/19/16 22:13 147 131/76 09/19/16 22:02 128 14 131/76 (95) 94 09/19/16 22:00 131 94 09/19/16 21:33 132 24 182/87 (102) 91 09/19/16 21:15 123 19 140/96 (120) 93 09/19/16 20:31 115 16 157/107 (129) 92 09/19/16 20:01 126 14 142/89 (102) 94 09/19/16 20:00 94 Nasal Cannula 4.0 09/19/16 20:00 36.7 09/19/16 19:31 138 27 124/97 (106) 96 09/19/16 19:24 121 14 94 Nasal Cannula 4.0 09/19/16 19:19 125 142/112 09/19/16 19:01 139 27 142/115 (131) 95 09/19/16 18:17 135 141/91 09/19/16 18:00 127 15 141/91 (108) 94 Nasal Cannula 4.0 09/19/16 16:00 36.7 112 14 138/81 (100) 91 Nasal Cannula 3.0 09/19/16 16:00 Nasal Cannula 3.0 Laboratory Results: Last 24 Hours Test 09/20/16 04:52 09/20/16 05:19 White Blood Count 10.14 K/uL Red Blood Count 3.39 M/uL Hemoglobin 10.4 g/dL Hematocrit 31.0 % Mean Corpuscular Volume 91.4 fL Mean Corpuscular Hemoglobin 30.7 pg Mean Corpuscular Hemoglobin Concent 33.5 g/dl Platelet Count 267 K/uL Mean Platelet Volume 8.7 fL Neutrophils (%) (Auto) 64.4 % Lymphocytes (%) (Auto) 21.9 % Monocytes (%) (Auto) 9.4 % Eosinophils (%) (Auto) 1.4 % Basophils (%) (Auto) 0.7 % Neutrophils # (Auto) 6.54 K/uL Lymphocytes # (Auto) 2.22 K/uL Monocytes # (Auto) 0.95 K/uL Eosinophils # (Auto) 0.14 K/uL Basophils # (Auto) 0.07 K/uL RDW Standard Deviation 52.2 fL RDW Coefficient of Variation 15.5 % Immature Granulocyte % (Auto) 2.2 % Immature Granulocyte # (Auto) 0.22 K/uL Nucleated RBC Absolute Count (auto) 0.03 K/uL Nucleated Red Blood Cells % 0.2 % Prothrombin Time 14.2 SECONDS Prothromb Time International Ratio 1.3 Activated Partial Thromboplast Time 57.1 SECONDS Partial Thromboplastin Ratio 2.2 Sodium Level 142 mmol/L Potassium Level 3.9 mmol/L Chloride Level 111 mmol/L Carbon Dioxide Level 22 mmol/L Anion Gap 9.0 mmol/L Blood Urea Nitrogen 17 mg/dl Creatinine 1.20 mg/dl Est Creatinine Clear Calc Drug Dose 34.5 ml/min Estimated GFR () 48.7 Estimated GFR (Non- 42.1 BUN/Creatinine Ratio 13.8 Random Glucose 112 mg/dl Calcium Level 8.8 mg/dl Phosphorus Level 2.8 mg/dl Magnesium Level 2.1 mg/dl Bedside Glucose 105 mg/dl
[2016-09-20] MEDS ORDERED: LACTOBACILLUS ACIDOPHILUS 1 GM PACK NG SCH (17:00)
[2016-09-20] MEDS: BUMETANIDE 1 MG TAB NG SCH (17:11)
--- NOTE | 2016-09-20 19:21 | Progress Note ---
Subjective Date of Service: Sep 20, 2016. Subjective Pt evaluation today including: conversation w/ patient, conversation w/ family , physical exam, chart review, lab review, review of inpatient medication list Problem List Medical Problems: (1) Diverticulitis Status: Acute (2) Diverticulitis of intestine with perforation Status: Acute (3) Left lower quadrant pain Status: Acute Review of Systems Constitutional: No see HPI, No fever, No chills, No sweats, No weight loss, No weakness, No fatigue, No problem reported Eyes: No see HPI, No worsening of vision, No eye pain, No redness, No discharge , No diplopia, No problem reported ENT: No see HPI, No hearing loss, No unusual epistaxis, No nasal symptoms, No sore throat, No tinnitus, No dental problems, No trouble swallowing, No problem reported Respiratory: + shortness of breath, + dyspnea on exertion, No see HPI, No cough , No sputum, No wheezing, No dyspnea at rest, No hemoptysis, No problem reported Cardiac: No see HPI, No chest pain, No orthopnea, No PND, No edema, No claudication, No palpitations, No problem reported Abdomen: + pain, No see HPI, No nausea, No vomiting, No diarrhea, No constipation, No GI bleeding, No problem reported Neurologic: No see HPI, No memory loss, No paralysis, No weakness, No numbness/ tingling, No vertigo, No balance problems, No problem reported Psychiatric: No see HPI, No depression symptoms, No anhedonism, No anxiety, No insomnia, No substance abuse, No problem reported Heme: No see HPI, No abnormal bleeding/bruising, No clotting problems, No swollen lymph nodes, No night sweats, No problem reported Endo: No see HPI, No fatigue, No excessive thirst, No excessive urination, No problem reported Skin: No see HPI, No rash, No itch, No new/changing skin lesions, No color change, No bleeding, No problem reported Objective Vital Signs Date Time Temp Pulse Resp B/P (MAP) Pulse Ox O2 Delivery O2 Flow Rate FiO2 09/20/16 19:00 104 18 98 Nasal Cannula 4.0 09/20/16 18:00 113 27 158/96 (116) 97 Nasal Cannula 4.0 09/20/16 16:00 Nasal Cannula 4.0 09/20/16 16:00 36.6 112 22 160/114 (129) 96 Nasal Cannula 4.0 09/20/16 15:47 127 166/95 09/20/16 15:00 119 20 94 Nasal Cannula 4.0 09/20/16 14:36 126 09/20/16 14:00 119 20 153/102 (119) 99 Nasal Cannula 4.0 09/20/16 12:00 36.8 130 16 145/101 (116) 94 Nasal Cannula 4.0 09/20/16 12:00 Nasal Cannula 4.0 09/20/16 11:14 119 18 96 Nasal Cannula 4.0 09/20/16 10:00 129 15 152/116 (128) 94 Nasal Cannula 4.0 09/20/16 09:34 120 09/20/16 08:00 36.5 116 16 132/110 (117) 93 Nasal Cannula 4.0 09/20/16 08:00 Nasal Cannula 09/20/16 08:00 Nasal Cannula 4.0 09/20/16 07:41 117 18 94 Nasal Cannula 4.0 09/20/16 07:30 142 152/110 09/20/16 06:32 125 15 136/101 (107) 92 09/20/16 06:30 145 169/81 09/20/16 06:02 127 24 169/81 (102) 93 09/20/16 05:34 135 20 113/87 (96) 92 09/20/16 04:31 162 25 143/84 (96) 90 09/20/16 04:00 93 Nasal Cannula 4.0 09/20/16 03:52 37.2 09/20/16 03:51 127 18 95 Nasal Cannula 4.0 09/20/16 03:41 132 145/100 09/20/16 03:40 142 21 145/100 (120) 93 09/20/16 03:01 131 19 156/99 (115) 94 09/20/16 02:31 133 15 142/97 (122) 09/20/16 02:01 135 30 135/94 (101) 93 09/20/16 01:38 143 156/104 09/20/16 01:37 134 26 156/104 (126) 09/20/16 01:31 129 23 128/102 (108) 09/20/16 01:13 128 21 144/95 (104) 92 09/20/16 00:31 134 16 141/100 (113) 92 09/20/16 00:01 131 28 173/99 (140) 97 09/20/16 00:01 37.3 09/19/16 23:59 96 BiPAP 40 09/19/16 23:46 122 19 97 BiPAP/CPAP 40 09/19/16 23:46 121 19 96 BiPAP 40 09/19/16 23:38 124 25 148/97 (128) 96 09/19/16 23:37 122 140/119 09/19/16 23:31 123 15 140/119 (125) 96 09/19/16 23:24 133 15 150/100 (106) 96 09/19/16 23:24 123 150/100 09/19/16 23:07 129 152/86 09/19/16 23:01 133 21 152/86 (117) 95 09/19/16 23:00 123 19 93 09/19/16 22:42 132 28 159/97 (115) 94 09/19/16 22:13 147 131/76 09/19/16 22:02 128 14 131/76 (95) 94 09/19/16 22:00 131 94 09/19/16 21:33 132 24 182/87 (102) 91 09/19/16 21:15 123 19 140/96 (120) 93 09/19/16 20:31 115 16 157/107 (129) 92 09/19/16 20:01 126 14 142/89 (102) 94 09/19/16 20:00 94 Nasal Cannula 4.0 09/19/16 20:00 36.7 09/19/16 19:31 138 27 124/97 (106) 96 09/19/16 19:24 121 14 94 Nasal Cannula 4.0 09/19/16 19:19 125 142/112 Physical Exam General Appearance: WD/WN, + mild distress Eyes: normal inspection, PERRL ENT: normal ENT inspection, hearing grossly normal Neck: supple Respiratory/Chest: chest non-tender, lungs clear, + decreased breath sounds Cardiovascular: regular rate, rhythm, no gallop, no murmur Abdomen: soft, + tenderness Extremities: normal range of motion, non-tender, normal inspection 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, no motor/sensory deficits, alert, normal mood/affect, oriented x 3 Skin: normal color, warm/dry Laboratory Results Last 24 Hours Test 09/20/16 04:52 09/20/16 05:19 White Blood Count 10.14 K/uL Red Blood Count 3.39 M/uL Hemoglobin 10.4 g/dL Hematocrit 31.0 % Mean Corpuscular Volume 91.4 fL Mean Corpuscular Hemoglobin 30.7 pg Mean Corpuscular Hemoglobin Concent 33.5 g/dl Platelet Count 267 K/uL Mean Platelet Volume 8.7 fL Neutrophils (%) (Auto) 64.4 % Lymphocytes (%) (Auto) 21.9 % Monocytes (%) (Auto) 9.4 % Eosinophils (%) (Auto) 1.4 % Basophils (%) (Auto) 0.7 % Neutrophils # (Auto) 6.54 K/uL Lymphocytes # (Auto) 2.22 K/uL Monocytes # (Auto) 0.95 K/uL Eosinophils # (Auto) 0.14 K/uL Basophils # (Auto) 0.07 K/uL RDW Standard Deviation 52.2 fL RDW Coefficient of Variation 15.5 % Immature Granulocyte % (Auto) 2.2 % Immature Granulocyte # (Auto) 0.22 K/uL Nucleated RBC Absolute Count (auto) 0.03 K/uL Nucleated Red Blood Cells % 0.2 % Prothrombin Time 14.2 SECONDS Prothromb Time International Ratio 1.3 Activated Partial Thromboplast Time 57.1 SECONDS Partial Thromboplastin Ratio 2.2 Sodium Level 142 mmol/L Potassium Level 3.9 mmol/L Chloride Level 111 mmol/L Carbon Dioxide Level 22 mmol/L Anion Gap 9.0 mmol/L Blood Urea Nitrogen 17 mg/dl Creatinine 1.20 mg/dl Est Creatinine Clear Calc Drug Dose 34.5 ml/min Estimated GFR () 48.7 Estimated GFR (Non- 42.1 BUN/Creatinine Ratio 13.8 Random Glucose 112 mg/dl Calcium Level 8.8 mg/dl Phosphorus Level 2.8 mg/dl Magnesium Level 2.1 mg/dl Bedside Glucose 105 mg/dl Assessment and Plan 81/F p/w perforated bowel s/p colectomy with colostomy. yesterday had some fluid overload and was started on BIPAP. today doing well but remains NPO Assessment: diverticular perforation / Intraabdominal sepsis s/p resection w colostomy POD # 3 continue Ertapenem for resistant E coli / intraabdominal sepsis (allergy to Cephalosporins) Flagyl IV then switch to vanco via NGT when able to use Ostomy nurse consulted to place wound VAC Trickle feed as tolerated via duodenal coresafe Electrolyte imbalance, replaced by ICU team Oral candidiasis - discontinue Fluconazole and start Nystatin swish and spit QID Fluid overload/acute on chronic diastolic CHF: CPAP at home for sleep apnea Continue BiPAP as needed and at night continue supplemental O2 with SaO2 of 93% Atrial fibrillation - heparin gtt CKD III continue to observe avoid nephrotoxic Hypothyroidism - continue Levothyroxine GI/ DVT PROPHYLAXIS Heparin gtt SCDs Famotidine IV inpatient
[2016-09-20] MEDS ORDERED: METOPROLOL TARTRATE 1 MG/ML VIAL IV PRN (19:30)
[2016-09-20] MEDS ORDERED: DIGOXIN IV 125 MCG in SYRINGE 9.5 ML IV ONE (20:00)
[2016-09-20] MEDS: CARVEDILOL 3.125 MG TAB NG SCH (20:20)
[2016-09-21] VITALS (27 sets, daily range): BP systolic 110–162; BP diastolic 67–111; PULSE 91–126; TEMP 36.1–36.8; O2SAT 94–99
[2016-09-21] MEDS: METRONIDAZOLE 500MG / NSS IV SCH (03:49)
[2016-09-21] MEDS: HYDROmorphone INJ 0.5 MG/0.5 ML SYR IV PRN ×3 (03:50→17:04)
[2016-09-21] MEDS: LEVALBUTEROL 1.25MG/0.5ML NEB INH SCH ×7 (04:30→23:55)
[2016-09-21] MEDS: IPRATROPIUM BROMIDE NEB SOLN 0.02% 2.5 ML VIAL INH SCH ×6 (04:30→23:55)
[2016-09-21] MEDS: ACETAMINOPHEN IV 1000MG/100ML IV SCH (05:35)
[2016-09-21 05:53] LABS: BASO % 0.5 %; BASO ABS # 0.04 K/uL (0-0.2); COMPLETE YES; EOS % 4.4 %; HEMATOCRIT 32.2 % (37-47); IG% 4.6 %; LYMPH % 16.9 %; LYMPH ABS # 1.35 K/uL (1.2-3.4); MEAN CORPUSCULAR HEMOGLOBIN 29.4 pg (25-34); MEAN PLATELET VOLUME 8.6 fL (7.4-10.4); MONO % 10.4 %; NEUT % 63.2 %; PLATELET COUNT 272 K/uL (130-400); WHITE BLOOD COUNT 7.98 K/uL (4.8-10.8)
[2016-09-21] MEDS: HEPARIN 25,000 UNIT/500ML D5W 500 ML IV PRN (06:09)
[2016-09-21 06:21] LABS: INR 1.3 (0.9-1.1); PARTIAL THROMBOPLASTIN RATIO 2.1; PROTHROMBIN TIME (PATIENT) 14.1 SECONDS (9.0-12.0)
[2016-09-21 06:28] LABS: CALCIUM 8.7 mg/dl (8.5-10.1); MAGNESIUM 1.9 mg/dl (1.8-2.4); POTASSIUM 3.5 mmol/L (3.5-5.1)
[2016-09-21 06:32] LABS: PHOSPHORUS 3.3 mg/dl (2.5-4.9)
[2016-09-21] MEDS ORDERED: POTASSIUM CHLORIDE 20 MEQ/15 ML UDC NG SCH (06:45)
[2016-09-21] MEDS: FAMOTIDINE IV INJ 20 MG in DEXTROSE 5% 100ML 100 ML IV SCH (08:29)
[2016-09-21] MEDS: BUMETANIDE 1 MG TAB NG SCH ×2 (08:29→17:18)
[2016-09-21] MEDS: NYSTATIN SUSP 500,000 U/5 ML UDC PO SCH ×4 (08:29→21:29)
[2016-09-21] MEDS: CARVEDILOL 3.125 MG TAB NG SCH ×2 (08:30→21:29)
[2016-09-21] MEDS: LISINOPRIL 40 MG TAB NG SCH (08:30)
[2016-09-21] MEDS: LACTOBACILLUS ACIDOPHILUS 1 GM PACK NG SCH (08:30)
[2016-09-21] MEDS: ONDANSETRON INJ 2 MG/ML 2 ML VIAL IV PRN ×2 (08:56→19:12)
[2016-09-21] MEDS: LEVOTHYROXINE SODIUM INJ 35 MCG in SYRINGE 0 ML IV SCH (09:05)
[2016-09-21] MEDS ORDERED: WARFARIN SOD 5 MG TAB PO ONE (09:30)
[2016-09-21] MEDS ORDERED: POTASSIUM PHOSPHATE INJ 18 MMOL in SODIUM CHLORIDE 0.9% 500ML 500 ML IV ONE (10:00)
[2016-09-21] MEDS: OXYCODONE HCL IR 5 MG TAB (IMMEDIATE RELEASE) PO PRN ×2 (11:06→21:31)
[2016-09-21] MEDS: RASPBERRY SYRUP 5 ML UDP PO SCH ×2 (11:45→19:11)
[2016-09-21] MEDS: VANCOMYCIN HCL 125 MG/2.5ML SOLN PO SCH ×2 (11:45→19:11)
[2016-09-21] MEDS: ACETAMINOPHEN 500 MG TAB PO SCH ×2 (13:40→21:32)
--- NOTE | 2016-09-21 14:09 | Surgery Progress Note ---
Surgery Progress Note Date of Service Sep 21, 2016. Subjective Post OP Day: 4 (s/p sigmoid resection, Noah procedure, colostomy) + feeling well, + bowel movement (liquid stool in ostomy), + pain controlled, No chest pain, No SOB, No nausea, No vomiting Objective Vital Signs: Date Time Temp Pulse Resp B/P (MAP) Pulse Ox O2 Delivery O2 Flow Rate FiO2 09/21/16 11:14 Nasal Cannula 3.0 09/21/16 11:14 36.8 116 16 146/89 (108) 98 Nasal Cannula 3.0 09/21/16 10:01 114 18 145/111 (120) 95 09/21/16 10:00 115 19 96 09/21/16 09:48 122 13 122/84 (98) 94 09/21/16 09:30 36.8 110 16 141/92 (108) 98 Nasal Cannula 3.0 09/21/16 09:01 112 9 120/75 (93) 96 09/21/16 09:00 121 9 97 09/21/16 08:01 120 12 132/99 (120) 97 09/21/16 08:00 Nasal Cannula 09/21/16 08:00 98 10 97 09/21/16 07:30 Nasal Cannula 3.0 09/21/16 07:30 36.8 123 16 141/87 (105) 98 Nasal Cannula 3.0 09/21/16 07:12 106 16 98 Nasal Cannula 3.0 09/21/16 07:01 111 16 141/87 (95) 98 09/21/16 07:00 91 14 98 09/21/16 06:01 106 12 135/77 (96) 97 Nasal Cannula 2.0 09/21/16 05:02 122 12 129/90 (103) 97 Nasal Cannula 2.0 09/21/16 04:30 123 16 97 Nasal Cannula 3.0 09/21/16 04:02 36.6 106 18 154/81 (105) 98 Nasal Cannula 2.0 09/21/16 04:00 Nasal Cannula 4.0 09/21/16 03:02 115 19 142/77 (98) 98 BiPAP 40 09/21/16 02:01 104 20 149/87 (107) 98 BiPAP 40 09/21/16 01:02 119 30 153/90 (111) 98 BiPAP 40 09/21/16 00:01 BiPAP 09/21/16 00:01 36.4 97 14 110/67 (81) 98 BiPAP 40 09/20/16 23:26 109 98 09/20/16 23:26 109 23 98 BiPAP/CPAP 40 09/20/16 23:01 104 16 111/84 (93) BiPAP 40 09/20/16 22:01 105 18 135/95 (108) 98 BiPAP 40 09/20/16 21:01 130 20 126/77 (93) 96 Nasal Cannula 4.0 09/20/16 20:19 128 09/20/16 20:01 36.5 128 19 156/99 (118) 96 Nasal Cannula 4.0 09/20/16 20:00 Nasal Cannula 4.0 09/20/16 19:00 104 18 98 Nasal Cannula 4.0 09/20/16 18:00 113 27 158/96 (116) 97 Nasal Cannula 4.0 09/20/16 16:00 Nasal Cannula 4.0 09/20/16 16:00 36.6 112 22 160/114 (129) 96 Nasal Cannula 4.0 09/20/16 15:47 127 166/95 09/20/16 15:00 119 20 94 Nasal Cannula 4.0 09/20/16 14:36 126 Physical Exam: GENNY drainage (serosanguineous), urine output General Appearance: no apparent distress, + obese Head: normocephalic, atraumatic Neck: trachea midline Respiratory/Chest: normal breath sounds, no respiratory distress, no accessory muscle use Cardiovascular: + tachycardia, + irregularly irregular Abdomen: non distended, soft, + tenderness (mild tenderness, apporopriate post op), + pertinent finding (ostomy pink and functioning, liquid stool present) Incision(s): clean, dry, intact (woudn vac dry and intact) Laboratory Results: Results Past 24 Hours Test 09/21/16 05:34 Range/Units White Blood Count 7.98 4.8-10.8 K/uL Red Blood Count 3.50 4.2-5.4 M/uL Hemoglobin 10.3 12.0-16.0 g/dL Hematocrit 32.2 37-47 % Mean Corpuscular Volume 92.0 80-100 fL Mean Corpuscular Hemoglobin 29.4 25-34 pg Mean Corpuscular Hemoglobin Concent 32.0 32-36 g/dl Platelet Count 272 130-400 K/uL Mean Platelet Volume 8.6 7.4-10.4 fL Neutrophils (%) (Auto) 63.2 % Lymphocytes (%) (Auto) 16.9 % Monocytes (%) (Auto) 10.4 % Eosinophils (%) (Auto) 4.4 % Basophils (%) (Auto) 0.5 % Neutrophils # (Auto) 5.04 1.4-6.5 K/uL Lymphocytes # (Auto) 1.35 1.2-3.4 K/uL Monocytes # (Auto) 0.83 0.11-0.59 K/uL Eosinophils # (Auto) 0.35 0-0.5 K/uL Basophils # (Auto) 0.04 0-0.2 K/uL RDW Standard Deviation 51.3 36.4-46.3 fL RDW Coefficient of Variation 15.1 11.5-14.5 % Immature Granulocyte % (Auto) 4.6 % Immature Granulocyte # (Auto) 0.37 0.00-0.02 K/uL Nucleated RBC Absolute Count (auto) 0.03 0-0 K/uL Nucleated Red Blood Cells % 0.4 % Prothrombin Time 14.1 9.0-12.0 SECONDS Prothromb Time International Ratio 1.3 0.9-1.1 Activated Partial Thromboplast Time 55.1 21.0-31.0 SECONDS Partial Thromboplastin Ratio 2.1 Sodium Level 141 136-145 mmol/L Potassium Level 3.5 3.5-5.1 mmol/L Chloride Level 110 98-107 mmol/L Carbon Dioxide Level 24 21-32 mmol/L Anion Gap 7.0 3-11 mmol/L Blood Urea Nitrogen 25 7-18 mg/dl Creatinine 1.00 0.60-1.20 mg/dl Est Creatinine Clear Calc Drug Dose 40.6 ml/min Estimated GFR () 60.8 Estimated GFR (Non- 52.4 BUN/Creatinine Ratio 25.0 10-20 Random Glucose 105 70-99 mg/dl Calcium Level 8.7 8.5-10.1 mg/dl Phosphorus Level 3.3 2.5-4.9 mg/dl Magnesium Level 1.9 1.8-2.4 mg/dl Total Bilirubin 0.4 0.2-1 mg/dl Direct Bilirubin 0.2 0-0.2 mg/dl Aspartate Amino Transf (AST/SGOT) 10 15-37 U/L Alanine Aminotransferase (ALT/SGPT) 22 12-78 U/L Alkaline Phosphatase 73 45-117 U/L Total Protein 5.5 6.4-8.2 gm/dl Albumin 2.8 3.4-5.0 gm/dl Assessment & Plan POD # 4 s/p Sigmoid colon resection, Noah Procedure and ostomy formation - atrial fibrillation, tachycardic, asymptomatic - adequate urine output - ostomy pink with liquid stool output - good bowel sounds - No leukocytosis, H&H stable Plan: Continue pain management as needed May start clear liquids, keep feeding tube in case does not tolerate liquids Continue Casillas to gravity Continue IV antibiotics, switched to IV Invanz due to culture sensitivities. Continue wound care and Wound vac Continue GENNY to bulb suction Daily dressing changes Encourage incentive spirometry May start PO meds Continue Heparin and SCDs, restarted Coumadin since able to take PO Continue current medical and ICU management Dr. Miranda has seen and examined patient, agrees with above
[2016-09-21] MEDS ORDERED: DIGOXIN IV 125 MCG in SYRINGE 9.5 ML IV SCH (16:00)
--- NOTE | 2016-09-21 16:42 | Critical Care Progress Note ---
Critical Care Progress Note Date of Service Sep 21, 2016. Attending Dr. Cooney Subjective No overnight events Yesterday evening NG tube had been clamped open the suction there was no gastric residuals. NG tube was removed. Today there is stool in ostomy bag Objective Vital Signs - as noted below Laboratory Data - as noted below Physical Exam: General - NAD. Pleasant Eyes - No icterus, gaze conjugate. PEERL ENT - Mucosa moist, no lesions. Large bore NG tube is in the right nares. A coresafe feeding tube is in the left nares Neck - Supple, No JVD. RIJ 2L CVC in place with dressing intact with chlorhexidine disc in place Lungs - No bronchospasm, rales, or rhonchi. Heart - Irregular, irregular, continues with tachycardia Abdomen - Soft, tender to palpation. Soft bowel sounds appreciated in the left upper quadrant. Colostomy bag with serosanguineous drainage but no stool. Dressing dry and in place. GENNY drain in place. Wound VAC is now in place with minimal drainage Extremities - No edema, pedal pulses intact. While sitting in the chair patient is able to independently raise and lower bilateral legs Neuro - A&OX3 Current SOFA Score SOFA Score Response (Comments) Value Platelets (x10) > 150 0 Bilirubin (mg/dL) < 1.2 0 [place] Coma Score 15 0 Level of Hypotension No Hypotension 0 Creatinine (mg/dL) < 1.2 0 Total 0 Previous SOFA Scores 6 Assessment & Plan DIVERTICULAR PERFORATION POD #3 sigmoid resection with colostomy Day 04/29 ertapenem for multi resistant Escherichia coli from washings Wound VAC in place Pain generally controlled Continues with serosanguineous fluid in the ostomy bag with no evidence of bowel movement at this time - Converting last 24 hour Dilaudid requirement 2 by mouth oxycodone, Dilaudid remains on APR for breakthrough pain ATRIAL FIBRILLATION Patient continues to be tachycardic beta faustino remains for additional control, however restarted home Coreg Stopping digoxin, this was for additional heart rate control in acute setting Continue to monitor on telemetry Continue heparin drip per weight base protocol - Restarted Coumadin NUTRITION Coresafe placed and confirmed with KUB Peptomin VHP started at 10 mL per hour - goal rate is 55 mL per hour but will hold at 10 and evaluate again tomorrow Per surgery okay to start clears Continue current treatment for now ELECTROLYTES We'll give an additional K-Phos 18 mmol today No further treatment for calcium at this time Continue to follow serial labs ID Escherichia coli with multi resistant findings Day 04/29 ertapenem Aztreonam and ciprofloxacin discontinued yesterday Stopped metronidazole for prophylactic control of history of recurrent C. difficile, due to interaction with warfarin Vancomycin by mouth started today VENOUS ACCESS Triple lumen right IJ catheter in place Peripheral IV in place Avoid PICC line if possible due to history of cancer HEME No active bleeding H&H stable PT/INR in morning PULMONARY Only tolerated CPAP for 4 hours last night Continues to be oxygen dependent with supplemental O2 at 4 L/m Continue incentive spirometry No indication of pneumonia Follow clinically RENAL CKD III Creatinine remained stable at 1.[address] Continue strict I's and O's Continue home dose Bumex, goal tab patient 1-2 L negative Patient continues to be 5 L positive for this hospital stay Monitor fluid status closely GI Discontinued famotidine NEURO Alert and oriented 3 Patient will support herself or short period on both feet standing at bedside today No acute neurological deficits noted ENDOCRINE Continue levothyroxine for hypothyroidism converted to oral DVT PROPHYLAXIS Heparin drip for atrial fibrillation, restarting Coumadin SCDs in place at the time of my examination Stable for downgraded to telemetry status Consults & Procedures Consultants: Surgery - Dr Valdovinos Cardiology - Dr Vera Procedures: 09/17 right IJ 3L CVC 09/17 ex-lap with sigmoid resection and colostomy with Dr. Valdovinos 09/17 right radial a-line placed and removed 09/19 Data Medications: Current Inpatient Medications Medications (Trade) Dose Ordered Sig/Mazin Route Start Time Stop Time Status Last Admin Dose Admin Ondansetron HCl (Zofran Inj) 4 mg Q6H PRN IV 09/17/16 08:45 10/17/16 08:44 09/21/16 08:56 4 MG Heparin Sodium/ Dextrose 500 ml @ 19 mls/hr Q24H PRN IV 09/18/16 10:00 10/18/16 09:59 09/21/16 06:09 19 MLS/HR Promethazine HCl 12.5 mg/Sodium Chloride 50.5 ml @ 202 mls/hr Q6H PRN IV 09/18/16 22:15 10/18/16 22:14 09/18/16 22:18 202 MLS/HR Ertapenem 1 gm/ Sodium Chloride 50 ml @ 100 mls/hr Q24H IV 09/19/16 14:00 09/29/16 13:59 09/20/16 14:37 100 MLS/HR Nystatin (Mycostatin Susp) 5 ml QID PO 09/19/16 17:00 09/29/16 16:59 09/21/16 12:09 5 ML Ipratropium [place] (Atrovent 0.02% 0.5MG/2.5ML Neb) 0.5 mg Q4R INH 09/20/16 00:15 10/20/16 00:14 09/21/16 15:42 0.5 MG Levalbuterol (Xopenex 1.25MG/ 0.5ML Neb) 1.25 mg Q4R INH 09/20/16 00:15 10/20/16 00:14 09/21/16 15:42 1.25 MG Metoprolol Tartrate (Lopressor Iv) 5 mg Q2H PRN IV 09/20/16 06:30 10/16/16 07:59 09/20/16 15:47 5 MG Bumetanide (Bumex Tab) 1 mg BID17 NG 09/20/16 17:00 10/20/16 16:59 09/21/16 08:29 1 MG Carvedilol (Coreg Tab) 3.125 mg BID NG 09/20/16 21:00 10/20/16 20:59 09/21/16 08:30 3.125 MG Lisinopril (Zestril Tab) 40 mg DAILY NG 09/21/16 09:00 10/21/16 08:59 09/21/16 08:30 40 MG Trazodone HCl (Desyrel Tab) 50 mg HS PRN PO 09/20/16 10:15 10/20/16 10:14 Enteral Nutritional Formula (Peptamen Intense VHP) 1,000 ml UD NG 09/20/16 15:00 10/20/16 14:59 09/20/16 15:46 1,000 ML Lactobacillus Acidophilus (Lactinex Granules Pack) 1 gm DAILY NG 09/21/16 09:00 10/21/16 08:59 09/21/16 08:30 1 GM Oxycodone HCl (Roxicodone Immediate Rel Tab) `1-2 tabs for pain 1 tab ... Q4H PRN PO 09/21/16 09:30 10/05/16 09:29 09/21/16 11:06 5 MG Hydromorphone HCl (Dilaudid Inj) 0.5 mg Q8H PRN IV 09/21/16 09:45 10/05/16 09:44 Levothyroxine Sodium (Synthroid Tab) 75 mcg DAILYBB PO 09/22/16 06:00 10/22/16 05:59 Vancomycin HCl (Vancomycin Oral Soln) 125 mg Q6 PO 09/21/16 12:00 10/05/16 11:59 09/21/16 11:45 125 MG Raspberry (Raspberry Syrup 5ml Cup) 5 ml Q6 PO 09/21/16 12:00 10/05/16 11:59 09/21/16 11:45 5 ML Acetaminophen (Tylenol Tab) 1,000 mg Q8H PO 09/21/16 14:00 09/22/16 06:01 09/21/16 13:40 1,000 MG Ketorolac Tromethamine (Toradol Inj) 15 mg BID PRN IV. 09/21/16 10:00 I & O: 24-Hour Column 09/22/16 08:00 Intake Total 485 ml Output Total 1055 ml Balance -570 ml Vital Signs: Date Time Temp Pulse Resp B/P (MAP) Pulse Ox O2 Delivery O2 Flow Rate FiO2 09/21/16 15:43 126 16 96 Nasal Cannula 3.0 09/21/16 15:35 36.4 119 21 155/92 (113) 99 Nasal Cannula 3.0 09/21/16 14:40 113 16 96 Nasal Cannula 3.0 09/21/16 11:14 Nasal Cannula 3.0 09/21/16 11:14 36.8 116 16 146/89 (108) 98 Nasal Cannula 3.0 09/21/16 10:01 114 18 145/111 (120) 95 09/21/16 10:00 115 19 96 09/21/16 09:48 122 13 122/84 (98) 94 09/21/16 09:30 36.8 110 16 141/92 (108) 98 Nasal Cannula 3.0 09/21/16 09:01 112 9 120/75 (93) 96 09/21/16 09:00 121 9 97 8/2/17 08:01 120 12 132/99 (120) 97 09/21/16 08:00 Nasal Cannula 09/21/16 08:00 98 10 97 09/21/16 07:30 Nasal Cannula 3.0 09/21/16 07:30 36.8 123 16 141/87 (105) 98 Nasal Cannula 3.0 09/21/16 07:12 106 16 98 Nasal Cannula 3.0 09/21/16 07:01 111 16 141/87 (95) 98 09/21/16 07:00 91 14 98 09/21/16 06:01 106 12 135/77 (96) 97 Nasal Cannula 2.0 09/21/16 05:02 122 12 129/90 (103) 97 Nasal Cannula 2.0 09/21/16 04:30 123 16 97 Nasal Cannula 3.0 09/21/16 04:02 36.6 106 18 154/81 (105) 98 Nasal Cannula 2.0 09/21/16 04:00 Nasal Cannula 4.0 09/21/16 03:02 115 19 142/77 (98) 98 BiPAP 40 09/21/16 02:01 104 20 149/87 (107) 98 BiPAP 40 09/21/16 01:02 119 30 153/90 (111) 98 BiPAP 40 09/21/16 00:01 BiPAP 09/21/16 00:01 36.4 97 14 110/67 (81) 98 BiPAP 40 09/20/16 23:26 109 98 09/20/16 23:26 109 23 98 BiPAP/CPAP 40 09/20/16 23:01 104 16 111/84 (93) BiPAP 40 09/20/16 22:01 105 18 135/95 (108) 98 BiPAP 40 09/20/16 21:01 130 20 126/77 (93) 96 Nasal Cannula 4.0 09/20/16 20:19 128 09/20/16 20:01 36.5 128 19 156/99 (118) 96 Nasal Cannula 4.0 09/20/16 20:00 Nasal Cannula 4.0 09/20/16 19:00 104 18 98 Nasal Cannula 4.0 09/20/16 18:00 113 27 158/96 (116) 97 Nasal Cannula 4.0 Laboratory Results: Last 24 Hours Test 09/21/16 05:34 White Blood Count 7.98 K/uL Red Blood Count 3.50 M/uL Hemoglobin 10.3 g/dL Hematocrit 32.2 % Mean Corpuscular Volume 92.0 fL Mean Corpuscular Hemoglobin 29.4 pg Mean Corpuscular Hemoglobin Concent 32.0 g/dl Platelet Count 272 K/uL Mean Platelet Volume 8.6 fL Neutrophils (%) (Auto) 63.2 % Lymphocytes (%) (Auto) 16.9 % Monocytes (%) (Auto) 10.4 % Eosinophils (%) (Auto) 4.4 % Basophils (%) (Auto) 0.5 % Neutrophils # (Auto) 5.04 K/uL Lymphocytes # (Auto) 1.35 K/uL Monocytes # (Auto) 0.83 K/uL Eosinophils # (Auto) 0.35 K/uL Basophils # (Auto) 0.04 K/uL RDW Standard Deviation 51.3 fL RDW Coefficient of Variation 15.1 % Immature Granulocyte % (Auto) 4.6 % Immature Granulocyte # (Auto) 0.37 K/uL Nucleated RBC Absolute Count (auto) 0.03 K/uL Nucleated Red Blood Cells % 0.4 % Prothrombin Time 14.1 SECONDS Prothromb Time International Ratio 1.3 Activated Partial Thromboplast Time 55.1 SECONDS Partial Thromboplastin Ratio 2.1 Sodium Level 141 mmol/L Potassium Level 3.5 mmol/L Chloride Level 110 mmol/L Carbon Dioxide Level 24 mmol/L Anion Gap 7.0 mmol/L Blood Urea Nitrogen 25 mg/dl Creatinine 1.00 mg/dl Est Creatinine Clear Calc Drug Dose 40.6 ml/min Estimated GFR () 60.8 Estimated GFR (Non- 52.4 BUN/Creatinine Ratio 25.0 Random Glucose 105 mg/dl Calcium Level 8.7 mg/dl Phosphorus Level 3.3 mg/dl Magnesium Level 1.9 mg/dl Total Bilirubin 0.4 mg/dl Direct Bilirubin 0.2 mg/dl Aspartate Amino Transf (AST/SGOT) 10 U/L Alanine Aminotransferase (ALT/SGPT) 22 U/L Alkaline Phosphatase 73 U/L Total Protein 5.5 gm/dl Albumin 2.8 gm/dl
[2016-09-21] MEDS: ERTAPENEM IV 1 GM in SODIUM CHLOR 0.9% AD-VAN 50ML IV SCH (17:26)
[2016-09-21] MEDS: PEPTAMEN INTENSE VHP 1000ML BAG NG SCH (18:50)
[2016-09-21] MEDS: METOPROLOL TARTRATE 1 MG/ML VIAL IV PRN (19:12)
--- NOTE | 2016-09-21 20:52 | Progress Note ---
Subjective Date of Service: Sep 21, 2016. Subjective Pt evaluation today including: conversation w/ patient, conversation w/ family (son at bedside), physical exam, chart review, lab review, review of studies, review of inpatient medication list Pain: abdomen PO Intake: started on clears but has no appetite Voiding: [place] catheter in place events of last 24 hours noted aWilmer gonzales with poor rate control during my visit - she had already been transferred to telemetry unit from ICU - she complained of "feeling poorly" and having nausea denied sob denied chest pain mild abdominal pain remains passing gas/stool via ostomy Problem List Medical Problems: (1) Diverticulitis Status: Acute (2) Diverticulitis of intestine with perforation Status: Acute (3) Left lower quadrant pain Status: Acute Review of Systems Constitutional: No fever Respiratory: No cough, No shortness of breath Cardiac: No chest pain Abdomen: + pain, + nausea, No vomiting, No diarrhea Objective Vital Signs Date Time Temp Pulse Resp B/P (MAP) Pulse Ox O2 Delivery O2 Flow Rate FiO2 09/21/16 20:31 115 18 96 Nasal Cannula 3.0 09/21/16 19:12 123 09/21/16 17:00 Nasal Cannula 3.0 09/21/16 15:43 126 16 96 Nasal Cannula 3.0 09/21/16 15:35 36.4 119 21 155/92 (113) 99 Nasal Cannula 3.0 09/21/16 14:40 113 16 96 Nasal Cannula 3.0 09/21/16 11:14 Nasal Cannula 3.0 09/21/16 11:14 36.8 116 16 146/89 (108) 98 Nasal Cannula 3.0 09/21/16 10:01 114 18 145/111 (120) 95 09/21/16 10:00 115 19 96 09/21/16 09:48 122 13 122/84 (98) 94 09/21/16 09:30 36.8 110 16 141/92 (108) 98 Nasal Cannula 3.0 09/21/16 09:01 112 9 120/75 (93) 96 09/21/16 09:00 121 9 97 09/21/16 08:01 120 12 132/99 (120) 97 09/21/16 08:00 Nasal Cannula 09/21/16 08:00 98 10 97 09/21/16 07:30 Nasal Cannula 3.0 09/21/16 07:30 36.8 123 16 141/87 (105) 98 Nasal Cannula 3.0 09/21/16 07:12 106 16 98 Nasal Cannula 3.0 09/21/16 07:01 111 16 141/87 (95) 98 09/21/16 07:00 91 14 98 09/21/16 06:01 106 12 135/77 (96) 97 Nasal Cannula 2.0 09/21/16 05:02 122 12 129/90 (103) 97 Nasal Cannula 2.0 09/21/16 04:30 123 16 97 Nasal Cannula 3.0 09/21/16 04:02 36.6 106 18 154/81 (105) 98 Nasal Cannula 2.0 09/21/16 04:00 Nasal Cannula 4.0 09/21/16 03:02 115 19 142/77 (98) 98 BiPAP 40 09/21/16 02:01 104 20 149/87 (107) 98 BiPAP 40 09/21/16 01:02 119 30 153/90 (111) 98 BiPAP 40 09/21/16 00:01 BiPAP 09/21/16 00:01 36.4 97 14 110/67 (81) 98 BiPAP 40 09/20/16 23:26 109 98 09/20/16 23:26 109 23 98 BiPAP/CPAP 40 09/20/16 23:01 104 16 111/84 (93) BiPAP 40 09/20/16 22:01 105 18 135/95 (108) 98 BiPAP 40 09/20/16 21:01 130 20 126/77 (93) 96 Nasal Cannula 4.0 Physical Exam General Appearance: no apparent distress (but looks sickly) ENT: pharynx normal (no thrush ), + pertinent finding (NG tube in place) Neck: no JVD, + pertinent finding (right IJ CVC clean) Respiratory/Chest: no respiratory distress, no accessory muscle use, + decreased breath sounds (bases; but CTA otherwise) Cardiovascular: no murmur, + tachycardia, + irregularly irregular Abdomen: normal bowel sounds, no organomegaly, + distended, + pertinent finding (colostomy present, LLQ - with copious stool/gas) Extremities: no pedal edema Neurologic/Psychiatric: alert Skin: + pertinent finding (wound vac in place lower abdomen; drain in place ) Laboratory Results Last 24 Hours Test 09/21/16 05:34 White Blood Count 7.98 K/uL Red Blood Count 3.50 M/uL Hemoglobin 10.3 g/dL Hematocrit 32.2 % Mean Corpuscular Volume 92.0 fL Mean Corpuscular Hemoglobin 29.4 pg Mean Corpuscular Hemoglobin Concent 32.0 g/dl Platelet Count 272 K/uL Mean Platelet Volume 8.6 fL Neutrophils (%) (Auto) 63.2 % Lymphocytes (%) (Auto) 16.9 % Monocytes (%) (Auto) 10.4 % Eosinophils (%) (Auto) 4.4 % Basophils (%) (Auto) 0.5 % Neutrophils # (Auto) 5.04 K/uL Lymphocytes # (Auto) 1.35 K/uL Monocytes # (Auto) 0.83 K/uL Eosinophils # (Auto) 0.35 K/uL Basophils # (Auto) 0.04 K/uL RDW Standard Deviation 51.3 fL RDW Coefficient of Variation 15.1 % Immature Granulocyte % (Auto) 4.6 % Immature Granulocyte # (Auto) 0.37 K/uL Nucleated RBC Absolute Count (auto) 0.03 K/uL Nucleated Red Blood Cells % 0.4 % Prothrombin Time 14.1 SECONDS Prothromb Time International Ratio 1.3 Activated Partial Thromboplast Time 55.1 SECONDS Partial Thromboplastin Ratio 2.1 Sodium Level 141 mmol/L Potassium Level 3.5 mmol/L Chloride Level 110 mmol/L Carbon Dioxide Level 24 mmol/L Anion Gap 7.0 mmol/L Blood Urea Nitrogen 25 mg/dl Creatinine 1.00 mg/dl Est Creatinine Clear Calc Drug Dose 40.6 ml/min Estimated GFR () 60.8 Estimated GFR (Non- 52.4 BUN/Creatinine Ratio 25.0 Random Glucose 105 mg/dl Calcium Level 8.7 mg/dl Phosphorus Level 3.3 mg/dl Magnesium Level 1.9 mg/dl Total Bilirubin 0.4 mg/dl Direct Bilirubin 0.2 mg/dl Aspartate Amino Transf (AST/SGOT) 10 U/L Alanine Aminotransferase (ALT/SGPT) 22 U/L Alkaline Phosphatase 73 U/L Total Protein 5.5 gm/dl Albumin 2.8 gm/dl Assessment and Plan 81yo female: 1. POD #4 s/p ex lap with colostomy formation, [place] Pouch, and sigmoid colon resection - diet advancement, NG tube management, and wound vac per surgery. 2. a. fib with RVR - continue beta faustino. Would likely benefit from changing coreg to metoprolol. If rates are still poor with BB then add dig or CCB. Cont heparin while awaiting coumadin to become therapeutic. 3. abdominal sepsis 2nd to #1 - e. coli MDR - continue IV ertapenem x 10 days. 4. h/o stroke - I presume it was due to #2 - continue heparin for secondary stroke prevention. Daily PTT and INR. 5. hypothyroidism - TSH 02/2016 was compensated; continue synthroid as is. 6. HTN - control is satisfactory at this time with beta faustino. 7. chronic diastolic CHF - not overtly decompensated but at risk of such. Cont BB, bumex. 8. h/o tonsillar cancer - noted. 9. DVT proph - heparin/coumadin. 10. CKD stage 3 - creatinine stable; BMP in am. 11. septic shock 2nd to #1 and #3 - resolved. PT, OT when able son updated at bedside Continued [facility] stay due to: inadequate po fluid intake, voiding difficulties, ambulation difficulties, multiple IV medications needed Discharge planning: uncertain
[2016-09-22] VITALS (14 sets, daily range): BP systolic 125–153; BP diastolic 65–88; PULSE 95–127; TEMP 36.4–37.1; O2SAT 91–98
[2016-09-22] MEDS: HYDROmorphone INJ 0.5 MG/0.5 ML SYR IV PRN (00:03)
[2016-09-22] MEDS: ONDANSETRON INJ 2 MG/ML 2 ML VIAL IV PRN ×2 (01:24→11:52)
[2016-09-22] MEDS: METOPROLOL TARTRATE 1 MG/ML VIAL IV PRN (01:24)
[2016-09-22] MEDS: VANCOMYCIN HCL 125 MG/2.5ML SOLN PO SCH ×4 (01:25→16:54)
[2016-09-22] MEDS: RASPBERRY SYRUP 5 ML UDP PO SCH ×4 (01:25→16:51)
[2016-09-22] MEDS: LEVALBUTEROL 1.25MG/0.5ML NEB INH SCH ×3 (04:00→16:03)
[2016-09-22] MEDS: IPRATROPIUM BROMIDE NEB SOLN 0.02% 2.5 ML VIAL INH SCH ×6 (04:00→23:38)
[2016-09-22] MEDS: LEVOTHYROXINE 75 MCG TAB PO SCH (05:36)
[2016-09-22] MEDS: ACETAMINOPHEN 500 MG TAB PO SCH (05:36)
[2016-09-22 05:50] LABS: HEMATOCRIT 34.5 % (37-47); MEAN CELL VOLUME 91.5 fL (80-100); MEAN CORPUSCULAR HEMOGLOBIN 29.2 pg (25-34); MEAN CORPUSCULAR HGB CONC 31.9 g/dl (32-36); MEAN PLATELET VOLUME 8.7 fL (7.4-10.4); PLATELET COUNT 289 K/uL (130-400); RED BLOOD COUNT 3.77 M/uL (4.2-5.4); WHITE BLOOD COUNT 9.16 K/uL (4.8-10.8)
[2016-09-22 06:18] LABS: INR 1.4 (0.9-1.1); PROTHROMBIN TIME (PATIENT) 15.2 SECONDS (9.0-12.0)
[2016-09-22 06:20] LABS: BUN/CREATININE RATIO 24.8 (10-20); CALCIUM 8.7 mg/dl (8.5-10.1); CREATININE 0.97 mg/dl (0.60-1.20); POTASSIUM 3.7 mmol/L (3.5-5.1)
[2016-09-22] MEDS: LISINOPRIL 40 MG TAB NG SCH (08:52)
[2016-09-22] MEDS: LACTOBACILLUS ACIDOPHILUS 1 GM PACK NG SCH (08:53)
[2016-09-22] MEDS: NYSTATIN SUSP 500,000 U/5 ML UDC PO SCH ×4 (08:53→21:33)
[2016-09-22] MEDS ORDERED: METOPROLOL TARTRATE 25 MG TAB PO SCH (09:00)
[2016-09-22] MEDS: BUMETANIDE 1 MG TAB NG SCH ×2 (10:17→16:50)
[2016-09-22] MEDS: HEPARIN 25,000 UNIT/500ML D5W 500 ML IV PRN (10:17)
--- NOTE | 2016-09-22 10:19 | Surgery Progress Note ---
Surgery Progress Note Date of Service Sep 22, 2016. Subjective Post OP Day: 5 (s/p Sigmoid colon resection , Hartmanns procedure, and Colostomy) Feeling okay Was disoriented this morning, "thought I was on a train" Did not take much liquids in yesterday, slight nausea yesterday no vomiting Occasional abdominal pain No chest pain or shortness of breath No palpitations Objective Vital Signs: Date Time Temp Pulse Resp B/P (MAP) Pulse Ox O2 Delivery O2 Flow Rate FiO2 09/22/16 08:00 36.6 108 20 151/81 (104) 94 Room Air 09/22/16 07:43 103 18 94 Nasal Cannula 3.0 09/22/16 04:24 37.1 110 18 148/65 (92) 96 Room Air 09/22/16 04:00 103 18 94 Nasal Cannula 3.0 09/22/16 04:00 BiPAP 09/22/16 01:24 132 108/72 09/22/16 00:10 36.7 127 20 125/67 (86) 91 Room Air 09/22/16 00:01 BiPAP 09/21/16 23:30 106 18 96 Nasal Cannula 3.0 09/21/16 20:31 115 18 96 Nasal Cannula 3.0 09/21/16 20:00 Nasal Cannula 3.0 09/21/16 19:32 36.1 113 22 162/98 (119) 99 Mask 6.0 09/21/16 19:12 123 09/21/16 17:00 Nasal Cannula 3.0 09/21/16 15:43 126 16 96 Nasal Cannula 3.0 09/21/16 15:35 36.4 119 21 155/92 (113) 99 Nasal Cannula 3.0 09/21/16 14:40 113 16 96 Nasal Cannula 3.0 09/21/16 11:14 Nasal Cannula 3.0 09/21/16 11:14 36.8 116 16 146/89 (108) 98 Nasal Cannula 3.0 General Appearance: no apparent distress, + obese Head: normocephalic, atraumatic Neck: trachea midline Respiratory/Chest: lungs clear, normal breath sounds, no respiratory distress, no accessory muscle use Cardiovascular: + tachycardia, + irregularly irregular Abdomen: normal bowel sounds, non tender, non distended, soft, + pertinent finding (ostomy pink and functioning, soft brown stool output) Incision(s): findings (wound vac present, intact, suctioning) Laboratory Results: Results Past 24 Hours Test 09/22/16 05:37 Range/Units White Blood Count 9.16 4.8-10.8 K/uL Red Blood Count 3.77 4.2-5.4 M/uL Hemoglobin 11.0 12.0-16.0 g/dL Hematocrit 34.5 37-47 % Mean Corpuscular Volume 91.5 80-100 fL Mean Corpuscular Hemoglobin 29.2 25-34 pg Mean Corpuscular Hemoglobin Concent 31.9 32-36 g/dl RDW Standard Deviation 49.3 36.4-46.3 fL RDW Coefficient of Variation 14.7 11.5-14.5 % Platelet Count 289 130-400 K/uL Mean Platelet Volume 8.7 7.4-10.4 fL Prothrombin Time 15.2 9.0-12.0 SECONDS Prothromb Time International Ratio 1.4 0.9-1.1 Activated Partial Thromboplast Time 51.9 21.0-31.0 SECONDS Partial Thromboplastin Ratio 2.0 Sodium Level 142 136-145 mmol/L Potassium Level 3.7 3.5-5.1 mmol/L Chloride Level 110 98-107 mmol/L Carbon Dioxide Level 27 21-32 mmol/L Anion Gap 5.0 3-11 mmol/L Blood Urea Nitrogen 24 7-18 mg/dl Creatinine 0.97 0.60-1.20 mg/dl Est Creatinine Clear Calc Drug Dose 41.9 ml/min Estimated GFR () 63.0 Estimated GFR (Non- 54.4 BUN/Creatinine Ratio 24.8 10-20 Random Glucose 102 70-99 mg/dl Calcium Level 8.7 8.5-10.1 mg/dl Assessment & Plan POD # 5 s/p Sigmoid resection, Noah procedure with ostomy - vitals stable - still in afib with tachycardia, asymptomatic - +ostomy functioning - disoriented this morning - adequate urine output Plan: Continue PO pain medication as needed, breakthrough IV Continue cardiac monitoring Continue clear liquids and Feeding tube, patient not taking in much by mouth , would increase rate of Peptamen feedings however do not want to suppress appetite Continue wound vac and GENNY bulb to suction continue wound care Continue Heparin and Coumadin Continue current medical management Continue PT/OT Dr. Valdovinos has seen and examined patient, agrees with above
[2016-09-22] MEDS: KETOROLAC TROMETHAMINE 15 MG/ML VIAL IV. PRN (11:52)
[2016-09-22] MEDS: ERTAPENEM IV 1 GM in SODIUM CHLOR 0.9% AD-VAN 50ML IV SCH (12:57)
[2016-09-22] MEDS ORDERED: ASCORBIC ACID 500 MG TAB PO ONE (12:58)
[2016-09-22] MEDS ORDERED: CEROVITE ADV FORMULA TAB PO ONE (12:58)
[2016-09-22] MEDS: OXYCODONE HCL IR 5 MG TAB (IMMEDIATE RELEASE) PO PRN (15:32)
[2016-09-22] MEDS: METOPROLOL TARTRATE 50 MG TAB PO SCH ×2 (15:33→21:35)
[2016-09-22] MEDS ORDERED: SERTRALINE HCL 50 MG TAB PO ONE (16:30)
[2016-09-22] MEDS ORDERED: DILTIAZEM BOLUS / DRIP IV STA (17:08)
[2016-09-22] MEDS ORDERED: DILTIAZEM HCL INJ 125 MG in DEXTROSE 5% 100ML IV PRN (17:30)
[2016-09-23] VITALS (9 sets, daily range): BP systolic 133–146; BP diastolic 75–85; PULSE 78–102; TEMP 36.3–36.5; O2SAT 91–98
[2016-09-23] MEDS: VANCOMYCIN HCL 125 MG/2.5ML SOLN PO SCH ×4 (00:03→17:30)
[2016-09-23] MEDS: RASPBERRY SYRUP 5 ML UDP PO SCH ×4 (00:03→17:30)
[2016-09-23] MEDS: IPRATROPIUM BROMIDE NEB SOLN 0.02% 2.5 ML VIAL INH SCH ×3 (04:16→11:10)
[2016-09-23] MEDS: METOPROLOL TARTRATE 50 MG TAB PO SCH ×4 (04:50→22:27)
[2016-09-23 05:29] LABS: INR 1.4 (0.9-1.1); PROTHROMBIN TIME (PATIENT) 15.5 SECONDS (9.0-12.0)
[2016-09-23] MEDS: LEVOTHYROXINE 75 MCG TAB PO SCH (06:10)
--- NOTE | 2016-09-23 06:10 | Progress Note ---
Subjective Date of Service: late entry for visit Sep 22, 2016. Subjective Pt evaluation today including: conversation w/ patient, physical exam, chart review, lab review, review of inpatient medication list Pain: abdomen PO Intake: very poor/minimal Voiding: slainas catheter in place tele with uncontrolled a. fib; most rates >100 colostomy with plenty of stool output tolerating tube feedings at 10cc/hr patient with mild confusion patient very weak Problem List Medical Problems: (1) Diverticulitis Status: Acute (2) Diverticulitis of intestine with perforation Status: Acute (3) Left lower quadrant pain Status: Acute Review of Systems Constitutional: No fever Respiratory: No shortness of breath Cardiac: No chest pain Abdomen: + pain, No nausea, No vomiting Objective Vital Signs Date Time Temp Pulse Resp B/P (MAP) Pulse Ox O2 Delivery O2 Flow Rate FiO2 09/23/16 04:16 86 16 94 BiPAP/CPAP 4.0 09/23/16 04:15 36.3 99 22 133/78 (96) 98 BiPAP 09/23/16 04:00 CPAP 3.0 09/23/16 00:00 CPAP 3.0 09/22/16 23:18 102 18 94 BiPAP/CPAP 4.0 09/22/16 23:15 36.9 95 18 153/73 (99) 96 BiPAP 09/22/16 20:00 Nasal Cannula 2.0 09/22/16 19:45 111 18 94 Nasal Cannula 3.0 09/22/16 19:37 37.0 96 20 147/83 (104) 98 Nasal Cannula 3.0 09/22/16 16:05 106 18 95 Nasal Cannula 3.0 09/22/16 16:00 96 Nasal Cannula 3.0 09/22/16 15:43 36.6 121 20 148/81 (103) 98 Nasal Cannula 3.0 09/22/16 13:00 95 Nasal Cannula 3.0 09/22/16 11:12 36.4 106 20 148/88 (108) 98 Nasal Cannula 3.0 09/22/16 08:00 36.6 108 20 151/81 (104) 94 Room Air 09/22/16 08:00 94 Nasal Cannula 3.0 09/22/16 07:43 103 18 94 Nasal Cannula 3.0 Physical Exam General Appearance: no apparent distress, + pertinent finding (looks ill and weak) ENT: pharynx normal, + pertinent finding (ng tube in place) Neck: no JVD Respiratory/Chest: lungs clear, no respiratory distress, no accessory muscle use Cardiovascular: no murmur, + tachycardia, + irregularly irregular Abdomen: normal bowel sounds, soft, no organomegaly, + distended (very mild), + tenderness (mild), + pertinent finding (colostomy left abd with copious stool) Extremities: no pedal edema Neurologic/Psychiatric: alert Skin: + pertinent finding (right IJ CVC clean; wound vac in place on abdomen ) Laboratory Results Last 24 Hours Test 09/22/16 20:23 09/23/16 04:31 Bedside Glucose 91 mg/dl Prothrombin Time 15.5 SECONDS Prothromb Time International Ratio 1.4 Activated Partial Thromboplast Time 52.0 SECONDS Partial Thromboplastin Ratio 2.0 Assessment and Plan 81yo female: 1. POD #5 s/p ex lap with colostomy formation, Ochoa Pouch, and sigmoid colon resection - diet advancement, NG tube management, and wound vac per surgery. 2. a. fib with RVR - uncontrolled despite increasing/changing her beta faustino. Add diltiazem drip. Cont heparin while awaiting coumadin to become therapeutic. 3. abdominal sepsis 2nd to #1 - e. coli MDR - continue IV ertapenem x 10 days. 4. h/o stroke - I presume it was due to #2 - continue heparin for secondary stroke prevention. Daily PTT and INR. 5. hypothyroidism - TSH 02/2016 was compensated; continue synthroid as is. 6. HTN - control is satisfactory at this time with beta faustino. 7. chronic diastolic CHF - compensated; cont BB. 8. h/o tonsillar cancer - noted. 9. DVT proph - heparin/coumadin. 10. CKD stage 3 - creatinine stable. 11. septic shock 2nd to #1 and #3 - resolved. 12. metabolic encephalopathy - supportive care. 13. FEN - increase tube feedings by 10cc every 6 hours due to very poor oral intake. Appreciate dietary assistance. PT, OT when able leave on telemetry due to a. fib issues Continued [facility] stay due to: abnormal vital signs, inadequate po fluid intake, voiding difficulties, ambulation difficulties, multiple IV medications needed, other (uncontrolled a. fib) Discharge planning: uncertain
[2016-09-23] MEDS: BUMETANIDE 1 MG TAB NG SCH ×2 (08:42→17:30)
[2016-09-23] MEDS: DILTIAZEM HCL 30 MG TAB PO SCH ×3 (09:05→20:10)
[2016-09-23] MEDS: LISINOPRIL 40 MG TAB NG SCH (09:06)
[2016-09-23] MEDS: NYSTATIN SUSP 500,000 U/5 ML UDC PO SCH ×4 (09:06→20:16)
[2016-09-23] MEDS: CEROVITE ADV FORMULA TAB PO SCH (09:06)
[2016-09-23] MEDS: LACTOBACILLUS ACIDOPHILUS 1 GM PACK NG SCH (09:06)
[2016-09-23] MEDS: SERTRALINE HCL 50 MG TAB PO SCH (09:06)
[2016-09-23] MEDS: ASCORBIC ACID 500 MG TAB PO SCH (09:07)
--- NOTE | 2016-09-23 10:01 | Surgery Progress Note ---
Surgery Progress Note Date of Service Sep 23, 2016. Subjective Post OP Day: 6 + feeling well, No complaints Patient examined at bedside this morning. Afebrile, vitals stable on 3L o2 via NC overnight, no acute events. Pain is well controlled. Tolerating low rate TF via Corflo as well as small amounts of clear liquids by PO. No N/V. Abdomen soft, colostomy is functioning well. Drain with 30ml serous output x 24h. Objective Vital Signs: Date Time Temp Pulse Resp B/P (MAP) Pulse Ox O2 Delivery O2 Flow Rate FiO2 09/23/16 08:00 36.5 102 18 143/84 (103) 93 Nasal Cannula 3.0 09/23/16 07:20 81 16 94 Room Air 09/23/16 04:16 86 16 94 BiPAP/CPAP 4.0 09/23/16 04:15 36.3 99 22 133/78 (96) 98 BiPAP 09/23/16 04:00 CPAP 3.0 09/23/16 00:00 CPAP 3.0 09/22/16 23:18 102 18 94 BiPAP/CPAP 4.0 09/22/16 23:15 36.9 95 18 153/73 (99) 96 BiPAP 09/22/16 20:00 Nasal Cannula 2.0 09/22/16 19:45 111 18 94 Nasal Cannula 3.0 09/22/16 19:37 37.0 96 20 147/83 (104) 98 Nasal Cannula 3.0 09/22/16 16:05 106 18 95 Nasal Cannula 3.0 09/22/16 16:00 96 Nasal Cannula 3.0 09/22/16 15:43 36.6 121 20 148/81 (103) 98 Nasal Cannula 3.0 09/22/16 13:00 95 Nasal Cannula 3.0 09/22/16 11:12 36.4 106 20 148/88 (108) 98 Nasal Cannula 3.0 Physical Exam: GENNY drainage (serous) General Appearance: WD/WN, no apparent distress Head: normocephalic Neck: supple Respiratory/Chest: lungs clear, normal breath sounds Cardiovascular: regular rate, rhythm Abdomen: non tender, non distended, soft, + pertinent finding (ostomy with stool and air in bag) Incision(s): clean, dry, intact (wound vac in place and functioning) Laboratory Results: Results Past 24 Hours Test 09/22/16 20:23 09/23/16 04:31 09/23/16 06:57 Range/Units Bedside Glucose 91 132 70-90 mg/dl Prothrombin Time 15.5 9.0-12.0 SECONDS Prothromb Time International Ratio 1.4 0.9-1.1 Activated Partial Thromboplast Time 52.0 21.0-31.0 SECONDS Partial Thromboplastin Ratio 2.0 Assessment & Plan Bertha Guillaume is an 81 year old woman who is now POD # 6 s/p sigmoid resection, Noah procedure with ostomy. There were no complications, patient tolerated the procedure well. Vitals remain stable with only mild tachycardia to 102 max in last 24h. Ostomy functioning well. Continues to be a bit confused, but appears comfortable. Plan: Continue PO pain medication as needed, breakthrough IV Continue cardiac monitoring Continue clear liquids and Feeding tube, patient not taking in much by mouth , would increase rate of Peptamen feedings however do not want to suppress appetite Continue wound vac and GENNY bulb to suction Continue wound care Continue Heparin and Coumadin Continue current medical management Continue PT/OT
[2016-09-23] MEDS: KETOROLAC TROMETHAMINE 15 MG/ML VIAL IV. PRN (10:10)
[2016-09-23] MEDS: OXYCODONE HCL IR 5 MG TAB (IMMEDIATE RELEASE) PO PRN (12:39)
[2016-09-23] MEDS: RANITIDINE IV 50 MG in DEXTROSE 5% 100ML 100 ML IV SCH ×2 (15:01→22:27)
[2016-09-23] MEDS: ERTAPENEM IV 1 GM in SODIUM CHLOR 0.9% AD-VAN 50ML IV SCH (15:01)
[2016-09-23] MEDS: IPRATROPIUM BROMIDE HFA INHALER INH SCH ×2 (15:02→20:10)
[2016-09-24] VITALS (7 sets, daily range): BP systolic 112–141; BP diastolic 64–96; PULSE 53–94; TEMP 36.4–37.1; O2SAT 93–96
[2016-09-24] MEDS: IPRATROPIUM BROMIDE HFA INHALER INH SCH ×6 (00:09→20:17)
[2016-09-24] MEDS: RASPBERRY SYRUP 5 ML UDP PO SCH ×4 (00:09→16:46)
[2016-09-24] MEDS: VANCOMYCIN HCL 125 MG/2.5ML SOLN PO SCH ×4 (00:09→16:46)
[2016-09-24] MEDS: DILTIAZEM HCL 30 MG TAB PO SCH ×4 (02:08→20:16)
[2016-09-24] MEDS: METOPROLOL TARTRATE 50 MG TAB PO SCH ×2 (04:31→16:00)
[2016-09-24] MEDS: KETOROLAC TROMETHAMINE 15 MG/ML VIAL IV. PRN (04:50)
[2016-09-24] MEDS: LEVOTHYROXINE 75 MCG TAB PO SCH (06:02)
[2016-09-24] MEDS: RANITIDINE IV 50 MG in DEXTROSE 5% 100ML 100 ML IV SCH ×3 (06:03→22:24)
[2016-09-24 06:08] LABS: PARTIAL THROMBOPLASTIN RATIO 1.7
[2016-09-24] MEDS ORDERED: HEPARIN IV BOLUS 2,000 UNIT in SYRINGE 0 ML IV ONE (06:30)
[2016-09-24] MEDS: HEPARIN 25,000 UNIT/500ML D5W 500 ML IV PRN ×3 (06:39→21:14)
--- NOTE | 2016-09-24 07:43 | Progress Note ---
Subjective Date of Service: late entry for visit Sep 23, 2016. Subjective Pt evaluation today including: conversation w/ patient, conversation w/ family (son), physical exam, chart review, lab review, review of inpatient medication list Pain: abdominal, upper portion mainly, but also near incision PO Intake: very poor; NG tube also still in place Voiding: salinas catheter in place tele with much improved a. fib rates she is very weak confused at times main complaint is that of abdominal pain passing flatus/stool via ostomy Problem List Medical Problems: (1) Diverticulitis Status: Acute (2) Diverticulitis of intestine with perforation Status: Acute (3) Left lower quadrant pain Status: Acute Review of Systems Constitutional: No fever Respiratory: No cough, No shortness of breath Cardiac: No chest pain Abdomen: + pain Objective Vital Signs Date Time Temp Pulse Resp B/P (MAP) Pulse Ox O2 Delivery O2 Flow Rate FiO2 09/24/16 07:35 36.6 76 18 138/85 (102) 93 Room Air 09/24/16 04:00 Room Air 09/24/16 03:56 37.0 62 18 127/68 (87) 93 Room Air 09/24/16 00:00 Room Air 09/24/16 00:00 37.1 64 20 138/72 (94) 93 Room Air 09/23/16 20:00 Room Air 09/23/16 16:02 36.5 91 20 138/85 (102) 94 Room Air 09/23/16 16:00 95 Nasal Cannula 3.0 09/23/16 12:00 96 Nasal Cannula 3.0 09/23/16 11:28 36.5 91 17 146/75 (98) 91 Nasal Cannula 3.0 09/23/16 11:12 78 16 94 Room Air 09/23/16 08:00 36.5 102 18 143/84 (103) 93 Nasal Cannula 3.0 09/23/16 08:00 95 Nasal Cannula 3.0 Physical Exam General Appearance: no apparent distress, + pertinent finding (very weak appearing) ENT: pharynx normal (MMM; no thrush) Neck: no JVD Respiratory/Chest: lungs clear, no respiratory distress, no accessory muscle use Cardiovascular: no gallop, no murmur, + irregularly irregular Abdomen: + tenderness (multiple locations, but worst in the epigastric area), + pertinent finding (colostomy in place, left abdomen; brown stool; woundvac in place over abdominal incision ) Extremities: no pedal edema Neurologic/Psychiatric: alert Laboratory Results Last 24 Hours Test 09/23/16 11:49 09/23/16 16:12 09/24/16 05:20 Bedside Glucose 129 mg/dl Total Bilirubin 0.3 mg/dl Direct Bilirubin 0.1 mg/dl Aspartate Amino Transf (AST/SGOT) 12 U/L Alanine Aminotransferase (ALT/SGPT) 20 U/L Alkaline Phosphatase 82 U/L Total Protein 5.7 gm/dl Albumin 2.7 gm/dl Lipase 225 U/L Activated Partial Thromboplast Time 44.6 SECONDS Partial Thromboplastin Ratio 1.7 Assessment and Plan 81yo female: 1. POD #6 s/p ex lap with colostomy formation, Ochoa Pouch, and sigmoid colon resection - diet advancement, NG tube management, and wound vac per surgery. 2. a. fib with RVR - improved with BB and CCB. Stop diltiazem drip. Cont heparin while awaiting coumadin to become therapeutic. 3. abdominal sepsis 2nd to #1 - e. coli MDR - continue IV ertapenem x 10 days. day #5 today. 4. h/o stroke - I presume it was due to #2 - continue heparin for secondary stroke prevention. Daily PTT and INR. 5. hypothyroidism - TSH 02/2016 was compensated; continue synthroid as is. 6. HTN - control is satisfactory at this time with beta faustino and CCB. 7. chronic diastolic CHF - compensated; cont BB. 8. h/o tonsillar cancer - noted. 9. DVT proph - heparin/coumadin. 10. CKD stage 3 - creatinine stable. BMP am. 11. septic shock 2nd to #1 and #3 - resolved. 12. metabolic encephalopathy - supportive care. Maybe slightly better today. 13. FEN - no appetite and c/o abd pain. Try shutting off tube feeds and see how dinner goes tonight. BMP/mag in am. 14. abdominal pain - due to peritonitis? post-op surgical incision pain? gastritis? Other? check lfts check lipase check c. diff toxin add zantac 50mg IV q8h follow carefully cont invanz for peritonitis PT, OT when able leave on telemetry due to a. fib issues son updated Continued [facility] stay due to: inadequate po fluid intake, inadequate oral pain control, voiding difficulties, ambulation difficulties, multiple IV medications needed, other (uncontrolled a. fib) Discharge planning: uncertain
[2016-09-24 08:03] LABS: INR 1.3 (0.9-1.1); PROTHROMBIN TIME (PATIENT) 13.6 SECONDS (9.0-12.0)
[2016-09-24 08:05] LABS: HEMATOCRIT 34.8 % (37-47); MEAN CELL VOLUME 92.3 fL (80-100); MEAN CORPUSCULAR HEMOGLOBIN 30.2 pg (25-34); MEAN CORPUSCULAR HGB CONC 32.8 g/dl (32-36); MEAN PLATELET VOLUME 9.3 fL (7.4-10.4); PLATELET COUNT 335 K/uL (130-400); RED BLOOD COUNT 3.77 M/uL (4.2-5.4); WHITE BLOOD COUNT 10.87 K/uL (4.8-10.8)
[2016-09-24 08:16] LABS: BUN/CREATININE RATIO 28.5 (10-20); CALCIUM 8.9 mg/dl (8.5-10.1); CREATININE 0.88 mg/dl (0.60-1.20); MAGNESIUM 1.4 mg/dl (1.8-2.4); POTASSIUM 3.2 mmol/L (3.5-5.1)
[2016-09-24] MEDS: NYSTATIN SUSP 500,000 U/5 ML UDC PO SCH ×4 (08:35→20:16)
[2016-09-24] MEDS: LACTOBACILLUS ACIDOPHILUS 1 GM PACK NG SCH (08:35)
[2016-09-24] MEDS: BUMETANIDE 1 MG TAB NG SCH ×2 (08:35→16:46)
[2016-09-24] MEDS: SERTRALINE HCL 50 MG TAB PO SCH (08:36)
[2016-09-24] MEDS: ASCORBIC ACID 500 MG TAB PO SCH (08:36)
[2016-09-24] MEDS: CEROVITE ADV FORMULA TAB PO SCH (08:36)
[2016-09-24] MEDS ORDERED: POTASSIUM CHLORIDE 20 MEQ TABCR PO ONE (09:00)
[2016-09-24] MEDS: LISINOPRIL 40 MG TAB NG SCH (09:39)
[2016-09-24] MEDS: MAGNESIUM OXIDE 400 MG TAB PO SCH (09:39)
[2016-09-24] MEDS: MAGNESIUM SULFATE 1GM / D5W 1 GM in PREMIXED IN D5W 100 ML IV SCH ×2 (09:41→10:00)
[2016-09-24] MEDS: OXYCODONE HCL IR 5 MG TAB (IMMEDIATE RELEASE) PO PRN (11:07)
[2016-09-24] MEDS: ERTAPENEM IV 1 GM in SODIUM CHLOR 0.9% AD-VAN 50ML IV SCH (14:25)
--- NOTE | 2016-09-24 15:13 | Surgery Progress Note ---
Surgery Progress Note Date of Service Sep 24, 2016. Subjective pt feeling much better today for the first time since surgery. son at bedside agrees Objective Vital Signs: Date Time Temp Pulse Resp B/P (MAP) Pulse Ox O2 Delivery O2 Flow Rate FiO2 09/24/16 11:43 36.4 53 18 116/73 (87) 95 Room Air 09/24/16 11:30 Room Air 09/24/16 07:35 36.6 76 18 138/85 (102) 93 Room Air 09/24/16 07:30 Room Air 09/24/16 04:00 Room Air 09/24/16 03:56 37.0 62 18 127/68 (87) 93 Room Air 09/24/16 00:00 Room Air 09/24/16 00:00 37.1 64 20 138/72 (94) 93 Room Air 09/23/16 20:00 Room Air 09/23/16 16:02 36.5 91 20 138/85 (102) 94 Room Air 09/23/16 16:00 95 Nasal Cannula 3.0 General Appearance: no apparent distress Respiratory/Chest: no respiratory distress, no accessory muscle use Abdomen: non distended, soft, + pertinent finding (stoma looks good/functioning ) Incision(s): clean, dry, intact Laboratory Results: Results Past 24 Hours Test 09/23/16 16:12 09/24/16 05:20 09/24/16 12:20 Range/Units Total Bilirubin 0.3 0.2-1 mg/dl Direct Bilirubin 0.1 0-0.2 mg/dl Aspartate Amino Transf (AST/SGOT) 12 15-37 U/L Alanine Aminotransferase (ALT/SGPT) 20 12-78 U/L Alkaline Phosphatase 82 45-117 U/L Total Protein 5.7 6.4-8.2 gm/dl Albumin 2.7 3.4-5.0 gm/dl Lipase 225 73-393 U/L White Blood Count 10.87 4.8-10.8 K/uL Red Blood Count 3.77 4.2-5.4 M/uL Hemoglobin 11.4 12.0-16.0 g/dL Hematocrit 34.8 37-47 % Mean Corpuscular Volume 92.3 80-100 fL Mean Corpuscular Hemoglobin 30.2 25-34 pg Mean Corpuscular Hemoglobin Concent 32.8 32-36 g/dl RDW Standard Deviation 50.2 36.4-46.3 fL RDW Coefficient of Variation 14.9 11.5-14.5 % Platelet Count 335 130-400 K/uL Mean Platelet Volume 9.3 7.4-10.4 fL Nucleated RBC Absolute Count (auto) 0.03 0-0 K/uL Nucleated Red Blood Cells % 0.3 % Prothrombin Time 13.6 9.0-12.0 SECONDS Prothromb Time International Ratio 1.3 0.9-1.1 Activated Partial Thromboplast Time 44.6 77.4 21.0-31.0 SECONDS Partial Thromboplastin Ratio 1.7 3.0 Sodium Level 139 136-145 mmol/L Potassium Level 3.2 3.5-5.1 mmol/L Chloride Level 103 98-107 mmol/L Carbon Dioxide Level 30 21-32 mmol/L Anion Gap 6.0 3-11 mmol/L Blood Urea Nitrogen 25 7-18 mg/dl Creatinine 0.88 0.60-1.20 mg/dl Est Creatinine Clear Calc Drug Dose 46.2 ml/min Estimated GFR () 70.9 Estimated GFR (Non- 61.2 BUN/Creatinine Ratio 28.5 10-20 Random Glucose 105 70-99 mg/dl Calcium Level 8.9 8.5-10.1 mg/dl Magnesium Level 1.4 1.8-2.4 mg/dl Microbiology Results 09/23/16 C.difficile Toxin B Gene (PCR) - Final, Complete No C. difficile toxin B gene detected Assessment & Plan s/p perales's procedure ok to advance diet/d/c feeding tube increase activity/PT/OT no acute surgical issues
[2016-09-24] MEDS: WARFARIN SOD 5 MG TAB PO SCH (16:00)
[2016-09-24 19:53] LABS: PARTIAL THROMBOPLASTIN RATIO 1.4
[2016-09-24] MEDS ORDERED: HEPARIN IV BOLUS 5,000 UNIT in SYRINGE 0 ML IV ONE (21:00)
[2016-09-25] MEDS: RASPBERRY SYRUP 5 ML UDP PO SCH ×4 (00:06→18:22)
[2016-09-25] MEDS: IPRATROPIUM BROMIDE HFA INHALER INH SCH ×6 (00:07→20:39)
[2016-09-25] MEDS: VANCOMYCIN HCL 125 MG/2.5ML SOLN PO SCH ×4 (00:07→18:22)
[2016-09-25] MEDS: DILTIAZEM HCL 30 MG TAB PO SCH ×3 (01:59→13:14)
[2016-09-25 02:41] LABS: INR 1.3 (0.9-1.1); PROTHROMBIN TIME (PATIENT) 14.1 SECONDS (9.0-12.0)
[2016-09-25 02:48] LABS: PARTIAL THROMBOPLASTIN RATIO 9.5
[2016-09-25 03:56] VITALS: BP 136/67; PULSE 78; TEMP 36.8; O2SAT 92
[2016-09-25 04:02] LABS: PARTIAL THROMBOPLASTIN RATIO 6.3
[2016-09-25] MEDS: METOPROLOL TARTRATE 50 MG TAB PO SCH ×2 (04:16→16:08)
[2016-09-25 05:07] LABS: PARTIAL THROMBOPLASTIN RATIO 3.4
[2016-09-25] MEDS: HEPARIN 25,000 UNIT/500ML D5W 500 ML IV PRN (05:30)
[2016-09-25] MEDS: LEVOTHYROXINE 75 MCG TAB PO SCH (05:35)
[2016-09-25] MEDS: RANITIDINE IV 50 MG in DEXTROSE 5% 100ML 100 ML IV SCH (05:35)
[2016-09-25 07:59] VITALS: BP 126/84; PULSE 94; TEMP 36.6; O2SAT 93
--- NOTE | 2016-09-25 08:19 | Progress Note ---
Subjective Date of Service: late entry for visit Sep 24, 2016. Subjective Pt evaluation today including: conversation w/ patient, conversation w/ family (son at bedside), physical exam, chart review, lab review, review of inpatient medication list Pain: abdominal pain seems better today PO Intake: improving slowly Voiding: salinas catheter in place tele with rate-controlled a. fib overnight no nausea or emesis still having "gas" pain but improved colostomy with good stool output did better w/ breakfast and lunch today - surgery to pull coresafe NG tube son inquired if it is ok to use a protein supplement from home Problem List Medical Problems: (1) Diverticulitis Status: Acute (2) Diverticulitis of intestine with perforation Status: Acute (3) Left lower quadrant pain Status: Acute Review of Systems Constitutional: No fever, No chills Respiratory: No shortness of breath Cardiac: No chest pain, No orthopnea Abdomen: + pain, No nausea, No vomiting Objective Vital Signs Date Time Temp Pulse Resp B/P (MAP) Pulse Ox O2 Delivery O2 Flow Rate FiO2 09/25/16 07:59 36.6 94 20 126/84 (98) 93 Room Air 09/25/16 04:00 Room Air 09/25/16 03:56 36.8 78 18 136/67 (90) 92 Room Air 09/25/16 00:00 Room Air 09/24/16 23:32 36.6 89 18 112/64 (80) 94 Room Air 09/24/16 20:00 Room Air 09/24/16 19:13 36.5 71 22 120/79 (93) 93 Room Air 09/24/16 15:22 36.5 94 20 141/96 (111) 96 Room Air 09/24/16 11:43 36.4 53 18 116/73 (87) 95 Room Air 09/24/16 11:30 Room Air Physical Exam General Appearance: no apparent distress, + pertinent finding (looks better today) ENT: pharynx normal, + pertinent finding (MMM, no thrush, NG tube in place) Neck: no JVD Respiratory/Chest: lungs clear, no respiratory distress, no accessory muscle use Cardiovascular: no gallop, no murmur, + irregularly irregular Abdomen: normal bowel sounds, soft, no organomegaly, + tenderness (but much improved from yesterday's exam), + pertinent finding (wound vac in place; colostomy in place with brown stool) Extremities: no pedal edema Neurologic/Psychiatric: alert, oriented x 3 Laboratory Results Last 24 Hours Test 09/24/16 12:20 09/24/16 19:17 09/25/16 01:57 09/25/16 03:22 Activated Partial Thromboplast Time 77.4 SECONDS 35.2 SECONDS 249.5 SECONDS 164.1 SECONDS Partial Thromboplastin Ratio 3.0 1.4 9.5 6.3 Prothrombin Time 14.1 SECONDS Prothromb Time International Ratio 1.3 Test 09/25/16 04:27 Activated Partial Thromboplast Time 87.4 SECONDS Partial Thromboplastin Ratio 3.4 Assessment and Plan 81yo female: 1. POD #7 s/p ex lap with colostomy formation, Ochoa Pouch, and sigmoid colon resection - diet advancement, NG tube management, and wound vac per surgery. Agree NG tube can be d/c today. 2. a. fib with RVR - RVR resolved. Cont BB, CCB. Cont heparin while awaiting coumadin to become therapeutic. 3. abdominal sepsis 2nd to #1 - e. coli MDR - continue IV ertapenem x 10 days. day #6 today. 4. h/o stroke - I presume it was due to #2 - continue heparin for secondary stroke prevention. Daily PTT and INR. 5. hypothyroidism - TSH 02/2016 was compensated; continue synthroid as is. 6. HTN - control is satisfactory at this time with beta faustnio and CCB. 7. chronic diastolic CHF - compensated; cont BB. 8. h/o tonsillar cancer - noted. 9. DVT proph - heparin/coumadin. 10. CKD stage 3 - creatinine stable. BMP am. 11. septic shock 2nd to #1 and #3 - resolved. 12. metabolic encephalopathy - resolved. 13. FEN - replace low K, low mag. advance diet to full liquids. NG tube to be pulled today. repeat lytes in am. 14. abdominal pain - improved. suspect some element of gastritis. also likely due to incision, excess gas, etc. lipase/lfts/c diff neg or normal yesterday son updated suspect we can transition to med/surg tomorrow PT, OT when able Continued [facility] stay due to: inadequate po fluid intake, inadequate oral pain control, voiding difficulties, ambulation difficulties, multiple IV medications needed, other (uncontrolled a. fib) Discharge planning: uncertain
--- NOTE | 2016-09-25 08:19 | Surgery Progress Note ---
Surgery Progress Note Date of Service Sep 25, 2016. Subjective no new complaints. andres liquids. no n/v. had bm per rectum last night. Objective Vital Signs: Date Time Temp Pulse Resp B/P (MAP) Pulse Ox O2 Delivery O2 Flow Rate FiO2 09/25/16 07:59 36.6 94 20 126/84 (98) 93 Room Air 09/25/16 04:00 Room Air 09/25/16 03:56 36.8 78 18 136/67 (90) 92 Room Air 09/25/16 00:00 Room Air 09/24/16 23:32 36.6 89 18 112/64 (80) 94 Room Air 09/24/16 20:00 Room Air 09/24/16 19:13 36.5 71 22 120/79 (93) 93 Room Air 09/24/16 15:22 36.5 94 20 141/96 (111) 96 Room Air 09/24/16 11:43 36.4 53 18 116/73 (87) 95 Room Air 09/24/16 11:30 Room Air General Appearance: no apparent distress Abdomen: non distended, soft, + pertinent finding (stoma looks good/functioning ) Laboratory Results: Results Past 24 Hours Test 09/24/16 12:20 09/24/16 19:17 09/25/16 01:57 09/25/16 03:22 Range/Units Activated Partial Thromboplast Time 77.4 35.2 249.5 164.1 21.0-31.0 SECONDS Partial Thromboplastin Ratio 3.0 1.4 9.5 6.3 Prothrombin Time 14.1 9.0-12.0 SECONDS Prothromb Time International Ratio 1.3 0.9-1.1 Test 09/25/16 04:27 09/25/16 08:14 Range/Units Activated Partial Thromboplast Time 87.4 21.0-31.0 SECONDS Partial Thromboplastin Ratio 3.4 Assessment & Plan 09/25/16 reassured regarding rectal bm doing well/better will need aggressive pt/ot advance diet 09/24/16 s/p perales's procedure ok to advance diet/d/c feeding tube increase activity/PT/OT no acute surgical issues s/p perales's procedure ok to advance diet/d/c feeding tube increase activity/PT/OT no acute surgical issues
[2016-09-25] MEDS: LISINOPRIL 40 MG TAB NG SCH (09:00)
[2016-09-25 09:09] LABS: BUN/CREATININE RATIO 23.3 (10-20); CALCIUM 8.4 mg/dl (8.5-10.1); CREATININE 0.93 mg/dl (0.60-1.20); MAGNESIUM 1.9 mg/dl (1.8-2.4); POTASSIUM 3.3 mmol/L (3.5-5.1)
[2016-09-25] MEDS ORDERED: POTASSIUM CHLORIDE 10 MEQ TABCR PO STA ×2 (09:42→14:20)
[2016-09-25] MEDS: CEROVITE ADV FORMULA TAB PO SCH (09:53)
[2016-09-25] MEDS: SERTRALINE HCL 50 MG TAB PO SCH (09:54)
[2016-09-25] MEDS: NYSTATIN SUSP 500,000 U/5 ML UDC PO SCH ×4 (09:54→21:19)
[2016-09-25] MEDS: LACTOBACILLUS ACIDOPHILUS 1 GM PACK NG SCH (09:55)
[2016-09-25] MEDS: POTASSIUM CHLORIDE 20 MEQ TABCR PO SCH (09:55)
[2016-09-25] MEDS: ASCORBIC ACID 500 MG TAB PO SCH (09:55)
[2016-09-25] MEDS: MAGNESIUM OXIDE 400 MG TAB PO SCH (09:56)
[2016-09-25] MEDS: BUMETANIDE 1 MG TAB NG SCH ×2 (09:56→16:08)
[2016-09-25] MEDS: RANITIDINE HCL 150 MG TAB PO SCH ×2 (10:03→21:19)
[2016-09-25 11:15] VITALS: BP 152/75; PULSE 90; TEMP 36.5; O2SAT 95
[2016-09-25 11:49] LABS: PARTIAL THROMBOPLASTIN RATIO 2.7
[2016-09-25] MEDS: ERTAPENEM IV 1 GM in SODIUM CHLOR 0.9% AD-VAN 50ML IV SCH (13:14)
[2016-09-25] MEDS ORDERED: DILTIAZEM HCL 30 MG TAB PO ONE (14:30)
[2016-09-25 15:50] VITALS: BP 128/72; PULSE 2; PULSE 72; TEMP 36.6; O2SAT 94
[2016-09-25] MEDS: WARFARIN SOD 5 MG TAB PO SCH (16:07)
--- NOTE | 2016-09-25 17:13 | Progress Note ---
Subjective Date of Service: Sep 25, 2016. Subjective Pt evaluation today including: conversation w/ patient, conversation w/ family (son at bedside), physical exam, chart review, lab review, review of inpatient medication list Pain: abdominal pain much improved PO Intake: improving albeit slowly Voiding: salinas catheter in place tele with controlled a. fib overnight once out of bed rates have been higher (low 100s) she has had no further confusion spirits are brighter no nausea c/o mild "gas" pains no vomiting passing plenty of stool via colostomy diet again advanced by surgery Problem List Medical Problems: (1) Diverticulitis Status: Acute (2) Diverticulitis of intestine with perforation Status: Acute (3) Left lower quadrant pain Status: Acute Review of Systems Constitutional: No fever Respiratory: No cough, No sputum, No wheezing, No shortness of breath, No dyspnea on exertion Cardiac: No chest pain, No orthopnea Abdomen: No pain, No nausea, No vomiting Objective Vital Signs Date Time Temp Pulse Resp B/P (MAP) Pulse Ox O2 Delivery O2 Flow Rate FiO2 09/25/16 15:50 36.6 72 18 128/72 (90) 94 Room Air 09/25/16 11:30 Room Air 09/25/16 11:15 36.5 90 20 152/75 (100) 95 Room Air 09/25/16 07:59 36.6 94 20 126/84 (98) 93 Room Air 09/25/16 07:30 Room Air 09/25/16 04:00 Room Air 09/25/16 03:56 36.8 78 18 136/67 (90) 92 Room Air 09/25/16 00:00 Room Air 09/24/16 23:32 36.6 89 18 112/64 (80) 94 Room Air 09/24/16 20:00 Room Air 09/24/16 19:13 36.5 71 22 120/79 (93) 93 Room Air Physical Exam General Appearance: no apparent distress, + pertinent finding (overall looks better) ENT: pharynx normal (MMM, no thrush) Neck: no JVD Respiratory/Chest: lungs clear, no respiratory distress, no accessory muscle use Cardiovascular: no gallop, no murmur, + irregularly irregular Abdomen: + pertinent finding (BS+, less distension, NT today; colostomy in place with brown stool left abdomen; wound vac in place; drain in place) Extremities: no pedal edema Neurologic/Psychiatric: alert, oriented x 3 Laboratory Results Last 24 Hours Test 09/24/16 19:17 09/25/16 01:57 09/25/16 03:22 09/25/16 04:27 Activated Partial Thromboplast Time 35.2 SECONDS 249.5 SECONDS 164.1 SECONDS 87.4 SECONDS Partial Thromboplastin Ratio 1.4 9.5 6.3 3.4 Prothrombin Time 14.1 SECONDS Prothromb Time International Ratio 1.3 Sodium Level 140 mmol/L Potassium Level 3.3 mmol/L Chloride Level 103 mmol/L Carbon Dioxide Level 30 mmol/L Anion Gap 7.0 mmol/L Blood Urea Nitrogen 22 mg/dl Creatinine 0.93 mg/dl Est Creatinine Clear Calc Drug Dose 43.8 ml/min Estimated GFR () 66.3 Estimated GFR (Non- 57.2 BUN/Creatinine Ratio 23.3 Random Glucose 99 mg/dl Calcium Level 8.4 mg/dl Magnesium Level 1.9 mg/dl Test 09/25/16 11:10 Activated Partial Thromboplast Time 70.3 SECONDS Partial Thromboplastin Ratio 2.7 Assessment and Plan 81yo female: 1. POD #8 s/p ex lap with colostomy formation, Ochoa Pouch, and sigmoid colon resection - diet advanced by surgery today. Wound vac in place. NG tube has been d/c. 2. a. fib with RVR - overall improved but not optimal with rates > 100 with sitting in chair. Increase cardizem to 60mg QID. Cont BB at 50mg bid of metoprolol. Cont heparin while awaiting coumadin to become therapeutic. 3. abdominal sepsis 2nd to #1 - e. coli MDR and anaerobes - continue IV ertapenem x 10 days. day #7 today. 4. h/o stroke - I presume it was due to #2 - continue heparin for secondary stroke prevention. Daily PTT and INR. 5. hypothyroidism - TSH 02/2016 was compensated; continue synthroid as is. 6. HTN - control is satisfactory at this time with beta faustino and CCB. 7. chronic diastolic CHF - compensated; cont BB. Remains on bumex. 8. h/o tonsillar cancer - noted. 9. DVT proph - heparin/coumadin. 10. CKD stage 3 - creatinine stable. BMP am. 11. septic shock 2nd to #1 and #3 - resolved. 12. metabolic encephalopathy - resolved. 13. FEN - replace low K again today with 2 doses. Cont K/mag supplements every am due to daily bumex usage. repeat BMP am. diet advanced today. 14. abdominal pain - much improved today. suspect some element of gastritis. stop IV zantac, change to po zantac BID. also likely due to incision, excess gas, peritonitis, etc. lipase/lfts/c diff neg or normal son updated again PT, OT when able will need placement for rehab most definitely if rates are controlled as day goes on then can transfer to med/surg Continued [facility] stay due to: inadequate po fluid intake, voiding difficulties, ambulation difficulties, multiple IV medications needed Discharge planning: uncertain
[2016-09-25 19:38] VITALS: BP 129/69; PULSE 78; TEMP 36.5; O2SAT 96
[2016-09-25 19:56] LABS: PARTIAL THROMBOPLASTIN RATIO 2.5
[2016-09-25] MEDS: DILTIAZEM HCL 60 MG TAB PO SCH (20:38)
[2016-09-25] MEDS: OXYCODONE HCL IR 5 MG TAB (IMMEDIATE RELEASE) PO PRN (20:42)
[2016-09-26] VITALS (7 sets, daily range): BP systolic 100–136; BP diastolic 65–85; PULSE 54–88; TEMP 36.4–36.6; O2SAT 93–95
[2016-09-26] MEDS: RASPBERRY SYRUP 5 ML UDP PO SCH ×4 (00:02→17:46)
[2016-09-26] MEDS: IPRATROPIUM BROMIDE HFA INHALER INH SCH ×6 (00:05→20:16)
[2016-09-26] MEDS: VANCOMYCIN HCL 125 MG/2.5ML SOLN PO SCH ×4 (00:05→17:47)
[2016-09-26] MEDS: HEPARIN 25,000 UNIT/500ML D5W 500 ML IV PRN (00:08)
[2016-09-26] MEDS: DILTIAZEM HCL 60 MG TAB PO SCH ×4 (02:25→20:16)
[2016-09-26] MEDS: METOPROLOL TARTRATE 50 MG TAB PO SCH ×2 (04:39→16:21)
[2016-09-26 06:02] LABS: INR 1.9 (0.9-1.1); PARTIAL THROMBOPLASTIN RATIO 3.6; PROTHROMBIN TIME (PATIENT) 21.1 SECONDS (9.0-12.0)
[2016-09-26 06:29] LABS: BUN/CREATININE RATIO 19.5 (10-20); CALCIUM 8.7 mg/dl (8.5-10.1); CREATININE 0.94 mg/dl (0.60-1.20); POTASSIUM 3.9 mmol/L (3.5-5.1)
[2016-09-26] MEDS: LEVOTHYROXINE 75 MCG TAB PO SCH (06:44)
[2016-09-26 08:13] LABS: HEMATOCRIT 35.9 % (37-47); MEAN CORPUSCULAR HEMOGLOBIN 30.4 pg (25-34); MEAN CORPUSCULAR HGB CONC 32.3 g/dl (32-36); MEAN PLATELET VOLUME 9.5 fL (7.4-10.4); PLATELET COUNT 335 K/uL (130-400); RED BLOOD COUNT 3.82 M/uL (4.2-5.4); WHITE BLOOD COUNT 9.79 K/uL (4.8-10.8)
[2016-09-26] MEDS: LISINOPRIL 40 MG TAB NG SCH (08:16)
[2016-09-26] MEDS: CEROVITE ADV FORMULA TAB PO SCH (08:16)
[2016-09-26] MEDS: POTASSIUM CHLORIDE 20 MEQ TABCR PO SCH (08:16)
[2016-09-26] MEDS: NYSTATIN SUSP 500,000 U/5 ML UDC PO SCH ×4 (08:17→20:16)
[2016-09-26] MEDS: RANITIDINE HCL 150 MG TAB PO SCH ×2 (08:17→20:15)
[2016-09-26] MEDS: SERTRALINE HCL 50 MG TAB PO SCH (08:18)
[2016-09-26] MEDS: MAGNESIUM OXIDE 400 MG TAB PO SCH (08:18)
[2016-09-26] MEDS: BUMETANIDE 1 MG TAB NG SCH ×2 (08:18→16:21)
[2016-09-26] MEDS: LACTOBACILLUS ACIDOPHILUS 1 GM PACK NG SCH (08:19)
[2016-09-26] MEDS: ASCORBIC ACID 500 MG TAB PO SCH (08:19)
--- NOTE | 2016-09-26 08:48 | Surgery Progress Note ---
Surgery Progress Note Date of Service Sep 26, 2016. Subjective + feeling well, + bowel movement, + flatus, + diet, No chest pain, No SOB, No nausea, No vomiting Objective Vital Signs: Date Time Temp Pulse Resp B/P (MAP) Pulse Ox O2 Delivery O2 Flow Rate FiO2 09/26/16 07:47 36.4 88 18 136/84 (101) 93 Room Air 09/26/16 04:39 36.6 63 18 100/65 (77) 93 Room Air 09/26/16 04:00 Room Air 09/26/16 00:00 Room Air 09/25/16 20:00 Room Air 09/25/16 19:38 36.5 78 20 129/69 (89) 96 Room Air 09/25/16 16:00 Room Air 09/25/16 15:50 36.6 72 18 128/72 (90) 94 Room Air 09/25/16 11:30 Room Air 09/25/16 11:15 36.5 90 20 152/75 (100) 95 Room Air General Appearance: WD/WN, no apparent distress Head: normocephalic, atraumatic Neck: trachea midline Respiratory/Chest: no respiratory distress, no accessory muscle use Abdomen: non distended, soft, + tenderness (minimal , appropriate post op) Incision(s): clean, dry, intact, findings (colostomy pink and functioning) Laboratory Results: Results Past 24 Hours Test 09/25/16 11:10 09/25/16 19:16 09/26/16 05:16 Range/Units Activated Partial Thromboplast Time 70.3 64.6 94.7 21.0-31.0 SECONDS Partial Thromboplastin Ratio 2.7 2.5 3.6 White Blood Count 9.79 4.8-10.8 K/uL Red Blood Count 3.82 4.2-5.4 M/uL Hemoglobin 11.6 12.0-16.0 g/dL Hematocrit 35.9 37-47 % Mean Corpuscular Volume 94.0 80-100 fL Mean Corpuscular Hemoglobin 30.4 25-34 pg Mean Corpuscular Hemoglobin Concent 32.3 32-36 g/dl Platelet Count 335 130-400 K/uL Mean Platelet Volume 9.5 7.4-10.4 fL RDW Standard Deviation 51.3 36.4-46.3 fL RDW Coefficient of Variation 15.3 11.5-14.5 % Nucleated RBC Absolute Count (auto) 0.02 0-0 K/uL Nucleated Red Blood Cells % 0.2 % Prothrombin Time 21.1 9.0-12.0 SECONDS Prothromb Time International Ratio 1.9 0.9-1.1 Sodium Level 140 136-145 mmol/L Potassium Level 3.9 3.5-5.1 mmol/L Chloride Level 105 98-107 mmol/L Carbon Dioxide Level 30 21-32 mmol/L Anion Gap 5.0 3-11 mmol/L Blood Urea Nitrogen 18 7-18 mg/dl Creatinine 0.94 0.60-1.20 mg/dl Est Creatinine Clear Calc Drug Dose 41.7 ml/min Estimated GFR () 65.5 Estimated GFR (Non- 56.5 BUN/Creatinine Ratio 19.5 10-20 Random Glucose 108 70-99 mg/dl Calcium Level 8.7 8.5-10.1 mg/dl Albumin 2.8 3.4-5.0 gm/dl Assessment & Plan POD # 9 s/p Sigmoid resection, Noah procedure with ostomy - vitals stable - still in afib with tachycardia, asymptomatic - +ostomy functioning - adequate urine output -tolerating regular diet - mood and mental status much improved Plan: Continue PO pain medication as needed, breakthrough IV Continue cardiac monitoring Continue regular diet Continue wound vac D/C GENNY continue wound care Continue Coumadin Continue current medical management Continue PT/OT Dr. Valdovinos has seen and examined patient, agrees with above POD # 5 s/p Sigmoid resection, Noah procedure with ostomy - vitals stable - still in afib with tachycardia, asymptomatic - +ostomy functioning - disoriented this morning - adequate urine output Plan: Continue PO pain medication as needed, breakthrough IV Continue cardiac monitoring Continue clear liquids and Feeding tube, patient not taking in much by mouth , would increase rate of Peptamen feedings however do not want to suppress appetite Continue wound vac and GENNY bulb to suction continue wound care Continue Heparin and Coumadin Continue current medical management Continue PT/OT Dr. Valdovinos has seen and examined patient, agrees with above
[2016-09-26 09:41] LABS: BASO % 0.9 %; BASO ABS # 0.09 K/uL (0-0.2); COMPLETE YES; EOS % 2.7 %; IG% 5.4 %; LYMPH % 28.8 %; LYMPH ABS # 2.82 K/uL (1.2-3.4); MONO % 9.6 %; NEUT % 52.6 %; STOMATOCYTE 1+
[2016-09-26] MEDS: HYDROmorphone INJ 0.5 MG/0.5 ML SYR IV PRN (10:34)
[2016-09-26 13:16] LABS: PARTIAL THROMBOPLASTIN RATIO 2.1
[2016-09-26] MEDS ORDERED: MCRK20 PO (13:56)
[2016-09-26] MEDS ORDERED: MGNO400 PO (13:56)
[2016-09-26] MEDS ORDERED: INVAV1 IV (13:56)
[2016-09-26] MEDS ORDERED: ZLF50 PO (13:56)
[2016-09-26] MEDS ORDERED: ZNT150 PO (13:56)
[2016-09-26] MEDS ORDERED: RXC5 PO (13:56)
[2016-09-26] MEDS ORDERED: CRD60 PO (13:56)
[2016-09-26] MEDS ORDERED: VANC5CAP PO (13:56)
[2016-09-26] MEDS: ERTAPENEM IV 1 GM in SODIUM CHLOR 0.9% AD-VAN 50ML IV SCH (15:01)
[2016-09-26] MEDS: WARFARIN SOD 5 MG TAB PO SCH (16:21)
--- NOTE | 2016-09-26 16:35 | Progress Note ---
Subjective Date of Service: Sep 26, 2016. Subjective Pt evaluation today including: conversation w/ patient, conversation w/ family , physical exam, chart review, lab review, review of studies, review of inpatient medication list Pt resting comfortably in bed Heparin drip dced overnight No chest pain/shortness of breath Reports using protein powder for shakes No other concerns addressed Spoke to andrade Coker on phone, questions answered Problem List Medical Problems: (1) Diverticulitis Status: Acute (2) Diverticulitis of intestine with perforation Status: Acute (3) Left lower quadrant pain Status: Acute Review of Systems Constitutional: No fever, No chills, No sweats, No weight loss ENT: No hearing loss, No unusual epistaxis, No nasal symptoms, No sore throat Respiratory: No cough, No sputum, No wheezing, No shortness of breath Cardiac: No chest pain, No orthopnea, No PND, No edema Abdomen: No pain, No nausea, No vomiting, No diarrhea Musculoskeletal: No joint pain, No muscle pain, No swelling, No calf pain Female : No dysuria, No urinary frequency, No hematuria, No incontinence Neurologic: No memory loss, No paralysis, No weakness, No numbness/tingling Psychiatric: No depression symptoms, No anhedonism, No anxiety, No insomnia Skin: No rash, No itch Objective Vital Signs Date Time Temp Pulse Resp B/P (MAP) Pulse Ox O2 Delivery O2 Flow Rate FiO2 09/26/16 12:00 Room Air 09/26/16 11:32 36.5 86 20 127/85 (99) 94 Room Air 09/26/16 08:30 93 Room Air 09/26/16 07:47 36.4 88 18 136/84 (101) 93 Room Air 09/26/16 04:39 36.6 63 18 100/65 (77) 93 Room Air 09/26/16 04:00 Room Air 09/26/16 00:00 Room Air 09/25/16 20:00 Room Air 09/25/16 19:38 36.5 78 20 129/69 (89) 96 Room Air Physical Exam General Appearance: WD/WN, no apparent distress Eyes: normal inspection, PERRL, EOMI, sclerae normal Neck: supple, no adenopathy, thyroid normal, no JVD Respiratory/Chest: chest non-tender, lungs clear, normal breath sounds, no respiratory distress Cardiovascular: regular rate, rhythm, no edema, no gallop, no JVD Abdomen: non tender, soft, + pertinent finding (stoma examined and tissue looks good, ostomy working) Extremities: non-tender, normal inspection, no pedal edema, no calf tenderness Neurologic/Psychiatric: no motor/sensory deficits, alert, normal mood/affect, oriented x 3 Laboratory Results Last 24 Hours Test 09/25/16 19:16 09/26/16 05:16 09/26/16 12:21 Activated Partial Thromboplast Time 64.6 SECONDS 94.7 SECONDS 53.9 SECONDS Partial Thromboplastin Ratio 2.5 3.6 2.1 White Blood Count 9.79 K/uL Red Blood Count 3.82 M/uL Hemoglobin 11.6 g/dL Hematocrit 35.9 % Mean Corpuscular Volume 94.0 fL Mean Corpuscular Hemoglobin 30.4 pg Mean Corpuscular Hemoglobin Concent 32.3 g/dl Platelet Count 335 K/uL Mean Platelet Volume 9.5 fL Neutrophils (%) (Auto) 52.6 % Lymphocytes (%) (Auto) 28.8 % Monocytes (%) (Auto) 9.6 % Eosinophils (%) (Auto) 2.7 % Basophils (%) (Auto) 0.9 % Neutrophils # (Auto) 5.15 K/uL Lymphocytes # (Auto) 2.82 K/uL Monocytes # (Auto) 0.94 K/uL Eosinophils # (Auto) 0.26 K/uL Basophils # (Auto) 0.09 K/uL RDW Standard Deviation 51.3 fL RDW Coefficient of Variation 15.3 % Immature Granulocyte % (Auto) 5.4 % Immature Granulocyte # (Auto) 0.53 K/uL Nucleated RBC Absolute Count (auto) 0.02 K/uL Nucleated Red Blood Cells % 0.2 % Hypogranular Neutrophils 1+ Stomatocytes 1+ Prothrombin Time 21.1 SECONDS Prothromb Time International Ratio 1.9 Sodium Level 140 mmol/L Potassium Level 3.9 mmol/L Chloride Level 105 mmol/L Carbon Dioxide Level 30 mmol/L Anion Gap 5.0 mmol/L Blood Urea Nitrogen 18 mg/dl Creatinine 0.94 mg/dl Est Creatinine Clear Calc Drug Dose 41.7 ml/min Estimated GFR () 65.5 Estimated GFR (Non- 56.5 BUN/Creatinine Ratio 19.5 Random Glucose 108 mg/dl Calcium Level 8.7 mg/dl Albumin 2.8 gm/dl Assessment and Plan 81yo female POD# 9 colostomy formation, Ochoa Pouch, and sigmoid colon resection Pt tolerating regular diet now and supplementing with protein shake Surgery removed drain at this time Wound vac in place A fib with RVR - Still in Afib, rate controlled on cardizem 60mg QID and metoprolol 50mg bid. Cont heparin while awaiting coumadin to become therapeutic.INR 1.9 today Abdominal sepsis 2nd to #1 - Ecoli MDR and anaerobes - continue IV ertapenem x 10 days Currently day # 9 H/o stroke - Restarted on coumadin. Daily PTT and INR. Hypothyroidism - TSH 02/2016 was compensated; continue synthroid as is. HTN - control is satisfactory at this time with beta faustino and CCB. Chronic diastolic CHF - compensated; cont BB. Remains on bumex. DVT proph - heparin/coumadin. CKD stage 3 - creatinine stable. BMP am. Discharge to [facility] Continued [facility] stay due to: inadequate po fluid intake, voiding difficulties, ambulation difficulties, multiple IV medications needed Discharge planning: uncertain
[2016-09-27] MEDS: VANCOMYCIN HCL 125 MG/2.5ML SOLN PO SCH ×3 (00:26→12:06)
[2016-09-27] MEDS: RASPBERRY SYRUP 5 ML UDP PO SCH ×3 (00:27→12:06)
[2016-09-27] MEDS: DILTIAZEM HCL 60 MG TAB PO SCH ×3 (00:27→12:06)
[2016-09-27] MEDS: IPRATROPIUM BROMIDE HFA INHALER INH SCH ×4 (00:27→12:04)
[2016-09-27 03:35] VITALS: BP 120/70; PULSE 67; TEMP 36.8; O2SAT 94
[2016-09-27] MEDS: HEPARIN 25,000 UNIT/500ML D5W 500 ML IV PRN (04:40)
[2016-09-27] MEDS: LEVOTHYROXINE 75 MCG TAB PO SCH (05:53)
[2016-09-27] MEDS: METOPROLOL TARTRATE 50 MG TAB PO SCH (05:53)
[2016-09-27 07:51] VITALS: BP 112/65; PULSE 46; TEMP 36.6; O2SAT 93
[2016-09-27 09:07] LABS: BUN/CREATININE RATIO 24.2 (10-20); CALCIUM 8.5 mg/dl (8.5-10.1); CREATININE 1.1 mg/dl (0.60-1.20); POTASSIUM 3.9 mmol/L (3.5-5.1)
[2016-09-27] MEDS: NYSTATIN SUSP 500,000 U/5 ML UDC PO SCH ×2 (09:12→12:05)
[2016-09-27] MEDS: ASCORBIC ACID 500 MG TAB PO SCH (09:13)
[2016-09-27] MEDS: RANITIDINE HCL 150 MG TAB PO SCH (09:13)
[2016-09-27] MEDS: MAGNESIUM OXIDE 400 MG TAB PO SCH (09:16)
[2016-09-27] MEDS: POTASSIUM CHLORIDE 20 MEQ TABCR PO SCH (09:17)
[2016-09-27] MEDS: CEROVITE ADV FORMULA TAB PO SCH (09:17)
[2016-09-27] MEDS: SERTRALINE HCL 50 MG TAB PO SCH (09:18)
[2016-09-27 11:52] VITALS: BP 117/70; PULSE 52; TEMP 36.6; O2SAT 95
[2016-09-27] MEDS: ERTAPENEM IV 1 GM in SODIUM CHLOR 0.9% AD-VAN 50ML IV SCH (12:04)
--- NOTE | 2016-09-27 12:33 | Surgery Progress Note ---
Surgery Progress Note Date of Service Sep 27, 2016. Subjective Patient examined at bedside. Afebrile, vitals stable on room air, no acute events overnight. Pain is adequately controlled. States she occasionally feels the urge to void or have a BM, but then is unable to do so once on the commode. She did just successfully void, states some stool as well. Tolerating diet without N/V. Ostomy is functioning, air and stool in bag. Wound vac in place and holding suction. No complaints. Objective Vital Signs: Date Time Temp Pulse Resp B/P (MAP) Pulse Ox O2 Delivery O2 Flow Rate FiO2 09/27/16 11:52 36.6 52 18 117/70 (86) 95 Room Air 09/27/16 07:51 36.6 46 19 112/65 (81) 93 Room Air 09/27/16 04:00 Room Air 09/27/16 03:35 36.8 67 18 120/70 (87) 94 Room Air 09/26/16 23:59 Room Air 09/26/16 23:52 36.4 61 18 130/74 (92) 93 Room Air 09/26/16 20:00 Room Air 09/26/16 19:48 36.6 54 18 125/73 (90) 95 Room Air 09/26/16 16:20 Room Air 09/26/16 15:56 36.5 67 20 130/68 (88) 94 Room Air General Appearance: WD/WN, no apparent distress Head: normocephalic, atraumatic Neck: supple Respiratory/Chest: lungs clear, normal breath sounds Cardiovascular: regular rate, rhythm Abdomen: non tender, non distended, soft (ostomy pink, functioning) Incision(s): clean, dry, intact (wound vac in place and functioning) Laboratory Results: Results Past 24 Hours Test 09/27/16 08:01 Range/Units Sodium Level 138 136-145 mmol/L Potassium Level 3.9 3.5-5.1 mmol/L Chloride Level 102 98-107 mmol/L Carbon Dioxide Level 31 21-32 mmol/L Anion Gap 5.0 3-11 mmol/L Blood Urea Nitrogen 27 7-18 mg/dl Creatinine 1.10 0.60-1.20 mg/dl Est Creatinine Clear Calc Drug Dose 35.2 ml/min Estimated GFR () 54.1 Estimated GFR (Non- 46.7 BUN/Creatinine Ratio 24.2 10-20 Random Glucose 112 70-99 mg/dl Calcium Level 8.5 8.5-10.1 mg/dl Assessment & Plan POD # 10 s/p Sigmoid resection, Noah procedure with ostomy - vitals stable - +ostomy functioning - adequate urine output - tolerating regular diet without N/V - mood and mental status much improved Plan: Continue PO pain medication as needed, breakthrough IV Continue cardiac monitoring Continue regular diet as tolerated Continue wound vac Continue Coumadin Continue current medical management Continue PT/OT
[2016-09-27] MEDS ORDERED: VANC5CAP PO (12:56)
[2016-09-27] MEDS ORDERED: INVAV1 IV (12:56)
--- NOTE | 2016-09-27 13:07 | Discharge Instructions ---
Discharge Instructions Date of Service Sep 27, 2016. Admission Reason for Admission: Perforated Abdominal Viscus, Sepsis Discharge Discharge Diagnosis / Problem: Sigmoid colectomy, atrial fibrillation Discharge Goals Goal(s): Decrease discomfort, Improve function, Increase independence, Improve disease control, Learn about illness, Diagnostic testing, Screening Activity Recommendations Activity Limitations: resume your previous activity Exercise/Sports Limitations: as tolerated . Instructions / Follow-Up Instructions / Follow-Up Patient to be discharged to [facility] for further rehab therapy/ostomy and wound care Please note all changes in medications per medication reconciliation list Patient will require 1 more day of antibiotic invanz by IV infusion as well as 3 more days of antibiotic vancomycin Please note to stop taking coreg medication. Pt will instead be resumed on cardizem 60 mg tablet 4 times a day. Patient to continue taking coumadin medication Also noted supplementation with magnesium and potassium and increase of zoloft to 25 mg tablet once daily Patient will need to follow up with wound care, Dr Valdovinos and Dr Cannon in 1 week Current Hospital Diet Patient's current hospital diet: Regular Diet Discharge Diet Recommended Diet: Regular Diet Procedures Procedures Performed: Exploratory Laparotomy, Sigmoid Colon Resection with Colostomy Pending Studies Studies pending at discharge: no Medical Emergencies . Who to Call and When: Medical Emergencies: If at any time you feel your situation is an emergency, please call 911 immediately. . Non-Emergent Contact Non-Emergency issues call your: Primary Care Provider Call Non-Emergent contact if: you have a fever, your pain is worsening . . "Provider Documentation" section prepared by Braden Zazueta. . VTE Core Measure Inpt VTE Proph given/why not?: Unfractionated heparin SQ, Warfarin (Coumadin), T.E.D. Stockings, SCD's
[2016-09-27 13:08] LABS: INR 2.2 (0.9-1.1); PROTHROMBIN TIME (PATIENT) 24.8 SECONDS (9.0-12.0)
[2016-09-27] MEDS ORDERED: RXC5 PO (13:49)
[2016-09-27 14:16] VITALS: BP 117/70; PULSE 52; TEMP 36.6; O2SAT 95
--- NOTE | 2016-09-27 16:52 | Discharge Summary ---
Discharge Summary Date of Service Sep 27, 2016. Discharge Summary Admission Date: Sep 16, 2016 at 08:04 Discharge Date: Sep 26, 2016 Discharge Disposition: Rehab ([facility]) Principal Diagnosis: Sigmoid resection, atrial fibrillation Consultations: Information Systems Director General surgery Medication Reconciliation New Medications: Ertapenem (Invanz) 1 Gm Inj 1 GM IV DAILY for 1 Day, #1 VIAL Oxycodone HCl (Oxycodone HCl) 5 Mg Tab 5 MG PO Q4H, #30 TABS Vancomycin Hcl (Vancomycin) 125 Mg Cap 125 MG PO QID for 3 Days, #12 TABS Diltiazem HCl (Diltiazem HCl) 60 Mg Tab 60 MG PO Q6H, #120 TAB Magnesium Oxide (Magnesium-Oxide) 400 Mg Tab 400 MG PO QAM for 30 Days, #30 TAB Potassium Chloride (Klor-Con M20) 20 Meq Tabcr 20 MEQ PO QAM for 30 Days, #30 TABS Ranitidine HCl (Ranitidine HCl) 150 Mg Tab 150 MG PO BID for 30 Days, #60 TAB Sertraline HCl (Sertraline HCl) 50 Mg Tab 25 MG PO QAM for 30 Days, #30 TAB Continued Medications: Bumetanide (Bumex) 1 Mg Tab 1 MG PO BID, TAB Calcium Carbonate (Calcium Carbonate) 600 Mg Tab 1 TAB PO BID Cholecalciferol (Vitamin D3) 2,000 Unit Cap 1 CAP PO DAILY for 90 Days, #90 CAP 3 Refills Fluticasone Propionate (Nasal) (Flonase Allergy Relief) 50 Mcg/Act Spr 2 SPRAY KETTY DAILY PRN for PRN Lactobacillus (Acidophilus) 1 Cap Cap 1 CAP PO DAILY Levothyroxine Sodium (Synthroid) 75 Mcg Tab 75 MCG PO QAM, TAB Lisinopril (Zestril) 40 Mg Tab 40 MG PO DAILY, TAB Methylcellulose (Laxative) (Citrucel Fiber Laxative) 1 Pow Pow 1 TBS PO DAILY PRN for Constipation Polyethylene Glycol 3350 (Miralax) 1 Pow Pow 17 GM PO DAILY PRN for Constipation, #255 GM Warfarin Sod (Coumadin) 2.5 Mg Tab 2.5 MG PO 5XWK, TAB Warfarin Sodium (Coumadin) 1 Mg Tab 1 TAB PO 2XWK for 30 Days, TAB 5 Refills Discontinued Medications: Acetaminophen (Tylenol) 325 Mg Tab 650 MG PO Q8 PRN for Pain, TAB Carvedilol (Coreg) 3.125 Mg Tab 3.125 MG PO BID, TAB Gabapentin (Neurontin) 100 Mg Cap 2 CAP PO QPM, CAP Gabapentin (Neurontin) 300 Mg Cap 300 MG PO QPM, CAP Sertraline (Zoloft) 25 Mg Tab 0.5 TAB PO DAILY, TAB Discharge Exam Review of Systems: Constitutional: No fever, No chills ENT: No hearing loss, No unusual epistaxis, No nasal symptoms, No sore throat Respiratory: No cough, No sputum, No wheezing, No shortness of breath, No dyspnea on exertion Cardiovascular: No chest pain, No orthopnea, No PND, No edema Abdomen: No pain, No nausea, No vomiting, No diarrhea, No constipation Musculoskeletal: No joint pain, No muscle pain, No swelling, No calf pain Genitourinary - Female: No dysuria, No urinary frequency, No urinary urgency , No urinary incontinence Neurologic: No memory loss, No paralysis, No weakness, No numbness/tingling Psychiatric: No depression symptoms, No anhedonism, No anxiety, No insomnia Integumentary: No rash, No itch Physical Exam: General Appearance: WD/WN, no apparent distress Eyes: normal inspection, PERRL, EOMI, sclerae normal Neck: supple, no adenopathy, thyroid normal, no JVD Respiratory/Chest: chest non-tender, lungs clear, normal breath sounds, no respiratory distress Cardiovascular: no edema, no gallop, + bradycardia, + irregularly irregular Abdomen / GI: normal bowel sounds, non tender, soft, no organomegaly, + pertinent finding (ostomy noted) Neurologic/Psychiatric: alert, normal mood/affect, normal reflexes, oriented x 3 Hospital Course 81yo female POD# 10 colostomy formation, Ochoa Pouch, and sigmoid colon resection Pt tolerating regular diet now and supplementing with protein shake Surgery removed drain 09/26/[address] and ostomy care to be continued at [facility] Dysuria 09/27/16 - ?UTI, already on ertapenem, obtain UA and urine cx, PLEASE F/U ON DISCHARGE AT [facility] as concern for resistant infection. A fib with RVR - Still in Afib, rate controlled on cardizem 60mg QID and metoprolol 50mg bid. Cont heparin while awaiting coumadin to become therapeutic. INR therapeutic at 2.2 DC heparin prior to discharge Abdominal sepsis 2nd to #1 - Ecoli MDR and anaerobes - continue IV ertapenem x 10 days End date 09/28/16 H/o stroke - Restarted on coumadin. Daily PTT and INR. Therapeutic on discharge as stated above Hypothyroidism - TSH 02/2016 was compensated; continue synthroid as is. HTN - control is satisfactory at this time with beta faustino and CCB. Chronic diastolic CHF - compensated; cont BB. Remains on bumex. DVT proph - heparin/coumadin. CKD stage 3 - creatinine stable. BMP am. Discharge to [facility] Total Time Spent: Greater than 30 minutes This includes examination of the patient, discharge planning, medication reconciliation, and communication with other providers. Discharge Instructions Please refer to the electronic Patient Visit Report (Discharge Instructions) for additional information. Additional Copies To Kwadwo Cannon D.O.Int.Med.
[2016-09-27] MEDS ORDERED: BUMETANIDE 1 MG TAB PO SCH (17:00)
[2016-09-28] MEDS ORDERED: LISINOPRIL 40 MG TAB PO SCH (09:00)
[2016-09-28] MEDS ORDERED: LACTOBACILLUS ACIDOPHILUS 1 GM PACK PO SCH (09:00)
[2016-10-06] MEDS ORDERED: LPT20 PO (09:38)
[2016-10-06] MEDS ORDERED: CMD4 PO (09:38)
[2016-10-06] MEDS ORDERED: GABA1SOL4 PO (09:38)
[2016-10-06] MEDS ORDERED: CRDCD180 PO (09:38)
[2016-10-06] MEDS ORDERED: ASPEC81 PO (09:38)
[2016-11-22] MEDS ORDERED: CARV3.122 PO (13:53)
[2016-11-22] MEDS ORDERED: BUME1TAB PO (13:53)
== END 2016-09-27 14:46 | DRG 853 ==
LOC: EDBD 01:43 → C.EDB 01:44 → C.MSICU 08:04 → ENRESERV 08:21 → CANRESERV 09-21 10:47 → CANBEDREQ 09-21 11:07 → ENRESERV 09-21 13:41 → C.2T 09-21 14:20
PROVIDERS: ADMIT Internal Medicine; ATTEND Hospitalist
PROC: 0D1N0Z4 Bypass Sigmoid Colon to Cutaneous, Open Approach (ICD-10-PCS; principal; 2016-09-17 10:24)
PROC: 0DBN0ZZ Excision of Sigmoid Colon, Open Approach (ICD-10-PCS; principal; 2016-09-17 10:24)
PROC: 02HV33Z Insertion of Infusion Device into Superior Vena Cava, Percutaneous Approach (ICD-10-PCS; 2016-09-23)
DX: A41.51 Sepsis due to Escherichia coli [E. coli] (principal); R65.21 Severe sepsis with septic shock; K57.20 Diverticulitis of large intestine with perforation and abscess without bleeding; I50.32 Chronic diastolic (congestive) heart failure; B37.0 Candidal stomatitis; I13.0 Hypertensive heart and chronic kidney disease with heart failure and stage 1 through stage 4 chronic kidney disease, or unspecified chronic kidney disease; G93.41 Metabolic encephalopathy; I48.91 Unspecified atrial fibrillation; Z85.89 Personal history of malignant neoplasm of other organs and systems; Z86.73 Personal history of transient ischemic attack (TIA), and cerebral infarction without residual deficits; I49.5 Sick sinus syndrome; N18.3 Chronic kidney disease, stage 3 (moderate); Z79.01 Long term (current) use of anticoagulants; K57.30 Diverticulosis of large intestine without perforation or abscess without bleeding; Z88.0 Allergy status to penicillin; Z88.2 Allergy status to sulfonamides

== ENCOUNTER 2016-10-03 14:19 | Inpatient (IN) | payer OTHER, MEDICARE ==
[~2016-10-03] VITALS: Ht 149.9 cm; Wt 79.0 kg
[~2016-10-03 14:19] MED LIST changes: -ACET-1311 PO; -CARV3.122 PO; +CRD60 PO; -GABA-112 PO; +INVAV1 IV; +MCRK20 PO; +MGNO400 PO; -NRN/300 PO; +RXC5 PO; -SERT25TA PO; +VANC5CAP PO; +ZLF50 PO; +ZNT150 PO
[2016-10-03] MEDS ORDERED: SODIUM CHLORIDE 0.9% 1000ML 1,000 ML IV SCH (14:58)
[2016-10-03 15:39] LABS: BASO ABS # 0.11 K/uL (0-0.2); COMPLETE YES; EOS % 2.7 %; HEMATOCRIT 39.7 % (37-47); IG% 0.7 %; LYMPH % 35.9 %; LYMPH ABS # 4.01 K/uL (1.2-3.4); MEAN CELL VOLUME 93.6 fL (80-100); MEAN CORPUSCULAR HEMOGLOBIN 29.7 pg (25-34); MEAN CORPUSCULAR HGB CONC 31.7 g/dl (32-36); MEAN PLATELET VOLUME 9.4 fL (7.4-10.4); MONO % 15.2 %; NEUT % 44.5 %; PLATELET COUNT 455 K/uL (130-400); RED BLOOD COUNT 4.24 M/uL (4.2-5.4); WHITE BLOOD COUNT 11.17 K/uL (4.8-10.8)
--- NOTE | 2016-10-03 15:47 | DIAGNOSTIC IMAGING REPORT ---
HEAD CT NONCONTRAST CT DOSE: 537.48 mGy.cm HISTORY: Right-sided weakness. Stroke TECHNIQUE: Multiaxial CT images of the head were performed without the use of intravenous contrast. Automated exposure control was utilized for this study. A dose lowering technique was utilized adhering to the principles of ALARA. Comparison: Head CT 10/30/2012. Findings: Postoperative changes within the paranasal sinuses. No fluid levels. The mastoid air cells are clear. The calvarium and skull base are intact. There is no mass, hematoma, midline shift, acute infarct. White matter hypodensity is nonspecific but suggestive of microvascular ischemic change. The ventricles and sulci demonstrate mild age-related involutional changes. Impression: No significant change compared to the prior study. No acute intracranial abnormality. Electronically signed by: Ellis Oquendo M.D. 10/03/2016 3:46 PM Dictated Date/Time: 10/03/2016 3:43 PM
[2016-10-03 16:08] LABS: ALT/SGPT 32 U/L (12-78); AST/SGOT 27 U/L (15-37); BLOOD UREA NITROGEN 62 mg/dl (7-18); BUN/CREATININE RATIO 19.4 (10-20); CALCIUM 10.6 mg/dl (8.5-10.1); CARBON DIOXIDE 29 mmol/L (21-32); CHLORIDE 100 mmol/L (98-107); GLUCOSE 101 mg/dl (70-99); POTASSIUM 4.6 mmol/L (3.5-5.1); SODIUM 139 mmol/L (136-145)
[2016-10-03 16:13] LABS: ALKALINE PHOSPHATASE 121 U/L (45-117)
[2016-10-03] MEDS ORDERED: SODIUM CHLORIDE 0.9% 1000ML 1,000 ML IV STA (16:16)
[2016-10-03 16:25] LABS: INR 1.9 (0.9-1.1); PARTIAL THROMBOPLASTIN RATIO 1.1; PROTHROMBIN TIME (PATIENT) 20.6 SECONDS (9.0-12.0)
[2016-10-03] MEDS ORDERED: FAMO20TA11 PO (17:15)
[2016-10-03] MEDS ORDERED: NF84 PO (17:17)
[2016-10-03] MEDS ORDERED: DILT30TA PO (17:24)
[2016-10-03] MEDS ORDERED: ASPIRIN 81 MG CHEW PO STA (17:24)
[2016-10-03] MEDS ORDERED: SERT25TA PO (17:29)
[2016-10-03] MEDS ORDERED: ACET-1256 PO (17:31)
[2016-10-03] MEDS ORDERED: OXYC1TAB3 PO (17:32)
[2016-10-03] MEDS ORDERED: ERTAPENEM IV 1 GM in SODIUM CHLOR 0.9% AD-VAN 50ML 50 ML IV SCH (18:15)
[2016-10-03] MEDS ORDERED: PHARMACIST DISCHARGE MED REC CONSULT PRN (18:15)
[2016-10-03] MEDS ORDERED: ACETAMINOPHEN 325 MG TAB PO PRN (18:15)
[2016-10-03] MEDS ORDERED: WARFARIN SOD 5 MG TAB PO SCH (18:15)
[2016-10-03] MEDS ORDERED: POLYETHYLENE (MIRALAX) 17 GM PACK PO PRN (18:15)
[2016-10-03] MEDS ORDERED: ONDANSETRON INJ 2 MG/ML 2 ML VIAL IV PRN (18:15)
[2016-10-03] MEDS ORDERED: OXYCODONE HCL IR 5 MG TAB (IMMEDIATE RELEASE) PO PRN (18:15)
[2016-10-03] MEDS ORDERED: ACETAMINOPHEN 500 MG TAB PO PRN (18:15)
[2016-10-03] MEDS ORDERED: DILTIAZEM HCL 30 MG TAB PO ONE (18:30)
[2016-10-03] MEDS ORDERED: IV FLUIDS COMPLETED PRN (19:00)
[2016-10-03] MEDS ORDERED: METOPROLOL TARTRATE 50 MG TAB ONE (19:22)
--- NOTE | 2016-10-03 19:51 | History and Physical ---
History & Physical Date & Time of Service: Oct 03, 2016 at 18:26 Chief Complaint: Rt Sided Weakness / [facility] Primary Care Physician: No Doctor, Assigned History of Present Illness Source: patient, family This is an 81 yo F with PMHx of afib with RVR, recent perforated diverticulitis requiring colostomy and Ochoa pouch, sigmoid colon resection on 09/17/16, now with a wound vac in place, UTI with E.coli recently on ertapenum IV 1 g daily finished on 09/28/16, diastolic CHF, hx of stroke 2011, HTN, hypothyroidism and CKD stage III, hx c. 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 The patient was most recently hospitalized for perforated diverticulitis and subsequent surgical procedures from September 16-Sep 27 and discharged to [facility]. She presents to the ED today, after her son, John Paul, noticed a right sided lower extremity weakness this morning while visiting the patient at [facility]. Currently her other son, Rodríguez, is present at bedside. The patient notes this morning she felt ok, but during her morning physical therapy session felt she was weaker in her R leg. She was unable to turn like the therapist wanted and when. Her son John Paul ( who is an wet machine operator MD) noted that she was unable to hold a spoon or fork for lunch, and actually attempted to eat left handed, although she is right handed due to inability to coordinate movements with the right hand. She appeared more confused to him at that time as well. He notes a clear R sided pronator drift at approximately 12:30, and on recheck an hour later, it seemed to improve. He states the pt never had any cranial nerve deficits. Upon ER evaluation, the patients RLE weakness seemed to resolve, but she was noted to have a bump in her Cr. The patient reports Bumex was stopped this morning. She has a slight right eyelid droop, but states this has been worsening over some time now, and that it seems worse when she is tired. At bedside the pt heart rate fluctuates between 75- 120, is in afib, although she has no symptoms. Her Cr. is elevated at 3.2 up from baseline of 1.3. Her platelets are also elevated at 455. No leukocytosis, afebrile, respirations are 20 on room air. Past Medical/Surgical History Medical Problems: (1) A-fib Status: Chronic (2) Benign hypertension Status: Resolved (3) Tonsillar cancer Status: Resolved afib with RVR UTI with presley-resistant E.coli currently on ertapenum IV 1 g daily diastolic CHF hx of stroke 2011 HTN hypothyroidism CKD stage III perforated diverticulitis requiring surgical intervention Surgical Hx: 09/17/16: Perforated diverticulitis requiring colostomy and Ochoa pouch, sigmoid colon resection on 09/17/16, now with a wound vac in place Social History Smoking Status: Never Smoker Alcohol Use: none Marital Status: single Housing status: other (Currently resides at [facility]) Occupational Status: retired Allergies Coded Allergies: Penicillins (Verified Allergy, Intermediate, HIVES, 09/17/16) Sulfa Antibiotics (Verified Allergy, Intermediate, fever, 09/16/16) Home Medications Scheduled Calcium Carbonate (Calcium Carbonate), 1,250 MG PO BIDM Cholecalciferol (Vitamin D3), 2,000 UNITS PO QAM Diltiazem Hcl (Cardizem), 60 MG PO Q6H Famotidine (Pepcid), 20 MG PO DAILY Levothyroxine Sodium (Synthroid), 75 MCG PO QAM Sertraline (Zoloft), 25 MG PO DAILY Warfarin Sod (Coumadin), 2.5 MG PO DAILY Scheduled PRN Acetaminophen (Tylenol), 500 MG PO Q4H PRN for Pain or Fever Oxycodone Ir (Roxicodone Ir), 5 MG PO Q4H PRN for PAIN # 4-6 Review of Systems Constitutional: + fatigue, No fever, No chills, No sweats Eyes: + problem reported (R eye lid droop), No worsening of vision, No redness Respiratory: No cough, No sputum, No shortness of breath, No dyspnea on exertion Cardiovascular: No chest pain, No orthopnea Abdomen: + problem reported (abdominal wound, wound vac changed this morning), No pain, No nausea, No vomiting, No diarrhea, No constipation Musculoskeletal: No joint pain, No swelling, No calf pain Neurologic: + weakness, + balance problems, No memory loss, No numbness/ tingling, No vertigo Endocrine: + fatigue Integumentary: No rash, No itch Physical Exam Vital Signs Date Time Temp Pulse Resp B/P (MAP) Pulse Ox O2 Delivery O2 Flow Rate FiO2 10/03/16 17:50 99 18 122/69 96 Room Air 10/03/16 15:57 105 20 141/76 94 Room Air 10/03/16 15:04 98 Room Air 10/03/16 14:38 93 10/03/16 14:32 36.7 108 18 128/93 97 Room Air General Appearance: WD/WN, no apparent distress, + obese Head: normocephalic, atraumatic Eyes: PERRL, EOMI, + pertinent finding (R eyelid droop) ENT: hearing grossly normal, pharynx normal Neck: supple, no JVD Respiratory/Chest: lungs clear, no respiratory distress, no accessory muscle use Cardiovascular: regular rate, rhythm, no murmur, normal peripheral pulses Abdomen/GI: normal bowel sounds, soft, no organomegaly, + pertinent finding ( Abdominal wound vac in place, colostomy intact, colored bag so cannot see contents, pt denies blood and was changed by nursing here.) Back: no CVA tenderness Extremities/Musculoskelatal: normal inspection, no calf tenderness, no pedal edema Neurologic/Psych: candy cutter hand II-XII nml as tested, alert, normal reflexes, oriented x 3, + pertinent finding (+ RLE weakness compared to the left, 4/5, Left is 5/5. Bilateral upper extremities rated 5/5 and equal. Pt can perform heel to west testing, finger to nose and rapid alternating movements with her hands. Gait not tested.) Skin: normal color, warm/dry Diagnostics Laboratory Results Results Past 24 Hours Test 10/03/16 15:14 10/03/16 15:17 10/03/16 15:24 10/03/16 16:06 Range/Units Bedside Prothrombin Time INR 2.0 0.9-1.1 Bedside Glucose 100 70-90 mg/dl Sodium Level 139 136-145 mmol/L Potassium Level 4.6 3.5-5.1 mmol/L Chloride Level 100 98-107 mmol/L Carbon Dioxide Level 29 21-32 mmol/L Anion Gap 10.0 3-11 mmol/L Blood Urea Nitrogen 62 7-18 mg/dl Creatinine 3.20 0.60-1.20 mg/dl Est Creatinine Clear Calc Drug Dose 12.5 ml/min Estimated GFR () 14.9 Estimated GFR (Non- 12.8 BUN/Creatinine Ratio 19.4 10-20 Random Glucose 101 70-99 mg/dl Calcium Level 10.6 8.5-10.1 mg/dl Total Bilirubin 0.4 0.2-1 mg/dl Direct Bilirubin 0.1 0-0.2 mg/dl Aspartate Amino Transf (AST/SGOT) 27 15-37 U/L Alanine Aminotransferase (ALT/SGPT) 32 12-78 U/L Alkaline Phosphatase 121 45-117 U/L Total Creatine Kinase 106 26-192 U/L Creatine Kinase MB < 0.5 0.5-3.6 ng/ml Creatine Kinase MB Ratio 0-3.0 Troponin I < 0.015 0-0.045 ng/ml Total Protein 7.2 6.4-8.2 gm/dl Albumin 3.3 3.4-5.0 gm/dl White Blood Count 11.17 4.8-10.8 K/uL Red Blood Count 4.24 4.2-5.4 M/uL Hemoglobin 12.6 12.0-16.0 g/dL Hematocrit 39.7 37-47 % Mean Corpuscular Volume 93.6 80-100 fL Mean Corpuscular Hemoglobin 29.7 25-34 pg Mean Corpuscular Hemoglobin Concent 31.7 32-36 g/dl Platelet Count 455 130-400 K/uL Mean Platelet Volume 9.4 7.4-10.4 fL Neutrophils (%) (Auto) 44.5 % Lymphocytes (%) (Auto) 35.9 % Monocytes (%) (Auto) 15.2 % Eosinophils (%) (Auto) 2.7 % Basophils (%) (Auto) 1.0 % Neutrophils # (Auto) 4.97 1.4-6.5 K/uL Lymphocytes # (Auto) 4.01 1.2-3.4 K/uL Monocytes # (Auto) 1.70 0.11-0.59 K/uL Eosinophils # (Auto) 0.30 0-0.5 K/uL Basophils # (Auto) 0.11 0-0.2 K/uL RDW Standard Deviation 51.6 36.4-46.3 fL RDW Coefficient of Variation 15.3 11.5-14.5 % Immature Granulocyte % (Auto) 0.7 % Immature Granulocyte # (Auto) 0.08 0.00-0.02 K/uL Prothrombin Time 20.6 9.0-12.0 SECONDS Prothromb Time International Ratio 1.9 0.9-1.1 Activated Partial Thromboplast Time 29.5 21.0-31.0 SECONDS Partial Thromboplastin Ratio 1.1 Test 10/03/16 18:13 Range/Units Diagnostic Radiology HEAD CT NONCONTRAST CT DOSE: 537.48 mGy.cm HISTORY: Right-sided weakness. Stroke TECHNIQUE: Multiaxial CT images of the head were performed without the use of intravenous contrast. Automated exposure control was utilized for this study. A dose lowering technique was utilized adhering to the principles of ALARA. Comparison: Head CT 10/30/2012. Findings: Postoperative changes within the paranasal sinuses. No fluid levels. The mastoid air cells are clear. The calvarium and skull base are intact. There is no mass, hematoma, midline shift, acute infarct. White matter hypodensity is nonspecific but suggestive of microvascular ischemic change. The ventricles and sulci demonstrate mild age-related involutional changes. Impression: No significant change compared to the prior study. No acute intracranial abnormality. Electronically signed by: Ellis Oquendo M.D. 10/03/2016 3:46 PM Dictated Date/Time: 10/03/2016 3:43 PM The status of this report is Signed. EKG Vent. rate 95 BPM NH interval * ms QRS duration 130 ms QT/QTc 382/480 ms P-R-T axes * -35 108 Atrial fibrillation Left axis deviation Left bundle branch block Abnormal ECG When compared with ECG of 16-SEP-2016 05:14, Atrial fibrillation has replaced Sinus rhythm Confirmed by ALMAZ ENG MD ([id number]) on 10/03/2016 5:38:14 PM Impression Assessment and Plan 81 yo F w/ PMHx of afib with RVR, recent perforated diverticulitis requiring colostomy and Ochoa pouch, sigmoid colon resection on 09/17/16, now with a wound vac in place, UTI with presley-resistant E.coli currently on ertapenum IV 1 g daily, diastolic CHF, hx of stroke, HTN, hypothyroidism and CKD stage III presenting with right lower extremity weakness and WAYNE. Weakness - Admit to tele for stroke r/o - Neurochecks Q2H x first 4 hours then Q4H after that - Neuro consulted - NPO until speech eval - PT/OT evaluations - Start baby aspirin daily with stroke protocol Diastolic CHF - Appears the patient was on metoprolol 50 mg BID during admission last time, although was not on med rec, will resume now and monitor - HR fluctuating between 80s and high 120s. - holding lisinopril 40 mg - Bumex was discontinued at [facility] this morning. - PT follows with Dr. Edge as an outpatient. Afib with RVR - Will continue cardizem 60 mg Q6H, was initiated during last admission, can likely convert to long acting if stabilizes - Continue coumadin, INR =1.9, will give 5 mg tonight, then continue with 2.5 mg daily. Outpatient regimen alternated between 2.5 mg 5xwk and 1 mg 2xwk - heparin gtt for bridge with slightly subtherapeutic INR. - Follow am ptt/INR Recent perforated diverticulitis with surgical fixation with Ochoa pouch and colostomy with sigmoid colon resection - Wound consulted for wound vac changes, last changed this morning 10/03 - WBC stable, afebrile, no abdominal pain. UTI E.coli infection - Finished ertapenum 1 gram daily on 09/28/13 MATT - May use own CPAP QHS DVT ppx: coumadin, teds, scds, CODE STATUS: FULL CODE Disposition: PT/OT BOB baltazar to assist with discharge planning, from [facility] Level of Care Telemetry Advanced Directives Existing Advance Directive: Yes Existing Living Will: Yes Existing Power of Educational Psychology Teacher: Yes Resuscitation Status FULL RESUSCITATION VTE Prophylaxis VTE Risk Assessment Done? Y/N: Yes Risk Level: Low Given or contraindicated: Warfarin (Coumadin), T.E.D. Stockings, SCD's Reviewed: Pt Seen/Exam by Me History Physician Med Specialist Supervision Note: I interviewed and examined the patient. Discussed with DENVER Eckert and agree with findings and plan as documented in the note. Any exceptions or clarifications are listed here: Patient here with right-sided weakness noted but the patient and her son at [facility] rehabilitation today. She was also noted to be slightly confused as well. She denies headache, denies numbness or tingling or slurred speech. She reports that she definitely feels stronger now that she is in the hospital, but still some residual weakness. She does have a history of paroxysmal atrial fibrillation, and is currently subtherapeutic on her Coumadin. She is also noted to have acute kidney injury upon arrival. Vitals reviewed No acute distress, very pleasant Anicteric sclerae, oropharynx clear, extraocular muscles intact Neck no carotid bruits Regular rate and rhythm no murmurs gallops rubs Lungs clear to auscultation bilaterally, breathing unlabored Abdomen positive bowel sounds soft nontender nondistended, wound VAC in place and colostomy bag with gas and stool inside Extremities no edema Neuro: Cranial nerves II through XII are intact strength is full throughout the upper and lower extremities with exception of 4-5 strength in the right lower extremity throughout, gait is very unsteady ECG, and imaging reviewed personally by me 81-year-old female here with right-sided weakness and acute kidney injury after recent prolonged hospitalization for perforated diverticulitis with colectomy and colostomy and recent IV antibiotic use for multidrug resistant UTI. Suspected acute CVA-head CT negative, we'll check MRI of the brain, MRA of the head, and carotid ultrasound. We'll also check echocardiogram for thrombus -Will bridge with heparin given that her INR is subtherapeutic and she may have had a recent stroke, along with known current atrial fibrillation -Increase Coumadin dose for tonight and follow INR closely, can stop heparin drip when INR this is therapeutic again -Start aspirin 81 mg daily -Appreciate neurology consultation -Continue IV fluids for the acute kidney injury -Check urine sodium and urine creatinine in order to calculate a FENa, check urinalysis and urine eosinophils-she may have acute kidney injury secondary to AIN from recent antibiotic use, versus ATN?-If not improving, consider consultation to nephrology -Check renal ultrasound Documented By: Kimberlee Harris
[2016-10-03] MEDS ORDERED: HEPARIN IV LOW DOSE NO BOLUS SCH (19:56)
[2016-10-03 20:16] VITALS: BP 134/75; PULSE 88; TEMP 37; O2SAT 95; Ht 149.9 cm; Wt 79.0 kg
--- NOTE | 2016-10-03 20:16 | EMERGENCY ROOM VISIT NOTE ---
History Report prepared by Abby: Mariano Henderson Under the Supervision of: Dr. Haseeb Ny D.O. First contact with patient: 14:36 Chief Complaint: WEAKNESS Stated Complaint: RT SIDED WEAKNESS / [facility] History of Present Illness The patient is a 81 year old female who presents to the Emergency Room with complaints of right leg weakness that began this morning, 5 and a half hours ago. She is currently in [facility] for rehabilitation from her recent diverticulitis surgical procedure. While she was in rehab this morning, her right leg buckled underneath her, and the staff at [facility] thought she should be evaluated because of her past medical history of strokes. Per the patient, this is new for her. Her son states that she is mildly confused with finding words. This is abnormal for the patient. She has a history of two strokes and atrial fibrillation. She denies any chest pain, shortness of breath , abdominal pain, nausea, or vomiting. She has an ostomy in place on her left lower abdomen. She states the outputs have been normal. She is having some difficulty remembering the episode of weakness this morning. Her INR was 1.74 yesterday, and a few days ago it was 1.9. Source of History: patient, family Onset: 5.5 hours ago Position: leg (right) Symptom Intensity: mild Quality: other (Weakness) Timing: constant Associated Symptoms: No chest pain, No SOB, No nausea, No vomiting, No abdominal pain, No melena, No hematochezia, No diarrhea Note: She is having some trouble finding words. Review of Systems See HPI for pertinent positives & negatives. A total of 10 systems reviewed and were otherwise negative. Past Medical & Surgical Medical Problems: (1) A-fib (2) Acute diverticulitis (3) Benign hypertension (4) Perforated abdominal viscus (5) RLE weakness (6) Sepsis (7) Tonsillar cancer Surgical Problems: (1) S/P cholecystectomy Family History Omitted secondary to the patient's age. Social History Smoking Status: Former Smoker Smokeless Tobacco Use: No Alcohol Use: none Drug Use: none Marital Status: single Occupation Status: retired Current/Historical Medications Scheduled Calcium Carbonate (Calcium Carbonate), 1,250 MG PO BIDM Cholecalciferol (Vitamin D3), 2,000 UNITS PO QAM Diltiazem Hcl (Cardizem), 60 MG PO Q6H Famotidine (Pepcid), 20 MG PO DAILY Levothyroxine Sodium (Synthroid), 75 MCG PO QAM Sertraline (Zoloft), 25 MG PO DAILY Warfarin Sod (Coumadin), 2.5 MG PO DAILY Scheduled PRN Acetaminophen (Tylenol), 500 MG PO Q4H PRN for Pain or Fever Oxycodone Ir (Roxicodone Ir), 5 MG PO Q4H PRN for PAIN # 4-6 Allergies Coded Allergies: Penicillins (Verified Allergy, Intermediate, HIVES, 09/17/16) Sulfa Antibiotics (Verified Allergy, Intermediate, fever, 09/16/16) Physical Exam Vital Signs Date Time Temp Pulse Resp B/P (MAP) Pulse Ox O2 Delivery O2 Flow Rate FiO2 10/03/16 17:50 99 18 122/69 96 Room Air 10/03/16 15:57 105 20 141/76 94 Room Air 10/03/16 15:04 98 Room Air 10/03/16 14:38 93 10/03/16 14:32 36.7 108 18 128/93 97 Room Air Physical Exam GENERAL: alert, chronically ill appearing, disheveled, well nourished, no distress, non-toxic, sitting up in bed EYE EXAM: normal conjunctiva, PERRL and EOM's intact OROPHARYNX: no exudate, no erythema, lips, buccal mucosa, and tongue normal and mucous membranes are moist NECK: supple, no nuchal rigidity, no adenopathy, non-tender LUNGS: Clear to auscultation. Normal chest wall mechanics HEART: no murmurs, S1 normal and S2 normal ABDOMEN: abdomen soft, non-tender, normo-active bowel sounds, no masses, no rebound or guarding. Ostomy in place in the lower abdomen. Wound vac just right of the ostomy. BACK: Back is symmetrical on inspection and there is no deformity, no midline tenderness, no CVA tenderness. SKIN: no rashes and no bruising UPPER EXTREMITIES: upper extremities are grossly normal. LOWER EXTREMITIES: No pitting edema. NEURO EXAM: Awake, alert, and oriented to person and place but slightly confused of which side her weakness is located. Cranial nerves II-XII grossly intact, normal speech, no weakness of arms, no weakness of legs. No drift. Finger to nose intact. Gross sensation intact. Medical Decision & Procedures ER Provider Diagnostic Interpretation: Radiology results as stated below per my review and the radiologist's interpretation: HEAD CT NONCONTRAST CT DOSE: 537.48 mGy.cm HISTORY: Right-sided weakness. Stroke TECHNIQUE: Multiaxial CT images of the head were performed without the use of intravenous contrast. Automated exposure control was utilized for this study. A dose lowering technique was utilized adhering to the principles of ALARA. Comparison: Head CT 10/30/2012. Findings: Postoperative changes within the paranasal sinuses. No fluid levels. The mastoid air cells are clear. The calvarium and skull base are intact. There is no mass, hematoma, midline shift, acute infarct. White matter hypodensity is nonspecific but suggestive of microvascular ischemic change. The ventricles and sulci demonstrate mild age-related involutional changes. Impression: No significant change compared to the prior study. No acute intracranial abnormality. Electronically signed by: Ellis Oquendo M.D. 10/03/2016 3:46 PM Dictated Date/Time: 10/03/2016 3:43 PM Laboratory Results 10/03/16 15:24 Red Blood Count 4.24, Mean Corpuscular Volume 93.6, Mean Corpuscular Hemoglobin 29.7, Mean Corpuscular Hemoglobin Concent 31.7, Mean Platelet Volume 9.4, Neutrophils (%) (Auto) 44.5, Lymphocytes (%) (Auto) 35.9, Monocytes (%) (Auto) 15.2, Eosinophils (%) (Auto) 2.7, Basophils (%) (Auto) 1.0, Neutrophils # (Auto ) 4.97, Lymphocytes # (Auto) 4.01, Monocytes # (Auto) 1.70, Eosinophils # (Auto ) 0.30, Basophils # (Auto) 0.11 10/03/16 15:17 Test 10/03/16 15:14 10/03/16 15:17 10/03/16 15:24 10/03/16 16:06 Bedside Prothrombin Time INR 2.0 (0.9-1.1) Bedside Glucose 100 mg/dl (70-90) Anion Gap 10.0 mmol/L (3-11) Est Creatinine Clear Calc Drug Dose 12.5 ml/min Estimated GFR () 14.9 Estimated GFR (Non- 12.8 BUN/Creatinine Ratio 19.4 (10-20) Calcium Level 10.6 mg/dl (8.5-10.1) Total Bilirubin 0.4 mg/dl (0.2-1) Direct Bilirubin 0.1 mg/dl (0-0.2) Aspartate Amino Transf (AST/SGOT) 27 U/L (15-37) Alanine Aminotransferase (ALT/SGPT) 32 U/L (12-78) Alkaline Phosphatase 121 U/L (45-117) Total Creatine Kinase 106 U/L (26-192) Creatine Kinase MB < 0.5 ng/ml (0.5-3.6) Creatine Kinase MB Ratio (0-3.0) Troponin I < 0.015 ng/ml (0-0.045) Total Protein 7.2 gm/dl (6.4-8.2) Albumin 3.3 gm/dl (3.4-5.0) White Blood Count 11.17 K/uL (4.8-10.8) Red Blood Count 4.24 M/uL (4.2-5.4) Hemoglobin 12.6 g/dL (12.0-16.0) Hematocrit 39.7 % (37-47) Mean Corpuscular Volume 93.6 fL (80-100) Mean Corpuscular Hemoglobin 29.7 pg (25-34) Mean Corpuscular Hemoglobin Concent 31.7 g/dl (32-36) Platelet Count 455 K/uL (130-400) Mean Platelet Volume 9.4 fL (7.4-10.4) Neutrophils (%) (Auto) 44.5 % Lymphocytes (%) (Auto) 35.9 % Monocytes (%) (Auto) 15.2 % Eosinophils (%) (Auto) 2.7 % Basophils (%) (Auto) 1.0 % Neutrophils # (Auto) 4.97 K/uL (1.4-6.5) Lymphocytes # (Auto) 4.01 K/uL (1.2-3.4) Monocytes # (Auto) 1.70 K/uL (0.11-0.59) Eosinophils # (Auto) 0.30 K/uL (0-0.5) Basophils # (Auto) 0.11 K/uL (0-0.2) RDW Standard Deviation 51.6 fL (36.4-46.3) RDW Coefficient of Variation 15.3 % (11.5-14.5) Immature Granulocyte % (Auto) 0.7 % Immature Granulocyte # (Auto) 0.08 K/uL (0.00-0.02) Prothrombin Time 20.6 SECONDS (9.0-12.0) Prothromb Time International Ratio 1.9 (0.9-1.1) Activated Partial Thromboplast Time 29.5 SECONDS (21.0-31.0) Partial Thromboplastin Ratio 1.1 Laboratory results per my review. Medications Administered Medications (Trade) Dose Ordered Sig/Mazin Route Start Time Stop Time Status Last Admin Dose Admin Sodium Chloride 1,000 ml @ 50 mls/hr Q20H IV 10/03/16 14:58 10/03/16 19:58 DC 10/03/16 14:58 50 MLS/HR Sodium Chloride 1,000 ml @ 999 mls/hr Q1H1M STAT IV 10/03/16 16:16 10/03/16 17:16 DC 10/03/16 16:18 999 MLS/HR Aspirin (Aspirin Chew) 81 mg NOW STAT PO 10/03/16 17:24 10/03/16 17:25 DC 10/03/16 17:49 81 MG ECG Indication: weakness Rate (beats per minute): 95 Rhythm: atrial fibrillation Findings: LBBB, left axis deviation ED Course ED COURSE: Vital signs were reviewed and showed tachycardia with one occurrence of situational hypertension. The patients medical record was reviewed The above diagnostic studies were performed and reviewed. ED treatments and interventions as stated above. 1438: The patient was evaluated in room A10. A complete history and physical examination was performed. 1458: Ordered Sodium Chloride 1000 ml @ 50 mls/hr IV 1616: Ordered Sodium Chloride 1000 ml @ 999 mls/hr IV 1724: Ordered Aspirin 81 mg PO 1726: Upon reevaluation, the patient is resting. I discussed my findings with the patient and she understands and agrees with the treatment plan. Based on the patients age, coexisting illnesses, exam and lab findings the decision to treat as an inpatient was made. The patient remained stable while under my care. The patient will be [place]. [place] [facility] [place]. Medical Decision Differential Diagnosis includes but is not limited to ischemic Stroke, hemorrhagic stroke, bells palsy, mass, neoplasm, migraine headache, seizure, subarachnoid hemorrhage, TIA, and transient global amnesia. Patient is an 81-year-old female who presents the ER for weakness in the right lower extremity which started around 9 AM this morning. She is a poor historian has never what side it occurred on. Son who is a doctor evaluated her around 12 PM and noticed drift and right lower extremity weakness. He consequently brought her here. CBC was unremarkable. BMP was remarkable for a creatinine of 3.2 she is increased from baseline of 1. LFTs troponin and bilirubin was unremarkable. INR was slightly subtherapeutic at 1.9. EKG was A. fib. Patient and family were updated at bedside. CT was negative. Patient was admitted to internal medicine for possible TIA and WAYNE. Medication Reconcilliation Current Medication List: was personally reviewed by me Blood Pressure Screening Patient's blood pressure: Elevated blood pressure Blood pressure disposition: Elevated BP felt to be situational Consults Time Called: 1720 Consulting Physician: Dr. [place] [facility] [place] Returned Call: 1722 I reviewed the patient's case with her. She will evaluate the patient for further management. Impression Primary Impression: WAYNE (acute kidney injury) Additional Impression: TIA (transient ischemic attack) Scribe Attestation The scribe's documentation has been prepared under my direction and personally reviewed by me in its entirety. I confirm that the note above accurately reflects all work, treatment, procedures, and medical decision making performed by me. Departure Information Dispostion Being Evaluated By Hospitalist Referrals Kwadwo Cannon D.O.Int.Med. (PCP) Patient Instructions My [facility] Problem Qualifiers Additional Impression: TIA (transient ischemic attack) Transient cerebral ischemia type: unspecified Qualified Codes: G45.9 - Transient cerebral ischemic attack, unspecified
[2016-10-03] MEDS: SODIUM CHLORIDE 0.9% 1000ML 1,000 ML IV SCH (21:11)
[2016-10-03] MEDS ORDERED: HEPARIN BOLUS IV ONE (21:30)
[2016-10-03] MEDS: HEPARIN 25,000 UNIT/500ML D5W 500 ML IV PRN (21:55)
[2016-10-03] MEDS: DILTIAZEM HCL 60 MG TAB PO SCH (23:58)
[2016-10-04] VITALS (8 sets, daily range): BP systolic 99–149; BP diastolic 63–82; PULSE 69–91; TEMP 36.2–36.9; O2SAT 94–97
[2016-10-04 03:54] LABS: BASO % 0.9 %; BASO ABS # 0.08 K/uL (0-0.2); COMPLETE YES; EOS % 4.8 %; HEMATOCRIT 36.2 % (37-47); IG% 0.8 %; LYMPH % 41.3 %; MEAN CELL VOLUME 92.6 fL (80-100); MEAN CORPUSCULAR HEMOGLOBIN 30.7 pg (25-34); MEAN CORPUSCULAR HGB CONC 33.1 g/dl (32-36); MEAN PLATELET VOLUME 9.4 fL (7.4-10.4); MONO % 12.8 %; NEUT % 39.4 %; PLATELET COUNT 394 K/uL (130-400); RED BLOOD COUNT 3.91 M/uL (4.2-5.4); WHITE BLOOD COUNT 8.96 K/uL (4.8-10.8)
[2016-10-04 03:55] LABS: MANUAL MICROSCOPIC REQUIRED? NO; REVIEW REQ? NO; URINE APPEARANCE CLEAR (CLEAR); URINE BILIRUBIN NEG (NEG); URINE COLOR YELLOW; URINE EPITHELIAL CELL AUTO 20-30 /lpf (0-5); URINE NITRITE NEG (NEG); URINE PH 7.5 (4.5-7.5); URINE SPECIFIC GRAVITY 1.016 (1.000-1.030); UROBILINOGEN NEG (NEG)
[2016-10-04 04:05] LABS: PARTIAL THROMBOPLASTIN RATIO 1.6; PROTHROMBIN TIME (PATIENT) 22.5 SECONDS (9.0-12.0)
[2016-10-04 04:13] LABS: BUN/CREATININE RATIO 20.6 (10-20); CALCIUM 9.4 mg/dl (8.5-10.1); CREATININE 2.5 mg/dl (0.60-1.20); POTASSIUM 4.1 mmol/L (3.5-5.1)
[2016-10-04 04:18] LABS: CHOLESTEROL/HDL RATIO 6.7
[2016-10-04] MEDS ORDERED: HEPARIN IV BOLUS 2,000 UNIT in SYRINGE 0 ML IV ONE (05:15)
[2016-10-04] MEDS: SODIUM CHLORIDE 0.9% 1000ML 1,000 ML IV SCH ×2 (05:40→16:40)
[2016-10-04] MEDS: HEPARIN 25,000 UNIT/500ML D5W 500 ML IV PRN (05:40)
[2016-10-04] MEDS: DILTIAZEM HCL 60 MG TAB PO SCH ×3 (05:44→18:42)
[2016-10-04] MEDS: LEVOTHYROXINE 75 MCG TAB PO SCH (05:44)
[2016-10-04 06:09] LABS: ESTIMATED AVERAGE GLUCOSE 117 mg/dl; HA1C FLAG Normal (Normal)
--- NOTE | 2016-10-04 08:35 | DIAGNOSTIC IMAGING REPORT ---
(RENAL)RETROPERITON COMP CLINICAL HISTORY: 81 years-old Female presenting with Acute kidney injury. TECHNIQUE: Real-time grayscale and limited color Doppler ultrasound imaging of the kidneys and bladder was performed. COMPARISON: 02/26/2013. FINDINGS: Right kidney: Mildly increased echogenicity. Right kidney measures 10.1 cm. No hydronephrosis. No convincing evidence of calculus or mass. Normal perfusion. Left kidney: Mildly increased echogenicity. Left kidney measures 10.1 cm. No hydronephrosis. No convincing evidence of calculus or mass. Normal perfusion. Bladder: No bladder wall thickening. Ureteral jets not visualized. Other: None. IMPRESSION: 1. Mildly increased echogenicity of the renal parenchyma suggestive of medical renal disease. No obstruction. Electronically signed by: Conor Mojica M.D. 10/04/2016 8:34 AM Dictated Date/Time: 10/04/2016 8:33 AM
--- NOTE | 2016-10-04 08:46 | DIAGNOSTIC IMAGING REPORT ---
ULTRASOUND OF THE CAROTID ARTERIES CLINICAL HISTORY: Right-sided weakness. COMPARISON STUDY: No priors. TECHNIQUE: Real-time, grayscale, and color Doppler sonography of the carotid arteries is performed. Images are reviewed in the transverse and longitudinal planes. FINDINGS: Blood pressures were not assessed due to limb restrictions. The carotid arteries are patent bilaterally and demonstrate antegrade flow. There is mild atherosclerotic plaque seen. Normal doppler arterial waveforms are seen throughout. The cardiac pulsations appear irregular. Velocity measurements are listed below. Common carotid peak systolic velocity (cm/sec): RIGHT: 71 LEFT: 62 ICA proximal peak systolic velocity (cm/sec): RIGHT: 104 LEFT: 149 ICA mid peak systolic velocity (cm/sec): RIGHT: 103 LEFT: 135 ICA distal peak systolic velocity (cm/sec): RIGHT: 96 LEFT: 104 ICA/CC peak systolic ratio: RIGHT: 1.5 LEFT: 2.4 Antegrade flow was shown in the vertebral arteries. The external carotid arteries are patent. IMPRESSION: 1. There is evidence of 50-69% stenosis at the origin of the left internal carotid artery by velocity criteria. 2. There is no sonographic evidence of hemodynamically significant stenosis in the right carotid arterial system. 3. Antegrade flow is shown in the vertebral arteries. 4. The cardiac pulsations appear irregular. Correlate clinically and with EKG for evidence of arrhythmia. Electronically signed by: Inocencio Rivera M.D. 10/04/2016 8:45 AM Dictated Date/Time: 10/04/2016 8:28 AM
[2016-10-04] MEDS ORDERED: METOPROLOL TARTRATE 50 MG TAB PO SCH ×2 (09:00)
--- NOTE | 2016-10-04 09:28 | Neurology Consultation ---
Neurology Consultation Date of Consultation: Oct 04, 2016. Attending Physician: Kimberlee Harris MD Primary Care Physician: No Doctor, Assigned Reason for Consultation: Possible stroke History of Present Illness Source: patient, hospital records The patient is an 81-year-old right-handed female who was noted to have some right-sided weakness yesterday morning while participating in rehabilitation at [facility]. Her right leg apparently had buckle beneath her and she has some associated difficulty using the right hand and was felt to be slightly confused. The symptoms had largely improved by the time she was evaluated in the emergency department approximately 5 hours later. Past medical history is notable for atrial fibrillation for which the patient is prescribed warfarin. Her INR was slightly subtherapeutic, 1.9, initially. Electrocardiogram revealed atrial fibrillation. I reviewed the images and radiologist's interpretation of the CT of the head completed in the emergency department. There is no evidence of hemorrhage or acute process. There is evidence of chronic microvascular disease and age-related involutional change. A carotid ultrasound reveals a 50- 69% stenosis of the left internal carotid artery. Currently, the patient complains of feeling somewhat nauseous. She denies headache. She believes that her strength has returned to baseline, however. Past Medical/Surgical History Medical Problems: (1) WAYNE (acute kidney injury) Status: Acute (2) Diverticulitis Status: Acute (3) Diverticulitis of intestine with perforation Status: Acute (4) Left lower quadrant pain Status: Acute (5) TIA (transient ischemic attack) Status: Acute Family History Noncontributory given patient's age as well as character/type of presenting illness Social History Smoking Status: Former smoker Smokeless Tobacco Use: No Alcohol Use: none Drug Use: none Marital Status: single Occupation Status: retired Allergies Coded Allergies: Penicillins (Verified Allergy, Intermediate, HIVES, 09/17/16) Sulfa Antibiotics (Verified Allergy, Intermediate, fever, 09/16/16) Current Inpatient Medications Current Inpatient Medications Medications (Trade) Dose Ordered Sig/Mazin Route Start Time Stop Time Status Last Admin Dose Admin Aspirin (Ecotrin Tab) 81 mg QAM PO 10/04/16 09:00 11/03/16 08:59 Miscellaneous Information (Pharmacist Discharge Med Rec Consult) 1 ea UD PRN N/A 10/03/16 18:15 11/02/16 18:14 Acetaminophen (Tylenol Tab) 650 mg Q4H PRN PO 10/03/16 18:15 11/02/16 18:14 Ondansetron HCl (Zofran Inj) 4 mg Q6H PRN IV 10/03/16 18:15 11/02/16 18:14 Polyethylene (Miralax Powder Packet) 17 gm DAILY PRN PO 10/03/16 18:15 11/02/16 18:14 Diltiazem HCl (Cardizem Tab) 60 mg Q6 PO 10/04/16 00:00 11/03/16 00:00 10/04/16 05:44 60 MG Famotidine (Pepcid Tab) 20 mg DAILY PO 10/04/16 09:00 11/03/16 08:59 Levothyroxine Sodium (Synthroid Tab) 75 mcg DAILYBB PO 10/04/16 06:30 11/03/16 06:59 10/04/16 05:44 75 MCG Oxycodone HCl (Roxicodone Immediate Rel Tab) 5 mg Q4H PRN PO 10/03/16 18:15 10/17/16 18:14 Sertraline HCl (Zoloft Tab) 25 mg DAILY PO 10/04/16 09:00 11/03/16 08:59 Calcium Carbonate (oS-Jonathon 500 TAB) 1,250 mg BIDM PO 10/04/16 08:00 11/03/16 07:59 Cholecalciferol (Vitamin D Tab) 2,000 inter.unit DAILY PO 10/04/16 09:00 11/03/16 08:59 Miscellaneous (Iv Fluids Completed) 1 ea PRN PRN N/A 10/03/16 19:00 10/03/17 18:59 Sodium Chloride 1,000 ml @ 100 mls/hr Q10H IV 10/03/16 20:00 11/02/16 19:59 10/04/16 05:40 100 MLS/HR Warfarin Sodium (Coumadin Tab) 2.5 mg DAILY@16 PO 10/04/16 16:00 11/02/16 18:14 Metoprolol Tartrate (Lopressor Tab) 25 mg BID PO 10/04/16 09:00 11/03/16 08:59 Review of Systems Constitutional: No fever or chills although patient indicates that she feels generally unwell Eyes: No vision loss or diplopia ENT: No vertigo Cardiovascular: No chest pain or palpitations Neurological: As per history of present illness A full 10 point review of systems was obtained from this patient with pertinent positives and negatives described in the history of present illness with additional details listed above. All remaining systems reviewed and are negative. Physical Exam Vital Signs (Past 24 Hrs): Date Time Temp Pulse Resp B/P (MAP) Pulse Ox O2 Delivery O2 Flow Rate FiO2 10/04/16 07:38 Room Air 10/04/16 07:36 36.6 81 18 101/69 (80) 95 Room Air 10/04/16 04:00 36.7 69 20 101/64 (76) 94 CPAP 10/04/16 04:00 CPAP 10/04/16 00:16 36.9 76 18 128/70 (89) 95 CPAP 10/04/16 00:01 CPAP 10/03/16 20:16 37.0 88 18 134/75 95 Room Air 10/03/16 19:26 36.7 100 18 130/99 95 10/03/16 19:11 100 18 130/99 95 10/03/16 17:50 99 18 122/69 96 Room Air 10/03/16 15:57 105 20 141/76 94 Room Air 10/03/16 15:04 98 Room Air 10/03/16 14:38 93 10/03/16 14:32 36.7 108 18 128/93 97 Room Air The patient is a well-developed elderly female. She appears mildly uncomfortable. She is alert and oriented to person place and time. Recent and remote memory intact. Attention and concentration normal. She is able to name objects, repeat phrases, and read text. She exhibits an age-appropriate fund of knowledge and normal vocabulary. Visual smith full to confrontation. Visual acuity normal. Pupils equal round reactive to light and accommodation. Eye movements normal. There is no nystagmus. Facial sensation intact. There is mild flattening of the right nasolabial fold. Hearing intact. Palate elevates to midline. Shoulder shrug intact. Tongue protrudes to midline. Sensation intact to temperature, light touch, vibration, and proprioception for the arms and legs. Deep tendon reflexes are normoactive and symmetric for the arms and legs. Plantar responses downgoing. There is no dysmetria with finger to nose bilaterally. There is perhaps very slight dysmetria with heel to west for the right lower limb but not the left. Ophthalmoscopic examination reveals normal- appearing optic disks and posterior segments. No papilledema or hemorrhages. Carotid pulses normal to auscultation bilaterally, no bruits. Gait and station not tested due to safety concerns. There is normal strength and tone for the arms and legs bilaterally. No atrophy. No abnormal movements observed. Laboratory Results Past 24 Hours: 10/04/16 03:32 Red Blood Count 3.91, Mean Corpuscular Volume 92.6, Mean Corpuscular Hemoglobin 30.7, Mean Corpuscular Hemoglobin Concent 33.1, Mean Platelet Volume 9.4, Neutrophils (%) (Auto) 39.4, Lymphocytes (%) (Auto) 41.3, Monocytes (%) (Auto) 12.8, Eosinophils (%) (Auto) 4.8, Basophils (%) (Auto) 0.9, Neutrophils # (Auto ) 3.53, Lymphocytes # (Auto) 3.70, Monocytes # (Auto) 1.15, Eosinophils # (Auto ) 0.43, Basophils # (Auto) 0.08 10/04/16 03:32 Test 10/03/16 15:14 10/03/16 15:17 10/03/16 15:24 10/04/16 00:00 Bedside Prothrombin Time INR 2.0 (0.9-1.1) Bedside Glucose 100 mg/dl (70-90) Total Bilirubin 0.4 mg/dl (0.2-1) Direct Bilirubin 0.1 mg/dl (0-0.2) Aspartate Amino Transf (AST/SGOT) 27 U/L (15-37) Alanine Aminotransferase (ALT/SGPT) 32 U/L (12-78) Alkaline Phosphatase 121 U/L (45-117) Total Creatine Kinase 106 U/L (26-192) Creatine Kinase MB < 0.5 ng/ml (0.5-3.6) Creatine Kinase MB Ratio (0-3.0) Total Protein 7.2 gm/dl (6.4-8.2) Albumin 3.3 gm/dl (3.4-5.0) Estimated Average Glucose 117 mg/dl Hemoglobin A1c 5.7 % (4.5-5.6) Urine Color YELLOW Urine Appearance CLEAR (CLEAR) Urine pH 7.5 (4.5-7.5) Urine Specific [place] 1.016 (1.000-1.030) Urine Protein NEG (NEG) Urine Glucose (UA) NEG (NEG) Urine Ketones NEG (NEG) Urine Occult Blood NEG (NEG) Urine Nitrite NEG (NEG) Urine Bilirubin NEG (NEG) Urine Urobilinogen NEG (NEG) Urine Leukocyte Esterase NEG (NEG) Urine WBC (Auto) 1-5 /hpf (0-5) Urine RBC (Auto) 0-4 /hpf (0-4) Urine Hyaline Casts (Auto) 1-5 /lpf (0-5) Urine Epithelial Cells (Auto) 20-30 /lpf (0-5) Urine Bacteria (Auto) NEG (NEG) Urine Random Creatinine 110.0 mg/dl Urine Random Sodium 67 mEq/L Test 10/04/16 03:32 White Blood Count 8.96 K/uL (4.8-10.8) Red Blood Count 3.91 M/uL (4.2-5.4) Hemoglobin 12.0 g/dL (12.0-16.0) Hematocrit 36.2 % (37-47) Mean Corpuscular Volume 92.6 fL (80-100) Mean Corpuscular Hemoglobin 30.7 pg (25-34) Mean Corpuscular Hemoglobin Concent 33.1 g/dl (32-36) Platelet Count 394 K/uL (130-400) Mean Platelet Volume 9.4 fL (7.4-10.4) Neutrophils (%) (Auto) 39.4 % Lymphocytes (%) (Auto) 41.3 % Monocytes (%) (Auto) 12.8 % Eosinophils (%) (Auto) 4.8 % Basophils (%) (Auto) 0.9 % Neutrophils # (Auto) 3.53 K/uL (1.4-6.5) Lymphocytes # (Auto) 3.70 K/uL (1.2-3.4) Monocytes # (Auto) 1.15 K/uL (0.11-0.59) Eosinophils # (Auto) 0.43 K/uL (0-0.5) Basophils # (Auto) 0.08 K/uL (0-0.2) RDW Standard Deviation 51.0 fL (36.4-46.3) RDW Coefficient of Variation 15.1 % (11.5-14.5) Immature Granulocyte % (Auto) 0.8 % Immature Granulocyte # (Auto) 0.07 K/uL (0.00-0.02) Prothrombin Time 22.5 SECONDS (9.0-12.0) Prothromb Time International Ratio 2.0 (0.9-1.1) Activated Partial Thromboplast Time 41.2 SECONDS (21.0-31.0) Partial Thromboplastin Ratio 1.6 Anion Gap 10.0 mmol/L (3-11) Est Creatinine Clear Calc Drug Dose 15.7 ml/min Estimated GFR () 20.1 Estimated GFR (Non- 17.3 BUN/Creatinine Ratio 20.6 (10-20) Calcium Level 9.4 mg/dl (8.5-10.1) Troponin I 0.024 ng/ml (0-0.045) Triglycerides Level 262 mg/dl (0-150) Cholesterol Level 229 mg/dl (0-200) HDL Cholesterol 34 mg/dl LDL Cholesterol, Calculated 143 mg/dl VLDL Cholesterol, Calculated 52 mg/dl Cholesterol/HDL Ratio 6.7 Date/Time Source Procedure Growth Status 10/03/16 20:20 Nasal MRSA DNA Surveillance Screen - Final Specimen Negative for MRSA by DNA Probe Complete Impression Suspected TIA localizing to the left cerebral hemisphere. However, a small ischemic stroke cannot be excluded at this time. Suspect cardioembolic etiology. Moderate stenosis of the left internal carotid artery of uncertain significance at this time. Plan In addition to the MRI and MRA of the brain as ordered, I would like this patient have an MRA of the neck. Continue with anticoagulation. Continue with aspirin 81 mg per day. PT/OT/speech therapy. Please contact me if I may be of further assistance.
[2016-10-04 11:01] LABS: PARTIAL THROMBOPLASTIN RATIO 1.6
[2016-10-04] MEDS: CALCIUM CARBONATE 1250MG TAB PO SCH ×2 (11:58→16:44)
[2016-10-04] MEDS: CHOLECALCIFEROL 1000 INTER.UNIT TAB PO SCH (11:58)
[2016-10-04] MEDS: FAMOTIDINE 20 MG TAB PO SCH (11:58)
[2016-10-04] MEDS: ASPIRIN 81 MG ECTAB PO SCH (11:58)
[2016-10-04] MEDS: SERTRALINE HCL 50 MG TAB PO SCH (11:58)
--- NOTE | 2016-10-04 13:51 | DIAGNOSTIC IMAGING REPORT ---
MR ANGIOGRAPHY OF THE [place]ILOT ST[place] OF [place] NO CONTRAST CLINICAL HISTORY: Stroke, right-sided weakness. COMPARISON STUDY: CT scan of the head dated 10/03/2016 A 3-D [id number] MR angiographic sequence of the [place] was performed. Both the source and projection images were reviewed. There is no evidence of major intracranial branch occlusion. There is no evidence of intracranial stenosis. There are no lesions suspicious for aneurysm. IMPRESSION: Unremarkable MR angiography of the [place] of [place]. Electronically signed by: Chang Rascon M.D. 10/04/2016 1:50 PM Dictated Date/Time: 10/04/2016 1:48 PM
--- NOTE | 2016-10-04 13:58 | DIAGNOSTIC IMAGING REPORT ---
NECK MRA HISTORY: Right-sided weakness. TIA, left carotid stenosis TECHNIQUE: [id number] MRA of the neck was performed without intravenous contrast. All measurements were calculated based on NASCET criteria. COMPARISON STUDY: Carotid Doppler 10/04/2016. FINDINGS: The aortic arch and proximal great vessels are widely patent. No significant stenosis or occlusion within the common carotid or vertebral arteries. Atherosclerotic plaque within the bilateral carotid bulbs. This results in approximately 50-60% stenosis within the proximal bilateral internal carotid arteries IMPRESSION: Approximately 50-60% stenosis within the proximal bilateral internal carotid arteries. The common carotid and vertebral arteries appear patent. Electronically signed by: Ellis Oquendo M.D. 10/04/2016 1:57 PM Dictated Date/Time: 10/04/2016 1:52 PM
--- NOTE | 2016-10-04 14:01 | DIAGNOSTIC IMAGING REPORT ---
BRAIN WITHOUT CONTRAST CLINICAL HISTORY: 81 years-old Female presenting with Stroke. TECHNIQUE: Multisequence, multiplanar MR imaging of the brain was performed without the use of intravenous contrast. IV contrast: None. COMPARISON: CT head performed the previous day. FINDINGS: Ventricles and sulci normal in size. Multiple small foci of restricted diffusion scattered throughout the the left parieto-occipital region, consistent with infarcts, the distribution suggesting emboli. Focal volume loss and T2 hyperintensity in the paramedian right occipital lobe inferiorly consistent with chronic infarct. Subcortical white matter T2/FLAIR hyperintensity nonspecific but likely chronic small vessel ischemic change. No mass effect or midline shift. No hemorrhage. No extra-axial fluid collection. T2 skull base flow voids preserved. Mild mucosal thickening in the left maxillary sinus with evidence of bilateral maxillary antrostomies. Absence of the bilateral [place] lenses of the globes. IMPRESSION: 1. Multiple small foci of ischemia in the left parieto-occipital region likely within the left posterior cerebral artery territory. The distribution is most likely reflective of embolic infarcts. 2. Chronic right subdural infarct. Electronically signed by: Conor Mojica M.D. 10/04/2016 2:00 PM Dictated Date/Time: 10/04/2016 1:54 PM
[2016-10-04] MEDS ORDERED: WARFARIN SOD 2.5 MG TAB PO SCH (16:00)
--- NOTE | 2016-10-04 18:46 | ECHOCARDIOGRAM REPORT ---
*NOTICE TO RECEIVING CONSTITUTION PARTY AGENCY This information is strictly Confidential and protected under [place] law. [place] law prohibits you from making any further disclosure of this information unless further disclosure is expressly permitted by the written consent of the person to whom it pertains or is authorized by law. A general authorization for the release of medical or other information is not sufficient for this purpose. Hospital accepts no responsibility if the information is made available to any other person, INCLUDING THE PATIENT. Interpretation Summary * Name: LUIS EDUARDO JAEGER Study Date: 10/04/2016 09:36 AM BP: 101/69 mmHg * Patient Location: [facility] HR: 92 * : 1935 (M/d/yyyy) Gender: Female Height: 60 in * Age: 81 yrs Ethnicity: [place] Weight: 172 lb * Ordering Physician: Annetta Eckert * Referring Physician: Wilfrid Hughes * Performed By: Franchesca Alvarado RCS * * Reason For Study: A-Fib * BSA: 1.8 m2 * Normal biventricular systolic function. * Normal chamber dimensions. * Trace tricuspid and pulmonic regurgitation. * -- Conclusions -- * Aortic valve sclerosis mild, without significant aortic valvular stenosis. Procedure Details * Left Ventricle The left ventricle is normal in size. There is normal left ventricular wall thickness. Ejection Fraction = 60-65%. Left ventricular systolic function is normal. The left ventricular wall motion is normal. * Right Ventricle The right ventricle is normal in size and function. * Atria The left atrial size is normal. Right atrial size is normal. There is no evidence of atrial septal defect, but resolution does not allow assessment for a patent foramen ovale. * Mitral Valve There is moderate mitral annular calcification. Mitral stenosis is absent. There is no mitral regurgitation noted. * Tricuspid Valve The tricuspid valve is normal. There is no tricuspid stenosis. There is trace tricuspid regurgitation. Right ventricular systolic pressure is normal. * Aortic Valve The aortic valve is trileaflet. The aortic valve opens well. Aortic valve sclerosis mild, without significant aortic valvular stenosis. Aortic stenosis is absent. No aortic regurgitation is present. * Pulmonic Valve The pulmonic valve is not well visualized. The pulmonary valve is inadequately visualized, but the Doppler data is adequate for interpretation. There is no pulmonic valvular stenosis. Trace pulmonic valvular regurgitation. * Great Vessels The aortic root is normal size. * Pericardium/Pleural There is no pericardial effusion. * Great Vessels Inferior vena cava not imaged * * MMode 2D Measurements and Calculations * IVSd 0.90 cm * * LVIDd 4.3 cm * LVIDs 2.6 cm * LVPWd 0.85 cm * * IVS/LVPW 1.1 * FS 38.4 % * EDV(Teich) 82.3 ml * ESV(Teich) 25.6 ml * EF(Teich) 68.9 % * * EDV(cubed) 78.6 ml * ESV(cubed) 18.4 ml * EF(cubed) 76.6 % * * LV mass(C)d 117.8 grams * LV mass(C)dI 67.3 grams/m\S\2 * * SV(Teich) 56.7 ml * SI(Teich) 32.4 ml/m\S\2 * SV(cubed) 60.2 ml * SI(cubed) 34.4 ml/m\S\2 * * Ao root diam 2.8 cm * Ao root area 6.0 cm\S\2 * LA dimension 3.8 cm * * LA/Ao 1.4 * LVOT diam 2.0 cm * LVOT area 3.1 cm\S\2 * * LVAd ap4 24.5 cm\S\2 * LVLd ap4 7.4 cm * EDV(MOD-sp4) 65.8 ml * EDV(sp4-el) 68.6 ml * LVAs ap4 11.4 cm\S\2 * LVLs ap4 5.5 cm * ESV(MOD-sp4) 21.2 ml * ESV(sp4-el) 19.7 ml * EF(MOD-sp4) 67.8 % * EF(sp4-el) 71.2 % * * LVAd ap2 22.7 cm\S\2 * LVLd ap2 7.1 cm * EDV(MOD-sp2) 60.8 ml * EDV(sp2-el) 61.5 ml * LVAs ap2 11.7 cm\S\2 * LVLs ap2 5.2 cm * ESV(MOD-sp2) 22.9 ml * ESV(sp2-el) 22.4 ml * EF(MOD-sp2) 62.4 % * EF(sp2-el) 63.6 % * * LVLd %diff -3.60 % * EDV(MOD-bp) 65.2 ml * LVLs %diff -5.97 % * ESV(MOD-bp) 22.5 ml * EF(MOD-bp) 65.5 % * * SV(MOD-sp4) 44.6 ml * SI(MOD-sp4) 25.5 ml/m\S\2 * * SV(MOD-sp2) 38.0 ml * SI(MOD-sp2) 21.7 ml/m\S\2 * * SV(MOD-bp) 42.7 ml * SI(MOD-bp) 24.4 ml/m\S\2 * * SV(sp4-el) 48.9 ml * SI(sp4-el) 27.9 ml/m\S\2 * * SV(sp2-el) 39.1 ml * SI(sp2-el) 22.4 ml/m\S\2 * * * Doppler Measurements and Calculations * Ao V2 max 133.5 cm/sec * Ao max PG 7.1 mmHg * Ao max PG (full) 3.7 mmHg * EFRA(V,A) 2.1 cm\S\2 * EFRA(V,D) 2.1 cm\S\2 * * LV V1 max PG 3.5 mmHg * * LV V1 max 92.7 cm/sec * * TR max radha 232.5 cm/sec * *
[2016-10-05] VITALS (7 sets, daily range): BP systolic 120–161; BP diastolic 64–77; PULSE 71–91; TEMP 36.2–36.7; O2SAT 94–97
[2016-10-05] MEDS: DILTIAZEM HCL 60 MG TAB PO SCH ×5 (00:07→23:26)
--- NOTE | 2016-10-05 00:07 | Hospitalist Progress Note ---
Hospitalist Progress Note Date of Service Oct 04, 2016. Subjective Pt evaluation today including: conversation w/ patient, conversation w/ family , physical exam, conversation w/ data center consultant (Neurology), review of inpatient medication list Pt feeling stronger today, no further confusion. Reviewed all her results at length and discussed treatment plan with pt and her son who is a MD. She thinks she was on a statin at some point in the past briefly, perhaps atorvastatin, but doesn't remember why she stopped it. I reviewed her outpatient record and cannot find evidence of this, [place]. All Other Systems: Reviewed and Negative Objective Vital Signs Tele with A-fib, some occasional osman to the 40s, a couple 2-3 second pauses last night. Date Time Temp Pulse Resp B/P (MAP) Pulse Ox O2 Delivery O2 Flow Rate FiO2 10/04/16 15: 36.3 80 20 99/63 (75) 96 Room Air 10/04/16 12:30 Room Air 10/04/16 11:58 87 96 10/04/16 11:53 36.4 91 18 147/76 (99) 97 Room Air 10/04/16 07:38 Room Air 10/04/16 07:36 36.6 81 18 101/69 (80) 95 Room Air 10/04/16 04:00 36.7 69 20 101/64 (76) 94 CPAP 10/04/16 04:00 CPAP 10/04/16 00:16 36.9 76 18 128/70 (89) 95 CPAP 10/04/16 00:01 CPAP 10/03/16 20:16 37.0 88 18 134/75 95 Room Air 10/03/16 19:26 36.7 100 18 130/99 95 10/03/16 19:11 100 18 130/99 95 10/03/16 17:50 99 18 122/69 96 Room Air Physical Exam General Appearance: WD/WN, no apparent distress Eyes: normal inspection, EOMI, sclerae normal ENT: hearing grossly normal, pharynx normal Neck: trachea midline Respiratory/Chest: lungs clear, normal breath sounds, no respiratory distress, no accessory muscle use Cardiovascular: no murmur, + irregularly irregular (with regular rhythm) Abdomen: normal bowel sounds, non tender, soft, + pertinent finding (colostomy bag in place with gas and stool, wound vac in place) Extremities: non-tender, normal inspection, no pedal edema, no calf tenderness Neurologic/Psychiatric: no motor/sensory deficits (except very slight deficit with 4+/5 strength with RLE hip flexion and knee flexion/extension), alert, normal mood/affect, oriented x 3 Skin: normal color, warm/dry, no rash Laboratory Results Last 24 Hours Test 10/03/16 21:25 10/04/16 00:00 10/04/16 03:32 10/04/16 10:36 Troponin I 0.025 ng/ml 0.024 ng/ml Urine Color YELLOW Urine Appearance CLEAR Urine pH 7.5 Urine Specific [place] 1.016 Urine Protein NEG Urine Glucose (UA) NEG Urine Ketones NEG Urine Occult Blood NEG Urine Nitrite NEG Urine Bilirubin NEG Urine Urobilinogen NEG Urine Leukocyte Esterase NEG Urine WBC (Auto) 1-5 /hpf Urine RBC (Auto) 0-4 /hpf Urine Hyaline Casts (Auto) 1-5 /lpf Urine Epithelial Cells (Auto) 20-30 /lpf Urine Bacteria (Auto) NEG Urine Random Creatinine 110.0 mg/dl Urine Random Sodium 67 mEq/L White Blood Count 8.96 K/uL Red Blood Count 3.91 M/uL Hemoglobin 12.0 g/dL Hematocrit 36.2 % Mean Corpuscular Volume 92.6 fL Mean Corpuscular Hemoglobin 30.7 pg Mean Corpuscular Hemoglobin Concent 33.1 g/dl Platelet Count 394 K/uL Mean Platelet Volume 9.4 fL Neutrophils (%) (Auto) 39.4 % Lymphocytes (%) (Auto) 41.3 % Monocytes (%) (Auto) 12.8 % Eosinophils (%) (Auto) 4.8 % Basophils (%) (Auto) 0.9 % Neutrophils # (Auto) 3.53 K/uL Lymphocytes # (Auto) 3.70 K/uL Monocytes # (Auto) 1.15 K/uL Eosinophils # (Auto) 0.43 K/uL Basophils # (Auto) 0.08 K/uL RDW Standard Deviation 51.0 fL RDW Coefficient of Variation 15.1 % Immature Granulocyte % (Auto) 0.8 % Immature Granulocyte # (Auto) 0.07 K/uL Prothrombin Time 22.5 SECONDS Prothromb Time International Ratio 2.0 Activated Partial Thromboplast Time 41.2 SECONDS 42.6 SECONDS Partial Thromboplastin Ratio 1.6 1.6 Sodium Level 143 mmol/L Potassium Level 4.1 mmol/L Chloride Level 107 mmol/L Carbon Dioxide Level 26 mmol/L Anion Gap 10.0 mmol/L Blood Urea Nitrogen 51 mg/dl Creatinine 2.50 mg/dl Est Creatinine Clear Calc Drug Dose 15.7 ml/min Estimated GFR () 20.1 Estimated GFR (Non- 17.3 BUN/Creatinine Ratio 20.6 Random Glucose 111 mg/dl Calcium Level 9.4 mg/dl Triglycerides Level 262 mg/dl Cholesterol Level 229 mg/dl HDL Cholesterol 34 mg/dl LDL Cholesterol, Calculated 143 mg/dl VLDL Cholesterol, Calculated 52 mg/dl Cholesterol/HDL Ratio 6.7 Assessment and Plan Pt is an 81 yo F w/ PMHx of afib with RVR, recent perforated diverticulitis requiring sigmoid colectomy with colostomy and Ochoa pouch with a wound vac in place, UTI with presley-resistant E.coli, chronic diastolic CHF, hx of stroke, HTN, hypothyroidism and CKD stage III presenting with right lower extremity weakness and WAYNE. Acute thromboembolic CVA/Moderate bilat DANGELO- multiple small foci of ischemia in left parieto-occipital region suggestive of embolic source. Carotid US with left ICA 50-69% stenosis, MRA Neck bilat mod DANGELO, MRA Head wnl. Lipid panel with high LDL 143, TChol 229, HDL low at 34. Discussed with pt about statin benefits, risks, ASEs. She is agreeable to starting moderate intensity statin given DANGELO although her CVA is secondary to embolism which will be treated with anticoagulation. INR was apparently subtherapeutic at 1.7 the day prior to admission, then was 1.9 yesterday. Increased dose of coumadin. Fortunately, her strength is returned and she has minimal residual neuro deficits. Neuro consultation appreciated -allow permissive HTN, stop metoprolol for now (added on for rate control) -start atorvastatin 20mg daily -continue ASA 81 on dc -stop metoprolol for permissive HTN and 2-3 second pauses -can go back to [facility] for continued rehab if renal function continues to improve tomorrow -will need to have routine f/u of her DANGELO with annual Carotid DOpplers -will need lipid panel and LFTs checked in 6-8 weeks WAYNE in setting of CKD stage III- shoe coverer up to 3.2 on day of admission-may be secondary to poor po intake as per son's report, but FeNa suggests intrinsic process. Urine eos neg, UA no protein or casts. Is resolving with IVF hydration alone. Clutch Mechanic down to 2.5. Renal US with medical renal disease but no obstruction. -continue IVFs -follow PRP -avoid nephrotoxins -renally dose all meds Chronic Diastolic CHF-no evidence of hypervolemia. Today's ECHO showed: Normal biventricular systolic function, no mention of diastolic dysfunction -holding beta faustino currently - Lisinopril and Bumex on hold for WAYNE - PT follows with Dr. Edge as an outpatient -consider restarting lisinopril and bumex in 1 week if shoe coverer returns to normal Afib with RVR-rate controlled now with adding on metoprolol, however BP too low for post-CVA. AC with coumadin but subtherapeutic prior to admission. Bridged with heparin gtt and today INR 2.0. -hold metoprolol - Will continue cardizem 60 mg Q6H, was initiated during last admission, can likely convert to long acting on dc -dc heparin gtt - Continue coumadin and increase dose to 4mg daily--> Outpatient regimen alternated between 2.5 mg 5xwk and 5mg on two days per week - Follow INR closely given acute CVA when subtherapeutic, plus had been off coumadin during her perioperative period for recent sigmoidectomy Recent perforated diverticulitis with surgical fixation with Ochoa pouch and colostomy with sigmoid colon resection - Wound consulted for wound vac changes, last changed 10/03 - WBC stable, afebrile, no abdominal pain. -will need routine f/u with Surgery as previously planned MATT - May use own CPAP QHS Hypothyroidism-TSH not checked since 02/2016 -check TSH -continue levothyroxine Depression-stable -continue Zoloft DVT ppx: coumadin, teds, scds, CODE STATUS: FULL CODE Disposition: PT/OT BOB baltazar to assist with discharge planning, hopeful to dc back to [facility] in 1 day
[2016-10-05] MEDS: SODIUM CHLORIDE 0.9% 1000ML 1,000 ML IV SCH ×3 (02:10→21:19)
[2016-10-05] MEDS: LEVOTHYROXINE 75 MCG TAB PO SCH (06:03)
[2016-10-05 06:26] LABS: BASO % 0.7 %; BASO ABS # 0.05 K/uL (0-0.2); COMPLETE YES; EOS % 8.3 %; HEMATOCRIT 35.3 % (37-47); IG% 0.6 %; LYMPH % 33.8 %; LYMPH ABS # 2.43 K/uL (1.2-3.4); MEAN CELL VOLUME 94.9 fL (80-100); MEAN CORPUSCULAR HEMOGLOBIN 30.1 pg (25-34); MEAN CORPUSCULAR HGB CONC 31.7 g/dl (32-36); MEAN PLATELET VOLUME 9.2 fL (7.4-10.4); MONO % 13.2 %; NEUT % 43.4 %; PLATELET COUNT 342 K/uL (130-400); RED BLOOD COUNT 3.72 M/uL (4.2-5.4); WHITE BLOOD COUNT 7.19 K/uL (4.8-10.8)
[2016-10-05 06:40] LABS: PROTHROMBIN TIME (PATIENT) 22.3 SECONDS (9.0-12.0)
[2016-10-05 07:03] LABS: BUN/CREATININE RATIO 21.3 (10-20); CALCIUM 9.5 mg/dl (8.5-10.1); CREATININE 1.3 mg/dl (0.60-1.20)
[2016-10-05 07:10] LABS: THYROID STIMULATING HORMONE 1.12 uIu/ml (0.300-4.500)
[2016-10-05] MEDS: SERTRALINE HCL 50 MG TAB PO SCH (08:01)
[2016-10-05] MEDS: ATORVASTATIN 20 MG TAB PO SCH (08:01)
[2016-10-05] MEDS: CALCIUM CARBONATE 1250MG TAB PO SCH ×2 (08:02→18:08)
[2016-10-05] MEDS: FAMOTIDINE 20 MG TAB PO SCH (08:02)
[2016-10-05] MEDS: ASPIRIN 81 MG ECTAB PO SCH (08:02)
[2016-10-05] MEDS: CHOLECALCIFEROL 1000 INTER.UNIT TAB PO SCH (08:02)
--- NOTE | 2016-10-05 08:38 | Clinical Documentation Query ---
CLINICAL DOCUMENTATION QUERY H&P states WAYNE with possible AIN or ATN. Next daily progress note states "WAYNE in setting of CKD stage III- insurance actuary up to 3.2 on day of admission-may be secondary to poor po intake as per son's report, but FeNa suggests intrinsic process. Urine eos neg, UA no protein or casts. Is resolving with IVF hydration alone. Youth Coordinator down to 2.5." A professional railroad crane operator cannot make clinical decisions nor interpret laboratory findings. In your clinical opinion is this patient being managed for: ( ) WAYNE with possible AIN or ATN (x ) WAYNE only. ATN & AIN ruled out Please clarify and document your clinical opinion in the progress notes and discharge summary. Terms such as "probable", "suspected", "likely", "questionable", "possible", or "still to be ruled out" are acceptable. IF IN AGREEMENT, YOU MUST DOCUMENT ABOVE DIAGNOSTIC STATEMENT IN DAILY PROGRESS NOTES AND DISCHARGE SUMMARY. This document is not part of the patient's record. Thank You, Addy Ochoa, RN [phone]
[2016-10-05] MEDS ORDERED: WARFARIN SOD 4 MG TAB PO SCH (16:00)
[2016-10-05] MEDS ORDERED: GABAPENTIN 250 MG/5 ML 470 ML BTL PO SCH (21:00)
--- NOTE | 2016-10-06 00:04 | Hospitalist Progress Note ---
Hospitalist Progress Note Date of Service Oct 05, 2016. Subjective Pt evaluation today including: conversation w/ patient, conversation w/ family , physical exam, lab review Feeling well today. No headache, feels stronger, no CP. HR on tele into the 130s only with activity out of bed and recovers under 100 otherwise. She has complaint of her RLS bothering her and states that she used to take gabapentin 500mg po qhs. She has not received it since discharge to [facility] and according to the dc summary last week, it was discontinued for unclear reasons. Pt has not had adverse SE she is aware of, and says it really helps her All Other Systems: Reviewed and Negative Objective Vital Signs Date Time Temp Pulse Resp B/P (MAP) Pulse Ox O2 Delivery O2 Flow Rate FiO2 10/05/16 16:16 36.5 90 18 145/71 (95) 96 Room Air 10/05/16 12:00 Room Air 10/05/16 11:32 36.2 71 18 161/77 (105) 94 Room Air 10/05/16 08:00 Room Air 10/05/16 07:53 36.7 86 20 123/64 (83) 96 Room Air 10/05/16 06:01 77 133/73 (93) 10/05/16 04:02 36.6 76 18 120/66 (84) 97 Room Air 10/05/16 04:00 Room Air 10/05/16 00:00 Room Air 10/04/16 23:42 36.6 89 20 119/65 (83) 96 Room Air 10/04/16 20:00 Room Air 10/04/16 19:16 36.2 86 18 130/82 (98) 96 Room Air Physical Exam General Appearance: WD/WN, no apparent distress Eyes: normal inspection, sclerae normal ENT: hearing grossly normal Neck: trachea midline Respiratory/Chest: lungs clear, normal breath sounds, no respiratory distress, no accessory muscle use Cardiovascular: no murmur, + irregularly irregular (with normal rate), + pertinent finding (trace edema legs bilat) Abdomen: normal bowel sounds, non tender, soft, + pertinent finding (colostomy bag in place, wound vac in place) Extremities: non-tender, normal inspection, no calf tenderness Neurologic/Psychiatric: alert, normal mood/affect, oriented x 3, + pertinent finding (very subtle motor weakness mostly in proximal muscles of RUE and RLE) Skin: normal color, warm/dry, no rash Laboratory Results Last 24 Hours Test 10/05/16 06:10 White Blood Count 7.19 K/uL Red Blood Count 3.72 M/uL Hemoglobin 11.2 g/dL Hematocrit 35.3 % Mean Corpuscular Volume 94.9 fL Mean Corpuscular Hemoglobin 30.1 pg Mean Corpuscular Hemoglobin Concent 31.7 g/dl Platelet Count 342 K/uL Mean Platelet Volume 9.2 fL Neutrophils (%) (Auto) 43.4 % Lymphocytes (%) (Auto) 33.8 % Monocytes (%) (Auto) 13.2 % Eosinophils (%) (Auto) 8.3 % Basophils (%) (Auto) 0.7 % Neutrophils # (Auto) 3.12 K/uL Lymphocytes # (Auto) 2.43 K/uL Monocytes # (Auto) 0.95 K/uL Eosinophils # (Auto) 0.60 K/uL Basophils # (Auto) 0.05 K/uL RDW Standard Deviation 52.4 fL RDW Coefficient of Variation 15.0 % Immature Granulocyte % (Auto) 0.6 % Immature Granulocyte # (Auto) 0.04 K/uL Prothrombin Time 22.3 SECONDS Prothromb Time International Ratio 2.0 Sodium Level 143 mmol/L Potassium Level 4.0 mmol/L Chloride Level 113 mmol/L Carbon Dioxide Level 26 mmol/L Anion Gap 4.0 mmol/L Blood Urea Nitrogen 28 mg/dl Creatinine 1.30 mg/dl Est Creatinine Clear Calc Drug Dose 29.9 ml/min Estimated GFR () 44.2 Estimated GFR (Non- 38.2 BUN/Creatinine Ratio 21.3 Random Glucose 103 mg/dl Calcium Level 9.5 mg/dl Thyroid Stimulating Hormone (TSH) 1.120 uIu/ml Assessment and Plan Pt is an 81 yo F w/ PMHx of afib with RVR, recent perforated diverticulitis requiring sigmoid colectomy with colostomy and Ochoa pouch with a wound vac in place, UTI with presley-resistant E.coli, chronic diastolic CHF, hx of stroke, HTN, hypothyroidism and CKD stage III presenting with right lower extremity weakness and WAYNE. Acute thromboembolic CVA/Moderate bilat DANGELO- multiple small foci of ischemia in left parieto-occipital region suggestive of embolic source. Carotid US with left ICA 50-69% stenosis, MRA Neck bilat mod DANGELO, MRA Head wnl. Lipid panel with high LDL 143, TChol 229, HDL low at 34. Discussed with pt about statin benefits, risks, ASEs. She is agreeable to starting moderate intensity statin given DANGELO although her CVA is secondary to embolism which will be treated with anticoagulation. INR was apparently subtherapeutic at 1.7 the day prior to admission, then was 1.9 on day of admission. Increased dose of coumadin while here and was bridged with heparin gtt until INR became therapeutic where it now remains at 2.0. Fortunately, her strength is returned and she has minimal residual neuro deficits. Neuro consultation appreciated -allow permissive HTN, stopped metoprolol for now (added on for rate control last admission) -started atorvastatin 20mg daily -continue ASA 81 on dc -stop metoprolol for permissive HTN and 2-3 second pauses, has appt with Cardiology next Tues as outpt and can consider restarting if rate not well controlled as long as BP not too low -can go back to [facility] for continued rehab if renal function continues to improve tomorrow -will need to have routine f/u of her DANGELO with annual Carotid DOpplers -will need lipid panel and LFTs checked in 6-8 weeks WAYNE in setting of CKD stage III, AIN and ATN ruled out- helicopter mechanic up to 3.2 on day of admission-may be secondary to poor po intake as per son's report, but FeNa suggests intrinsic process. Urine eos neg, UA no protein or casts. Is resolving with IVF hydration alone. Footwear Sales Associate down to 1.3 today, much improved Renal US with medical renal disease but no obstruction. -dc IVFs -follow PRP -avoid nephrotoxins -renally dose all meds -consider restarting her lisinopril at Cardio appt next week, use of Bumex prn as ECHO here with no evidence of CHF H/o Chronic Diastolic CHF-no evidence of hypervolemia. ECHO this admission showed: Normal biventricular systolic function, no mention of diastolic dysfunction -holding beta faustino currently - Lisinopril and Bumex on hold for WAYNE - PT follows with Dr. Edge as an outpatient next week -consider restarting lisinopril and bumex in 1 week if helicopter mechanic remains normal Afib with RVR-rate controlled with adding on metoprolol, however BP too low for post-CVA. AC with coumadin but subtherapeutic prior to admission. Bridged with heparin gtt and today INR remains at 2.0. -continue to hold metoprolol and consider restarting in future as above - Will continue cardizem but will convert to long acting Diltiazem in the AM 240mg once daily - Continue coumadin and increased dose to 4mg daily--> Outpatient regimen alternated between 2.5 mg 5xwk and 5mg on two days per week - Follow INR closely given acute CVA when subtherapeutic Recent perforated diverticulitis with surgical fixation with Ochoa pouch and colostomy with sigmoid colon resection - Wound consulted for wound vac changes, last changed 10/05 - WBC stable, afebrile, no abdominal pain. -will need routine f/u with Surgery as previously planned MATT - May use own CPAP QHS RLS-worsening since being off her gabapentine for 1-2 weeks -restart gabapentin at 500mg po qhs now that renal function normalized Hypothyroidism-TSH normal here at 1.12 -continue levothyroxine Depression-stable -continue Zoloft DVT ppx: coumadin, teds, scds, CODE STATUS: FULL CODE Disposition:hopeful to dc back to [facility] in 1 day
[2016-10-06 03:07] VITALS: BP 117/65; PULSE 70; TEMP 36.7; O2SAT 92
[2016-10-06] MEDS: DILTIAZEM HCL 60 MG TAB PO SCH (06:08)
[2016-10-06] MEDS: LEVOTHYROXINE 75 MCG TAB PO SCH (06:08)
[2016-10-06 07:40] VITALS: BP 109/65; PULSE 56; TEMP 36.5; O2SAT 98
[2016-10-06] MEDS: ASPIRIN 81 MG ECTAB PO SCH (07:49)
[2016-10-06 07:50] LABS: BASO % 0.4 %; BASO ABS # 0.03 K/uL (0-0.2); COMPLETE YES; EOS % 6.5 %; HEMATOCRIT 31.1 % (37-47); IG% 0.7 %; LYMPH ABS # 2.23 K/uL (1.2-3.4); MEAN CELL VOLUME 95.1 fL (80-100); MEAN CORPUSCULAR HEMOGLOBIN 30.9 pg (25-34); MEAN CORPUSCULAR HGB CONC 32.5 g/dl (32-36); MEAN PLATELET VOLUME 9.4 fL (7.4-10.4); MONO % 14.2 %; NEUT % 46.2 %; PLATELET COUNT 284 K/uL (130-400); RED BLOOD COUNT 3.27 M/uL (4.2-5.4); WHITE BLOOD COUNT 6.97 K/uL (4.8-10.8)
[2016-10-06] MEDS: CALCIUM CARBONATE 1250MG TAB PO SCH (07:50)
[2016-10-06] MEDS: ATORVASTATIN 20 MG TAB PO SCH (07:50)
[2016-10-06] MEDS: FAMOTIDINE 20 MG TAB PO SCH (07:50)
[2016-10-06] MEDS: CHOLECALCIFEROL 1000 INTER.UNIT TAB PO SCH (07:50)
[2016-10-06] MEDS: SERTRALINE HCL 50 MG TAB PO SCH (07:50)
[2016-10-06 08:00] VITALS: O2SAT 98
[2016-10-06 08:01] LABS: INR 2.2 (0.9-1.1); PROTHROMBIN TIME (PATIENT) 24.8 SECONDS (9.0-12.0)
[2016-10-06 08:16] LABS: CALCIUM 9.2 mg/dl (8.5-10.1)
[2016-10-06] MEDS ORDERED: DILTIAZEM HCL 240 MG CAPCR PO SCH (09:00)
[2016-10-06] MEDS ORDERED: ASPEC81 PO (09:38)
[2016-10-06] MEDS ORDERED: CMD4 PO (09:38)
[2016-10-06] MEDS ORDERED: GABA1SOL4 PO (09:38)
[2016-10-06] MEDS ORDERED: LPT20 PO (09:38)
[2016-10-06] MEDS ORDERED: CRDCD180 PO (09:38)
[2016-10-06] MEDS ORDERED: DILTIAZEM HCL 180 MG CAPCR PO ONE (10:00)
[2016-10-06 10:02] VITALS: BP 137/73; PULSE 60; TEMP 36.6; O2SAT 97
--- NOTE | 2016-10-06 10:08 | Discharge Instructions ---
Discharge Instructions Date of Service Oct 06, 2016. Admission Reason for Admission: Rle Weakness Discharge Discharge Diagnosis / Problem: Acute embolic CVA Discharge Goals Goal(s): Improve disease control, Diagnostic testing, Therapeutic intervention Activity Recommendations Activity Level: Assistance Required Therapies: Physical Therapy, Occupational Therapy, Speech Therapy . Additional Information Patient informed of condition: Yes Advance Directives: Yes DNR: No Level of Care: Skilled Communicable Disease: No Prognosis: Improving Oxygen at (LPM): CPAP at night [place] Catheter: No Instructions / Follow-Up Instructions / Follow-Up Pt is an 81 yo F w/ PMHx of afib with RVR, recent perforated diverticulitis requiring sigmoid colectomy with colostomy and Ochoa pouch with a wound vac in place, UTI with presley-resistant E.coli, chronic diastolic CHF, hx of stroke, HTN, hypothyroidism and CKD stage III presenting with right lower extremity weakness and WAYNE. Acute thromboembolic CVA/Moderate bilat DANGELO- multiple small foci of ischemia in left parieto-occipital region suggestive of embolic source. Carotid US with left ICA 50-69% stenosis, MRA Neck bilat mod DANGELO, MRA Head wnl. Lipid panel with high LDL 143, TChol 229, HDL low at 34. Discussed with pt about statin benefits, risks, ASEs. She is agreeable to starting moderate intensity statin given DANGELO although her CVA is secondary to embolism which will be treated with anticoagulation. INR was apparently subtherapeutic at 1.7 the day prior to admission, then was 1.9 on day of admission. Increased dose of coumadin while here and was bridged with heparin gtt until INR became therapeutic where it now remains at 2.2 Fortunately, her strength is returned and she has minimal residual neuro deficits. Neuro consultation appreciated -allow permissive HTN, stopped metoprolol for now (added on for rate control last admission) -started atorvastatin 20mg daily -continue ASA 81 on dc -continue coumadin for anticoagulation --has appt with Cardiology next Tu as outpt with Dr. Edge -can go back to [facility] for continued rehab -will need to have routine f/u of her DANGELO with annual Carotid Dopplers -will need lipid panel and LFTs checked in 6-8 weeks WAYNE in setting of CKD stage III, AIN and ATN ruled out- limnologist up to 3.2 on day of admission-may have been secondary to poor po intake as per son's report, but FeNa suggests intrinsic process. Urine eos neg, UA no protein or casts. Resolved with IVF hydration alone. Slip Presser down to 1.0 on day of discharge Renal US with medical renal disease but no obstruction. -follow BMP in 1 week -avoid nephrotoxins -renally dose all meds -consider restarting her lisinopril at Cardio appt next week, use of Bumex prn as ECHO here with no evidence of CHF H/o Chronic Diastolic CHF-no evidence of hypervolemia. ECHO this admission showed: Normal biventricular systolic function, no mention of diastolic dysfunction -holding beta faustino currently - Lisinopril and Bumex on hold for WAYNE - has follow up with Dr. Edge as an outpatient on 10/11 -consider restarting lisinopril and bumex in 1 week if limnologist remains normal Afib with RVR-rate controlled with adding on metoprolol, however BP too low for post-CVA. AC with coumadin but subtherapeutic prior to admission. Bridged with heparin gtt and today INR remains at 2.2. Converted to NSR on AM of discharge-with HR in 50s-60s -continue to hold metoprolol - Will continue cardizem but will convert to long acting Diltiazem and decrease dose to 180mg daily now that is in NSR and sinus osman - Continue coumadin and increased dose to 4mg daily--> Outpatient regimen previously alternated between 2.5 mg 5xwk and 5mg on two days per week - Follow INR closely given acute CVA when subtherapeutic-- recommend checking PT /INR on 10/07 Recent perforated diverticulitis with surgical fixation with Ochoa pouch and colostomy with sigmoid colon resection - Wound consulted for wound vac changes, last changed 10/05 - WBC stable, afebrile, no abdominal pain. -will need routine f/u with Surgery as previously planned MATT - May use own CPAP QHS RLS-worsening since being off her gabapentin for 1-2 weeks-now significantly improved with restarting it -continue gabapentin at 500mg po qhs now that renal function normalized Hypothyroidism-TSH normal here at 1.12 -continue levothyroxine Depression-stable -continue Zoloft DVT ppx: coumadin CODE STATUS: FULL CODE Disposition:to dc back to [facility] today Current Hospital Diet Patient's current hospital diet: AHA Diet (Heart Healthy) Discharge Diet Recommended Diet: AHA Diet (Heart Healthy) Procedures Procedures Performed: MRI Brain MRA Head and neck Carotid Doppler ECHO Renal US Head CT Pending Studies Studies pending at discharge: no Physician Orders On Transfer Special Precautions: Fall risk Dressing Changes: Wound vac dressing changes 3x/week as per Wound Care IV Therapy: None Vital Signs: Daily Weigh: Routin Additional Orders: Check PT/INR in 1 day Follow up with Cardiology Dr. Edge on 10/11 Follow up Nephrology as scheduled in Oct Follow up with General Surgery as previously planned Follow up with new PCP 1-2 weeks after discharge from [facility]-Pt requests Dr. Lanny Cooney at [facility] in [place] POLST Discussion: with POLST completion Laboratory Results Last 24 Hours Test 10/06/16 07:08 White Blood Count 6.97 K/uL Red Blood Count 3.27 M/uL Hemoglobin 10.1 g/dL Hematocrit 31.1 % Mean Corpuscular Volume 95.1 fL Mean Corpuscular Hemoglobin 30.9 pg Mean Corpuscular Hemoglobin Concent 32.5 g/dl Platelet Count 284 K/uL Mean Platelet Volume 9.4 fL Neutrophils (%) (Auto) 46.2 % Lymphocytes (%) (Auto) 32.0 % Monocytes (%) (Auto) 14.2 % Eosinophils (%) (Auto) 6.5 % Basophils (%) (Auto) 0.4 % Neutrophils # (Auto) 3.22 K/uL Lymphocytes # (Auto) 2.23 K/uL Monocytes # (Auto) 0.99 K/uL Eosinophils # (Auto) 0.45 K/uL Basophils # (Auto) 0.03 K/uL RDW Standard Deviation 51.8 fL RDW Coefficient of Variation 15.0 % Immature Granulocyte % (Auto) 0.7 % Immature Granulocyte # (Auto) 0.05 K/uL Prothrombin Time 24.8 SECONDS Prothromb Time International Ratio 2.2 Sodium Level 147 mmol/L Potassium Level 4.0 mmol/L Chloride Level 116 mmol/L Carbon Dioxide Level 24 mmol/L Anion Gap 7.0 mmol/L Blood Urea Nitrogen 16 mg/dl Creatinine 1.00 mg/dl Est Creatinine Clear Calc Drug Dose 39.4 ml/min Estimated GFR () 60.8 Estimated GFR (Non- 52.4 BUN/Creatinine Ratio 16.0 Random Glucose 96 mg/dl Calcium Level 9.2 mg/dl Hemoglobin A1c Test 10/03/16 15:24 Range/Units Estimated Average Glucose 117 mg/dl Hemoglobin A1c 5.7 H 4.5-5.6 % Lipid Panel Test 10/04/16 03:32 Range/Units Triglycerides Level 262 H 0-150 mg/dl Cholesterol Level 229 H 0-200 mg/dl HDL Cholesterol 34 mg/dl Cholesterol/HDL Ratio 6.7 LDL Cholesterol, Calculated 143 mg/dl Medical Emergencies . Who to Call and When: Medical Emergencies: If at any time you feel your situation is an emergency, please call 911 immediately. . Non-Emergent Contact Non-Emergency issues call your: Primary Care Provider Call Non-Emergent contact if: you have a fever, you have any medication questions . . "Provider Documentation" section prepared by Kimberlee Harris. . Core Measure Problem Core Measures: Stroke Stroke Core Measures Reason no t-PA for Stroke: Treatment not indicated Reason no antithrom by day 2: Treatment provided - N/A Reason no antithrom at D/C: Treatment provided - N/A Reason no statin at D/C: Treatment provided - N/A Reason no anticoag w/a fib: Treatment provided - N/A
[2016-10-06 12:07] VITALS: BP 137/73; PULSE 60; TEMP 36.6; O2SAT 97
--- NOTE | 2016-10-06 23:37 | Discharge Summary ---
Discharge Summary Date of Service Oct 06, 2016. Discharge Summary Admission Date: Oct 04, 2016 at 12:34 Discharge Date: Oct 06, 2016 Discharge Disposition: [facility] facility Principal Diagnosis: Acute embolic ischemic CVA Problems/Secondary Diagnoses: Paroxysmal atrial fibrillation Recent perforated diverticulitis requiring sigmoid colectomy with colostomy and Ochoa pouch with a wound vac in place H/o UTI with presley-resistant E.coli H/o chronic diastolic CHF H/o CVA HTN Hypothyroidism CKD stage III WAYNE Moderate bilateral DANGELO Hyperlipidemia care home anticoagulation WAYNE in setting of CKD stage III, AIN and ATN ruled out MATT RLS Depression Procedures: 1) HEAD CT NONCONTRAST CT DOSE: 537.48 mGy.cm HISTORY: Right-sided weakness. Stroke TECHNIQUE: Multiaxial CT images of the head were performed without the use of intravenous contrast. Automated exposure control was utilized for this study. A dose lowering technique was utilized adhering to the principles of ALARA. Comparison: Head CT 10/30/2012. Findings: Postoperative changes within the paranasal sinuses. No fluid levels. The mastoid air cells are clear. The calvarium and skull base are intact. There is no mass, hematoma, midline shift, acute infarct. White matter hypodensity is nonspecific but suggestive of microvascular ischemic change. The ventricles and sulci demonstrate mild age-related involutional changes. Impression: No significant change compared to the prior study. No acute intracranial abnormality. 2) Renal US: IMPRESSION: Mildly increased echogenicity of the renal parenchyma suggestive of medical renal disease. No obstruction 3) Head MRA: Unremarkable MR angiography of the [place] of [place]. 4) Neck MRA: Approximately 50-60% stenosis within the proximal bilateral internal carotid arteries. The common carotid and vertebral arteries appear patent 5) Carotid Doppler: 50-69% stenosis at the origin of the left internal carotid artery 6) ECHO: * Normal biventricular systolic function. * Normal chamber dimensions. * Trace tricuspid and pulmonic regurgitation. * Aortic valve sclerosis mild, without significant aortic valvular stenosis 7) Brain MRI w/o contrast: Ventricles and sulci normal in size. Multiple small foci of restricted diffusion scattered throughout the the left parieto-occipital region, consistent with infarcts, the distribution suggesting emboli. Focal volume loss and T2 hyperintensity in the paramedian right occipital lobe inferiorly consistent with chronic infarct. Subcortical white matter T2/FLAIR hyperintensity nonspecific but likely chronic small vessel ischemic change. No mass effect or midline shift. No hemorrhage. No extra-axial fluid collection. T2 skull base flow voids preserved. Mild mucosal thickening in the left maxillary sinus with evidence of bilateral maxillary antrostomies. Absence of the bilateral [place] lenses of the globes. IMPRESSION: Multiple small foci of ischemia in the left parieto-occipital region likely within the left posterior cerebral artery territory. The distribution is most likely reflective of embolic infarcts. Chronic right subdural infarct. Consultations: Neurology Medication Reconciliation New Medications: Diltiazem HCl (Diltiazem HCl ER) 180 Mg Capcr 180 MG PO QAM for 30 Days Aspirin (Aspirin EC Low Dose) 81 Mg Ectab 81 MG PO QAM for 30 Days Atorvastatin (Atorvastatin Calcium) 20 Mg Tab 20 MG PO QAM for 30 Days, #30 TAB Gabapentin (Gabapentin) 250 Mg/5 Ml Sveta 500 MG PO HS for 30 Days Warfarin Sod (Coumadin) 4 Mg Tab 4 MG PO DAILY@16 for 30 Days, TAB Continued Medications: Acetaminophen (Tylenol) 500 Mg Tab 500 MG PO Q4H PRN for Pain or Fever, TAB Calcium Carbonate (Calcium Carbonate) 1,250 Mg Tab 1250 MG PO BIDM Cholecalciferol (Vitamin D3) 2,000 Unit Cap 2000 UNITS PO QAM, CAP Famotidine (Pepcid) 20 Mg Tab 20 MG PO DAILY, TAB Levothyroxine Sodium (Synthroid) 75 Mcg Tab 75 MCG PO QAM, TAB Sertraline (Zoloft) 25 Mg Tab 25 MG PO DAILY, TAB Discontinued Medications: Diltiazem Hcl (Cardizem) 30 Mg Tab 60 MG PO Q6H, TAB Oxycodone Ir (Roxicodone Ir) 5 Mg Tab 5 MG PO Q4H PRN for PAIN # 4-6, TAB Warfarin Sod (Coumadin) 2.5 Mg Tab 2.5 MG PO DAILY, TAB Discharge Exam Physical Exam General Appearance: WD/WN, no apparent distress Eyes: normal inspection, sclerae normal ENT: hearing grossly normal Neck: trachea midline Respiratory/Chest: lungs clear, normal breath sounds, no respiratory distress, no accessory muscle use Cardiovascular: no murmur, + irregularly irregular (with normal rate), + pertinent finding (trace edema legs bilat) Abdomen: normal bowel sounds, non tender, soft, + pertinent finding (colostomy bag in place, wound vac in place) Extremities: non-tender, normal inspection, no calf tenderness Neurologic/Psychiatric: alert, normal mood/affect, oriented x 3, + pertinent finding (very subtle motor weakness mostly in proximal muscles of RUE and RLE) Skin: normal color, warm/dry, no rash Review of Systems: Constitutional: No problem reported ENT: No problem reported Respiratory: No problem reported Cardiovascular: No problem reported Abdomen: No problem reported Musculoskeletal: No problem reported Genitourinary - Female: No problem reported Neurologic: No problem reported Psychiatric: No problem reported Endocrine: No problem reported Hematologic / Lymphatic: No problem reported Integumentary: No problem reported Hospital Course Pt is an 81 yo F w/ PMHx of afib with RVR, recent perforated diverticulitis requiring sigmoid colectomy with colostomy and Ochoa pouch with a wound vac in place, UTI with presley-resistant E.coli, chronic diastolic CHF, hx of stroke, HTN, hypothyroidism and CKD stage III presenting with right lower extremity weakness and WAYNE. Acute thromboembolic CVA/Moderate bilat DANGELO- multiple small foci of ischemia in left parieto-occipital region suggestive of embolic source. Carotid US with left ICA 50-69% stenosis, MRA Neck bilat mod DANGELO, MRA Head wnl. Lipid panel with high LDL 143, TChol 229, HDL low at 34. Discussed with pt about statin benefits, risks, ASEs. She is agreeable to starting moderate intensity statin given DANGELO although her CVA is secondary to embolism which will be treated with anticoagulation. INR was apparently subtherapeutic at 1.7 the day prior to admission, then was 1.9 on day of admission. Increased dose of coumadin while here and was bridged with heparin gtt until INR became therapeutic where it now remains at 2.2 Fortunately, her strength is returned and she has minimal residual neuro deficits. Neuro consultation appreciated -allow permissive HTN, stopped metoprolol for now (added on for rate control last admission) -started atorvastatin 20mg daily -continue ASA 81 on dc -continue coumadin for anticoagulation --has appt with Cardiology next Tues as outpt with Dr. Edge -can go back to [facility] for continued rehab -will need to have routine f/u of her DANGELO with annual Carotid Dopplers -will need lipid panel and LFTs checked in 6-8 weeks WAYNE in setting of CKD stage III, AIN and ATN ruled out- life manager up to 3.2 on day of admission-may have been secondary to poor po intake as per son's report, but FeNa suggests intrinsic process. Urine eos neg, UA no protein or casts. Resolved with IVF hydration alone. [employer]essionals down to 1.0 on day of discharge Renal US with medical renal disease but no obstruction. -follow BMP in 1 week -avoid nephrotoxins -renally dose all meds -consider restarting her lisinopril at Cardio appt next week, use of Bumex prn as ECHO here with no evidence of CHF H/o Chronic Diastolic CHF-no evidence of hypervolemia. ECHO this admission showed: Normal biventricular systolic function, no mention of diastolic dysfunction -holding beta faustino currently - Lisinopril and Bumex on hold for WAYNE - has follow up with Dr. Edge as an outpatient on 10/11 -consider restarting lisinopril and bumex in 1 week if life manager remains normal Afib with RVR-rate controlled with adding on metoprolol, however BP too low for post-CVA. AC with coumadin but subtherapeutic prior to admission. Bridged with heparin gtt and today INR remains at 2.2. Converted to NSR on AM of discharge-with HR in 50s-60s -continue to hold metoprolol - Will continue cardizem but will convert to long acting Diltiazem and decrease dose to 180mg daily now that is in NSR and sinus osman - Continue coumadin and increased dose to 4mg daily--> Outpatient regimen previously alternated between 2.5 mg 5xwk and 5mg on two days per week - Follow INR closely given acute CVA when subtherapeutic-- recommend checking PT /INR on 10/07 Recent perforated diverticulitis with surgical fixation with Ochoa pouch and colostomy with sigmoid colon resection - Wound consulted for wound vac changes, last changed 10/05 - WBC stable, afebrile, no abdominal pain. -will need routine f/u with Surgery as previously planned MATT - May use own CPAP QHS RLS-worsening since being off her gabapentin for 1-2 weeks-now significantly improved with restarting it -continue gabapentin at 500mg po qhs now that renal function normalized Hypothyroidism-TSH normal here at 1.12 -continue levothyroxine Depression-stable -continue Zoloft DVT ppx: coumadin CODE STATUS: FULL CODE Disposition:to dc back to [facility] Total Time Spent: Greater than 30 minutes This includes examination of the patient, discharge planning, medication reconciliation, and communication with other providers. Discharge Instructions Please refer to the electronic Patient Visit Report (Discharge Instructions) for additional information. Additional Copies To [email or web address] [email or web address]
[2016-10-07] MEDS ORDERED: DILTIAZEM HCL 180 MG CAPCR PO SCH (09:00)
[2016-11-22] MEDS ORDERED: BUME1TAB PO (13:53)
[2016-11-22] MEDS ORDERED: CARV3.122 PO (13:53)
== END 2016-10-06 13:40 | DRG 65 ==
LOC: EDBD 14:19 → C.EDA 14:20 → C.MED 18:25 → ENRESERV 18:53 → OBSVTOIN 10-04 12:34
PROVIDERS: ADMIT Family Medicine; ATTEND Family Medicine
DX: I63.9 Cerebral infarction, unspecified (principal); N17.9 Acute kidney failure, unspecified; I50.32 Chronic diastolic (congestive) heart failure; I13.0 Hypertensive heart and chronic kidney disease with heart failure and stage 1 through stage 4 chronic kidney disease, or unspecified chronic kidney disease; G81.91 Hemiplegia, unspecified affecting right dominant side; I65.23 Occlusion and stenosis of bilateral carotid arteries; Z86.73 Personal history of transient ischemic attack (TIA), and cerebral infarction without residual deficits; I48.0 Paroxysmal atrial fibrillation; Z85.89 Personal history of malignant neoplasm of other organs and systems; Z87.891 Personal history of nicotine dependence; N18.3 Chronic kidney disease, stage 3 (moderate); Z98.890 Other specified postprocedural states; G47.33 Obstructive sleep apnea (adult) (pediatric); G25.81 Restless legs syndrome; Z93.3 Colostomy status; F32.9 Major depressive disorder, single episode, unspecified

== ENCOUNTER → 2016-10-19 | Outpatient (CLI) | payer OTHER, MEDICARE ==
[~2016-10-19] MED LIST changes: +ACET-1256 PO; +ASPEC81 PO; -CALC-392 PO; +CARV3.122 PO; -CMD/25 PO; +CMD4 PO; -CRD60 PO; +CRDCD180 PO; +FAMO20TA11 PO; -FLUT0.15 NAE; +GABA1SOL4 PO; -INVAV1 IV; -LACTCAP3 PO; -LISI40TA PO; +LPT20 PO; -MCRK20 PO; -METHPOW7 PO; -MGNO400 PO; +NF84 PO; -POLY335019 PO; -RXC5 PO; +SERT25TA PO; -VANC5CAP PO; -WARF1TAB PO; -ZLF50 PO; -ZNT150 PO
[2016-10-19 17:29] LABS: BASO % 0.4 %; BASO ABS # 0.04 K/uL (0-0.2); COMPLETE YES; EOS % 4.9 %; HEMATOCRIT 40.7 % (37-47); IG% 0.8 %; LYMPH % 33.3 %; LYMPH ABS # 3.61 K/uL (1.2-3.4); MEAN CELL VOLUME 94.2 fL (80-100); MEAN CORPUSCULAR HEMOGLOBIN 29.2 pg (25-34); MEAN PLATELET VOLUME 9.8 fL (7.4-10.4); MONO % 10.6 %; PLATELET COUNT 268 K/uL (130-400); RED BLOOD COUNT 4.32 M/uL (4.2-5.4); WHITE BLOOD COUNT 10.84 K/uL (4.8-10.8)
[2016-10-19 17:50] LABS: ALT/SGPT 25 U/L (12-78); BLOOD UREA NITROGEN 18 mg/dl (7-18); BUN/CREATININE RATIO 13.7 (10-20); CALCIUM 9.8 mg/dl (8.5-10.1); CARBON DIOXIDE 29 mmol/L (21-32); CHLORIDE 105 mmol/L (98-107); GLUCOSE 103 mg/dl (70-99); POTASSIUM 3.7 mmol/L (3.5-5.1); SODIUM 142 mmol/L (136-145)
[2016-10-19 17:53] LABS: ALB/GLOB RATIO 0.8 (0.9-2); ALKALINE PHOSPHATASE 126 U/L (45-117); AST/SGOT 23 U/L (15-37)
== END | disposition home or self-care (01) ==
LOC: C.LAB1850 16:17
PROVIDERS: ATTEND Nurse Practitioner Adult Health
DX: R11.2 Nausea with vomiting, unspecified (principal); Z79.01 Long term (current) use of anticoagulants; D64.9 Anemia, unspecified; Z86.73 Personal history of transient ischemic attack (TIA), and cerebral infarction without residual deficits

== ENCOUNTER → 2016-10-31 | Outpatient (CLI) | payer OTHER, MEDICARE ==
[2016-10-31 16:54] LABS: HEMATOCRIT 34.8 % (37-47); MEAN CELL VOLUME 92.3 fL (80-100); MEAN CORPUSCULAR HEMOGLOBIN 30.2 pg (25-34); MEAN CORPUSCULAR HGB CONC 32.8 g/dl (32-36); MEAN PLATELET VOLUME 9.8 fL (7.4-10.4); PLATELET COUNT 291 K/uL (130-400); RED BLOOD COUNT 3.77 M/uL (4.2-5.4); WHITE BLOOD COUNT 10.28 K/uL (4.8-10.8)
[2016-10-31 16:57] LABS: URINE APPEARANCE CLEAR (CLEAR); URINE BILIRUBIN NEG (NEG); URINE COLOR YELLOW; URINE NITRITE NEG (NEG); URINE PH 7.5 (4.5-7.5); URINE SPECIFIC GRAVITY 1.015 (1.000-1.030); UROBILINOGEN NEG (NEG)
[2016-10-31 17:00] LABS: MANUAL MICROSCOPIC REQUIRED? NO; REVIEW REQ? NO
[2016-10-31 17:01] LABS: INR 3.3 (0.9-1.1); PROTHROMBIN TIME (PATIENT) 36.8 SECONDS (9.0-12.0)
[2016-10-31 17:36] LABS: URINE PROTIEN/CREAT RATIO 0.2 (0-0.2); URINE TOTAL PROTEIN 7.7 mg/dl (0-11.9)
[2016-10-31 17:36] LABS: ALT/SGPT 22 U/L (12-78); BLOOD UREA NITROGEN 19 mg/dl (7-18); BUN/CREATININE RATIO 15.9 (10-20); CALCIUM 9.1 mg/dl (8.5-10.1); CARBON DIOXIDE 29 mmol/L (21-32); CHLORIDE 105 mmol/L (98-107); GLUCOSE 124 mg/dl (70-99); POTASSIUM 4.1 mmol/L (3.5-5.1); SODIUM 140 mmol/L (136-145)
[2016-10-31 17:39] LABS: ALB/GLOB RATIO 0.9 (0.9-2); ALKALINE PHOSPHATASE 110 U/L (45-117); AST/SGOT 17 U/L (15-37); PHOSPHORUS 3.1 mg/dl (2.5-4.9)
== END | disposition home or self-care (01) ==
LOC: C.LABBC 15:29
PROVIDERS: ATTEND Nurse Practitioner Adult Health
DX: Z51.81 Encounter for therapeutic drug level monitoring (principal); R60.9 Edema, unspecified; E55.9 Vitamin D deficiency, unspecified; N18.3 Chronic kidney disease, stage 3 (moderate); D64.9 Anemia, unspecified; I12.9 Hypertensive chronic kidney disease with stage 1 through stage 4 chronic kidney disease, or unspecified chronic kidney disease; I48.91 Unspecified atrial fibrillation; Z79.01 Long term (current) use of anticoagulants; I44.7 Left bundle-branch block, unspecified; R11.2 Nausea with vomiting, unspecified

== ENCOUNTER 2017-01-14 12:43 | Emergency (ER) | payer OTHER, MEDICARE ==
[~2017-01-14] VITALS: Ht 149.9 cm; Wt 78.4 kg
[2017-01-14 13:00] VITALS: Ht 149.9 cm; Wt 78.4 kg
[2017-01-14] MEDS ORDERED: GI COCKTAIL PO STA (13:54)
[2017-01-14] MEDS ORDERED: ACETAMINOPHEN 500 MG TAB PO STA (13:54)
[2017-01-14] MEDS ORDERED: ONDANSETRON INJ 2 MG/ML 2 ML VIAL IV STA (13:54)
[2017-01-14] MEDS ORDERED: FAMOTIDINE 20 MG TAB PO ONE (14:00)
--- NOTE | 2017-01-14 14:17 | EMERGENCY ROOM VISIT NOTE ---
History Report prepared by Abyb: Deborah Hayes Under the Supervision of: Dr. Sahil Muse M.D. First contact with patient: 13:20 Chief Complaint: ABDOMINAL PAIN Stated Complaint: STOMACH PAIN Nursing Triage Summary: pt reports abd is protruding where ostomy is . son works in health care has seen it sent here for eval. pt reports ostomy is working. denies any pain at site but does have pain in upper mid abd. feels like gas feels nauseated. History of Present Illness The patient is an 81 year old white female with a past medical history of a colostomy, atrial fibrillation, diverticulitis, sepsis, cholecystectomy, perforated abdominal viscus, hypertension, congestive heart failure who presents to the ED with a cc of persistent epigastric abdominal pain beginning prior to arrival. Positive nausea. Negative chest pain, vomiting. She currently rates her discomfort as a 3/10 in severity. The patient states that she has a new colostomy bag placed due to a perforated abdominal viscus from diverticulitis. She states that she had her surgery done here. The patient states that she has noticed a lump next to her colostomy bag. She reports normal good output from the ostomy bag. Per the patient's son, the patient has had a decrease in appetite. Source of History: patient, family (son) Onset: prior to arrival Position: abdomen (epigastric) Symptom Intensity: 3/10 Timing: other (persistent) Associated Symptoms: + nausea, No chest pain, No vomiting Review of Systems See HPI for pertinent positives and negatives. A total of ten systems were reviewed and were otherwise negative. Past Medical & Surgical Medical Problems: (1) A-fib (2) Acute diverticulitis (3) Benign hypertension (4) Perforated abdominal viscus (5) RLE weakness (6) Sepsis (7) Tonsillar cancer Surgical Problems: (1) S/P cholecystectomy Family History Noncontributory secondary to age Social History Smoking Status: Never Smoker Alcohol Use: none Drug Use: none Marital Status: single Occupation Status: retired Current/Historical Medications Scheduled Atorvastatin (Atorvastatin Calcium), 20 MG PO QAM Bumetanide (Bumex), 1 TAB PO DAILY Calcium Carbonate (Calcium Carbonate), 1,250 MG PO BIDM Carvedilol (Coreg), 1 TAB PO BID Cholecalciferol (Vitamin D3), 2,000 UNITS PO QAM Diltiazem HCl (Diltiazem HCl ER), 180 MG PO QAM Famotidine (Pepcid), 20 MG PO DAILY Famotidine (Pepcid), 40 MG PO QD Gabapentin (Gabapentin), 500 MG PO HS Levothyroxine Sodium (Synthroid), 75 MCG PO QAM Ondasetron Odt (Zofran Odt), 4 MG SL Q6H Sertraline (Zoloft), 25 MG PO DAILY Warfarin Sod (Coumadin), 4 MG PO DAILY@16 Scheduled PRN Acetaminophen (Tylenol), 500 MG PO Q4H PRN for Pain or Fever Allergies Coded Allergies: Penicillins (Verified Allergy, Intermediate, HIVES, 01/14/17) Sulfa Antibiotics (Verified Allergy, Intermediate, fever, 01/14/17) Morphine (Unverified Allergy, Unknown, STOPPED HEART, 01/14/17) Physical Exam Vital Signs Date Time Temp Pulse Resp B/P (MAP) Pulse Ox O2 Delivery O2 Flow Rate FiO2 01/14/17 18:30 36.3 56 16 170/107 96 01/14/17 16:58 56 16 01/14/17 16:43 57 20 01/14/17 16:28 66 23 01/14/17 16:13 65 12 96 01/14/17 15:58 60 15 95 01/14/17 15:43 55 16 98 01/14/17 15:28 54 16 01/14/17 15:13 61 15 01/14/17 14:58 59 11 01/14/17 14:43 56 12 98 01/14/17 14:38 68 01/14/17 14:32 170/107 01/14/17 14:31 68 18 170/107 98 Room Air 01/14/17 13:00 36.3 93 17 166/78 100 Room Air Physical Exam GENERAL: Awake, alert, well-appearing, NAD HENT: Normocephalic, atraumatic. EYES: Conjunctival injection of the right eye over medial poriton, no hyphema or hypopyon. Sclera non-icteric. NECK: Supple. No nuchal rigidity. FROM. RESPIRATORY: CTAB, no rhonchi, wheezing, crackles CARDIAC: RRR, no MRG ABDOMEN: Soft, NTND, BS+, Colostomy in left lower quadrant, no erythema or caller, no obvious bulges coming from abdomen MSK: No chest wall TTP, some lower extremity edema NEURO: GCS 15, CN 2-12 intact, moves all 4s on command SKIN: No rash or jaundice noted. Medical Decision & Procedures ER Provider Diagnostic Interpretation: Radiology results as stated below per my review and radiologist interpretation: CHEST ONE VIEW PORTABLE CLINICAL HISTORY: Abdominal pain. COMPARISON STUDY: Chest radiograph September 20, 2016. FINDINGS: There is no pneumothorax or pleural effusion. Bibasilar opacities and pleural effusions shown on prior exam of September 20, 2016 have resolved. Mild to moderate cardiomegaly is noted. There is no evidence of pulmonary edema. IMPRESSION: No acute cardiopulmonary findings. Electronically signed by: Lucian Combs M.D. 01/14/2017 2:44 PM Dictated Date/Time: 01/14/2017 2:[address] brain: IMPRESSION: No acute intracranial findings. Electronically signed by: Lucian Combs M.D. 01/14/2017 5:[address] ab/pelvis w/ Oral contrast IMPRESSION: 1. Status post interval sigmoid resection with Noah pouch and creation of a left lower quadrant descending colostomy. Mild infiltration adjacent to the colostomy may be postsurgical. A mild nonspecific colitis could appear similar. Possible small associated parastomal hernia which contains only fat. No bowel obstruction. 2. Findings suggestive of mild interstitial pulmonary edema. Moderate cardiomegaly. Electronically signed by: Lucian Combs M.D. 01/14/2017 5:55 PM Dictated Date/Time: 01/14/2017 5:46 PM Laboratory Results 01/14/17 14:35 Red Blood Count 4.21, Mean Corpuscular Volume 94.1, Mean Corpuscular Hemoglobin 30.2, Mean Corpuscular Hemoglobin Concent 32.1, Mean Platelet Volume 9.8, Neutrophils (%) (Auto) 60.5, Lymphocytes (%) (Auto) 28.1, Monocytes (%) (Auto) 9.3, Eosinophils (%) (Auto) 1.1, Basophils (%) (Auto) 0.2, Neutrophils # (Auto) 5.50, Lymphocytes # (Auto) 2.56, Monocytes # (Auto) 0.85, Eosinophils # (Auto) 0.10, Basophils # (Auto) 0.02 01/14/17 14:34 Test 01/14/17 14:15 01/14/17 14:34 01/14/17 14:35 Urine Color YELLOW Urine Appearance CLEAR (CLEAR) Urine pH 7.0 (4.5-7.5) Urine Specific [place] 1.009 (1.000-1.030) Urine Protein NEG (NEG) Urine Glucose (UA) NEG (NEG) Urine Ketones NEG (NEG) Urine Occult Blood NEG (NEG) Urine Nitrite NEG (NEG) Urine Bilirubin NEG (NEG) Urine Urobilinogen NEG (NEG) Urine Leukocyte Esterase NEG (NEG) Anion Gap 4.0 mmol/L (3-11) Est Creatinine Clear Calc Drug Dose 29.3 ml/min Estimated GFR () 42.7 Estimated GFR (Non- 36.8 BUN/Creatinine Ratio 26.9 (10-20) Calcium Level 9.1 mg/dl (8.5-10.1) Total Bilirubin 0.3 mg/dl (0.2-1) Direct Bilirubin < 0.1 mg/dl (0-0.2) Aspartate Amino Transf (AST/SGOT) 17 U/L (15-37) Alanine Aminotransferase (ALT/SGPT) 24 U/L (12-78) Alkaline Phosphatase 129 U/L (45-117) Troponin I < 0.015 ng/ml (0-0.045) Total Protein 7.4 gm/dl (6.4-8.2) Albumin 3.2 gm/dl (3.4-5.0) Lipase 192 U/L (73-393) White Blood Count 9.10 K/uL (4.8-10.8) Red Blood Count 4.21 M/uL (4.2-5.4) Hemoglobin 12.7 g/dL (12.0-16.0) Hematocrit 39.6 % (37-47) Mean Corpuscular Volume 94.1 fL (80-100) Mean Corpuscular Hemoglobin 30.2 pg (25-34) Mean Corpuscular Hemoglobin Concent 32.1 g/dl (32-36) Platelet Count 187 K/uL (130-400) Mean Platelet Volume 9.8 fL (7.4-10.4) Neutrophils (%) (Auto) 60.5 % Lymphocytes (%) (Auto) 28.1 % Monocytes (%) (Auto) 9.3 % Eosinophils (%) (Auto) 1.1 % Basophils (%) (Auto) 0.2 % Neutrophils # (Auto) 5.50 K/uL (1.4-6.5) Lymphocytes # (Auto) 2.56 K/uL (1.2-3.4) Monocytes # (Auto) 0.85 K/uL (0.11-0.59) Eosinophils # (Auto) 0.10 K/uL (0-0.5) Basophils # (Auto) 0.02 K/uL (0-0.2) RDW Standard Deviation 50.0 fL (36.4-46.3) RDW Coefficient of Variation 14.7 % (11.5-14.5) Immature Granulocyte % (Auto) 0.8 % Immature Granulocyte # (Auto) 0.07 K/uL (0.00-0.02) Date/Time Source Procedure Growth Status 01/14/17 17:30 Stool C.difficile Toxin B Gene (PCR) - Final No C. difficile toxin B gene detected Complete Laboratory results reviewed by me Medications Administered Medications (Trade) Dose Ordered Sig/Mazin Route Start Time Stop Time Status Last Admin Dose Admin Ondansetron HCl (Zofran Inj) 4 mg NOW STAT IV 01/14/17 13:54 01/14/17 13:57 DC 01/14/17 15:43 4 MG Acetaminophen (Tylenol Tab) 1,000 mg NOW STAT PO 01/14/17 13:54 01/14/17 13:57 DC 01/14/17 14:29 1,000 MG Famotidine (Pepcid Tab) 20 mg NOW ONCE PO 01/14/17 14:00 01/14/17 14:01 DC 01/14/17 14:28 20 MG Lidocaine HCl (Viscous Lidocaine 2% Soln) 20 ml STK-MED ONCE .ROUTE 01/14/17 14:36 01/14/17 14:37 DC 01/14/17 14:38 20 ML Al Hydroxide/Mg Hydroxide (Maalox Susp) 30 ml STK-MED ONCE .ROUTE 01/14/17 14:36 01/14/17 14:37 DC 01/14/17 14:38 30 ML Sodium Chloride 250 ml @ 250 mls/hr Q1H STAT IV 01/14/17 15:21 01/14/17 16:20 DC 01/14/17 15:21 250 MLS/HR ECG Indication: abdominal pain Rate (beats per minute): 52 Rhythm: sinus bradycardia Findings: LBBB, Q waves (anterior and inferior), T-wave inversion (AVL), other (wid QRS, no sgarbossa criteria present ) Comparison ECG Date: 10/05/16 Change: no significant change ED Course 1336: The patient was evaluated in room C10. A complete history and physical exam was performed. 1545: I reevaluated the patient and she just got her medications. 1651: At request of the patients family, I went down to talk to the patient and her family prior to her CT scan. The patient is feeling much better. Medical Decision Differential diagnosis: Etiologies such as appendicitis, diverticulitis, PUD, biliary pathology, UTI, pancreatitis, obstruction, mesenteric ischemia, aortic pathology, infections, inflammatory bowel disease, renal colic, as well as others were entertained. The patient is an 81 year old white female with a past medical history of a colostomy, atrial fibrillation, diverticulitis, sepsis, cholecystectomy, perforated abdominal viscus, hypertension, congestive heart failure who presents to the ED with a cc of persistent epigastric abdominal pain beginning prior to arrival. Patient was seen and evaluated at the bedside. Patient does have a known prior history of hypertension and A. fib and CHF who presents with a chief complaint of some epigastric pain. Patient has complaints of some nausea and intermittent over the last several days. Patient denies any chest pain or shortness of breath. Patient does have some chronic BORJA however no acute changes nor orthopnea. Patient denies any cough. Patient does have a loss to be secondary to diverticulitis status post perforation which required a colectomy and colostomy. Patient was concerned she had a bulge that she was coming from the left side of her abdomen. This was not coming through her colostomy site. On exam the patient is a fairly soft abdomen with mild epigastric tenderness palpation. Ostomy site appears well and is have stool present. Patient did have blood work that was completed along with urinalysis EKG and troponin. She also did have a CT scan with oral contrast. Patient's EKG showed no significant change was nonischemic. Patient had a negative troponin. Patient did have CK D is likely chronic. Patient's CT the abdomen pelvis did not show anything acute. Patient did have a trace fat- containing hernia adjacent to her colostomy site and did not contain any bowel. There was a possibility of possible nonspecific colitis however the patient does not have any lower abdominal pain and does not have an elevated white blood cell count thus we'll not treat for possible colitis. Patient's other blood work was fairly unremarkable. Mild elevation in alk phos but no elevations in other LFTs or lipase. UA neg for infection. CT neg as well. I did discuss the findings with the patient. Furthermore I did discuss the patient's results with permission from the patient with her son who is a pulmonary case resolution specialist in [place]. He was in agreement with the plan of care after further discussion. I did discuss with the patient that she should continue symptomatic control if she still has any persistent nausea. She did state that her nausea and epigastric discomfort was much improved. She was given prescriptions for home and was agreeable to this plan of care. Patient was given strict follow-up, discharge, and return precautions. All questions were answered. Patient was deemed suitable for outpatient follow-up at this time. Patient agreed with the plan of care and was safely discharged home. Medication Reconcilliation Current Medication List: was personally reviewed by me Impression Primary Impression: Abdominal hernia Additional Impression: Nausea Scribe Attestation The scribe's documentation has been prepared under my direction and personally reviewed by me in its entirety. I confirm that the note above accurately reflects all work, treatment, procedures, and medical decision making performed by me. Departure Information Dispostion Home / Self-Care Prescriptions Famotidine (PEPCID) 40 Mg Tab 40 MG PO QD for 30 Days, #30 TAB Prov: Sahil Muse M.D. 01/14/17 Ondasetron Odt (ZOFRAN ODT) 4 Mg Tab 4 MG SL Q6H for Nausea, #6 TAB Prov: Sahil Muse M.D. 01/14/17 Referrals No Doctor, Assigned (PCP) Patient Instructions ED Nausea Vomiting, Hernia, My [facility] Additional Instructions Please return to the emergency department if you have worsening or recurrent symptoms not amenable to at-home treatment. Please call for a follow-up appointment with her primary care physician. Please take your medications as prescribed. If you have other concerns and/or complaints please feel free to also call your primary care physician's office or return the ED for further evaluation, management, and treatment. You may take tylenol 650 mg every 6 hours as needed for pain. You may take motrin and tylenol separately or at the same time. Take your medications as prescribed. You have been examined and treated today on an emergency basis only. This is not a substitute for, or an effort to provide, complete comprehensive medical care. It is impossible to recognize and treat all injuries or illnesses in a single emergency department visit. It is therefore important that you follow up closely with [facility], your PCP, and/or your specialist(s). Call as soon as possible for an appointment. Thank you for your time and consideration. I look forward to speaking with you again soon. Please don't hesitate to call us if you have any questions. Problem Qualifiers Primary Impression: Abdominal hernia Hernia type: parastomal Obstruction and gangrene presence: without obstruction or gangrene Qualified Codes: K43.5 - Parastomal hernia without obstruction or gangrene
[2017-01-14 14:29] LABS: URINE APPEARANCE CLEAR (CLEAR); URINE BILIRUBIN NEG (NEG); URINE COLOR YELLOW; URINE NITRITE NEG (NEG); URINE SPECIFIC GRAVITY 1.009 (1.000-1.030); UROBILINOGEN NEG (NEG); ZZUR CULT IF INDIC CLEAN CATCH NO
[2017-01-14 14:32] LABS: MANUAL MICROSCOPIC REQUIRED? NO; REVIEW REQ? NO
[2017-01-14] MEDS ORDERED: LIDOCAINE HCL 2% VISC SOLN 20 ML UDC ONE (14:36)
[2017-01-14] MEDS ORDERED: ALUMINUM/MAGNESIUM SUSP 30 ML UDC ONE (14:36)
[2017-01-14 14:42] LABS: BASO % 0.2 %; BASO ABS # 0.02 K/uL (0-0.2); COMPLETE YES; EOS % 1.1 %; HEMATOCRIT 39.6 % (37-47); IG% 0.8 %; LYMPH % 28.1 %; LYMPH ABS # 2.56 K/uL (1.2-3.4); MEAN CELL VOLUME 94.1 fL (80-100); MEAN CORPUSCULAR HEMOGLOBIN 30.2 pg (25-34); MEAN CORPUSCULAR HGB CONC 32.1 g/dl (32-36); MEAN PLATELET VOLUME 9.8 fL (7.4-10.4); MONO % 9.3 %; NEUT % 60.5 %; PLATELET COUNT 187 K/uL (130-400); RED BLOOD COUNT 4.21 M/uL (4.2-5.4)
--- NOTE | 2017-01-14 14:45 | DIAGNOSTIC IMAGING REPORT ---
CHEST ONE VIEW PORTABLE CLINICAL HISTORY: Abdominal pain. COMPARISON STUDY: Chest radiograph September 20, 2016. FINDINGS: There is no pneumothorax or pleural effusion. Bibasilar opacities and pleural effusions shown on prior exam of September 20, 2016 have resolved. Mild to moderate cardiomegaly is noted. There is no evidence of pulmonary edema. IMPRESSION: No acute cardiopulmonary findings. Electronically signed by: Lucian Combs M.D. 01/14/2017 2:44 PM Dictated Date/Time: 01/14/2017 2:43 PM
[2017-01-14 15:10] LABS: ALT/SGPT 24 U/L (12-78); AST/SGOT 17 U/L (15-37); BLOOD UREA NITROGEN 36 mg/dl (7-18); BUN/CREATININE RATIO 26.9 (10-20); CALCIUM 9.1 mg/dl (8.5-10.1); CARBON DIOXIDE 30 mmol/L (21-32); CHLORIDE 103 mmol/L (98-107); CREATININE 1.34 mg/dl (0.60-1.20); GLUCOSE 93 mg/dl (70-99); SODIUM 137 mmol/L (136-145)
[2017-01-14 15:15] LABS: ALKALINE PHOSPHATASE 129 U/L (45-117)
[2017-01-14] MEDS ORDERED: SODIUM CHLORIDE 0.9% 250ML 250 ML IV STA (15:21)
--- NOTE | 2017-01-14 17:47 | DIAGNOSTIC IMAGING REPORT ---
CT OF THE HEAD WITHOUT CONTRAST CLINICAL HISTORY: Confusion. COMPARISON STUDY: Head CT October 03, 2016 and MRI of the brain October 04, 2016. CT DOSE: 1593.71 mGy.cm TECHNIQUE: Helical axial images of the head were obtained without IV contrast. Automated exposure control was utilized for the study. A dose lowering technique was utilized adhering to the principles of ALARA. FINDINGS: No acute intracranial hemorrhage, midline shift or mass effect is present. Ventricular system is stable. Basilar cisterns are patent. There are no extra-axial collections. White matter hypodensities are unchanged. There are no findings to suggest acute dural sinus thrombosis or acute territorial infarct. There is extensive intracranial vascular calcification. There are no calvarial fractures. There are postoperative findings within the sinuses. IMPRESSION: No acute intracranial findings. Electronically signed by: Lucian Combs M.D. 01/14/2017 5:46 PM Dictated Date/Time: 01/14/2017 5:44 PM
--- NOTE | 2017-01-14 17:57 | DIAGNOSTIC IMAGING REPORT ---
ABD/PELVIS ORAL CONT ONLY CLINICAL HISTORY: h/o of colostomy, ?spigelian hernia maybe, reducible. COMPARISON STUDY: CT of the abdomen and pelvis September 08, 2016 and renal ultrasound October 04, 2016. TECHNIQUE: Axial images of the abdomen and pelvis were obtained without IV contrast. Oral contrast was administered. FINDINGS: Visualized portions of the lower chest demonstrate mild interlobular septal thickening. There is moderate cardiomegaly. Innumerable calcified granulomas within the liver and spleen indicate a prior granulomatous process. Unenhanced images of the adrenal glands, kidneys and pancreas are normal. There is no hydronephrosis. There is a small diverticulum of the second portion of the duodenum which contains oral contrast. There is no biliary ductal dilatation status post cholecystectomy. Note is made of an interval sigmoid dissection with creation of a Noah pouch and a left lower quadrant descending colostomy. There is mild infiltration adjacent to the colostomy within the subcutaneous tissues of the anterior abdominal wall. There may be a small parastomal hernia. This contains fat only. There is mild diverticulosis of the descending colon. No free air or abscess is present. No suspicious osseous lesion is present. There is no lymphadenopathy. There is no bowel obstruction. The appendix is normal. IMPRESSION: 1. Status post interval sigmoid resection with Noah pouch and creation of a left lower quadrant descending colostomy. Mild infiltration adjacent to the colostomy may be postsurgical. A mild nonspecific colitis could appear similar. Possible small associated parastomal hernia which contains only fat. No bowel obstruction. 2. Findings suggestive of mild interstitial pulmonary edema. Moderate cardiomegaly. Electronically signed by: Lucian Combs M.D. 01/14/2017 5:55 PM Dictated Date/Time: 01/14/2017 5:46 PM
[2017-01-14] MEDS ORDERED: ONDA4TAB10 SL (18:14)
[2017-01-14] MEDS ORDERED: FAMO40TA6 PO (18:14)
[2017-01-14 18:30] VITALS: BP 170/107; PULSE 56; TEMP 36.3; O2SAT 96
== END 2017-01-14 18:30 | disposition home or self-care (01) ==
LOC: C.EDB 12:44 → C.EDC 18:30
DX: K43.5 Parastomal hernia without obstruction or gangrene (principal); R11.0 Nausea; I48.91 Unspecified atrial fibrillation; I11.0 Hypertensive heart disease with heart failure; I50.9 Heart failure, unspecified; R00.1 Bradycardia, unspecified; I44.7 Left bundle-branch block, unspecified; Z93.3 Colostomy status; Z85.818 Personal history of malignant neoplasm of other sites of lip, oral cavity, and pharynx; Z79.01 Long term (current) use of anticoagulants

== ENCOUNTER → 2017-02-27 | Day surgery (SDC) | payer OTHER, MEDICARE ==
[~2017-02-27] MED LIST changes: -ASPEC81 PO; +ONDA4TAB10 SL
== END | disposition home or self-care (01) ==
LOC: EDSTATUS 13:30 → C.ACU 13:47
PROVIDERS: ATTEND Family Medicine
DX: Z43.3 Encounter for attention to colostomy (principal)

== ENCOUNTER → 2017-05-09 | Outpatient (CLI) | payer OTHER, MEDICARE ==
[~2017-05-09] MED LIST changes: +CALC12504 PO; -NF84 PO
[2017-05-09 14:38] LABS: HEMATOCRIT 36.1 % (37-47); HEMOGLOBIN 11.7 g/dL (12.0-16.0); MEAN CELL VOLUME 94.3 fL (80-100); MEAN CORPUSCULAR HEMOGLOBIN 30.5 pg (25-34); MEAN CORPUSCULAR HGB CONC 32.4 g/dl (32-36); MEAN PLATELET VOLUME 10.2 fL (7.4-10.4); PLATELET COUNT 235 K/uL (130-400); RED CELL DISTRIBUTION WIDTH CV 16.1 % (11.5-14.5); RED CELL DISTRIBUTION WIDTH SD 55.6 fL (36.4-46.3); WHITE BLOOD COUNT 7.81 K/uL (4.8-10.8)
[2017-05-09 14:49] LABS: ALBUMIN 3.5 gm/dl (3.4-5.0); BLOOD UREA NITROGEN 62 mg/dl (7-18); CALCIUM 9.5 mg/dl (8.5-10.1); CARBON DIOXIDE 30 mmol/L (21-32); CREATININE 1.99 mg/dl (0.60-1.20); GLUCOSE 92 mg/dl (70-99); PHOSPHORUS 3.7 mg/dl (2.5-4.9); POTASSIUM 4.6 mmol/L (3.5-5.1); SODIUM 137 mmol/L (136-145)
== END | disposition home or self-care (01) ==
LOC: C.LAB1850 12:59
PROVIDERS: ATTEND Internal Medicine Nephrology
DX: I12.9 Hypertensive chronic kidney disease with stage 1 through stage 4 chronic kidney disease, or unspecified chronic kidney disease (principal); N18.3 Chronic kidney disease, stage 3 (moderate); R60.9 Edema, unspecified; D64.9 Anemia, unspecified; E55.9 Vitamin D deficiency, unspecified

== ENCOUNTER → 2017-05-30 | Outpatient (CLI) | payer OTHER, MEDICARE ==
[2017-05-30 12:53] LABS: ALBUMIN 3.2 gm/dl (3.4-5.0); BLOOD UREA NITROGEN 25 mg/dl (7-18); CALCIUM 9.1 mg/dl (8.5-10.1); CARBON DIOXIDE 29 mmol/L (21-32); CREATININE 1.64 mg/dl (0.60-1.20); GLUCOSE 84 mg/dl (70-99); PHOSPHORUS 3.1 mg/dl (2.5-4.9); POTASSIUM 4.1 mmol/L (3.5-5.1); SODIUM 139 mmol/L (136-145)
== END | disposition home or self-care (01) ==
LOC: C.LAB1850 10:49
PROVIDERS: ATTEND Internal Medicine Nephrology
DX: I13.0 Hypertensive heart and chronic kidney disease with heart failure and stage 1 through stage 4 chronic kidney disease, or unspecified chronic kidney disease (principal); R60.9 Edema, unspecified; N18.3 Chronic kidney disease, stage 3 (moderate); D64.9 Anemia, unspecified; I50.32 Chronic diastolic (congestive) heart failure; E55.9 Vitamin D deficiency, unspecified

== ENCOUNTER 2017-06-18 17:12 | Inpatient (IN) | payer OTHER, MEDICARE ==
[~2017-06-18] VITALS: Ht 149.9 cm; Wt 77.0 kg
--- NOTE | 2017-06-18 17:15 | EMERGENCY ROOM VISIT NOTE ---
History Report prepared by Abby: Namrata Ramirez Under the Supervision of: Dr. Anthony Brown M.D. First contact with patient: 17:09 Stated Complaint: RESPIRATORY DISTRESS History of Present Illness The patient is a 82 year old female who presents to the Emergency Room with complaints of persistent difficulties breathing which began prior to arrival. Per EMS, the patient has been experiencing some burning chest pain and had some recent changes in her diuretics. Her daughter reports that the patient has been having fluid build up lately, noting that it sometimes causes her to be in atrial fibrillation. HPI is limited due to patient being in respiratory distress and her acuity. Source of History: patient History Limited By: other (respiratory distress) Onset: today Position: other (respiratory) Quality: other (difficulties breathing) Timing: other (persistent) Review of Systems ROS unable to be obtained based on patient's acuity. 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 Patient did not report any pertinent family history. Social History Smokeless Tobacco Use: No Alcohol Use: none Drug Use: none Housing Status: assisted living ([facility] ) Occupation Status: retired Current/Historical Medications Scheduled Atorvastatin (Lipitor), 20 MG PO QPM Bumetanide (Bumex), 1 MG PO DAILY Calcium Carbonate (Calcium Carbonate), 1,250 MG PO BIDM Carvedilol (Coreg), 3.125 MG PO BID Cholecalciferol (Vitamin D3), 2,000 UNITS PO QAM Famotidine (Pepcid), 40 MG PO QPM Fluticasone Propionate (Nasal) (Flonase Allergy Relief), 2 SPRAYS KETTY DAILY Gabapentin (Neurontin), 600 MG PO QPM Lactobacillus (Acidophilus), 1 CAP PO DAILY Levothyroxine Sodium (Synthroid), 75 MCG PO QAM Potassium Ext Rel (Klor-Con), 20 MEQ PO DAILY Sertraline (Zoloft), 25 MG PO DAILY Trazodone Hcl (Trazodone), 50 MG PO QPM Warfarin Sod (Jantoven), 2 MG PO 2XWK Warfarin Sod (Jantoven), 4 MG PO 5XWK Scheduled PRN Docusate Sodium (Colace), 100 MG PO BID PRN for Constipation Ondansetron Hcl (Zofran), 4 MG PO Q8 PRN for Nausea Polyethylene Glycol 3350 (Miralax), 17 GM PO DAILY PRN for Constipation Allergies Coded Allergies: Penicillins (Verified Allergy, Intermediate, HIVES, 06/18/17) Sulfa Antibiotics (Verified Allergy, Intermediate, fever, 06/18/17) Morphine (Unverified Allergy, Unknown, STOPPED HEART, 06/18/17) Physical Exam Vital Signs Date Time Temp Pulse Resp B/P (MAP) Pulse Ox O2 Delivery O2 Flow Rate FiO2 06/18/17 20:04 96 22 126/96 99 BiPAP 100 06/18/17 19:43 104 22 123/84 99 BiPAP 100 06/18/17 19:13 111 22 145/83 99 Room Air 06/18/17 18:56 107 20 146/87 99 BiPAP 100 06/18/17 18:44 108 119/76 06/18/17 18:37 117 24 119/76 99 BiPAP 100 06/18/17 18:26 104 20 132/81 98 BiPAP 100 06/18/17 18:13 125 28 123/78 93 BiPAP 100 06/18/17 17:56 37.3 122 24 145/87 100 BiPAP 100 06/18/17 17:49 122 118/95 06/18/17 17:39 130 118/82 06/18/17 17:38 145 180/147 06/18/17 17:36 130 118/82 06/18/17 17:29 113 06/18/17 17:27 149 99 100 06/18/17 17:26 145 22 180/147 99 BiPAP 100 06/18/17 17:15 192 Physical Exam GENERAL: Patient is severely unwell appearing and in severe distress. Too dyspneic to answer questions. EYES: No scleral icterus, unremarkable pupils. ENT: Mucous membranes moist, no nasal congestion. NECK: No masses appreciated, no meningismus, trachea is midline. RESPIRATORY: Dyspneic and tachypneic with wet sounds throughout. CARDIOVASCULAR: Tachycardic rate and irregular rhythm. No murmurs, rubs, gallops appreciated. GASTROINTESTINAL: Ostomy in left lower abdomen. Abdomen soft, nontender, no peritonitis. Bowel sounds positive. BACK: No midline tenderness, no CVA tenderness EXTREMITIES: Normal motion all extremities, no cyanosis, no edema. NEUROLOGIC: Awake, looking around room, no acute motor or sensory deficits, no focal weakness, cranial nerves grossly intact. SKIN: Pitting edema bilateral in legs. No rash, no jaundice, no diaphoresis. Medical Decision & Procedures ER Provider Diagnostic Interpretation: Radiology results and stated below per my review and radiologist interpretation: SINGLE VIEW CHEST CLINICAL HISTORY: Generalized weakness. FINDINGS: An AP, portable, upright chest radiograph is compared to study dated 01/14/2017. The examination is degraded by portable technique and patient rotation. The heart is enlarged and there is atherosclerotic calcification of the thoracic aorta. There is prominence of the pulmonary vasculature. Chronic interstitial thickening is similar to previous. There is bibasilar atelectasis. No focal airspace consolidation or large pleural effusion is identified. A calcified granuloma is noted at the left lung base. No pneumothorax is seen. The skeletal structures are osteopenic. The bony thorax is grossly intact. IMPRESSION: 1. The heart is enlarged and there is prominence of the central pulmonary vessels. Correlate clinically for evidence of mild congestive failure. 2. No airspace consolidation or large pleural effusion is identified. Electronically signed by: Inocencio Rivera M.D. 06/18/2017 5:36 PM Dictated Date/Time: 06/18/2017 5:34 PM Laboratory Results Test 06/18/17 17:20 06/18/17 17:47 06/18/17 19:14 Neutrophils % (Manual) 44.2 % Lymphocytes % (Manual) 50.5 % Monocytes % (Manual) 3.5 % Metamyelocytes % 0.9 % Myelocytes % 0.9 % Neutrophils # (Manual) 8.86 K/uL (1.4-6.5) Total Absolute Neutrophils 8.86 K/uL (1.4-6.5) Lymphocytes # (Manual) 10.13 K/uL (1.2-3.4) Total Absolute Lymphocytes 10.13 K/uL (1.2-3.4) Monocytes # (Manual) 0.70 K/uL (0.11-0.59) Metamyelocytes # 0.18 K/uL (0-0) Myelocytes # 0.18 K/uL (0-0) Blood Smear Review Activated Partial Thromboplast Time 28.8 SECONDS (21.0-31.0) Partial Thromboplastin Ratio 1.1 Venous Blood pH 7.26 (7.36-7.41) Venous Blood Partial Pressure CO2 54 mmHg (38.0-50.0) Venous Blood Partial Pressure O2 96 mmHg Venous Blood HCO3 24 mmol/L Venous Blood Oxygen Saturation 96.5 % Venous Blood Base Excess -4.1 mEq/L Direct Bilirubin 0.2 mg/dl (0-0.2) Total Creatine Kinase 86 U/L (26-192) Creatine Kinase MB 1.1 ng/ml (0.5-3.6) Creatine Kinase MB Ratio 1.3 (0-3.0) Lipase 161 U/L (73-393) Procalcitonin 0.20 ng/ml (0-0.5) Urine Color YELLOW Urine Appearance CLEAR (CLEAR) Urine pH 7.5 (4.5-7.5) Urine Specific [place] 1.013 (1.000-1.030) Urine Protein 2+ (NEG) Urine Glucose (UA) NEG (NEG) Urine Ketones NEG (NEG) Urine Occult Blood 1+ (NEG) Urine Nitrite NEG (NEG) Urine Bilirubin NEG (NEG) Urine Urobilinogen NEG (NEG) Urine Leukocyte Esterase NEG (NEG) Urine WBC (Auto) 0 /hpf (0-5) Urine RBC (Auto) 5-10 /hpf (0-4) Urine Hyaline Casts (Auto) 0 /lpf (0-5) Urine Epithelial Cells (Auto) 0-5 /lpf (0-5) Urine Bacteria (Auto) NEG (NEG) Arterial Blood pH 7.42 (7.35-7.45) Arterial Blood Partial Pressure CO2 43 mmHg (35-46) Arterial Blood Partial Pressure O2 341 mm/Hg (80-95) Arterial Blood HCO3 27 mmol/L (19-24) Arterial Blood Oxygen Saturation 99.8 % (90-95) Arterial Blood Base Excess 2.3 mEq/L (-9-1.8) Arterial Blood Gas Delivery BIPAP 99% Yasmani Test POSITIVE (POS) Lactic Acid Level 1.8 mmol/L (0.4-2.0) Laboratory results as reviewed by me. Medications Administered Medications (Trade) Dose Ordered Sig/Mazin Route Start Time Stop Time Status Last Admin Dose Admin Metoprolol Tartrate (Lopressor Iv) 5 mg STK-MED ONCE .ROUTE 06/18/17 17:16 06/18/17 17:17 DC 06/18/17 17:38 5 MG Metoprolol Tartrate (Lopressor Iv) 5 mg STK-MED ONCE .ROUTE 06/18/17 17:25 06/18/17 17:26 DC 06/18/17 17:39 5 MG Metoprolol Tartrate (Lopressor Iv) 5 mg NOW STAT IV 06/18/17 17:36 06/18/17 17:38 DC 06/18/17 17:49 5 MG Furosemide (Lasix Inj) 40 mg NOW STAT IV 06/18/17 17:36 06/18/17 17:38 DC 06/18/17 17:48 40 MG Nitroglycerin (Nitroglycerin 2% Oint) 18 inch STK-MED ONCE EXT 06/18/17 17:15 06/18/17 17:58 DC 06/18/17 18:03 18 INCH Cefepime HCl 1000 mg/Dextrose 111 ml @ 200 mls/hr NOW STAT IV 06/18/17 18:15 06/18/17 18:48 DC 06/18/17 18:50 200 MLS/HR Vancomycin HCl 1500 mg/Sodium Chloride 530 ml @ 200 mls/hr ONE STAT IV 06/18/17 18:15 06/18/17 20:53 DC 06/18/17 18:49 200 MLS/HR Metoprolol Tartrate (Lopressor Iv) 5 mg NOW STAT IV 06/18/17 18:23 06/18/17 18:24 DC 06/18/17 18:44 5 MG ECG Per My Interpretation Indication: SOB/dyspnea Rate (beats per minute): 175 Rhythm: atrial fibrillation (with RVR) Findings: LBBB, nonspecific-ST abn (throughout) Comparison ECG Date: Compared to 09/2016 her rate has increased but morphology remained the same ED Course 8: The patient was evaluated in room A1. A complete history and physical exam was performed. 1736: I reevaluated the patient and her heart rate was in the 120's and irregular. She will get a second dose of Lopressor. The patient notes that she previously tolerated Lasix. 1750: I reevaluated the patient, who is completely awake, oriented, and interactive. Her heart rate is 108. She denies any current fevers or illnesses. I will cancel the CT ordered. 1807: I discussed the patient's case with her son over the phone. He verbalized complete understanding and agreement of the test findings and the treatment. 1812: I reevaluated the patient, who is stable and breathing comfortably with no distress. Medical Decision Differential: Infectious, Reactive Airway Disease, Pneumonia, Pneumothorax, COPD , CHF, ACS, Pulmonary Embolism, MSK, GI, Dissection, amongst other etiologies entertained. 82 yr old female arrives for evaluation of worsening shob and weakness last 72 hours. History of diastolic CHF, PAF, and Coumadin. She was hypoxic and in severe distress for EMS, though with IM ativan she calmed and we were able to place her on BiPAP with vast improvement in her breathing. Clearly in CHF on exam and per history thus given empiric nitro past, IV lasix, and kept on bipap. She was found to be in afib RVR and given multiple rounds IV lopressor to get HR down to 90s-120s. BP initially quite elevated though improved drastically with her calming down. INR is therapeutic and with improvement in symptoms I feel this is unlikely PE and will hold off on CT PE at this time. WBC quite elvated though this may be related to stress and or recent cortisol shots to knees. These to not appear infected. She does have elevated lactic acid and low pH which I also suspect are more hypoxia from chf/afib rvr than it is infectious, and given her fluid overload and already on bipap felt that not given fluid bolus would be preferential at this time. For this reason an early repeat abx/lactic acid was ordered to see where we were at 2 hours post initiation of therapy. She was further more given empiric abx just incase there is underlying infection though she has had no fevers, cxr without infiltrate other than CHF findings, and ua clear. She has been mentating quite well for several hours on bipap and breathing much more comfortably. pH has normalized fortunately and she has been stable. Unfortunately afib RVR has continued but with HR not going in to 130s or above will let this rid with periodic IV Lopressor until evaluated further by hospitalist. I discussed case early with [facility] (Dr Cooney) to make him aware as well as eventually discussed with hospitalist for admission and further management. I discussed the case with patient's son John Paul Guillaume at [phone] who is CCM at [facility] in [place]. Many re-evaluations and rechecks throughout her stay. Stable and kept up to date on her proceedings. She has been comfortable for quite some time and is looking much improved. Head Trauma GCS Score: 15 Medication Reconcilliation Current Medication List: was personally reviewed by me Blood Pressure Screening Patient's blood pressure: Normal blood pressure Blood pressure disposition: Did not require urgent referral Impression Primary Impression: Pulmonary edema Additional Impressions: Acute congestive heart failure Atrial fibrillation with RVR Paroxysmal A-fib Lactic acid acidosis Leukocytosis Critical Care I have personally spent greater than 90 minutes of critical care time in the direct management of this patient. This was a life/limb threatening event. This includes time spent evaluating patient, direct bedside care, chart review, placing orders, interpretation of diagnostic studies, discussion with consultants, patient, and family members, as well as other required patient management activities. This 90 minutes is in excess of all separately billable procedures. Scribe Attestation The scribe's documentation has been prepared under my direction and personally reviewed by me in its entirety. I confirm that the note above accurately reflects all work, treatment, procedures, and medical decision making performed by me. Problem Qualifiers
[2017-06-18] MEDS ORDERED: METOPROLOL TARTRATE 1 MG/ML VIAL ONE ×2 (17:16→17:25)
[2017-06-18 17:27] VITALS: PULSE 149; O2SAT 99
[2017-06-18] MEDS ORDERED: FUROSEMIDE 40 MG/4 ML VIAL IV STA (17:36)
[2017-06-18] MEDS ORDERED: METOPROLOL TARTRATE 1 MG/ML VIAL IV STA ×2 (17:36→18:23)
--- NOTE | 2017-06-18 17:37 | DIAGNOSTIC IMAGING REPORT ---
SINGLE VIEW CHEST CLINICAL HISTORY: Generalized weakness. FINDINGS: An AP, portable, upright chest radiograph is compared to study dated 01/14/2017. The examination is degraded by portable technique and patient rotation. The heart is enlarged and there is atherosclerotic calcification of the thoracic aorta. There is prominence of the pulmonary vasculature. Chronic interstitial thickening is similar to previous. There is bibasilar atelectasis. No focal airspace consolidation or large pleural effusion is identified. A calcified granuloma is noted at the left lung base. No pneumothorax is seen. The skeletal structures are osteopenic. The bony thorax is grossly intact. IMPRESSION: 1. The heart is enlarged and there is prominence of the central pulmonary vessels. Correlate clinically for evidence of mild congestive failure. 2. No airspace consolidation or large pleural effusion is identified. Electronically signed by: Inocencio Rivera M.D. 06/18/2017 5:36 PM Dictated Date/Time: 06/18/2017 5:34 PM
[2017-06-18 17:42] LABS: HEMATOCRIT 46.5 % (37-47); HEMOGLOBIN 15.2 g/dL (12.0-16.0); MEAN CELL VOLUME 95.5 fL (80-100); MEAN CORPUSCULAR HEMOGLOBIN 31.2 pg (25-34); MEAN CORPUSCULAR HGB CONC 32.7 g/dl (32-36); MEAN PLATELET VOLUME 10.4 fL (7.4-10.4); PLATELET COUNT 339 K/uL (130-400); RED CELL DISTRIBUTION WIDTH CV 15.1 % (11.5-14.5); RED CELL DISTRIBUTION WIDTH SD 52.7 fL (36.4-46.3); WHITE BLOOD COUNT 20.05 K/uL (4.8-10.8)
[2017-06-18 17:50] LABS: INR 2.2 (0.9-1.1); PTT PATIENT 28.8 SECONDS (21.0-31.0)
[2017-06-18 17:57] LABS: ALBUMIN 3.7 gm/dl (3.4-5.0); ALT/SGPT 200 U/L (12-78); AST/SGOT 191 U/L (15-37); BLOOD UREA NITROGEN 34 mg/dl (7-18); CALCIUM 8.7 mg/dl (8.5-10.1); CARBON DIOXIDE 24 mmol/L (21-32); CREATININE 1.36 mg/dl (0.60-1.20); GLUCOSE 196 mg/dl (70-99); LIPASE 161 U/L (73-393); POTASSIUM 4.6 mmol/L (3.5-5.1); SODIUM 140 mmol/L (136-145)
[2017-06-18 18:00] LABS: ALKALINE PHOSPHATASE 176 U/L (45-117); CKMB 1.1 ng/ml (0.5-3.6); PHOSPHORUS 3.9 mg/dl (2.5-4.9); TOTAL PROTEIN 7.8 gm/dl (6.4-8.2)
[2017-06-18] MEDS: NITROGLYCERIN 2% OINTMENT 30GM TUBE EXT ONE (18:03)
[2017-06-18] MEDS ORDERED: CEFEPIME IV 1,000 MG in DEXTROSE 5% 100ML 100 ML IV STA (18:15)
[2017-06-18] MEDS ORDERED: VANCOMYCIN CONSULT ACTIVE PRN (18:15)
[2017-06-18] MEDS ORDERED: VANCOMYCIN IV 1,500 MG in SODIUM CHLORIDE 0.9% 500ML 500 ML IV STA (18:15)
[2017-06-18] MEDS ORDERED: LACTCAP3 PO (18:20)
[2017-06-18] MEDS ORDERED: ATOR-54 PO (18:21)
[2017-06-18] MEDS ORDERED: DOCU-94 PO (18:26)
[2017-06-18] MEDS ORDERED: POLY335019 PO (18:26)
[2017-06-18] MEDS ORDERED: FLUT0.15 NAE (18:26)
[2017-06-18] MEDS ORDERED: POTA-639 PO (18:26)
[2017-06-18] MEDS ORDERED: FAMO40TA6 PO (18:26)
[2017-06-18] MEDS ORDERED: TRAZ50TA35 PO (18:26)
[2017-06-18] MEDS ORDERED: ONDA4TAB46 PO (18:26)
[2017-06-18] MEDS ORDERED: GABA-113 PO (18:26)
[2017-06-18] MEDS ORDERED: WARF4TAB8 PO (18:29)
[2017-06-18] MEDS ORDERED: WARF2TAB8 PO (18:29)
[2017-06-18] MEDS ORDERED: LEVALBUTEROL 0.63MG/3 ML NEB INH PRN (20:15)
[2017-06-18] MEDS ORDERED: ONDANSETRON INJ 2 MG/ML 2 ML VIAL IV PRN (20:15)
[2017-06-18] MEDS ORDERED: ONDANSETRON 4 MG TAB PO PRN (20:15)
[2017-06-18] MEDS ORDERED: MAGNESIUM HYDROXIDE SUSP 30 ML UDC PO PRN (20:15)
[2017-06-18] MEDS ORDERED: ICU PROTOCOL FOR HYPERGLYCEMIA PRN (20:15)
[2017-06-18] MEDS ORDERED: IPRATROPIUM BROMIDE NEB SOLN 0.02% 2.5 ML VIAL INH PRN (20:15)
[2017-06-18] MEDS ORDERED: ALUMINUM/MAGNESIUM/SIMETH (MAALOX MAX) 30 ML UDC PO PRN (20:15)
[2017-06-18] MEDS ORDERED: ACETAMINOPHEN 325 MG TAB PO PRN (20:15)
[2017-06-18] MEDS ORDERED: LORAZEPAM 0.5 MG TAB PO PRN (20:15)
--- NOTE | 2017-06-18 20:39 | History and Physical ---
History & Physical Date & Time of Service: Jun 18, 2017 at 20:27 Chief Complaint: Respiratory Distress Primary Care Physician: Laci Yung M.D. History of Present Illness Source: patient 82-year-old female with past medical history of paroxysmal atrial fibrillation, diastolic congestive heart failure, recent perforated diverticulitis requiring sigmoid colectomy and colostomy pouch, hypothyroidism, hypertension, history of CVA, chronic kidney disease stage III, moderate bilateral DANGELO, dyslipidemia, obstructive sleep apnea, depression and restless leg syndrome. Patient was in his regular state of health until 4 days prior to admission. Patient stated that she started having aggressive shortness of breath. Associated with productive cough with clear sputum. Also patient noticed increasing bilateral lower extremity edema. She said that she gained about 5 pounds over the past 1 week. Today patient became severely short of breath unable to breathe. When she came to the hospital she was found to have acute hypoxic respiratory failure and severe combined metabolic and respiratory acidosis. Patient will be admitted for further evaluation and management Colostomy bag has been full of liquid stool for the last 2 days Past Medical/Surgical History Medical Problems: (1) A-fib (2) Abdominal hernia (3) Acute diverticulitis (4) Acute respiratory failure (5) WAYNE (acute kidney injury) (6) Benign hypertension (7) Diabetes (8) Diverticulitis (9) Diverticulitis of intestine with perforation (10) Heart disease (11) HTN (hypertension) (12) Kidney disease (13) Left lower quadrant pain (14) Nausea (15) Perforated abdominal viscus (16) RLE weakness (17) Sepsis (18) TIA (transient ischemic attack) (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 Social History Smoking Status: Former Smoker Smokeless Tobacco Use: No Drug Use: none Marital Status: single Housing status: other Occupational Status: retired Allergies Coded Allergies: Penicillins (Verified Allergy, Intermediate, HIVES, 06/18/17) Sulfa Antibiotics (Verified Allergy, Intermediate, fever, 06/18/17) Morphine (Unverified Allergy, Unknown, STOPPED HEART, 06/18/17) Home Medications Scheduled Atorvastatin (Lipitor), 20 MG PO QPM Bumetanide (Bumex), 1 MG PO DAILY Calcium Carbonate (Calcium Carbonate), 1,250 MG PO BIDM Carvedilol (Coreg), 3.125 MG PO BID Cholecalciferol (Vitamin D3), 2,000 UNITS PO QAM Famotidine (Pepcid), 40 MG PO QPM Fluticasone Propionate (Nasal) (Flonase Allergy Relief), 2 SPRAYS KETTY DAILY Gabapentin (Neurontin), 600 MG PO QPM Lactobacillus (Acidophilus), 1 CAP PO DAILY Levothyroxine Sodium (Synthroid), 75 MCG PO QAM Potassium Ext Rel (Klor-Con), 20 MEQ PO DAILY Sertraline (Zoloft), 25 MG PO DAILY Trazodone Hcl (Trazodone), 50 MG PO QPM Warfarin Sod (Jantoven), 2 MG PO 2XWK Warfarin Sod (Jantoven), 4 MG PO 5XWK Scheduled PRN Docusate Sodium (Colace), 100 MG PO BID PRN for Constipation Ondansetron Hcl (Zofran), 4 MG PO Q8 PRN for Nausea Polyethylene Glycol 3350 (Miralax), 17 GM PO DAILY PRN for Constipation Review of Systems Review of system Constitutional: No fever / no chills / no sweats /positive for generalized fatigue and weakness Eyes: no blurring of vision / no eye pain / no discharge / no redness ENT: no hearing loss / no epistaxis /no swallowing problems Respiratory: Positive for productive cough and shortness of breath/ no hemoptysis Cardiovascular: no Chest pain / no lower extremity edema / no palpitation Abdomen: no pain / no nausea / no vomiting / no constipation, colostomy bag is full of liquid stool Musculoskeletal: no joint pain / no muscle pain / no joint swelling, positive for lower extremity edema Genitourinary: no dysuria / no incontinence / no urinary retention Neurologic: no focal weakness / no numbness/tingling / no ataxia Psychiatric: no depression symptoms / no anxiety / no insomnia Endocrine: no excessive thirst / no excessive urination Hematologic: no abnormal bleeding / no bruising / no LN swelling Skin: No rash / no pallor Physical Exam Vital Signs Date Time Temp Pulse Resp B/P (MAP) Pulse Ox O2 Delivery O2 Flow Rate FiO2 06/18/17 20:04 96 22 126/96 99 BiPAP 100 06/18/17 19:43 104 22 123/84 99 BiPAP 100 06/18/17 19:13 111 22 145/83 99 Room Air 06/18/17 18:56 107 20 146/87 99 BiPAP 100 06/18/17 18:44 108 119/76 06/18/17 18:37 117 24 119/76 99 BiPAP 100 06/18/17 18:26 104 20 132/81 98 BiPAP 100 06/18/17 18:13 125 28 123/78 93 BiPAP 100 06/18/17 17:56 37.3 122 24 145/87 100 BiPAP 100 06/18/17 17:49 122 118/95 06/18/17 17:39 130 118/82 06/18/17 17:38 145 180/147 06/18/17 17:36 130 118/82 06/18/17 17:29 113 06/18/17 17:27 149 99 100 06/18/17 17:26 145 22 180/147 99 BiPAP 100 06/18/17 17:15 192 Physical examination General patient appears to be in moderate distress HEENT: Atraumatic , normocephalic /no jaundice /no pallor /anicteric /no dry mucous membrane /normal external ear inspection Neck: Supple /no swelling /central trach Heart: S1/S2 normal/regular rate and rhythm/no gallop /no rub /no murmur Lungs: Respiratory/Chest: Decreased air entry bilaterally, use of accessory muscles of respiration, scattered rhonchi, bibasilar Rales Abdomen: Soft/nontender/no guarding/no rebound/no organomegaly/no pulsatile mass , colostomy bag in place Musculoskeletal: No swelling/no edema/no tenderness/normal range of motion Neuro exam: Awake alert oriented 3/cranial nerves II through XII appear to be intact/sensation intact/moves all extremities/no abnormal movements Psychiatric evaluation: No depressed mood/normal affect Skin: No rash on exposed skin area/no erythema Extremity: Normal pulse/no pitting edema/no clubbing or cyanosis Endocrine/lymphatic: No obvious lymphadenopathy /no lymphedema Diagnostics Laboratory Results Results Past 24 Hours Test 06/18/17 17:20 06/18/17 17:47 06/18/17 19:14 Range/Units White Blood Count 20.05 4.8-10.8 K/uL Red Blood Count 4.87 4.2-5.4 M/uL Hemoglobin 15.2 12.0-16.0 g/dL Hematocrit 46.5 37-47 % Mean Corpuscular Volume 95.5 80-100 fL Mean Corpuscular Hemoglobin 31.2 25-34 pg Mean Corpuscular Hemoglobin Concent 32.7 32-36 g/dl Platelet Count 339 130-400 K/uL Mean Platelet Volume 10.4 7.4-10.4 fL RDW Standard Deviation 52.7 36.4-46.3 fL RDW Coefficient of Variation 15.1 11.5-14.5 % Neutrophils % (Manual) 44.2 % Lymphocytes % (Manual) 50.5 % Monocytes % (Manual) 3.5 % Metamyelocytes % 0.9 % Myelocytes % 0.9 % Neutrophils # (Manual) 8.86 1.4-6.5 K/uL Total Absolute Neutrophils 8.86 1.4-6.5 K/uL Lymphocytes # (Manual) 10.13 1.2-3.4 K/uL Total Absolute Lymphocytes 10.13 1.2-3.4 K/uL Monocytes # (Manual) 0.70 0.11-0.59 K/uL Metamyelocytes # 0.18 0-0 K/uL Myelocytes # 0.18 0-0 K/uL Prothrombin Time 23.2 9.0-12.0 SECONDS Prothromb Time International Ratio 2.2 0.9-1.1 Activated Partial Thromboplast Time 28.8 21.0-31.0 SECONDS Partial Thromboplastin Ratio 1.1 Venous Blood pH 7.26 7.36-7.41 Venous Blood Partial Pressure CO2 54 38.0-50.0 mmHg Venous Blood Partial Pressure O2 96 mmHg Venous Blood HCO3 24 mmol/L Venous Blood Oxygen Saturation 96.5 % Venous Blood Base Excess -4.1 mEq/L Sodium Level 140 136-145 mmol/L Potassium Level 4.6 3.5-5.1 mmol/L Chloride Level 104 98-107 mmol/L Carbon Dioxide Level 24 21-32 mmol/L Anion Gap 11.0 3-11 mmol/L Blood Urea Nitrogen 34 7-18 mg/dl Creatinine 1.36 0.60-1.20 mg/dl Est Creatinine Clear Calc Drug Dose 29.5 ml/min Estimated GFR () 41.6 Estimated GFR (Non- 35.9 BUN/Creatinine Ratio 24.9 10-20 Random Glucose 196 70-99 mg/dl Lactic Acid Level 6.5 1.8 0.4-2.0 mmol/L Calcium Level 8.7 8.5-10.1 mg/dl Phosphorus Level 3.9 2.5-4.9 mg/dl Magnesium Level 2.3 1.8-2.4 mg/dl Total Bilirubin 0.5 0.2-1 mg/dl Direct Bilirubin 0.2 0-0.2 mg/dl Aspartate Amino Transf (AST/SGOT) 191 15-37 U/L Alanine Aminotransferase (ALT/SGPT) 200 12-78 U/L Alkaline Phosphatase 176 45-117 U/L Total Creatine Kinase 86 26-192 U/L Creatine Kinase MB 1.1 0.5-3.6 ng/ml Creatine Kinase MB Ratio 1.3 0-3.0 Troponin I < 0.015 0-0.045 ng/ml Total Protein 7.8 6.4-8.2 gm/dl Albumin 3.7 3.4-5.0 gm/dl Lipase 161 73-393 U/L Urine Color YELLOW Urine Appearance CLEAR CLEAR Urine pH 7.5 4.5-7.5 Urine Specific [place] 1.013 1.000-1.030 Urine Protein 2+ NEG Urine Glucose (UA) NEG NEG Urine Ketones NEG NEG Urine Occult Blood 1+ NEG Urine Nitrite NEG NEG Urine Bilirubin NEG NEG Urine Urobilinogen NEG NEG Urine Leukocyte Esterase NEG NEG Urine WBC (Auto) 0 0-5 /hpf Urine RBC (Auto) 5-10 0-4 /hpf Urine Hyaline Casts (Auto) 0 0-5 /lpf Urine Epithelial Cells (Auto) 0-5 0-5 /lpf Urine Bacteria (Auto) NEG NEG Arterial Blood pH 7.42 7.35-7.45 Arterial Blood Partial Pressure CO2 43 35-46 mmHg Arterial Blood Partial Pressure O2 341 80-95 mm/Hg Arterial Blood HCO3 27 19-24 mmol/L Arterial Blood Oxygen Saturation 99.8 90-95 % Arterial Blood Base Excess 2.3 -9-1.8 mEq/L Arterial Blood Gas Delivery BIPAP 99% Yasmani Test POSITIVE POS Microbiology Results 06/18/17 Blood Culture, Received Pending 06/18/17 Blood Culture, Received Pending Diagnostic Radiology Chest x-ray showed pulmonary congestion Impression Assessment and Plan 82-year-old female with past medical history of paroxysmal atrial fibrillation, diastolic congestive heart failure, recent perforated diverticulitis requiring sigmoid colectomy and colostomy pouch, hypothyroidism, hypertension, history of CVA, chronic kidney disease stage III, moderate bilateral DANGELO, dyslipidemia, obstructive sleep apnea, depression and restless leg syndrome. Presented to the hospital with acute hypoxic hypercapnic respiratory failure secondary to flash pulmonary edema and possible underlying pneumonia. Assessment Acute hypoxic and hypercapnic respiratory failure secondary to below Acute on chronic diastolic congestive heart failure Flash pulmonary edema Possible underlying pneumonia/bronchitis Bilateral respiratory and metabolic acidosis Sepsis present on admission likely secondary to pneumonia/bronchitis atrial fibrillation with RVR Recent perforated diverticulitis requiring sigmoid colectomy with colostomy , as per patient having diarrhea the last 3 days H/o CVA HTN Hypothyroidism CKD stage III Moderate bilateral DANGELO Hyperlipidemia MATT RLS Depression plan: admit to ICU Continue BiPAP obtain serial cardiac enz NTG SL/topical prn cp 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 difficile check for diarrhea Probiotic control blood pressure, afterload and preload DVT prophylaxis Resuscitation Status VTE Prophylaxis Will order VTE Prophylaxis: Yes
[2017-06-18 21:00] VITALS: PULSE 96; O2SAT 40
[2017-06-18] MEDS ORDERED: RANITIDINE HCL 150 MG TAB PO SCH (21:00)
[2017-06-18] MEDS ORDERED: CARVEDILOL 3.125 MG TAB PO SCH (21:00)
--- NOTE | 2017-06-18 21:42 | Critical Care Consultation ---
Critical Care Consultation Date of Consultation: Jun 18, 2017. Attending Physician: Reason for Consultation: SOB History of Present Illness 82-year-old female noted increased shortness of breath about 4 days ago. Some noted increased fluid in her legs as well. This acutely worsened earlier this evening, prompting an ED visit. On my evaluation in the ED, the patient states she already feels significantly improved on the BiPAP. Denies any chest pain, abdominal pain, but does say she has had increased output from her ostomy recently. No known emesis. She denies any other acute concerns outside of her shortness of breath as above. Past Medical/Surgical History PMH: Paroxysmal A. fib, perforated diverticulitis, acute respiratory failure, CKD stage III, HTN, HLD, diabetes, CVA, tonsillar cancer, diastolic CHF, MATT, depression, restless leg syndrome, carotid artery disease, UTI with presley resistant E. coli. PSH: Cholecystectomy, sigmoid colectomy and colostomy pouch Family History Patient reports no known family medical history. Social History Smoking Status: Former Smoker Smokeless Tobacco Use: No Drug Use: none Marital Status: single Housing Status: assisted living ([facility] ) Occupation Status: retired Allergies Coded Allergies: Penicillins (Verified Allergy, Intermediate, HIVES, 06/18/17) Sulfa Antibiotics (Verified Allergy, Intermediate, fever, 06/18/17) Morphine (Unverified Allergy, Unknown, STOPPED HEART, 06/18/17) Home Medications Scheduled Atorvastatin (Lipitor), 20 MG PO QPM Bumetanide (Bumex), 1 MG PO DAILY Calcium Carbonate (Calcium Carbonate), 1,250 MG PO BIDM Carvedilol (Coreg), 3.125 MG PO BID Cholecalciferol (Vitamin D3), 2,000 UNITS PO QAM Famotidine (Pepcid), 40 MG PO QPM Fluticasone Propionate (Nasal) (Flonase Allergy Relief), 2 SPRAYS KETTY DAILY Gabapentin (Neurontin), 600 MG PO QPM Lactobacillus (Acidophilus), 1 CAP PO DAILY Levothyroxine Sodium (Synthroid), 75 MCG PO QAM Potassium Ext Rel (Klor-Con), 20 MEQ PO DAILY Sertraline (Zoloft), 25 MG PO DAILY Trazodone Hcl (Trazodone), 50 MG PO QPM Warfarin Sod (Jantoven), 2 MG PO 2XWK Warfarin Sod (Jantoven), 4 MG PO [id number] Scheduled PRN Docusate Sodium (Colace), 100 MG PO BID PRN for Constipation Ondansetron Hcl (Zofran), 4 MG PO Q8 PRN for Nausea Polyethylene Glycol 3350 (Miralax), 17 GM PO DAILY PRN for Constipation Current Inpatient Medications Current Inpatient Medications Medications (Trade) Dose Ordered Sig/Mazin Route Start Time Stop Time Status Last Admin Dose Admin Miscellaneous Information (Consult) 1 ea UD PRN N/A 06/18/17 18:15 07/18/17 18:14 Atorvastatin Calcium (Lipitor Tab) 20 mg QPM PO 06/18/17 21:00 07/18/17 20:59 UNV Bumetanide (Bumex Tab) 1 mg DAILY PO 06/19/17 09:00 07/19/17 08:59 UNV Carvedilol (Coreg Tab) 3.125 mg BID PO 06/18/17 21:00 07/18/17 20:59 UNV Famotidine (Pepcid Tab) 40 mg QPM PO 06/18/17 21:00 07/18/17 20:59 UNV Fluticasone Propionate (Flonase Nasal [place]) 2 sprays DAILY KETTY 06/19/17 09:00 07/19/17 08:59 UNV Gabapentin (Neurontin Cap) 600 mg QPM PO 06/18/17 21:00 07/18/17 20:59 UNV Levothyroxine Sodium (Synthroid Tab) 75 mcg QAM PO 06/19/17 09:00 07/19/17 08:59 UNV Ondansetron HCl (Zofran Tab) 4 mg Q8 PRN PO 06/18/17 20:15 07/18/17 20:14 UNV Potassium Chloride (Klor-Con Tab) 20 meq DAILY PO 06/19/17 09:00 07/19/17 08:59 UNV Sertraline HCl (Zoloft Tab) 25 mg DAILY PO 06/19/17 09:00 07/19/17 08:59 UNV Trazodone HCl (Desyrel Tab) 50 mg QPM PO 06/18/17 21:00 07/18/17 20:59 UNV Warfarin Sodium (Coumadin Tab) 2 mg UD PO 06/18/17 20:15 07/18/17 20:14 UNV Warfarin Sodium (Coumadin Tab) 4 mg UD PO 06/18/17 20:15 07/18/17 20:14 UNV Non-Formulary Medication (Lactobacillus (Acidophilus)) 1 cap DAILY PO 06/19/17 09:00 07/19/17 08:59 UNV Acetaminophen (Tylenol Tab) 650 mg Q4H PRN PO 06/18/17 20:15 07/18/17 20:14 Lorazepam (Ativan Tab) 0.5 mg Q4H PRN PO 06/18/17 20:15 07/18/17 20:14 Ipratropium [place] (Atrovent 0.02% 0.5MG/2.5ML Neb) 0.5 mg Q12H PRN INH 06/18/17 20:15 07/18/17 20:14 UNV Levalbuterol (Xopenex 0.63 Mg/ 3 Ml Neb) 0.63 mg Q12H PRN INH 06/18/17 20:15 07/18/17 20:14 UNV Al Hydrox/Mg Hydrox/Simethicone (Maalox Max Susp) 15 ml Q4H PRN PO 06/18/17 20:15 07/18/17 20:14 Magnesium Hydroxide (Milk Of Magnesia Susp) 30 ml Q12H PRN PO 06/18/17 20:15 07/18/17 20:14 Ondansetron HCl (Zofran Inj) 4 mg Q6H PRN IV 06/18/17 20:15 07/18/17 20:14 Ranitidine HCl (zANTac TAB) 150 mg BID PO 06/18/17 21:00 07/18/17 20:59 UNV Miscellaneous Information (Icu Protocol For Hyperglycemia) 1 ea PRN PRN N/A 06/18/17 20:15 06/20/17 20:14 UNV Levofloxacin 500 mg/Prmx 100 ml @ 100 mls/hr Q24H IV 06/18/17 20:45 06/25/17 20:44 UNV Bumetanide 1 mg/ Syringe 4 ml @ 4 mls/min BID IV 06/19/17 08:00 07/19/17 07:59 UNV Review of Systems See above for pertinent positives & negatives. A total of 10 systems reviewed and were otherwise negative. Constitutional: No fever, No chills Respiratory: + cough, + shortness of breath, + dyspnea on exertion, + dyspnea at rest Cardiovascular: + edema, No chest pain Abdomen: No pain, No nausea, No vomiting Neurologic: No weakness Psychiatric: + depression symptoms Hematologic / Lymphatic: + problem reported (On warfarin) Integumentary: No rash Physical Exam Date Time Temp Pulse Resp B/P (MAP) Pulse Ox O2 Delivery O2 Flow Rate FiO2 06/18/17 21:33 101 16 123/87 97 BiPAP 06/18/17 21:00 105 22 117/90 98 BiPAP 35 06/18/17 20:57 37.3 104 22 129/78 98 06/18/17 20:28 104 22 129/78 98 BiPAP 35 06/18/17 20:04 96 22 126/96 99 BiPAP 100 06/18/17 19:43 104 22 123/84 99 BiPAP 100 06/18/17 19:13 111 22 145/83 99 Room Air 06/18/17 18:56 107 20 146/87 99 BiPAP 100 06/18/17 18:44 108 119/76 06/18/17 18:37 117 24 119/76 99 BiPAP 100 06/18/17 18:26 104 20 132/81 98 BiPAP 100 06/18/17 18:13 125 28 123/78 93 BiPAP 100 06/18/17 17:56 37.3 122 24 145/87 100 BiPAP 100 06/18/17 17:49 122 118/95 06/18/17 17:39 130 118/82 06/18/17 17:38 145 180/147 06/18/17 17:36 130 118/82 06/18/17 17:29 113 06/18/17 17:27 149 99 100 06/18/17 17:26 145 22 180/147 99 BiPAP 100 06/18/17 17:15 192 On evaluation in ED: General Appearance: Awake, alert & oriented, comfortable in general on BiPAP, NAD. CV: +S1S2 irregularly irregular, occasionally tachycardic, no murmur. Pulm: Diminished at bases. No present accessory muscle use. Abdomen: +BS, soft, non-tender, non-distended. Left-sided colostomy bag in place. Casillas catheter in place. Extremities: 2+ pedal edema. No calf tenderness. Moving all extremities naturally and easily. Neuro: No gross neuro deficits. Laboratory Results Last 24 Hours Test 06/18/17 17:20 06/18/17 17:47 06/18/17 19:14 White Blood Count 20.05 K/uL Red Blood Count 4.87 M/uL Hemoglobin 15.2 g/dL Hematocrit 46.5 % Mean Corpuscular Volume 95.5 fL Mean Corpuscular Hemoglobin 31.2 pg Mean Corpuscular Hemoglobin Concent 32.7 g/dl Platelet Count 339 K/uL Mean Platelet Volume 10.4 fL RDW Standard Deviation 52.7 fL RDW Coefficient of Variation 15.1 % Neutrophils % (Manual) 44.2 % Lymphocytes % (Manual) 50.5 % Monocytes % (Manual) 3.5 % Metamyelocytes % 0.9 % Myelocytes % 0.9 % Neutrophils # (Manual) 8.86 K/uL Total Absolute Neutrophils 8.86 K/uL Lymphocytes # (Manual) 10.13 K/uL Total Absolute Lymphocytes 10.13 K/uL Monocytes # (Manual) 0.70 K/uL Metamyelocytes # 0.18 K/uL Myelocytes # 0.18 K/uL Prothrombin Time 23.2 SECONDS Prothromb Time International Ratio 2.2 Activated Partial Thromboplast Time 28.8 SECONDS Partial Thromboplastin Ratio 1.1 Venous Blood pH 7.26 Venous Blood Partial Pressure CO2 54 mmHg Venous Blood Partial Pressure O2 96 mmHg Venous Blood HCO3 24 mmol/L Venous Blood Oxygen Saturation 96.5 % Venous Blood Base Excess -4.1 mEq/L Sodium Level 140 mmol/L Potassium Level 4.6 mmol/L Chloride Level 104 mmol/L Carbon Dioxide Level 24 mmol/L Anion Gap 11.0 mmol/L Blood Urea Nitrogen 34 mg/dl Creatinine 1.36 mg/dl Est Creatinine Clear Calc Drug Dose 29.5 ml/min Estimated GFR () 41.6 Estimated GFR (Non- 35.9 BUN/Creatinine Ratio 24.9 Random Glucose 196 mg/dl Lactic Acid Level 6.5 mmol/L 1.8 mmol/L Calcium Level 8.7 mg/dl Phosphorus Level 3.9 mg/dl Magnesium Level 2.3 mg/dl Total Bilirubin 0.5 mg/dl Direct Bilirubin 0.2 mg/dl Aspartate Amino Transf (AST/SGOT) 191 U/L Alanine Aminotransferase (ALT/SGPT) 200 U/L Alkaline Phosphatase 176 U/L Total Creatine Kinase 86 U/L Creatine Kinase MB 1.1 ng/ml Creatine Kinase MB Ratio 1.3 Troponin I < 0.015 ng/ml Total Protein 7.8 gm/dl Albumin 3.7 gm/dl Lipase 161 U/L Urine Color YELLOW Urine Appearance CLEAR Urine pH 7.5 Urine Specific [place] 1.013 Urine Protein 2+ Urine Glucose (UA) NEG Urine Ketones NEG Urine Occult Blood 1+ Urine Nitrite NEG Urine Bilirubin NEG Urine Urobilinogen NEG Urine Leukocyte Esterase NEG Urine WBC (Auto) 0 /hpf Urine RBC (Auto) 5-10 /hpf Urine Hyaline Casts (Auto) 0 /lpf Urine Epithelial Cells (Auto) 0-5 /lpf Urine Bacteria (Auto) NEG Arterial Blood pH 7.42 Arterial Blood Partial Pressure CO2 43 mmHg Arterial Blood Partial Pressure O2 341 mm/Hg Arterial Blood HCO3 27 mmol/L Arterial Blood Oxygen Saturation 99.8 % Arterial Blood Base Excess 2.3 mEq/L Arterial Blood Gas Delivery BIPAP 99% Yasmani Test POSITIVE Assessment & Plan Resident note - see attending addendum 82-year-old female admitted on [id number] for shortness of breath and worsening lower extremity edema. PMH: Paroxysmal A. fib, perforated diverticulitis, acute respiratory failure, CKD stage III, HTN, HLD, diabetes, CVA, tonsillar cancer, diastolic CHF, MATT, depression, restless leg syndrome, carotid artery disease, UTI with presley resistant E. coli. PSH: Cholecystectomy, sigmoid colectomy and colostomy pouch NAPPER TENDER: CAM-ICU negative. Awake, alert, smiling on arrival to ICU. On Neurontin ( for her RLS), Zoloft (for depression), and trazodone. Pulm: Shortness of breath 4 days, acutely worsening this evening. pCXR suggestive of mild congestive failure without evidence of consolidation or effusion. Therapeutic INR makes PE far less likely. In acute hypoxic and hypercapnic respiratory failure on arrival in the ED, immediately placed on BiPAP. Also given NTG ointment as well as Lasix 40 mg IV 1. Symptomatically greatly improved. Repeat ABG 7.42 / 43 / 27. Transition from BiPAP to 2L NC oxygen, maintaining saturations. - On home Flonase. Added Atrovent prn and Xopenex prn. May use home CPAP. CVS: Noted CVS history as above, including dCHF. Patient says she has gained about 5 pounds over the past 1 week. In ED, noted to be in A. fib with RVR. Previous history of same. Treated with metoprolol 5 mg IV 3, with improved rate. Initial TNI negative, trending. Monitoring HR. - Continuing home Coreg BID and Lipitor. Will diurese via continuing her home Bumex 1 mg daily as well as additional Bumex 1 mg IV BID as inpatient. - Cardiology consulted. Patient says Dr. Edge cares for her as outpatient. ID: Per patient's report, recent diarrhea via ostomy, as well as a productive cough of clear sputum. Afebrile on arrival. WBC 20, possibly partially due to recent knee cortisone injections. Lactate 6.5 may be of infectious versus mild hypoxia from A. fib. Since improved to 1.8. Pro-calcitonin within normal range. Given empiric cefepime and vancomycin in ED. Started on Levaquin. Started on probiotic. - Nasal MRSA swab pending. Obtaining cultures including sputum, BCx x2, and C diff. - She has a reported history of presley resistant E. coli. Endo: PMH hypothyroidism and diabetes. Continuing home Synthroid. Apparently not on any diabetes meds at home. Monitoring blood sugars here. Renal/Lytes: Admit creatinine 1.3, appears at baseline (PMH CKD stage III). Initial electrolytes okay. Kept on home potassium supplement. Casillas cath in place. Monitoring I's and O's. GI: In late August 2016 noted to have diverticular perforation now status post sigmoid resection with colostomy. Noted transaminitis here. Nontender abdomen. - On home famotidine. Heme: Admit hemoglobin 15, platelets 196, INR 2.2. On Coumadin at home, continuing here. DVT prophy: Coumadin. Lines: PIV. Code status: Full code. PT/OT: Deferred. Disposition: ICU care. Of note, patient's son is a critical care physician in [place]. Has been updated per records. Resident Physician Supervision Note: Dr. Reyes was resident physician during care of patient. I separately evaluated patient and did history and exam. I discussed the case with the resident and generally agree with the findings and plan. Patient resting comfortably during my exam, significant improvement from overnight. I suspect the significant etiology of the patient's current complaints is a 5 pound weight increase and subsequent A. fib with RVR with aspects of congestive heart failure. A limited echo has been ordered, the patient was treated with diuretics and had a liter and a half of diuresis at the time of this documentation. Continue to diurese the patient, her hemodynamics have improved. She would likely benefit from an increase in her Coreg dose. There is note of diarrhea patient has a colostomy and there was removal of her sigmoid colon she still could have C. difficile seal infection a PCR is pending however given the rapid improvement in her white blood cell count I do not believe that that is her primary driving issue at this time. Her lactic acidosis has resolved. She is tolerating her home nasal CPAP. She is stable for downgrade to telemetry status. Documented By: Leroy Cooney DO Resident Tracking Resident Involvement: Resident Care Provided Care Provided: Adult Hospital Medicine (ICU)
[2017-06-18 22:08] VITALS: BP 139/100; PULSE 117; O2SAT 96; Ht 149.9 cm; Wt 77.0 kg
[2017-06-18] MEDS ORDERED: LEVOFLOXACIN / D5W 500 MG in PREMIXED IN D5W 100 ML IV SCH (23:00)
[2017-06-18] MEDS: ATORVASTATIN 20 MG TAB PO SCH (23:26)
[2017-06-18] MEDS: GABAPENTIN 300 MG CAP PO SCH (23:27)
[2017-06-18] MEDS: FAMOTIDINE 20 MG TAB PO SCH (23:27)
[2017-06-18] MEDS: TRAZODONE HCL 50 MG TAB PO SCH (23:27)
[2017-06-18 23:59] VITALS: O2SAT 96
[2017-06-19] VITALS (18 sets, daily range): BP systolic 102–166; BP diastolic 62–102; PULSE 71–121; TEMP 36.3–36.9; O2SAT 90–98
[2017-06-19] MEDS ORDERED: METOPROLOL TARTRATE 1 MG/ML VIAL IV STA (03:08)
[2017-06-19 04:32] LABS: BASO % 0.1 %; BASO ABS # 0.01 K/uL (0-0.2); EOS % 0.6 %; EOS ABS # 0.06 K/uL (0-0.5); HEMOGLOBIN 12.6 g/dL (12.0-16.0); IG# 0.08 K/uL (0.00-0.02); LYMPH % 21.4 %; MEAN CORPUSCULAR HEMOGLOBIN 30.4 pg (25-34); MEAN CORPUSCULAR HGB CONC 32.3 g/dl (32-36); MEAN PLATELET VOLUME 9.8 fL (7.4-10.4); MONO % 10.5 %; MONO ABS # 1.13 K/uL (0.11-0.59); NEUT % 66.7 %; NEUT ABS # 7.17 K/uL (1.4-6.5); PLATELET COUNT 262 K/uL (130-400); RED CELL DISTRIBUTION WIDTH SD 51.1 fL (36.4-46.3); WHITE BLOOD COUNT 10.75 K/uL (4.8-10.8)
[2017-06-19 04:51] LABS: ALBUMIN 2.9 gm/dl (3.4-5.0); CREATININE 1.09 mg/dl (0.60-1.20); POTASSIUM 4.2 mmol/L (3.5-5.1)
[2017-06-19 05:04] LABS: PHOSPHORUS 3.3 mg/dl (2.5-4.9); TOTAL PROTEIN 6.3 gm/dl (6.4-8.2)
[2017-06-19] MEDS: LEVOTHYROXINE 75 MCG TAB PO SCH (06:19)
--- NOTE | 2017-06-19 07:10 | DIAGNOSTIC IMAGING REPORT ---
CHEST ONE VIEW PORTABLE CLINICAL HISTORY: interval evaluation for pulmonary edema COMPARISON STUDY: Chest radiograph June 18, 2017. FINDINGS: There is no pneumothorax. Trace bilateral pleural effusions are noted. Pulmonary vascular congestion has improved. Cardiomegaly is noted. IMPRESSION: 1. Interval improvement in pulmonary vascular congestion. 2. Trace bilateral pleural effusions. Electronically signed by: Lucian Combs M.D. 06/19/2017 7:09 AM Dictated Date/Time: 06/19/2017 7:07 AM
[2017-06-19] MEDS: FLUTICASONE PROPIONATE NA SPR 16 GM BTL NAE SCH (08:03)
[2017-06-19] MEDS: LACTOBACILLUS ACIDOPHILUS (FLORANEX) TAB PO SCH (08:03)
[2017-06-19] MEDS: BUMETANIDE IV 1 MG in SYRINGE 0 ML IV SCH ×2 (08:03→17:28)
[2017-06-19] MEDS: POTASSIUM CHLORIDE 20 MEQ TABCR PO SCH (08:04)
[2017-06-19] MEDS: SERTRALINE HCL 50 MG TAB PO SCH (08:04)
--- NOTE | 2017-06-19 08:14 | Progress Note ---
Subjective Date of Service: Jun 19, 2017. Subjective this pt is doing well and feels much better. There seems to have been a reduction in EF on echo and with the clinical suspicion of congestive hepatitis , and likely the patient had a rate related decrease in perfusion, will await cardiology evaluation as has no defined c/o chest pain to me and on enzyme elevation. Problem List Medical Problems: (1) Abdominal hernia Status: Acute (2) Acute congestive heart failure Status: Acute (3) WAYNE (acute kidney injury) Status: Acute (4) Atrial fibrillation with RVR Status: Acute (5) Diverticulitis Status: Acute (6) Diverticulitis of intestine with perforation Status: Acute (7) Lactic acid acidosis Status: Acute (8) Left lower quadrant pain Status: Acute (9) Leukocytosis Status: Acute (10) Nausea Status: Acute (11) Paroxysmal A-fib Status: Acute (12) Pulmonary edema Status: Acute (13) TIA (transient ischemic attack) Status: Acute Review of Systems Constitutional: + weakness, + fatigue, No fever, No chills Respiratory: No cough, No shortness of breath, No dyspnea on exertion Cardiac: No chest pain, No PND, No edema Abdomen: + diarrhea (had some pre hospital loose ostomy output), No pain, No nausea, No vomiting Female : No dysuria, No urinary frequency Psychiatric: No depression symptoms, No anhedonism Objective Vital Signs Date Time Temp Pulse Resp B/P (MAP) Pulse Ox O2 Delivery O2 Flow Rate FiO2 06/19/17 06:01 114 11 125/93 (104) 93 06/19/17 05:01 100 16 112/62 (79) 93 06/19/17 04:01 36.8 96 27 117/70 (86) 93 Nasal Cannula CPAP 06/19/17 04:00 96 CPAP 2.0 06/19/17 04:00 96 Nasal Cannula 2.0 CPAP 06/19/17 03:28 107 130/101 06/19/17 03:07 112 24 130/101 (111) 92 06/19/17 02:15 96 25 125/100 (108) 91 06/19/17 01:15 97 25 92 06/19/17 01:01 107 18 118/93 (101) 93 06/19/17 00:03 36.6 99 16 158/102 (120) 93 Nasal Cannula 2.0 CPAP 06/19/17 00:00 115 25 94 06/18/17 23:59 96 Nasal Cannula 2.0 CPAP 06/18/17 22:08 117 22 139/100 96 Nasal Cannula 2.0 06/18/17 21:33 101 16 123/87 97 BiPAP 06/18/17 21:00 96 40 100 06/18/17 21:00 105 22 117/90 98 BiPAP 35 06/18/17 20:57 37.3 104 22 129/78 98 06/18/17 20:28 104 22 129/78 98 BiPAP 35 06/18/17 20:04 96 22 126/96 99 BiPAP 100 06/18/17 19:43 104 22 123/84 99 BiPAP 100 06/18/17 19:13 111 22 145/83 99 Room Air 06/18/17 18:56 107 20 146/87 99 BiPAP 100 06/18/17 18:44 108 119/76 06/18/17 18:37 117 24 119/76 99 BiPAP 100 06/18/17 18:26 104 20 132/81 98 BiPAP 100 06/18/17 18:13 125 28 123/78 93 BiPAP 100 06/18/17 17:56 37.3 122 24 145/87 100 BiPAP 100 06/18/17 17:49 122 118/95 06/18/17 17:39 130 118/82 06/18/17 17:38 145 180/147 06/18/17 17:36 130 118/82 06/18/17 17:29 113 06/18/17 17:27 149 99 100 06/18/17 17:26 145 22 180/147 99 BiPAP 100 06/18/17 17:15 192 Physical Exam General Appearance: WD/WN, no apparent distress Eyes: normal inspection, sclerae normal Neck: supple, no JVD Respiratory/Chest: chest non-tender, lungs clear Cardiovascular: no murmur, + irregularly irregular Abdomen: normal bowel sounds, non tender, soft Extremities: no calf tenderness, + pedal edema (trace) Neurologic/Psychiatric: alert, oriented x 3 Laboratory Results Last 24 Hours Test 06/18/17 17:20 06/18/17 17:47 06/18/17 19:14 06/18/17 22:06 White Blood Count 20.05 K/uL Red Blood Count 4.87 M/uL Hemoglobin 15.2 g/dL Hematocrit 46.5 % Mean Corpuscular Volume 95.5 fL Mean Corpuscular Hemoglobin 31.2 pg Mean Corpuscular Hemoglobin Concent 32.7 g/dl Platelet Count 339 K/uL Mean Platelet Volume 10.4 fL RDW Standard Deviation 52.7 fL RDW Coefficient of Variation 15.1 % Neutrophils % (Manual) 44.2 % Lymphocytes % (Manual) 50.5 % Monocytes % (Manual) 3.5 % Metamyelocytes % 0.9 % Myelocytes % 0.9 % Neutrophils # (Manual) 8.86 K/uL Total Absolute Neutrophils 8.86 K/uL Lymphocytes # (Manual) 10.13 K/uL Total Absolute Lymphocytes 10.13 K/uL Monocytes # (Manual) 0.70 K/uL Metamyelocytes # 0.18 K/uL Myelocytes # 0.18 K/uL Prothrombin Time 23.2 SECONDS Prothromb Time International Ratio 2.2 Activated Partial Thromboplast Time 28.8 SECONDS Partial Thromboplastin Ratio 1.1 Venous Blood pH 7.26 Venous Blood Partial Pressure CO2 54 mmHg Venous Blood Partial Pressure O2 96 mmHg Venous Blood HCO3 24 mmol/L Venous Blood Oxygen Saturation 96.5 % Venous Blood Base Excess -4.1 mEq/L Sodium Level 140 mmol/L Potassium Level 4.6 mmol/L Chloride Level 104 mmol/L Carbon Dioxide Level 24 mmol/L Anion Gap 11.0 mmol/L Blood Urea Nitrogen 34 mg/dl Creatinine 1.36 mg/dl Est Creatinine Clear Calc Drug Dose 29.5 ml/min Estimated GFR () 41.6 Estimated GFR (Non- 35.9 BUN/Creatinine Ratio 24.9 Random Glucose 196 mg/dl Lactic Acid Level 6.5 mmol/L 1.8 mmol/L Calcium Level 8.7 mg/dl Phosphorus Level 3.9 mg/dl Magnesium Level 2.3 mg/dl Total Bilirubin 0.5 mg/dl Direct Bilirubin 0.2 mg/dl Aspartate Amino Transf (AST/SGOT) 191 U/L Alanine Aminotransferase (ALT/SGPT) 200 U/L Alkaline Phosphatase 176 U/L Total Creatine Kinase 86 U/L Creatine Kinase MB 1.1 ng/ml Creatine Kinase MB Ratio 1.3 Troponin I < 0.015 ng/ml Total Protein 7.8 gm/dl Albumin 3.7 gm/dl Lipase 161 U/L Procalcitonin 0.20 ng/ml Urine Color YELLOW Urine Appearance CLEAR Urine pH 7.5 Urine Specific [place] 1.013 Urine Protein 2+ Urine Glucose (UA) NEG Urine Ketones NEG Urine Occult Blood 1+ Urine Nitrite NEG Urine Bilirubin NEG Urine Urobilinogen NEG Urine Leukocyte Esterase NEG Urine WBC (Auto) 0 /hpf Urine RBC (Auto) 5-10 /hpf Urine Hyaline Casts (Auto) 0 /lpf Urine Epithelial Cells (Auto) 0-5 /lpf Urine Bacteria (Auto) NEG Arterial Blood pH 7.42 Arterial Blood Partial Pressure CO2 43 mmHg Arterial Blood Partial Pressure O2 341 mm/Hg Arterial Blood HCO3 27 mmol/L Arterial Blood Oxygen Saturation 99.8 % Arterial Blood Base Excess 2.3 mEq/L Arterial Blood Gas Delivery BIPAP 99% Yasmani Test POSITIVE Bedside Glucose 107 mg/dl Test 06/19/17 04:13 White Blood Count 10.75 K/uL Red Blood Count 4.15 M/uL Hemoglobin 12.6 g/dL Hematocrit 39.0 % Mean Corpuscular Volume 94.0 fL Mean Corpuscular Hemoglobin 30.4 pg Mean Corpuscular Hemoglobin Concent 32.3 g/dl Platelet Count 262 K/uL Mean Platelet Volume 9.8 fL Neutrophils (%) (Auto) 66.7 % Lymphocytes (%) (Auto) 21.4 % Monocytes (%) (Auto) 10.5 % Eosinophils (%) (Auto) 0.6 % Basophils (%) (Auto) 0.1 % Neutrophils # (Auto) 7.17 K/uL Lymphocytes # (Auto) 2.30 K/uL Monocytes # (Auto) 1.13 K/uL Eosinophils # (Auto) 0.06 K/uL Basophils # (Auto) 0.01 K/uL RDW Standard Deviation 51.1 fL RDW Coefficient of Variation 15.0 % Immature Granulocyte % (Auto) 0.7 % Immature Granulocyte # (Auto) 0.08 K/uL Sodium Level 139 mmol/L Potassium Level 4.2 mmol/L Chloride Level 106 mmol/L Carbon Dioxide Level 27 mmol/L Anion Gap 6.0 mmol/L Blood Urea Nitrogen 34 mg/dl Creatinine 1.09 mg/dl Est Creatinine Clear Calc Drug Dose 35.8 ml/min Estimated GFR () 54.4 Estimated GFR (Non- 46.9 BUN/Creatinine Ratio 30.9 Random Glucose 119 mg/dl Calcium Level 8.0 mg/dl Phosphorus Level 3.3 mg/dl Magnesium Level 1.9 mg/dl Total Bilirubin 0.6 mg/dl Aspartate Amino Transf (AST/SGOT) 80 U/L Alanine Aminotransferase (ALT/SGPT) 153 U/L Alkaline Phosphatase 136 U/L Troponin I 0.021 ng/ml Total Protein 6.3 gm/dl Albumin 2.9 gm/dl Globulin 3.4 gm/dl Albumin/Globulin Ratio 0.9 Assessment and Plan 82-year-old female with past medical history of paroxysmal atrial fibrillation, diastolic congestive heart failure, recent perforated diverticulitis requiring sigmoid colectomy and colostomy pouch, hypothyroidism, hypertension, history of CVA, chronic kidney disease stage III, moderate bilateral DANGELO, dyslipidemia, obstructive sleep apnea, depression and restless leg syndrome. Presented to the hospital with acute hypoxic hypercapnic respiratory failure secondary to pulmonary edema and possible underlying pneumonia Acute hypoxic and hypercapnic respiratory failure secondary to Acute systolic heart failure on chronic diastolic congestive heart failure, concern for Flash pulmonary edema, Bumex 1 mg IV twice daily initially supported with BiPap, no further support required, with EF reduction will await cardiology evaluation as question is acute event or if rate related from poorly controlled Afib, is currenlty on b faustino at increased dose of coreg and diuretic will attempt to add [place] i or arb if able Sepsis present on admission seems less likely have stopped antibiotics respiratory and metabolic acidosis, resolving transaminitis improving, secondary to hepatic congestion atrial fibrillation with RVR, 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 difficile check for diarrhea Probiotic H/o CVA, risk reduction with aspirin and statin Hypothyroidism, clinically stable on synthroid CKD stage III, renal dose appropriate meds and no distress with diureiss Depression, no clinically impacting, continue zoloft and trazadone
[2017-06-19] MEDS: CARVEDILOL 6.25 MG TAB PO SCH ×2 (08:49→20:33)
[2017-06-19] MEDS ORDERED: BUMETANIDE 1 MG TAB PO SCH (09:00)
--- NOTE | 2017-06-19 13:15 | ECHOCARDIOGRAM REPORT ---
*NOTICE TO RECEIVING [facility] This information is strictly Confidential and protected under [place] law. [place] law prohibits you from making any further disclosure of this information unless further disclosure is expressly permitted by the written consent of the person to whom it pertains or is authorized by law. A general authorization for the release of medical or other information is not sufficient for this purpose. Hospital accepts no responsibility if the information is made available to any other person, INCLUDING THE PATIENT. Interpretation Summary * Name: LUIS EDUARDO JAEGER Study Date: 06/19/2017 08:14 AM BP: 125/93 mmHg * Patient Location: .MSICU\S\E110\S\1 HR: 110 * : 1935 (M/d/yyy) Gender: Female Height: 59 in * Age: 82 yrs Ethnicity: [place] Weight: 180 lb * Ordering Physician: Leroy Cooney * Referring Physician: Self, Referred * Performed By: Marifer Lilly RCS * * Reason For Study: CHF * BSA: 1.8 m2 * -- Conclusions -- * Left ventricular systolic function is moderately reduced. * There is moderate global hypokinesis of the left ventricle. * Ejection Fraction = 30-35%. * There is mild concentric left ventricular hypertrophy. * There is mild mitral regurgitation. * There is mild tricuspid regurgitation. Procedure Details * A complete two-dimensional transthoracic echocardiogram was performed (2D, M-mode, Doppler and color flow Doppler). Left Ventricle * The left ventricle is normal in size. * There is mild concentric left ventricular hypertrophy. * Ejection Fraction = 30-35%. * Left ventricular systolic function is moderately reduced. * There is moderate global hypokinesis of the left ventricle. * Septal motion is consistent with conduction abnormality. Right Ventricle * The right ventricle is not well visualized. Atria * The left atrium is mildly dilated. * Right atrial size is normal. * There is no evidence of atrial septal defect, but resolution does not allow assessment for a patent foramen ovale. Mitral Valve * The mitral valve is grossly normal. * There is no mitral valve stenosis. * There is mild mitral regurgitation. Tricuspid Valve * The tricuspid valve is not well visualized, but is grossly normal. * There is no tricuspid stenosis. * There is mild tricuspid regurgitation. * Right ventricular systolic pressure is elevated at 30-40mmHg. Aortic Valve * The aortic valve is trileaflet. * The aortic valve opens well. * Aortic valve sclerosis moderate, without significant aortic valvular stenosis. * No aortic regurgitation is present. Pulmonic Valve * The pulmonic valve is not well visualized. Great Vessels * The aortic root is normal size. * The pulmonary is not well visualized. Pericardium/Pleural * There is no pericardial effusion. Great Vessels * Dilated inferior vena cava with reduced collapsability with sniff indicates an elevated right atrial pressure of 15 mmHg MMode 2D Measurements and Calculations IVSd 1.4 cm IVSs 1.5 cm LVIDd 3.9 cm LVIDs 3.5 cm LVPWd 1.2 cm LVPWs 1.3 cm IVS/LVPW 1.2 FS 9.3 % EDV(Teich) 65.4 ml ESV(Teich) 51.7 ml EF(Teich) 20.9 % EDV(cubed) 58.7 ml ESV(cubed) 43.7 ml EF(cubed) 25.5 % % IVS thick 4.5 % % LVPW thick 7.3 % LV mass(C)d 179.4 grams LV mass(C)dI 101.7 grams/m\S\2 LV mass(C)s 170.2 grams LV mass(C)sI 96.5 grams/m\S\2 SV(Teich) 13.7 ml SI(Teich) 7.8 ml/m\S\2 SV(cubed) 15.0 ml SI(cubed) 8.5 ml/m\S\2 Ao root diam 2.8 cm Ao root area 6.4 cm\S\2 LA dimension 4.0 cm LA/Ao 1.4 LVOT diam 1.8 cm LVOT area 2.6 cm\S\2 LVAd ap4 21.4 cm\S\2 LVLd ap4 6.3 cm EDV(MOD-sp4) 59.7 ml EDV(sp4-el) 61.1 ml LVAs ap4 18.6 cm\S\2 LVLs ap4 6.2 cm ESV(MOD-sp4) 46.1 ml ESV(sp4-el) 47.4 ml EF(MOD-sp4) 22.8 % EF(sp4-el) 22.4 % LVAd ap2 26.9 cm\S\2 LVLd ap2 6.8 cm EDV(MOD-sp2) 87.0 ml EDV(sp2-el) 89.9 ml LVAs ap2 21.0 cm\S\2 LVLs ap2 6.2 cm ESV(MOD-sp2) 58.3 ml ESV(sp2-el) 60.4 ml EF(MOD-sp2) 33.0 % EF(sp2-el) 32.9 % LVLd %diff 7.4 % EDV(MOD-bp) 74.2 ml LVLs %diff 0.76 % ESV(MOD-bp) 51.9 ml EF(MOD-bp) 30.0 % SV(MOD-sp4) 13.6 ml SI(MOD-sp4) 7.7 ml/m\S\2 SV(MOD-sp2) 28.7 ml SI(MOD-sp2) 16.3 ml/m\S\2 SV(MOD-bp) 22.3 ml SI(MOD-bp) 12.7 ml/m\S\2 SV(sp4-el) 13.7 ml SI(sp4-el) 7.8 ml/m\S\2 SV(sp2-el) 29.6 ml SI(sp2-el) 16.8 ml/m\S\2 Doppler Measurements and Calculations MV E max radha 131.0 cm/sec MV dec time 0.17 sec Ao V2 max 82.0 cm/sec Ao max PG 2.7 mmHg Ao max PG (full) 1.4 mmHg EFRA(V,A) 1.8 cm\S\2 EFRA(V,D) 1.8 cm\S\2 LV V1 max PG 1.3 mmHg LV V1 max 57.7 cm/sec MR max radha 367.8 cm/sec MR max PG 54.1 mmHg TR max radha 259.5 cm/sec
[2017-06-19] MEDS ORDERED: ASPIRIN 81 MG ECTAB PO ONE (15:00)
[2017-06-19] MEDS ORDERED: WARFARIN SOD 4 MG TAB PO SCH (16:00)
[2017-06-19] MEDS ORDERED: AMIODARONE IV BOLUS / DRIP IV STA (17:15)
[2017-06-19] MEDS ORDERED: AMIODARONE / D5W 100 ML PHARMACY PREPARED IV SCH ×2 (17:30)
[2017-06-19] MEDS ORDERED: 0.2 MICRON FILTER SET 1 EA IV SCH (17:30)
[2017-06-19] MEDS ORDERED: AMIODARONE / D5W 200 ML IV SCH ×2 (17:40→23:40)
[2017-06-19] MEDS: GABAPENTIN 300 MG CAP PO SCH (20:32)
[2017-06-19] MEDS: FAMOTIDINE 20 MG TAB PO SCH (20:32)
[2017-06-19] MEDS: ATORVASTATIN 20 MG TAB PO SCH (20:33)
[2017-06-19] MEDS: TRAZODONE HCL 50 MG TAB PO SCH (20:33)
[2017-06-20] VITALS (11 sets, daily range): BP systolic 108–149; BP diastolic 63–78; PULSE 46–80; TEMP 36.3–36.6; O2SAT 91–98
--- NOTE | 2017-06-20 02:33 | CARDIOLOGY CONSULTATION ---
DATE OF CONSULTATION: 06/19/[address] Deras. REASON FOR CONSULTATION: Acute heart failure, atrial fibrillation with RVR. HISTORY OF PRESENT ILLNESS: Ms. Tina Guillaume is a very pleasant 82-year-old woman known to me from the outpatient setting with a complex past medical history as outlined below, who was admitted yesterday in the setting of respiratory distress, found to have acute heart failure and atrial fibrillation with RVR. She had been in her usual state of health up until approximately 4-5 days ago when noted increasing palpitations and worsening shortness of breath. Prior to that, had been on Bumex 1 mg daily with a goal target weight of 174 pounds at home. Shortness of breath progressed, was not accompanied with any chest pain. On the day of admission, she was severely dyspneic and on arrival was hypertensive, tachycardic, and hypoxic requiring initiation of BiPAP as well as AV lali agents for rate control and IV diuretics for pulmonary edema noted on chest x-ray. With initial management, she quickly improved, is negative almost 3.5 L since admission, and is currently breathing comfortably on room air. She remains in atrial fibrillation with RVR, on increased carvedilol from 3.125 to 6.25 mg b.i.d. She denies any chest pain or palpitations presently. PAST MEDICAL HISTORY: 1. Paroxysmal atrial fibrillation, on anticoagulation. 2. Chronic diastolic heart failure with baseline class 2-3 symptoms. 3. 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 4. Diverticulitis during hospitalization in September 2016 requiring partial colectomy and colostomy. 5. Hypertension. 6. Moderate carotid artery disease with bilateral internal carotid artery disease on duplex, September 2016. 7. GERD. 8. Mild cognitive impairment. 9. Depression/anxiety. 10. Dyslipidemia. 11. Hypothyroidism. 12. Chronic left bundle-branch block. 13. Obstructive sleep apnea. 14. Stage III chronic kidney disease with baseline creatinine approximately 1.4. FAMILY HISTORY: Noncontributory due to patient's own medical issues and age. SOCIAL HISTORY: She currently resides at [facility]. Her son is an kitchen food server in [place]. She denies alcohol, tobacco, or illicit drugs. MEDICATIONS: Home medications include warfarin, carvedilol 3.125 b.i.d., docusate, calcium carbonate, sertraline, trazodone, atorvastatin 20 mg, Bumex 1 mg daily, potassium chloride 20 mEq daily, levothyroxine, gabapentin, vitamin D, famotidine. ALLERGIES: INCLUDE CODEINE, MORPHINE, PENICILLIN, AND SULFA DRUGS. REVIEW OF SYSTEMS: 10-point review of systems complete and otherwise negative other than listed in HPI. PHYSICAL EXAMINATION: VITAL SIGNS: Temperature 36.9, pulse 104, blood pressure 126/84, she is saturating 93% on room air. GENERAL: The patient looks well. She is comfortable. She is in no acute distress. HEENT: Her sclerae are anicteric. Oropharynx is clear. Her mucous membranes are moist. NECK: Supple. Her JVP is approximately 7-8. RESPIRATORY: Her lungs are clear, without significant rales. CARDIOVASCULAR: She is irregularly irregular, tachycardic, with a 2/6 holosystolic murmur heard best at the apex. GASTROINTESTINAL: Her abdomen is soft. Colostomy is in place. Abdomen is nontender. MUSCULOSKELETAL: Extremities are warm. She has trace lower extremity edema. She has intact distal pulses. INTEGUMENTARY: Her skin shows no rashes or lesions. NEUROLOGIC: Nonfocal. LABORATORY DATA: White blood cell count 10.7, hemoglobin of 12.6, platelets of 262, INR of 2.2. Sodium of 139, potassium of 4.2, BUN of 34, creatinine of 1.1, AST 80, ALT 153, alkaline phosphatase 136. Albumin of 2.9. Her troponins have been negative x3. IMAGING: Chest x-ray today showed improvement of vascular congestion and trace bilateral pleural effusions. EKG this morning shows atrial fibrillation with RVR with ventricular rate of 104 and left bundle-branch block. Echocardiogram completed today showed new global LV dysfunction with EF of 30%-35%. There was mild LVH, mild MR, mild TR. IVC was dilated. IMPRESSION: 1. Acute heart failure. 2. Atrial fibrillation with rapid ventricular response. 3. New global left ventricular systolic dysfunction, ejection fraction 30%-35%. 4. Chronic kidney disease. 5. History of prior embolic cerebrovascular accident. 6. Hypertension. 7. Dyslipidemia. RECOMMENDATIONS/PLAN: Ms. Tina Guillaume is here with acute heart failure and atrial fibrillation with RVR beginning approximately 4-5 days prior to admission. She has responded very well to IV diuretics, down now more than 3.5 L and is back breathing comfortably on room air. On exam today, she appears well perfused, with minimal residual congestion. She remains in atrial fibrillation with RVR although is largely asymptomatic, notable finding this afternoon is new global LV dysfunction. Suspect that global LV dysfunction is likely secondary to arrhythmia/tachycardia induced, low suspicion for ischemic cause as has had no chest pain and troponins have been negative throughout. In the setting of potentially tachycardia induced cardiomyopathy and heart failure potentially triggered by arrhythmia, recommend rhythm control strategy at this point. We plan to start on amiodarone, with plan for electrical external cardioversion tomorrow if it does not convert overnight. In the interim, would continue on current increased dose of carvedilol, may need reduced dose back to prior 3.125 when it converts to sinus rhythm. Otherwise, for cardiomyopathy, recommend starting CARL inhibitor as blood pressure allows. Continue IV diuretics today with likely transition to p.o. Bumex tomorrow, will likely need to return to b.i.d. maintenance Bumex. Otherwise, no other changes to current cardiac medications. We will continue to follow while in hospital. Thank you for consultation.
[2017-06-20 05:01] LABS: INR 1.5 (0.9-1.1)
[2017-06-20] MEDS: LEVOTHYROXINE 75 MCG TAB PO SCH (06:14)
[2017-06-20] MEDS ORDERED: PROPOFOL IV EMULSION 10 MG/ML 20 ML VIAL ONE (08:07)
--- NOTE | 2017-06-20 08:12 | Anesthesiology Progress Note ---
Anesthesia Post Op Note Date & Time June 20, 2017 at 08:12 Vital Signs Pain Intensity: 0.0 Vital Signs Past 12 Hours Date Time Temp Pulse Resp B/P (MAP) Pulse Ox O2 Delivery O2 Flow Rate FiO2 06/20/17 04:00 36.5 80 20 108/69 (82) 91 Room Air 06/20/17 04:00 91 BiPAP 06/20/17 00:00 Room Air 06/19/17 23:50 36.3 71 16 102/65 (77) 98 BiPAP Notes Mental Status: alert / awake / arousable, participated in evaluation Pt Amnestic to Procedure: Yes Nausea / Vomiting: adequately controlled Pain: adequately controlled Airway Patency, RR, SpO2: stable & adequate BP & HR: stable & adequate Hydration State: stable & adequate Anesthetic Complications: no major complications apparent
--- NOTE | 2017-06-20 08:16 | Cardiology Follow-Up ---
Subjective Subjective Date of Service: June 20, 2017. Pt evaluation today including: conversation w/ patient, physical exam, chart review, lab review, review of studies, review of inpatient medication list Additional Details: Patient feeling well. No chest pain, shortness of breath or palpitations overnight. Slept well. Tele reviewed -- HR down to 80-90s, remains in AF Problem List Medical Problems: (1) Abdominal hernia Status: Acute (2) Acute congestive heart failure Status: Acute (3) WAYNE (acute kidney injury) Status: Acute (4) Atrial fibrillation with RVR Status: Acute (5) Diverticulitis Status: Acute (6) Diverticulitis of intestine with perforation Status: Acute (7) Lactic acid acidosis Status: Acute (8) Left lower quadrant pain Status: Acute (9) Leukocytosis Status: Acute (10) Nausea Status: Acute (11) Paroxysmal A-fib Status: Acute (12) Pulmonary edema Status: Acute (13) TIA (transient ischemic attack) Status: Acute Review of Systems Constitutional: + weakness, + fatigue, No fever, No chills Respiratory: No cough, No shortness of breath, No dyspnea on exertion Cardiac: No chest pain, No PND, No edema Abdomen: + diarrhea (had some pre hospital loose ostomy output), No pain, No nausea, No vomiting Female : No dysuria, No urinary frequency Psychiatric: No depression symptoms, No anhedonism Objective Vital Signs Last Vital Signs Documentation Date Time Temp Pulse Resp B/P (MAP) Pulse Ox O2 Delivery O2 Flow Rate FiO2 06/20/17 04:00 36.5 80 20 108/69 (82) 91 Room Air 06/19/17 04:00 2.0 06/18/17 21:00 100 Physical Exam: General Appearance: no apparent distress ENT: hearing grossly normal Neck: supple, no JVD Respiratory/Chest: chest non-tender, lungs clear Cardiovascular: + systolic murmur (2/6 holosystolic at apex), + irregularly irregular Abdomen: normal bowel sounds, non tender, soft Extremities: no pedal edema, no calf tenderness, + pedal edema (trace) Neurologic/Psychiatric: alert, oriented x 3 Skin: normal color, warm/dry, no rash Assessment and Plan 1. Acute heart failure. 2. Atrial fibrillation with rapid ventricular response. 3. New global left ventricular systolic dysfunction, ejection fraction 30%-35%. 4. Chronic kidney disease. 5. History of prior embolic cerebrovascular accident. 6. Hypertension. 7. Dyslipidemia. Post successful cardioversion this AM. Warm and well perfused today. Minimal residual congestion. -- Transition IV amio to PO today --> 200mg BID -- Start therapeutic lovenox while subtherapeutic -- Reduce carvedilol back to 3.125 BID -- Transition back to PO Bumex -- 1 mg BID -- Start low dose lisinopril today as BP allows. Medications: Current Inpatient Medications Medications (Trade) Dose Ordered Sig/Mazin Route Start Time Stop Time Status Last Admin Dose Admin Atorvastatin Calcium (Lipitor Tab) 20 mg QPM PO 06/18/17 21:00 07/18/17 20:59 06/19/17 20:33 20 MG Bumetanide (Bumex Tab) 1 mg DAILY PO 06/19/17 09:00 07/19/17 08:59 Future hold 06/19/17 08:49 1 MG Famotidine (Pepcid Tab) 40 mg QPM PO 06/18/17 21:00 07/18/17 20:59 06/19/17 20:32 40 MG Fluticasone Propionate (Flonase Nasal [place]) 2 sprays DAILY KETTY 06/19/17 09:00 07/19/17 08:59 06/19/17 08:03 2 SPRAYS Gabapentin (Neurontin Cap) 600 mg QPM PO 06/18/17 21:00 07/18/17 20:59 06/19/17 20:32 600 MG Levothyroxine Sodium (Synthroid Tab) 75 mcg DAILYBB PO 06/19/17 06:00 07/19/17 05:59 06/20/17 06:14 75 MCG Ondansetron HCl (Zofran Tab) 4 mg Q8 PRN PO 06/18/17 20:15 07/18/17 20:14 Potassium Chloride (Klor-Con Tab) 20 meq DAILY PO 06/19/17 09:00 07/19/17 08:59 06/19/17 08:04 20 MEQ Sertraline HCl (Zoloft Tab) 25 mg DAILY PO 06/19/17 09:00 07/19/17 08:59 06/19/17 08:04 25 MG Trazodone HCl (Desyrel Tab) 50 mg QPM PO 06/18/17 21:00 07/18/17 20:59 06/19/17 20:33 50 MG Warfarin Sodium (Coumadin Tab) 4 mg SuMoWeThSa@1600 PO 06/19/17 16:00 07/19/17 15:59 06/19/17 15:26 4 MG Lactobacillus Acidophilus (Floranex Tab) 4 tab DAILY PO 06/19/17 09:00 07/19/17 08:59 06/19/17 08:03 4 TAB Acetaminophen (Tylenol Tab) 650 mg Q4H PRN PO 06/18/17 20:15 07/18/17 20:14 Lorazepam (Ativan Tab) 0.5 mg Q4H PRN PO 06/18/17 20:15 07/18/17 20:14 Ipratropium Bartelso (Atrovent 0.02% 0.5MG/2.5ML Neb) 0.5 mg Q12H PRN INH 06/18/17 20:15 07/18/17 20:14 Levalbuterol (Xopenex 0.63 Mg/ 3 Ml Neb) 0.63 mg Q12H PRN INH 06/18/17 20:15 07/18/17 20:14 Al Hydrox/Mg Hydrox/Simethicone (Maalox Max Susp) 15 ml Q4H PRN PO 06/18/17 20:15 07/18/17 20:14 Magnesium Hydroxide (Milk Of Magnesia Susp) 30 ml Q12H PRN PO 06/18/17 20:15 07/18/17 20:14 Ondansetron HCl (Zofran Inj) 4 mg Q6H PRN IV 06/18/17 20:15 07/18/17 20:14 Ranitidine HCl (zANTac TAB) 150 mg BID PO 06/18/17 21:00 07/18/17 20:59 Future Hold Miscellaneous Information (Icu Protocol For Hyperglycemia) 1 ea PRN PRN N/A 06/18/17 20:15 06/20/17 20:14 Bumetanide 1 mg/ Syringe 4 ml @ 4 mls/min BID17 IV 06/19/17 09:00 07/19/17 08:59 06/19/17 17:28 4 MLS/MIN Carvedilol (Coreg Tab) 6.25 mg BID PO 06/19/17 09:00 07/19/17 08:59 06/19/17 20:33 6.25 MG Warfarin Sodium (Coumadin Tab) 3 mg TuFr@1600 PO 06/20/17 16:00 07/20/17 15:59 Aspirin (Ecotrin Tab) 81 mg QAM PO 06/20/17 09:00 07/20/17 08:59 Amiodarone HCL/ Dextrose 200 ml @ 16.7 mls/hr [id number] IV 06/19/17 23:40 07/19/17 23:39 06/19/17 23:25 16.7 MLS/HR Lab Results: Test 06/19/17 11:52 06/20/17 04:34 06/20/17 06:22 Troponin I < 0.015 ng/ml (0-0.045) Prothrombin Time 15.4 SECONDS (9.0-12.0) Prothromb Time International Ratio 1.5 (0.9-1.1) Bedside Glucose 132 mg/dl (70-90)
--- NOTE | 2017-06-20 08:21 | Procedure Note ---
Procedure Note Procedure Date June 20, 2017. Procedure Description Procedure Name: Electrical external synchronized cardioversion. Indication: Atrial fibrillation with RVR and new LV dysfunction. Anesthesia: sedation with propofol per Dr. Orozco Procedure: -- External pads placed in AP position -- Received 3 total synchronized shocks at 200J, 200J, 300J. -- After final shock converted to sinus bradycardia which persisted. -- No apparent complications post procedure. Summary: 1. Successful electrical cardioversion to sinus bradycardia. Procedure time out: patient ID confirmed, correct procedure Consent obtained: written Time of procedure: 07:45 Indications: therapeutic Contraindications: none Complications: none Patient tolerated procedure: well Post-procedure vital signs: reviewed and stable
[2017-06-20] MEDS: CARVEDILOL 3.125 MG TAB PO SCH ×2 (09:00→21:00)
[2017-06-20] MEDS: AMIODARONE 200 MG TAB PO SCH ×2 (09:54→21:04)
[2017-06-20] MEDS: FLUTICASONE PROPIONATE NA SPR 16 GM BTL NAE SCH (09:55)
[2017-06-20] MEDS: BUMETANIDE 1 MG TAB PO SCH ×2 (09:55→21:03)
[2017-06-20] MEDS: POTASSIUM CHLORIDE 20 MEQ TABCR PO SCH (09:56)
[2017-06-20] MEDS: LACTOBACILLUS ACIDOPHILUS (FLORANEX) TAB PO SCH (09:56)
[2017-06-20] MEDS: ASPIRIN 81 MG ECTAB PO SCH (09:56)
[2017-06-20] MEDS: SERTRALINE HCL 50 MG TAB PO SCH (09:57)
[2017-06-20] MEDS: ENOXAPARIN 80 MG/0.8 ML SYR SQ SCH ×2 (09:57→21:05)
[2017-06-20] MEDS ORDERED: WARFARIN SOD 3 MG TAB PO SCH (16:00)
[2017-06-20] MEDS ORDERED: WARFARIN SOD 2 MG TAB PO SCH (16:00)
--- NOTE | 2017-06-20 16:42 | Progress Note ---
Subjective Date of Service: June 20, 2017. Subjective pt was cardioverted this am and feels improved, she has some dermatitis from the cardioversion pads but otherwise feels improved after regaining sinus rhythm Problem List Medical Problems: (1) Abdominal hernia Status: Acute (2) Acute congestive heart failure Status: Acute (3) WAYNE (acute kidney injury) Status: Acute (4) Atrial fibrillation with RVR Status: Acute (5) Diverticulitis Status: Acute (6) Diverticulitis of intestine with perforation Status: Acute (7) Lactic acid acidosis Status: Acute (8) Left lower quadrant pain Status: Acute (9) Leukocytosis Status: Acute (10) Nausea Status: Acute (11) Paroxysmal A-fib Status: Acute (12) Pulmonary edema Status: Acute (13) TIA (transient ischemic attack) Status: Acute Review of Systems Constitutional: + weakness, No fever, No chills Respiratory: No cough, No shortness of breath Cardiac: No chest pain, No edema Abdomen: No pain, No nausea, No vomiting, No diarrhea Neurologic: + weakness, No memory loss Objective Vital Signs Date Time Temp Pulse Resp B/P (MAP) Pulse Ox O2 Delivery O2 Flow Rate FiO2 06/20/17 16:00 Room Air 06/20/17 15:24 36.3 50 18 136/75 (95) 96 Room Air 06/20/17 12:00 Room Air 06/20/17 11:47 36.6 52 16 117/69 (85) 97 Room Air 06/20/17 08:35 36.4 46 18 131/76 (94) 94 Room Air 06/20/17 08:35 Room Air 06/20/17 08:22 47 16 124/61 (82) 96 Room Air 06/20/17 08:12 45 16 120/78 (92) 96 Room Air 06/20/17 08:02 76 16 126/78 98 Room Air 36 06/20/17 08:01 76 16 126/78 98 Room Air 36 06/20/17 08:00 76 16 126/78 98 Room Air 36 06/20/17 07:59 76 16 132/67 98 Room Air 35 06/20/17 07:55 76 16 132/67 98 Room Air 35 06/20/17 04:00 36.5 80 20 108/69 (82) 91 Room Air 06/20/17 04:00 91 BiPAP 06/20/17 00:00 Room Air 06/19/17 23:50 36.3 71 16 102/65 (77) 98 BiPAP 06/19/17 20:00 93 Room Air 06/19/17 19:08 36.5 104 16 125/80 (95) 93 Room Air Physical Exam General Appearance: WD/WN, no apparent distress Eyes: normal inspection, sclerae normal Neck: supple, no JVD Respiratory/Chest: chest non-tender, no respiratory distress, + decreased breath sounds (bases) Cardiovascular: regular rate, rhythm, no murmur Abdomen: normal bowel sounds, non tender, soft Extremities: no pedal edema, no calf tenderness Laboratory Results Last 24 Hours Test 06/19/17 23:57 06/20/17 04:34 06/20/17 06:22 Bedside Glucose 135 mg/dl 132 mg/dl Prothrombin Time 15.4 SECONDS Prothromb Time International Ratio 1.5 Assessment and Plan 82-year-old female with past medical history of paroxysmal atrial fibrillation, diastolic congestive heart failure, recent perforated diverticulitis requiring sigmoid colectomy and colostomy pouch, hypothyroidism, hypertension, history of CVA, chronic kidney disease stage III, moderate bilateral DANGELO, dyslipidemia, obstructive sleep apnea, depression and restless leg syndrome. Presented to the hospital with acute hypoxic hypercapnic respiratory failure secondary to pulmonary edema and possible underlying pneumonia Acute hypoxic and hypercapnic respiratory failure secondary to Acute systolic heart failure on chronic diastolic congestive heart failure, concern for Flash pulmonary edema, Bumex 1 mg IV twice daily with good response initially supported with BiPap, no further support required, with EF reduction cardiology evaluation feels is rate related from poorly controlled Afib, is currenlty on b faustino at increased dose of coreg and diuretic will add [place] or arb if able Sepsis present on admission seems less likely have stopped antibiotics respiratory and metabolic acidosis, resolved transaminitis improving, secondary to hepatic congestion atrial fibrillation with RVR, negative serial cardiac enz, concern that new changes with acute systolic heart failure could be rate related due to afib prompted DC cardioversion, pt has slightly low INR and will be bridged with lovenox until INR is therapeutic Recent perforated diverticulitis requiring sigmoid colectomy with colostomy , as per patient having diarrhea the last 3 days, C. difficile check for diarrhea Probiotic H/o CVA, risk reduction with aspirin and statin Hypothyroidism, clinically stable on synthroid CKD stage III, renal dose appropriate meds and no distress with diureiss Depression, no clinically impacting, continue zoloft and trazadone
[2017-06-20] MEDS: ATORVASTATIN 20 MG TAB PO SCH (21:03)
[2017-06-20] MEDS: FAMOTIDINE 20 MG TAB PO SCH (21:03)
[2017-06-20] MEDS: GABAPENTIN 300 MG CAP PO SCH (21:03)
[2017-06-20] MEDS: TRAZODONE HCL 50 MG TAB PO SCH (21:04)
--- NOTE | 2017-06-20 21:21 | Progress Note ---
Post ICU Progress Note Date & Time June 20, 2017 at 21:17 Vital Signs Vital Signs Past 12 Hours Date Time Temp Pulse Resp B/P (MAP) Pulse Ox O2 Delivery O2 Flow Rate FiO2 06/20/17 20:00 Room Air 06/20/17 19:20 36.6 56 18 149/78 (101) 93 Room Air 06/20/17 16:00 Room Air 06/20/17 15:24 36.3 50 18 136/75 (95) 96 Room Air 06/20/17 12:00 Room Air 06/20/17 11:47 36.6 52 16 117/69 (85) 97 Room Air Notes Mental Status: alert / awake Nausea / Vomiting: adequately controlled Pain: adequately controlled Airway Patency, RR, SpO2: stable & adequate BP & HR: stable & adequate Patient is an 82-year-old female initially admitted to the ICU with hypoxic respiratory failure in the setting of volume overload. She seemed IV Lasix and was placed on BiPAP with moderate resolve of her symptoms overnight. She had persistent A. fib with rapid rates which was thought to have contributed to her worsening peripheral edema and acute CHF exacerbation. Her EF was found to be poor at 30-35% on subsequent echocardiogram. Given these factors and need for cardiac efficiency with known poor EF, the patient subsequently underwent elective transcutaneous cardioversion today. The patient converted to sinus bradycardia where she has remained. Patient continues to actively diurese. On evaluation today, the patient is resting comfortably. She reports that she feels much better. She is on room air. She is excited that she has much less swelling in her feet. She offers no complaints at this time. Consider outpatient follow up in 1 to 2 weeks with: Cardiology, PCP Repeat imaging needed: Per admitting service. Follow up cultures: None Reviewed progress notes, labs, and inpatient medication list Continue current management Additional recommendations: None at this time. Thank you for allowing us to participate in the care of this patient. At this time, Critical Care Services will sign off on this case. Please feel free to reconsult as needed. Consults & Procedures Consultants: Cardiology Procedures: (06/20) Cardioversion
[2017-06-21 03:52] VITALS: BP 155/72; PULSE 49; TEMP 36.4; O2SAT 96
[2017-06-21 04:00] VITALS: O2SAT 91
[2017-06-21] MEDS: LEVOTHYROXINE 75 MCG TAB PO SCH (05:42)
[2017-06-21 06:19] LABS: INR 1.6 (0.9-1.1)
[2017-06-21 07:49] VITALS: BP 164/75; PULSE 51; TEMP 36.6; O2SAT 98
[2017-06-21] MEDS: ASPIRIN 81 MG ECTAB PO SCH (08:47)
[2017-06-21] MEDS: AMIODARONE 200 MG TAB PO SCH (08:47)
[2017-06-21] MEDS: FLUTICASONE PROPIONATE NA SPR 16 GM BTL NAE SCH (08:47)
[2017-06-21] MEDS: BUMETANIDE 1 MG TAB PO SCH (08:47)
[2017-06-21] MEDS: LACTOBACILLUS ACIDOPHILUS (FLORANEX) TAB PO SCH (08:48)
[2017-06-21] MEDS: SERTRALINE HCL 50 MG TAB PO SCH (08:48)
[2017-06-21] MEDS: POTASSIUM CHLORIDE 20 MEQ TABCR PO SCH (08:48)
[2017-06-21] MEDS: ENOXAPARIN 80 MG/0.8 ML SYR SQ SCH (08:48)
[2017-06-21] MEDS: CARVEDILOL 3.125 MG TAB PO SCH (08:49)
[2017-06-21 09:15] LABS: HEMATOCRIT 39.7 % (37-47); HEMOGLOBIN 13.1 g/dL (12.0-16.0); MEAN CELL VOLUME 93.9 fL (80-100); MEAN PLATELET VOLUME 10.2 fL (7.4-10.4); PLATELET COUNT 252 K/uL (130-400); RED CELL DISTRIBUTION WIDTH CV 14.8 % (11.5-14.5); RED CELL DISTRIBUTION WIDTH SD 50.5 fL (36.4-46.3); WHITE BLOOD COUNT 11.46 K/uL (4.8-10.8)
[2017-06-21 09:27] LABS: ALBUMIN 3.2 gm/dl (3.4-5.0); CREATININE 1.29 mg/dl (0.60-1.20); POTASSIUM 3.6 mmol/L (3.5-5.1)
[2017-06-21 09:30] LABS: TOTAL PROTEIN 6.5 gm/dl (6.4-8.2)
[2017-06-21] MEDS ORDERED: ASPI-320 PO (10:38)
[2017-06-21] MEDS ORDERED: CRD200 PO (10:38)
[2017-06-21] MEDS ORDERED: ELQ25 PO (10:45)
--- NOTE | 2017-06-21 10:47 | Discharge Instructions ---
Discharge Instructions Date of Service June 21, 2017. Admission Reason for Admission: Acute Respiratory Failure Discharge Discharge Diagnosis / Problem: afib rapid response rate, congestive heart failure from afib Discharge Goals Goal(s): Diagnostic testing, Therapeutic intervention Activity Recommendations Activity Limitations: as noted below Lifting Limitations: gradually increase as tolerated . Instructions / Follow-Up Instructions / Follow-Up Call your Primary Care doctor if any of the following symptoms or problems start or get worse: * Shortness of breath or difficulty breathing * Wake up at night short of breath * Chest pain * Cough * Swelling of your hands, feet, or legs * More fatigued or tired with your normal activity * Palpitations - sudden fast heart beats WEIGHT * Weigh yourself every morning after using the bathroom. * Use the same scale. * Wear the same amount of clothing. * Write your weight down on a chart. * Call your Primary Care doctor if you gain more than 2-3 pounds in 1-2 days. MEDICATIONS * Use this discharge instruction sheet for medication instructions. * Take your medications at the time your doctor ordered. * Do not skip a dose of your medicines. * If you miss a dose of medicine, take it as soon as possible, but DO NOT DOUBLE A DOSE. * Read your medicine information when you get home. * Know all of the side effects of your medicine. If in doubt, ask your pharmacist * Call your Primary Care doctor's office if you have any side effects. * Be sure all of your doctors know what medicine and herbs you take (including cold, flu, and herbal medicine). Take the following with you to your follow-up doctor appointments: * Weight Chart * Medication List * List of questions Do not drink excessive alcohol, beer or wine. Current Hospital Diet Patient's current hospital diet: AHA Diet (Heart Healthy), Diabetes Type 2 Diet , Low Sodium Diet (2gm Na) Discharge Diet Recommended Diet: Low Sodium Diet (2gm Na) Pending Studies Studies pending at discharge: no Medical Emergencies . Who to Call and When: Call 911 or go to the Emergency Room if: * If at any time you feel your situation is an emergency * You have tightness or pain in your chest that does not go away with rest or Nitroglycerin * You are very short of breath even with rest . Non-Emergent Contact Non-Emergency issues call your: Primary Care Provider, College Administrator Call Non-Emergent contact if: temperature is above 101, your pain is unusual for you . . "Provider Documentation" section prepared by Nathen Deras. . Doormaker Recommendations Doormaker Recommendations: Please follow a low salt diet, please follow up with Dr Edge, you may use hydrocortisone cream or any sunburn cream to the rash caused by the defibrillation pads
[2017-06-21 12:18] VITALS: BP 164/75; PULSE 51; TEMP 36.6; O2SAT 98
[2017-06-21 12:20] VITALS: BP 154/76; PULSE 56; TEMP 36.4; O2SAT 96
--- NOTE | 2017-06-21 12:34 | Cardiology Follow-Up ---
Subjective Subjective Date of Service: June 21, 2017. Pt evaluation today including: conversation w/ patient, physical exam, chart review, lab review, review of studies, review of inpatient medication list Additional Details: Feeling well. No new complaints this AM. Tele reviewed -- remains in sinus bradycardia. Problem List Medical Problems: (1) Abdominal hernia Status: Acute (2) Acute congestive heart failure Status: Acute (3) WAYNE (acute kidney injury) Status: Acute (4) Atrial fibrillation with RVR Status: Acute (5) Diverticulitis Status: Acute (6) Diverticulitis of intestine with perforation Status: Acute (7) Lactic acid acidosis Status: Acute (8) Left lower quadrant pain Status: Acute (9) Leukocytosis Status: Acute (10) Nausea Status: Acute (11) Paroxysmal A-fib Status: Acute (12) Pulmonary edema Status: Acute (13) TIA (transient ischemic attack) Status: Acute Review of Systems Constitutional: + weakness, No fever, No chills Respiratory: No cough, No shortness of breath Cardiac: No chest pain, No edema Abdomen: No pain, No nausea, No vomiting, No diarrhea Female : No dysuria, No urinary frequency Neurologic: + weakness, No memory loss Psychiatric: No depression symptoms, No anhedonism Objective Vital Signs Last Vital Signs Documentation Date Time Temp Pulse Resp B/P (MAP) Pulse Ox O2 Delivery O2 Flow Rate FiO2 06/21/17 12:20 36.4 56 16 154/76 (102) 96 06/21/17 12:18 Room Air 06/21/17 04:00 2.0 36 Physical Exam: General Appearance: no apparent distress ENT: hearing grossly normal Neck: supple, no JVD Respiratory/Chest: chest non-tender, no respiratory distress Cardiovascular: regular rate, rhythm (regular), no murmur, + bradycardia Abdomen: normal bowel sounds, non tender, soft Extremities: no pedal edema, no calf tenderness, + pertinent finding (trace LE edema) Neurologic/Psychiatric: alert, oriented x 3 Skin: normal color, warm/dry, no rash Assessment and Plan 1. Acute heart failure. 2. Atrial fibrillation with rapid ventricular response. 3. New global left ventricular systolic dysfunction, ejection fraction 30%-35%. 4. Chronic kidney disease. 5. History of prior embolic cerebrovascular accident. 6. Hypertension. 7. Dyslipidemia. Feeling well. Remains in sinus rhythm. Well perfused with minimal residual congestion on exam. From a cardiac standpoint OK for discharge today. -- Agree with trial of apixaban going forward. -- Continue amiodarone 200mg BID --> transition to daily next week. -- Home on BID Bumex 1 mg -- Continue current carvedilol -- Plan to resume low lisinopril as an outpatient. Will arrange for post-hospital follow-up with heart failure clinic Will consult cardiac rehab. Medications: Current Inpatient Medications Medications (Trade) Dose Ordered Sig/Mazin Route Start Time Stop Time Status Last Admin Dose Admin Atorvastatin Calcium (Lipitor Tab) 20 mg QPM PO 06/18/17 21:00 07/18/17 20:59 06/20/17 21:03 20 MG Famotidine (Pepcid Tab) 40 mg QPM PO 06/18/17 21:00 07/18/17 20:59 06/20/17 21:03 40 MG Fluticasone Propionate (Flonase Nasal [place]) 2 sprays DAILY KETTY 06/19/17 09:00 07/19/17 08:59 06/21/17 08:47 2 SPRAYS Gabapentin (Neurontin Cap) 600 mg QPM PO 06/18/17 21:00 07/18/17 20:59 06/20/17 21:03 600 MG Levothyroxine Sodium (Synthroid Tab) 75 mcg DAILYBB PO 06/19/17 06:00 07/19/17 05:59 06/21/17 05:42 75 MCG Ondansetron HCl (Zofran Tab) 4 mg Q8 PRN PO 06/18/17 20:15 07/18/17 20:14 Potassium Chloride (Klor-Con Tab) 20 meq DAILY PO 06/19/17 09:00 07/19/17 08:59 06/21/17 08:48 20 MEQ Sertraline HCl (Zoloft Tab) 25 mg DAILY PO 06/19/17 09:00 07/19/17 08:59 06/21/17 08:48 25 MG Trazodone HCl (Desyrel Tab) 50 mg QPM PO 06/18/17 21:00 07/18/17 20:59 06/20/17 21:04 50 MG Lactobacillus Acidophilus (Floranex Tab) 4 tab DAILY PO 06/19/17 09:00 07/19/17 08:59 06/21/17 08:48 4 TAB Acetaminophen (Tylenol Tab) 650 mg Q4H PRN PO 06/18/17 20:15 07/18/17 20:14 Lorazepam (Ativan Tab) 0.5 mg Q4H PRN PO 06/18/17 20:15 07/18/17 20:14 Ipratropium [place] (Atrovent 0.02% 0.5MG/2.5ML Neb) 0.5 mg Q12H PRN INH 06/18/17 20:15 07/18/17 20:14 Levalbuterol (Xopenex 0.63 Mg/ 3 Ml Neb) 0.63 mg Q12H PRN INH 06/18/17 20:15 07/18/17 20:14 Al Hydrox/Mg Hydrox/Simethicone (Maalox Max Susp) 15 ml Q4H PRN PO 06/18/17 20:15 07/18/17 20:14 Magnesium Hydroxide (Milk Of Magnesia Susp) 30 ml Q12H PRN PO 06/18/17 20:15 07/18/17 20:14 Ondansetron HCl (Zofran Inj) 4 mg Q6H PRN IV 06/18/17 20:15 07/18/17 20:14 Ranitidine HCl (zANTac TAB) 150 mg BID PO 06/18/17 21:00 07/18/17 20:59 Future Hold Aspirin (Ecotrin Tab) 81 mg QAM PO 06/20/17 09:00 07/20/17 08:59 06/21/17 08:47 81 MG Bumetanide (Bumex Tab) 1 mg BID PO 06/20/17 09:00 07/19/17 08:59 06/21/17 08:47 1 MG Carvedilol (Coreg Tab) 3.125 mg BID PO 06/20/17 09:00 07/20/17 08:59 Amiodarone HCl (Cordarone Tab) 200 mg BID PO 06/20/17 09:00 07/20/17 08:59 06/21/17 08:47 200 MG Apixaban (Eliquis Tab) 5 mg BID PO 06/21/17 21:00 07/21/17 20:59 Lab Results: 06/21/17 08:39 06/21/17 08:39 Test 06/21/17 05:39 06/21/17 08:39 06/21/17 11:10 Prothrombin Time 16.7 SECONDS (9.0-12.0) Prothromb Time International Ratio 1.6 (0.9-1.1) Red Blood Count 4.23 M/uL (4.2-5.4) Mean Corpuscular Volume 93.9 fL (80-100) Mean Corpuscular Hemoglobin 31.0 pg (25-34) Mean Corpuscular Hemoglobin Concent 33.0 g/dl (32-36) RDW Standard Deviation 50.5 fL (36.4-46.3) RDW Coefficient of Variation 14.8 % (11.5-14.5) Mean Platelet Volume 10.2 fL (7.4-10.4) Anion Gap 5.0 mmol/L (3-11) Est Creatinine Clear Calc Drug Dose 29.6 ml/min Estimated GFR () 44.3 Estimated GFR (Non- 38.3 BUN/Creatinine Ratio 31.2 (10-20) Calcium Level 9.0 mg/dl (8.5-10.1) Total Bilirubin 0.5 mg/dl (0.2-1) Aspartate Amino Transf (AST/SGOT) 25 U/L (15-37) Alanine Aminotransferase (ALT/SGPT) 101 U/L (12-78) Alkaline Phosphatase 148 U/L (45-117) Total Protein 6.5 gm/dl (6.4-8.2) Albumin 3.2 gm/dl (3.4-5.0) Globulin 3.3 gm/dl (2.5-4.0) Albumin/Globulin Ratio 1.0 (0.9-2) Thyroid Stimulating Hormone (TSH) 2.380 uIu/ml (0.300-4.500) Bedside Glucose 131 mg/dl (70-90)
--- NOTE | 2017-06-21 16:23 | Discharge Summary ---
Discharge Summary Date of Service June 21, 2017. Discharge Summary Admission Date: Jun 18, 2017 at 20:25 Discharge Date: June 21, 2017 Discharge Disposition: Home Principal Diagnosis: afib RVR, acute systolic heart failure, tranaminitis Procedures: dc cardioversion Medication Reconciliation New Medications: Apixaban (Eliquis) 2.5 Mg Tab 5 MG PO BID, #120 TAB 6 Refills please substitute 5 mg tabs for 62 doses for this pt with the same refills Amiodarone HCl (Amiodarone HCl) 200 Mg Tab 200 MG PO BID, #62 TAB 6 Refills Aspirin (Aspirin EC Low Dose) 81 Mg Ectab 81 MG PO QAM, #100 DOSE 6 Refills Continued Medications: Atorvastatin (Lipitor) 20 Mg Tab 20 MG PO QPM, TAB Bumetanide (Bumex) 1 Mg Tab 1 MG PO DAILY, TAB 1 Refill Calcium Carbonate (Calcium Carbonate) 1,250 Mg Tab 1250 MG PO BIDM Carvedilol (Coreg) 3.125 Mg Tab 3.125 MG PO BID for 30 Days, #60 TAB 3 Refills Cholecalciferol (Vitamin D3) 2,000 Unit Cap 2000 UNITS PO QAM, CAP Docusate Sodium (Colace) 100 Mg Cap 100 MG PO BID PRN for Constipation, CAP Famotidine (Pepcid) 40 Mg Tab 40 MG PO QPM, TAB Fluticasone Propionate (Nasal) (Flonase Allergy Relief) 50 Mcg/Act Spr 2 SPRAYS KETTY DAILY Gabapentin (Neurontin) 300 Mg Cap 600 MG PO QPM, CAP Lactobacillus (Acidophilus) 1 Cap Cap 1 CAP PO DAILY Levothyroxine Sodium (Synthroid) 75 Mcg Tab 75 MCG PO QAM, TAB Ondansetron Hcl (Zofran) 4 Mg Tab 4 MG PO Q8 PRN for Nausea, TAB Polyethylene Glycol 3350 (Miralax) 1 Pow Pow 17 GM PO DAILY PRN for Constipation, GM Potassium Ext Rel (Klor-Con) 20 Meq Tabcr 20 MEQ PO DAILY, TAB Sertraline (Zoloft) 25 Mg Tab 25 MG PO DAILY, TAB Trazodone Hcl (Trazodone) 50 Mg Tab 50 MG PO QPM, TAB Discontinued Medications: Warfarin Sod (Jantoven) 2 Mg Tab 2 MG PO 2XWK, TAB MONDAY, MONDAY CURRENTLY ON HOLD OF 06/18/17 PER [facility] Warfarin Sod (Jantoven) 4 Mg Tab 4 MG PO 5XWK, TAB MONDAY, MONDAY, MONDAY, MONDAY, MONDAY CURRENTLY ON HOLD OF 06/18/17 PER [facility] Discharge Exam Review of Systems: Constitutional: No fever, No chills Respiratory: No cough, No sputum Cardiovascular: No chest pain, No orthopnea Abdomen: No pain, No nausea, No diarrhea, No constipation Genitourinary - Female: No dysuria, No dysmenorrhea Neurologic: No memory loss, No paralysis Physical Exam: General Appearance: WD/WN, no apparent distress Neck: supple, no JVD Respiratory/Chest: chest non-tender, lungs clear, normal breath sounds Neurologic/Psychiatric: alert, oriented x 3 Hospital Course 82-year-old female with past medical history of paroxysmal atrial fibrillation, diastolic congestive heart failure, recent perforated diverticulitis requiring sigmoid colectomy and colostomy pouch, hypothyroidism, hypertension, history of CVA, chronic kidney disease stage III, moderate bilateral DANGELO, dyslipidemia, obstructive sleep apnea, depression and restless leg syndrome. Presented to the hospital with acute hypoxic hypercapnic respiratory failure secondary to acute systolic heart failure felt to be from afib RVR Acute hypoxic and hypercapnic respiratory failure secondary to Acute systolic heart failure on chronic diastolic congestive heart failure, concern for Flash pulmonary edema, diuresis with good response initially supported with BiPap, no further support required, with EF reduction cardiology evaluation feels is rate related from poorly controlled Afib, is currenlty on coreg and diuretic, attempts to increase coreg were met with bradycardia while on amiodarone Sepsis present on admission ruled out respiratory and metabolic acidosis, resolved transaminitis improving, secondary to hepatic congestion atrial fibrillation with RVR, negative serial cardiac enz, concern that new changes with acute systolic heart failure could be rate related due to afib prompted DC cardioversion, pt has slightly low INR decision to start eliquis is undertaken and will be started at time of discharge Recent perforated diverticulitis requiring sigmoid colectomy with colostomy , as per patient having diarrhea the last 3 days, Probiotic H/o CVA, risk reduction with aspirin and statin Hypothyroidism, clinically stable on synthroid, will need to check tsh now that is on amiodarone as has had issues with same in the past CKD stage III, renal dose appropriate meds and no distress with diureiss Depression, no clinically impacting, continue zoloft and trazadone Total Time Spent: Greater than 30 minutes This includes examination of the patient, discharge planning, medication reconciliation, and communication with other providers. Discharge Instructions Please refer to the electronic Patient Visit Report (Discharge Instructions) for additional information.
[2017-06-21] MEDS ORDERED: APIXABAN 2.5 MG TAB PO SCH (21:00)
== END 2017-06-21 13:19 | disposition home or self-care (01) | DRG 308 ==
LOC: EDBD 17:12 → C.EDA 17:14 → C.MSICU 20:25 → ENRESERV 20:39 → C.2T 06-19 18:42
PROVIDERS: ADMIT Internal Medicine; ATTEND Internal Medicine
PROC: 5A2204Z Restoration of Cardiac Rhythm, Single (ICD-10-PCS; principal; 2017-06-20 08:45)
DX: I48.0 Paroxysmal atrial fibrillation (principal); I50.21 Acute systolic (congestive) heart failure; J96.01 Acute respiratory failure with hypoxia; J96.02 Acute respiratory failure with hypercapnia; I13.0 Hypertensive heart and chronic kidney disease with heart failure and stage 1 through stage 4 chronic kidney disease, or unspecified chronic kidney disease; I50.32 Chronic diastolic (congestive) heart failure; E87.4 Mixed disorder of acid-base balance; R00.1 Bradycardia, unspecified; I44.7 Left bundle-branch block, unspecified; R74.0 Nonspecific elevation of levels of transaminase and lactic acid dehydrogenase [LDH]; R79.1 Abnormal coagulation profile; D72.829 Elevated white blood cell count, unspecified; R19.7 Diarrhea, unspecified; L25.8 Unspecified contact dermatitis due to other agents; Y84.3 Shock therapy as the cause of abnormal reaction of the patient, or of later complication, without mention of misadventure at the time of the procedure; Y71.1 Therapeutic (nonsurgical) and rehabilitative cardiovascular devices associated with adverse incidents; Y92.234 Operating room of hospital as the place of occurrence of the external cause; K76.1 Chronic passive congestion of liver; E11.22 Type 2 diabetes mellitus with diabetic chronic kidney disease; N18.3 Chronic kidney disease, stage 3 (moderate); E03.9 Hypothyroidism, unspecified; E78.5 Hyperlipidemia, unspecified; G25.81 Restless legs syndrome; G47.33 Obstructive sleep apnea (adult) (pediatric); G31.84 Mild cognitive impairment of uncertain or unknown etiology; F41.9 Anxiety disorder, unspecified; F32.9 Major depressive disorder, single episode, unspecified; Z93.3 Colostomy status; Z99.89 Dependence on other enabling machines and devices; Z86.73 Personal history of transient ischemic attack (TIA), and cerebral infarction without residual deficits; Z87.891 Personal history of nicotine dependence; Z79.01 Long term (current) use of anticoagulants; Z79.899 Other long term (current) drug therapy; Z88.0 Allergy status to penicillin; Z88.2 Allergy status to sulfonamides; Z88.5 Allergy status to narcotic agent

== ENCOUNTER → 2017-06-29 | Outpatient (CLI) | payer OTHER, MEDICARE ==
[~2017-06-29] MED LIST changes: -ACET-1256 PO; +ASPI-320 PO; +ATOR-54 PO; -CMD4 PO; +CRD200 PO; -CRDCD180 PO; +DOCU-94 PO; +ELQ25 PO; -FAMO20TA11 PO; +FAMO40TA6 PO; +FLUT0.15 NAE; +GABA-113 PO; -GABA1SOL4 PO; +LACTCAP3 PO; -LPT20 PO; -ONDA4TAB10 SL; +ONDA4TAB46 PO; +POLY335019 PO; +POTA-639 PO; +TRAZ50TA35 PO
[2017-06-29 12:21] LABS: BLOOD UREA NITROGEN 34 mg/dl (7-18); CALCIUM 8.7 mg/dl (8.5-10.1); CARBON DIOXIDE 28 mmol/L (21-32); CREATININE 1.28 mg/dl (0.60-1.20); GLUCOSE 96 mg/dl (70-99); POTASSIUM 4.3 mmol/L (3.5-5.1); SODIUM 138 mmol/L (136-145)
== END | disposition home or self-care (01) ==
LOC: C.LAB1850 09:57
PROVIDERS: ATTEND Internal Medicine Interventional Cardiology
DX: I50.32 Chronic diastolic (congestive) heart failure (principal)

== ENCOUNTER → 2017-09-09 | Outpatient (CLI) | payer OTHER, MEDICARE ==
[~2017-09-09] MED LIST changes: +ACET-1311 PO; +AMIO200T4 PO; -ASPI-320 PO; +BMX1 PO; -BUME1TAB PO; -CRD200 PO; +DIPH25CA65 PO; +SPACMIS7; -TRAZ50TA35 PO
[2017-09-09 11:49] LABS: HEMATOCRIT 44.1 % (37-47); HEMOGLOBIN 14.1 g/dL (12.0-16.0)
== END | disposition home or self-care (01) ==
LOC: C.LAB 11:25
PROVIDERS: ATTEND Surgery
DX: E61.1 Iron deficiency (principal); K92.2 Gastrointestinal hemorrhage, unspecified

== ENCOUNTER 2020-01-03 19:53 | Inpatient (IN) ==
[2020-01-03] MEDS ORDERED: ONDANSETRON INJ 2 MG/ML 2 ML VIAL IV STA ×2 (20:22→22:00)
[2020-01-03] MEDS ORDERED: SODIUM CHLORIDE 0.9% 1000ML 250 ML IV ONE (20:26)
[2020-01-03] MEDS ORDERED: SODIUM CHLORIDE 0.9% 1000ML 1,000 ML IV SCH (20:30)
[2020-01-03] MEDS: fentaNYL citrate 100 MCG/2 ML VIAL IV PRN ×3 (20:48→23:24)
[2020-01-03 21:15] LABS: Alanine Aminotransferase 21 U/L (12-78); Albumin Globulin Ratio 0.8 (0.9-2); Albumin Level 3.4 gm/dl (3.4-5.0); Alkaline Phosphatase 136 U/L (45-117); BUN Creatinine Ratio 20.4 (10-20); Basophils # (auto) 0.03 K/uL (0-0.2); Basophils % (auto) 0.3 %; Bilirubin,Total 0.5 mg/dl (0.2-1); Blood Urea Nitrogen 26 mg/dl (7-18); Calcium 9.5 mg/dl (8.5-10.1); Carbon Dioxide 33 mmol/L (21-32); Chloride 104 mmol/L (98-107); Eosinophils # (auto) 0.13 K/uL (0-0.5); Eosinophils % (auto) 1.4 %; Est GFR (Non-African American) 38.8; Globulin 4.2 gm/dl (2.5-4.0); Glucose 97 mg/dl (70-99); Hemoglobin 14.1 g/dL (12.0-16.0); Immature Granulocytes # (auto) 0.05 K/uL (0.00-0.02); Immature Granulocytes % (auto) 0.5 %; Lipase 122 U/L (73-393); Lymphocytes # (auto) 2.25 K/uL (1.2-3.4); Lymphocytes % (auto) 24.1 %; Mean Corpuscular Hemoglobin 30.8 pg (25-34); Mean Corpuscular Volume 96.1 fL (80-100); Mean Platelet Volume 10.6 fL (7.4-10.4); Monocytes % (auto) 12.8 %; Neutrophils # (auto) 5.68 K/uL (1.4-6.5); Neutrophils % (auto) 60.9 %; Platelet Count 216 K/uL (130-400); RDW Coefficient of Variation 14.6 % (11.5-14.5); RDW Standard Deviation 51.6 fL (36.4-46.3); Red Blood Count 4.58 M/uL (4.2-5.4); Sodium 141 mmol/L (136-145); Total Protein 7.6 gm/dl (6.4-8.2); White Blood Count 9.34 K/uL (4.8-10.8)
[2020-01-03 21:32] LABS: Appearance Urine Clear (Clear); Bacteria Urine Automated 4+ (Negative); Bilirubin Urine Negative (Negative); Blood Urine Negative (Negative); Cast Urine Automated 0 /lpf (0-5); Color Urine Yellow; Glucose Urine UA Negative (Negative); Ketones Urine Negative (Negative); Leukocyte Esterase Urine Trace (Negative); Nitrite Urine Negative (Negative); Protein Urine Negative (Negative); RBC Urine Automated 0-4 /hpf (0-4); Specific Gravity Urine 1.011 (1.000-1.030); Urobilinogen Urine Negative (Negative); pH Urine 8.5 (4.5-7.5)
[2020-01-03 22:06] LABS: Potassium 3.6 mmol/L (3.5-5.1)
--- NOTE | 2020-01-03 23:20 | History & Physical Report ---
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 SBO/Parastomal Hernia -Pt with abd pain, nausea. Episodes of diarrhea with use of Immodium a few days ago. -Has colostomy bag after colectomy in August 2019 after perforated diverticulitis -CT abd pelvis: prelim read with findings of SBO likely secondary to parastomal hernia -NPO -Consult general surgery. Parastomal hernia reduced by ED provider in the ED. -Daughter states that she wants Surgery to know that her mother has carotid stenosis which might make surgery not an option. -Zofran 4mg IV prn for N/V -tylenol 1000mg IV prn, dilaudid 0.5mg q3h PRN for pain -no indication currently for NG tube decompression, continue to monitor for need -family would like son who is an ICU doc in [place] to be updated. HTN -given pt npo with SBO, hold home hydralazine 50mg TID -PRN IV hydralazine ordered with parameters Sick Sinus Syndrome/LBBB/Atrial Fibrillation -given pt npo with SBO, hold home amiodarone 100mg, carvedilol 3.125mg BID, warfarin -INR currently therapeutic at 2.8 -consider restart of warfarin as soon as possible Restless leg Syndrome -given pt npo with SBO, hold home pramiprexole, gabapentin, duloxetin Peripheral Edema -given pt npo with SBO, hold home bumex CKD Stage 3 -Pt with Cr of 1.2 -Baseline of ~1.4 -follows with nephrology Hx of tonsillar cancer, current SCC of base of tongue -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, 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 Consider restart NORA. CODE STATUS: Full Dispo: Med-surg with tele given Hx of sick sinus, LBBB (2) Anemia: (3) Asthma: (4) Obstructive sleep apnea: (5) Left bundle branch block (LBBB): (6) Restless legs syndrome: (7) Carotid stenosis: (8) Chronic diastolic congestive heart failure: (9) Peripheral edema: (10) Chronic kidney disease, stage III (moderate): (11) Paroxysmal atrial fibrillation: (12) HTN (hypertension): (13) Tonsillar cancer: (14) Hypothyroidism: (15) SBO (small bowel obstruction): History of Present Illness Primary Care Provider: Laci Yung MD Pt is a pleasant 84yo with a PMHx significant for perforated diverticulitis s/p colectomy and subsequent placement of a colostomy on 09/06/2019, 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 Pt's daughter at bedside provided some of the history. Pt states that she had been having diarrhea for the last few days, nonbloody, and had been changing the colostomy bag every 2 hours. She took some immodium which helped slow things down. However, this AM she developed 8/10 abdominal pain that is crampy and comes in waves. Associated with nausea, no vomitting. No fevers but feels like she might have had some chills. Of note daughter would like surgeons to know that mother had carotid stenosis that needs to be taken into account when considerin surgery. She would also like her brother, who is an ICU doc to be updated. Pt has never smoked, drinks occasional alcohol, and doesnt use recreational drugs. Lives at [facility] in a personal half-way. Allergies Allergy/AdvReac Type Severity Reaction Status Date / Time codeine Allergy Intermediate ITCHING Verified 01/03/20 23:15 Penicillins Allergy Intermediate HIVES Verified 01/03/20 23:15 Sulfa (Sulfonamide Allergy Intermediate fever Verified 01/03/20 23:15 Antibiotics) Home Medications Home Medications Medication Instructions Recorded Confirmed Type calcitonin (salmon) 200 unit INTRANASAL (ALT) DAILY 08/13/18 01/03/20 History calcium carbonate [Calcium 600] 600 mg PO BID 08/13/18 01/03/20 History cholecalciferol (vitamin D3) 2,000 unit PO DAILY 08/13/18 01/03/20 History [Vitamin D3] duloxetine 30 mg PO QPM 10/26/18 01/03/20 History pramipexole 0.5 mg tablet 0.5 mg PO BID tab 01/28/19 01/03/20 History famotidine 20 mg PO HS 02/01/19 01/03/20 History amiodarone 200 mg tablet 100 mg PO DAILY #90 tab 05/23/19 01/03/20 Rx hydralazine 50 mg tablet 50 mg PO TID #30 tab 08/22/19 01/03/20 Rx bumetanide 1 mg tablet 1 - 2 mg PO DAILY #90 tab 09/19/19 01/03/20 Rx potassium chloride 20 mEq 20 meq PO QAM #90 tab 09/23/19 01/03/20 Rx tablet,extended release(part/cryst) warfarin 3 mg tablet See Rx Instructions .ROUTE 09/30/19 01/03/20 Rx .COMPLEX #90 tab carvedilol 3.125 mg tablet 3.125 mg PO BIDM #180 tab 12/30/19 01/03/20 Rx Magic Swizzle 1 dose PO AC PRN 01/03/20 01/03/20 History gabapentin 100 mg PO DAILY 01/03/20 01/03/20 History levothyroxine [Synthroid] 100 mcg PO DAILY 01/03/20 01/03/20 History tramadol 50 mg PO Q6 PRN 01/03/20 01/03/20 History Past Med/Surg History Medical History Acute respiratory failure Anemia IRON INFUSION Anxiety Chronic systolic CHF (congestive heart failure) Colostomy in place GERD (gastroesophageal reflux disease) History of diverticulitis HTN (hypertension) Hypothyroidism Lumbar compression fracture On home oxygen therapy WEARS 1L HS VIA [place] Osteoarthritis Restless leg syndrome Sleep apnea CPAP Squamous cell carcinoma of oropharynx Stroke 2011 (CONT. 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) Surgical History History of bilateral tubal ligation History of cardiac cath NO STENTS History of colonoscopy History of colostomy COLOSTOMY INTACT History of dilatation and curettage History of endoscopic sinus surgery History of esophagogastroduodenoscopy (EGD) History of tooth extraction Hx of tonsillectomy S/P cholecystectomy [place] teeth extracted Family History Mother Family history of diabetes mellitus Grandmother (Maternal) Family history of diabetes mellitus Other Family history non-contributory Social History Smoking Status: Former smoker Tobacco Type: Cigarettes Second Hand Exposure: No; Hx Alcohol Use: Yes Alcohol type: wine Hx Substance Use: No Preferred Language: Icelandic Communication Ability: Effective Senior Network Systems Engineer Required: No Beliefs That Will Affect Care: None marital status: Single Current Living Situation: Personal Care Facility Current Living Situation Comment: [facility] current occupational status: retired Feels Safe at Home: Yes Assistive Devices: CPAP, Glasses, Oxygen - at Night and Walker Review of Systems Constitutional: + chills and + anorexia; no fever and no sweats Eyes: + worsening vision (follows with ophthalmology) Ear, Nose, Mouth, Throat: + pain with swallowing; no nasal congestion and no sore throat Respiratory: no cough and no dyspnea Cardiovascular: + edema; no chest pain, no dyspnea and no palpitations Gastrointestinal: + abdominal pain, + nausea and + diarrhea/loose stools; no vomiting, no constipation and no blood in stools Genitourinary: no dysuria and no hematuria Musculoskeletal: no back pain Integumentary: + rash (stasis dermatitis changes on lower extremities) Neurologic: no tingling, no numbness, no headache(s) and no confusion Psychiatric: no confusion Physical Exam Physical Exam: General: Alert, oriented. Periodic wincing with pain Skin: Lower extremity venous stasis changes noted Psych: Appropriate mood and affect Neuro: No gross deficits HEENT: NC/AT Chest: Nontender to palpation. CV: RRR, Normal s1, s2. No murmurs appreciated Resp: Breath sounds clear bilaterally, no increased effort of breathing. Abdomen: BS+. Soft, tender to deep plapation, ostomy bag in place. No guarding. Extremities: +++ edema in lower extremities bilaterally. Results & Data Results & Data ([facility]) Vital Signs (Past 12 Hours) Vital Signs Pulse Resp BP Pulse Ox 01/03/20 22:30 58 L 17 159/59 H 95 01/03/20 22:00 64 19 194/75 H 95 01/03/20 21:00 54 L 16 214/88 H 98 01/03/20 20:30 67 19 96 01/03/20 20:28 71 19 210/110 H 01/03/20 20:19 64 23 236/75 H Resident Activity Tracking Resident Involvement: Resident Care Provided Care Provided: Adult Hospital Medicine
--- NOTE | 2020-01-04 00:57 | Emergency Department Note ---
History of Present Illness General Chief complaint: Abdominal Pain Stated complaint: abd pain Time Seen by Provider: 01/03/20 20:15 Source: patient and EMS Mode of arrival: ambulatory Limitations: no limitations History of Present Illness Provider complaint: Abdominal pain Maximum Pain Intensity: 0 4-year-old female who presents emergency department with complaints of significant abdominal pain and bloating. Patient has a colostomy and states there has been no stool output for 24 hours. Patient has been nauseated with a cramping type pain. She denies any vomiting, fevers, coughing or shortness of breath. Patient does have a history of small bowel obstruction and which is why she has the colostomy. Patient is on warfarin secondary to her history of atrial fibrillation. Home Medications Home Medications Medication Instructions Recorded Confirmed Type calcitonin (salmon) 200 unit INTRANASAL (ALT) DAILY 08/13/18 01/03/20 History calcium carbonate [Calcium 600] 600 mg PO BID 08/13/18 01/03/20 History cholecalciferol (vitamin D3) 2,000 unit PO DAILY 08/13/18 01/03/20 History [Vitamin D3] duloxetine 30 mg PO QPM 10/26/18 01/03/20 History pramipexole 0.5 mg tablet 0.5 mg PO BID tab 01/28/19 01/03/20 History famotidine 20 mg PO HS 02/01/19 01/03/20 History amiodarone 200 mg tablet 100 mg PO DAILY #90 tab 05/23/19 01/03/20 Rx hydralazine 50 mg tablet 50 mg PO TID #30 tab 08/22/19 01/03/20 Rx bumetanide 1 mg tablet 1 - 2 mg PO DAILY #90 tab 09/19/19 01/03/20 Rx potassium chloride 20 mEq 20 meq PO QAM #90 tab 09/23/19 01/03/20 Rx tablet,extended release(part/cryst) warfarin 3 mg tablet See Rx Instructions .ROUTE 09/30/19 01/03/20 Rx .COMPLEX #90 tab carvedilol 3.125 mg tablet 3.125 mg PO BIDM #180 tab 12/30/19 01/03/20 Rx Magic Swizzle 1 dose PO AC PRN 01/03/20 01/03/20 History gabapentin 100 mg PO DAILY 11/13/20 11/13/20 History levothyroxine [Synthroid] 100 mcg PO DAILY 01/03/20 01/03/20 History tramadol 50 mg PO Q6 PRN 01/03/20 01/03/20 History Allergies Allergy/AdvReac Type Severity Reaction Status Date / Time codeine Allergy Intermediate ITCHING Verified 01/03/20 23:15 Penicillins Allergy Intermediate HIVES Verified 01/03/20 23:15 Sulfa (Sulfonamide Allergy Intermediate fever Verified 01/03/20 23:15 Antibiotics) Past Med/Surg History Medical History (Updated 01/04/20 @ 01:08 by Jeanine Katz MD) Acute respiratory failure Anemia IRON INFUSION Anxiety Chronic systolic CHF (congestive heart failure) Colostomy in place GERD (gastroesophageal reflux disease) History of diverticulitis HTN (hypertension) Hypothyroidism Lumbar compression fracture On home oxygen therapy WEARS 1L HS VIA [place] Osteoarthritis Restless leg syndrome Sleep apnea CPAP Squamous cell carcinoma of oropharynx Stroke 2011 (CONT. 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) Surgical History History of bilateral tubal ligation History of cardiac cath NO STENTS History of colonoscopy History of colostomy COLOSTOMY INTACT History of dilatation and curettage History of endoscopic sinus surgery History of esophagogastroduodenoscopy (EGD) History of tooth extraction Hx of tonsillectomy S/P cholecystectomy [place] teeth extracted Family History Mother Family history of diabetes mellitus Grandmother (Maternal) Family history of diabetes mellitus Other Family history non-contributory Social History Smoking Status: Former smoker Tobacco Type: Cigarettes Second Hand Exposure: No; Hx Alcohol Use: Yes Alcohol type: wine Hx Substance Use: No Preferred Language: Polish Communication Ability: Effective Clay 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 and A total of 10 systems reviewed and were otherwise negative Physical Exam Vital Signs Vital Signs - 24 hr 01/03/20 20:06 01/03/20 20:19 01/03/20 20:28 Pulse Rate 64 71 Pulse Rate from SpO2 Sensor Respiratory Rate 23 19 Blood Pressure 236/75 H 210/110 H Blood Pressure Mean 119 157 Pulse Oximetry Oxygen Delivery Method Oxygen Flow Rate Sepsis New/Unexplained Change in Mental Status N/A Sepsis Action Taken by Nursing No Action Required 01/03/20 20:30 01/03/20 21:00 01/03/20 22:00 Pulse Rate 67 54 L 64 Pulse Rate from SpO2 Sensor Respiratory Rate 19 16 19 Blood Pressure 214/88 H 194/75 H Blood Pressure Mean 148 120 Pulse Oximetry 96 98 95 Oxygen Delivery Method Room Air Nasal Cannula Nasal Cannula Oxygen Flow Rate 2 2 Sepsis New/Unexplained Change in Mental Status Sepsis Action Taken by Nursing 01/03/20 22:30 01/03/20 23:00 01/03/20 23:30 Pulse Rate 58 L 55 L 59 L Pulse Rate from SpO2 Sensor 55 L Respiratory Rate 17 15 17 Blood Pressure 159/59 H 163/64 H 160/73 H Blood Pressure Mean 105 113 107 Pulse Oximetry 95 96 95 Oxygen Delivery Method Nasal Cannula Nasal Cannula Nasal Cannula Oxygen Flow Rate 2 2 2 Sepsis New/Unexplained Change in Mental Status Sepsis Action Taken by Nursing 01/04/20 00:01 Pulse Rate 60 Pulse Rate from SpO2 Sensor Respiratory Rate 13 Blood Pressure 186/74 H Blood Pressure Mean 131 Pulse Oximetry 95 Oxygen Delivery Method Nasal Cannula Oxygen Flow Rate 2 Sepsis New/Unexplained Change in Mental Status Sepsis Action Taken by Nursing Vital signs reviewed. General: Chronically ill-appearing 84 yo female, in some discomfort. HEENT: No scleral icterus, PERRLA, neck supple. Cardiovascular: Regular rate and rhythm, no extra sounds. Pulmonary: Clear to auscultation bilaterally, normal work of breathing. Abdomen: Soft, diffuse tenderness, particularly around the ostomy. There is swelling around the left lower quadrant ostomy indicative of hernia. The area is soft but tender. Positive bowel sounds. Musculoskeletal: Atraumatic, no peripheral edema. Neurologic: Patient awake alert and oriented x 3 Skin: Warm, dry, no rash Course Administered Medications Fentanyl Citrate (Fentanyl Citrate 100 Mcg/2 Ml Vial) 25 mcg IV Q30M PRN PRN Reason: Pain Stop: 01/17/20 20:21 Last Admin: 01/03/20 23:24 Dose: 25 mcg Documented by: [id number] Admin: 01/03/20 22:06 Dose: 25 mcg Documented by: [id number] Admin: 01/03/20 20:48 Dose: 25 mcg Documented by: [id number] Sodium Chloride (Nss 1000ml) 1,000 mls @ 125 mls/hr IV .Q8H IRWIN Stop: 02/02/20 20:29 Last Admin: 01/03/20 20:47 Dose: 125 mls/hr Documented by: [id number] Discontinued Medications Sodium Chloride (Nss 1000ml) 250 mls @ 999 mls/hr IV .Q16M ONE Stop: 01/03/20 20:41 Last Infusion: 01/03/20 21:16 Dose: 0 mls/hr Documented by: [id number] Admin: 01/03/20 20:47 Dose: 999 mls/hr Documented by: [id number] Ondansetron HCl (Ondansetron Inj 2 Mg/Ml 2 Ml Vial) 4 mg IV NOW STA Stop: 01/03/20 20:23 Last Admin: 01/03/20 20:48 Dose: 4 mg Documented by: [id number] Ondansetron HCl (Ondansetron Inj 2 Mg/Ml 2 Ml Vial) 4 mg IV NOW STA Stop: 01/03/20 22:01 Last Admin: 01/03/20 22:06 Dose: 4 mg Documented by: [id number] Medical Decision Making Differential Diagnosis Differential diagnosis of this patient's presentation includes small bowel obstruction, parastomal hernia, intra-abdominal mass, diverticulitis, urinary tract infection, kidney stone, appendicitis, cholecystitis, AAA. Medical Records Attestation: I reviewed the patient's medical records. Home Medications Current Medication List: was personally reviewed by me Laboratory Data Attestation: I reviewed the patient's lab results. Result diagrams: 01/03/20 20:38 01/03/20 21:27 Lab Results 01/03/20 01/03/20 01/03/20 Range/Units 20:38 20:38 20:38 WBC 9.34 (4.8-10.8) K/uL RBC 4.58 (4.2-5.4) M/uL Hgb 14.1 (12.0-16.0) g/dL Hct 44.0 (37-47) % MCV 96.1 (80-100) fL MCH 30.8 (25-34) pg MCHC 32.0 (32-36) g/dL RDW Std Deviation 51.6 H (36.4-46.3) fL RDW Coeff of Philip 14.6 H (11.5-14.5) % Plt Count 216 (130-400) K/uL MPV 10.6 H (7.4-10.4) fL Immature Gran % (Auto) 0.5 % Neut % (Auto) 60.9 % Lymph % (Auto) 24.1 % [place] % (Auto) 12.8 % Eos % (Auto) 1.4 % Baso % (Auto) 0.3 % Neut # (Auto) 5.68 (1.4-6.5) K/uL Lymph # (Auto) 2.25 (1.2-3.4) K/uL [place] # (Auto) 1.20 H (0.11-0.59) K/uL Eos # (Auto) 0.13 (0-0.5) K/uL Baso # (Auto) 0.03 (0-0.2) K/uL Immature Gran # (Auto) 0.05 H (0.00-0.02) K/uL Sodium 141 (136-145) mmol/L Potassium (3.5-5.1) mmol/L Chloride 104 (98-107) mmol/L Carbon Dioxide 33 H (21-32) mmol/L Anion Gap 4.0 (3-11) BUN 26 H (7-18) mg/dl Creatinine 1.26 H (0.6-1.2) mg/dl Est Cr Clr Drug Dosing Not Reportable Est GFR ( Amer) 45.0 Est GFR (Non-Af Amer) 38.8 BUN/Creatinine Ratio 20.4 H (10-20) Glucose 97 (70-99) mg/dl Lactate 1.2 (0.4-2.0) mmol/L Calcium 9.5 (8.5-10.1) mg/dl Total Bilirubin 0.5 (0.2-1) mg/dl AST (15-37) U/L ALT 21 (12-78) U/L Alkaline Phosphatase 136 H (45-117) U/L Total Protein 7.6 (6.4-8.2) gm/dl Albumin 3.4 (3.4-5.0) gm/dl Globulin 4.2 H (2.5-4.0) gm/dl Albumin/Globulin Ratio 0.8 L (0.9-2) Lipase 122 (73-393) U/L Urine Color Urine Appearance (Clear) Urine pH (4.5-7.5) Ur Specific [place] (1.000-1.030) Urine Protein (Negative) Urine Glucose (UA) (Negative) Urine Ketones (Negative) Urine Blood (Negative) Urine Nitrite (Negative) Urine Bilirubin (Negative) Urine Urobilinogen (Negative) Ur Leukocyte Esterase (Negative) Urine WBC (Auto) (0-5) /hpf Urine RBC (Auto) (0-4) /hpf U Hyaline Cast (Auto) (0-5) /lpf U Epithel Cells (Auto) (0-5) /lpf Urine Bacteria (Auto) (Negative) COVID-19 Eval Order 01/03/20 01/03/20 01/04/20 Range/Units 21:19 21:27 00:32 WBC (4.8-10.8) K/uL RBC (4.2-5.4) M/uL Hgb (12.0-16.0) g/dL Hct (37-47) % MCV (80-100) fL MCH (25-34) pg MCHC (32-36) g/dL RDW Std Deviation (36.4-46.3) fL RDW Coeff of Philip (11.5-14.5) % Plt Count (130-400) K/uL MPV (7.4-10.4) fL Immature Gran % (Auto) % Neut % (Auto) % Lymph % (Auto) % [place] % (Auto) % Eos % (Auto) % Baso % (Auto) % Neut # (Auto) (1.4-6.5) K/uL Lymph # (Auto) (1.2-3.4) K/uL [place] # (Auto) (0.11-0.59) K/uL Eos # (Auto) (0-0.5) K/uL Baso # (Auto) (0-0.2) K/uL Immature Gran # (Auto) (0.00-0.02) K/uL Sodium (136-145) mmol/L Potassium 3.6 (3.5-5.1) mmol/L Chloride (98-107) mmol/L Carbon Dioxide (21-32) mmol/L Anion Gap (3-11) BUN (7-18) mg/dl Creatinine (0.6-1.2) mg/dl Est Cr Clr Drug Dosing Est GFR ( Amer) Est GFR (Non-Af Amer) BUN/Creatinine Ratio (10-20) Glucose (70-99) mg/dl Lactate (0.4-2.0) mmol/L Calcium (8.5-10.1) mg/dl Total Bilirubin (0.2-1) mg/dl AST 21 (15-37) U/L ALT (12-78) U/L Alkaline Phosphatase (45-117) U/L Total Protein (6.4-8.2) gm/dl Albumin (3.4-5.0) gm/dl Globulin (2.5-4.0) gm/dl Albumin/Globulin Ratio (0.9-2) Lipase (73-393) U/L Urine Color Yellow Urine Appearance Clear (Clear) Urine pH 8.5 H (4.5-7.5) Ur Specific [place] 1.011 (1.000-1.030) Urine Protein Negative (Negative) Urine Glucose (UA) Negative (Negative) Urine Ketones Negative (Negative) Urine Blood Negative (Negative) Urine Nitrite Negative (Negative) Urine Bilirubin Negative (Negative) Urine Urobilinogen Negative (Negative) Ur Leukocyte Esterase Trace H (Negative) Urine WBC (Auto) 5-10 H (0-5) /hpf Urine RBC (Auto) 0-4 (0-4) /hpf U Hyaline Cast (Auto) 0 (0-5) /lpf U Epithel Cells (Auto) 5-10 H (0-5) /lpf Urine Bacteria (Auto) 4+ H (Negative) COVID-19 Eval Order Covid19 [facility] Imaging Data Radiologist's Impression: CT ABDOMEN & PELVIS Without Contrast: Comparison is made to CT abdomen/pelvis on 01/14/2017. Prior surgical changes of the bowel. Left-sided colostomy with large parastomal hernia containing multiple dilated fluid and gas-filled small bowel loops, significantly increased compared to prior exam. Findings are concerning for small bowel obstruction which may be secondary to the parastomal hernia. Stomach is distended with fluid and ingested material. Dependent atelectasis bilaterally. Small hiatal hernia. Calcified granulomas in the liver and spleen. Prior cholecystectomy. Small splenule. Minimal fullness of the renal collecting systems. No obstructing stone. Atherosclerotic changes of the vasculature. No aortic aneurysm. Normal appendix. Diverticulosis without evidence of diverticulitis. Chronic appearing compression deformity of the T12 vertebral body, new compared to prior exam. Retropulsion of the posterior cortex causes at least moderate spinal canal stenosis. Distended bladder. No significant bladder wall thickening or stone. Small fat-containing umbilical hernia. Radiologist: Brenda Gupta M.D. Study ready at 21:58 and initial results transmitted at 22:11 Blood Pressure Blood Pressure Findings: Elevated blood pressure Blood Pressure Disposition: further management by hospitalist MDM Narrative This patient was evaluated and appeared to be in some discomfort. IV access was obtained and laboratory work was drawn. An order for cardiac monitoring was placed and the patient is noted to be in a normal sinus rhythm at 71 bpm. Patient was hydrated with normal saline solution, given IV fentanyl and Zofran for her discomfort. CT imaging of the abdomen and pelvis was performed and reveals a parastomal hernia which is consistent with the patient's clinical presentation. The hernia was easily reduced at the bedside with gentle but consistent pressure. Patient had significant relief of her discomfort thereafter. Patient's case was discussed with Dr. Antonio of the hospitalist service who will evaluate the patient for further evaluation and management. Patient and her daughter are aware of the plan and agree. Impression & Plan Parastomal hernia, SBO (small bowel obstruction) Discharge Plan Visit Data Chief Complaint: Abdominal Pain Stated Complaint: abd pain ED Provider: Jeanine Katz Discharge Problem: Parastomal hernia, SBO (small bowel obstruction) Forms Stand Alone Forms: [employer] Prescriptions Prescriptions: No Action amiodarone 200 mg tablet 100 mg PO DAILY Qty: 90 RF: 3 bumetanide 1 mg tablet 1 - 2 mg PO DAILY Qty: 90 RF: 3 potassium chloride 20 mEq tablet,ER particles/crystals 20 meq PO QAM Qty: 90 RF: 3 warfarin 3 mg tablet See Rx Instructions mg .ROUTE .COMPLEX Qty: 90 RF: 3 carvedilol 3.125 mg tablet 3.125 mg PO BIDM Qty: 180 RF: 3 hydralazine 50 mg tablet 50 mg PO TID Qty: 30 RF: 0 pramipexole 0.5 mg tablet 0.5 mg PO BID RF: 0 calcium carbonate [Calcium 600] 600 mg calcium (1,500 mg) Tablet 600 mg PO BID RF: 0 calcitonin (salmon) 200 unit/actuation [place],Non-Aerosol 200 unit intranasal (ALT) DAILY RF: 0 cholecalciferol (vitamin D3) [Vitamin D3] 2,000 unit Capsule 2,000 unit PO DAILY RF: 0 famotidine 20 mg Tablet 20 mg PO HS RF: 0 tramadol 50 mg tablet 50 mg PO Q6 PRN (Reason: Pain) RF: 0 levothyroxine [Synthroid] 100 mcg tablet 100 mcg PO DAILY RF: 0 gabapentin 100 mg Tablet 100 mg PO DAILY RF: 0 Magic Swizzle 1 dose PO AC PRN (Reason: sore mouth) RF: 0 duloxetine 30 mg Capsule,Delayed Release(Dr/Ec) 30 mg PO QPM RF: 0 Discharge Problem: Parastomal hernia Qualifiers: Obstruction and gangrene presence: with obstruction but without gangrene Qualified Code(s): K43.3 - Parastomal hernia with obstruction, without gangrene
[2020-01-04] MEDS ORDERED: hydrALAZINE HCL 20 MG/ML VIAL IV ONE (01:11)
[2020-01-04] MEDS ORDERED: NON-FORMULARY MEDICATION (Magic Swizzle 1 EA) PO PRN (02:06)
[2020-01-04] MEDS ORDERED: hydrALAZINE HCL 20 MG/ML VIAL IV PRN (02:06)
[2020-01-04] MEDS ORDERED: ACETAMINOPHEN 1000 MG/100 ML IV IV PRN (02:06)
[2020-01-04] MEDS ORDERED: Magic Swizzle w/Glycerin 240mL MT PRN (02:25)
[2020-01-04] MEDS: HYDROmorphone INJ 0.5 MG/0.5 ML SYR IV PRN ×3 (02:35→11:50)
[2020-01-04] MEDS: ONDANSETRON INJ 2 MG/ML 2 ML VIAL IV PRN ×2 (04:50→11:38)
[2020-01-04 05:58] LABS: Basophils # (auto) 0.01 K/uL (0-0.2); Basophils % (auto) 0.1 %; Eosinophils # (auto) 0.04 K/uL (0-0.5); Eosinophils % (auto) 0.5 %; Hematocrit (blood only) 39.3 % (37-47); Hemoglobin 12.5 g/dL (12.0-16.0); Immature Granulocytes # (auto) 0.02 K/uL (0.00-0.02); Immature Granulocytes % (auto) 0.3 %; Lymphocytes # (auto) 1.71 K/uL (1.2-3.4); Lymphocytes % (auto) 21.6 %; Mean Corpuscular Hemoglobin 30.7 pg (25-34); Mean Corpuscular Hgb Conc 31.8 g/dL (32-36); Mean Corpuscular Volume 96.6 fL (80-100); Monocytes # (auto) 0.61 K/uL (0.11-0.59); Monocytes % (auto) 7.7 %; Neutrophils # (auto) 5.51 K/uL (1.4-6.5); Neutrophils % (auto) 69.8 %; Platelet Count 217 K/uL (130-400); RDW Coefficient of Variation 14.7 % (11.5-14.5); RDW Standard Deviation 52.2 fL (36.4-46.3); Red Blood Count 4.07 M/uL (4.2-5.4)
[2020-01-04 06:13] LABS: INR 2.2 (0.9-1.1)
[2020-01-04 06:35] LABS: BUN Creatinine Ratio 19.8 (10-20); Calcium 8.5 mg/dl (8.5-10.1); Creatinine Clr Calc Pharmacy 31.2 ml/min; Est GFR (African American) 52.4; Est GFR (Non-African American) 45.2; Potassium 3.8 mmol/L (3.5-5.1)
[2020-01-04] MEDS ORDERED: PROMETHAZINE HCL 6.25 MG in SODIUM CHLORIDE 0.9% 50 ML IV PRN (08:16)
--- NOTE | 2020-01-04 08:53 | Hospitalist Progress Note ---
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 SBO/Parastomal Hernia -Pt with abd pain, nausea. Episodes of diarrhea with use of Immodium a few days ago. -Has colostomy bag after colectomy in August 2019 after perforated diverticulitis -CT abd pelvis: prelim read with findings of SBO likely secondary to parastomal hernia -NPO -Consult general surgery. Parastomal hernia reduced by ED provider in the ED. -Daughter states that she wants Surgery to know that her mother has carotid stenosis which might make surgery not an option. -Zofran 4mg IV prn for N/V -tylenol 1000mg IV prn, dilaudid 0.5mg q3h PRN for pain -no indication currently for NG tube decompression, continue to monitor for need -family would like son who is an ICU doc in [place] to be updated. HTN -given pt npo with SBO, hold home hydralazine 50mg TID -PRN IV hydralazine ordered with parameters Sick Sinus Syndrome/LBBB/Atrial Fibrillation -given pt npo with SBO, hold home amiodarone 100mg, carvedilol 3.125mg BID, warfarin -INR currently therapeutic at 2.8 -consider restart of warfarin as soon as possible Restless leg Syndrome -given pt npo with SBO, hold home pramiprexole, gabapentin, duloxetin Peripheral Edema -given pt npo with SBO, hold home bumex CKD Stage 3 -Pt with Cr of 1.2 -Baseline of ~1.4 -follows with nephrology Hx of tonsillar cancer, current SCC of base of tongue -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, 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 Consider restart NORA. CODE STATUS: Full Dispo: Med-surg with tele given Hx of sick sinus, LBBB (2) Anemia: (3) Asthma: (4) Obstructive sleep apnea: (5) Left bundle branch block (LBBB): (6) Restless legs syndrome: (7) Carotid stenosis: (8) Chronic diastolic congestive heart failure: (9) Peripheral edema: (10) Chronic kidney disease, stage III (moderate): (11) Paroxysmal atrial fibrillation: (12) HTN (hypertension): (13) Tonsillar cancer: (14) Hypothyroidism: (15) SBO (small bowel obstruction): Admission and Anticipated Discharge Date Admission Date: January 03, 2020 Review of Systems Review of Systems: All systems reviewed & are unremarkable except as noted in Subjective Physical Exam Constitutional: well developed and well nourished Eyes: PERRL, conjunctivae normal, anicteric sclerae Respiratory: normal respiratory effort, lungs clear to auscultation Cardiovascular: Rate/Rhythm: regular rate and regular rhythm Heart Sounds: no gallop, no murmur and no cardiac rub Vessels: normal peripheral pulses Gastrointestinal (Abdomen): Inspection/Auscultation: + visible herniation and + hypoactive bowel sounds Percussion/Palpation: + abdomen tender (to deep palpation) and abdomen soft; no guarding and abdomen not rigid ostomy bag in place without fecal material Results & Data Results & Data ([facility]) Vital Signs (Past 12 Hours) Vital Signs Temp Pulse Pulse Resp BP BP Pulse Ox 01/04/20 07:46 37.1 C 58 L 16 138/65 91 01/04/20 07:00 53 L 01/04/20 02:55 36.5 C 60 18 171/72 H 92 01/04/20 01:41 67 20 177/83 H 96 01/04/20 01:30 65 20 160/60 H 95 01/04/20 01:00 54 L 16 191/89 H 95 01/04/20 00:30 65 21 183/76 H 95 01/04/20 00:01 60 13 186/74 H 95 01/03/20 23:30 59 L 17 160/73 H 95 01/03/20 23:00 55 L 15 163/64 H 96 01/03/20 22:30 58 L 17 159/59 H 95 01/03/20 22:00 64 19 194/75 H 95 01/03/20 21:00 54 L 16 214/88 H 98 Laboratory Results 01/04/20 01/04/20 01/04/20 Range/Units 05:39 05:39 05:39 WBC 7.90 (4.8-10.8) K/uL RBC 4.07 L (4.2-5.4) M/uL Hgb 12.5 (12.0-16.0) g/dL Hct 39.3 (37-47) % MCV 96.6 (80-100) fL MCH 30.7 (25-34) pg MCHC 31.8 L (32-36) g/dL RDW Std Deviation 52.2 H (36.4-46.3) fL RDW Coeff of Philip 14.7 H (11.5-14.5) % Plt Count 217 (130-400) K/uL MPV 10.0 (7.4-10.4) fL Immature Gran % (Auto) 0.3 % Neut % (Auto) 69.8 % Lymph % (Auto) 21.6 % [place] % (Auto) 7.7 % Eos % (Auto) 0.5 % Baso % (Auto) 0.1 % Neut # (Auto) 5.51 (1.4-6.5) K/uL Lymph # (Auto) 1.71 (1.2-3.4) K/uL [place] # (Auto) 0.61 H (0.11-0.59) K/uL Eos # (Auto) 0.04 (0-0.5) K/uL Baso # (Auto) 0.01 (0-0.2) K/uL Immature Gran # (Auto) 0.02 (0.00-0.02) K/uL PT 22.0 H (9.0-12.0) Seconds INR 2.2 H (0.9-1.1) Sodium 144 (136-145) mmol/L Potassium 3.8 (3.5-5.1) mmol/L Chloride 108 H (98-107) mmol/L Carbon Dioxide 33 H (21-32) mmol/L Anion Gap 3.0 (3-11) BUN 22 H (7-18) mg/dl Creatinine 1.11 (0.6-1.2) mg/dl Est Cr Clr Drug Dosing 31.2 Est GFR ( Amer) 52.4 Est GFR (Non-Af Amer) 45.2 BUN/Creatinine Ratio 19.8 (10-20) Glucose 115 H (70-99) mg/dl Lactate (0.4-2.0) mmol/L Calcium 8.5 (8.5-10.1) mg/dl Total Bilirubin (0.2-1) mg/dl AST (15-37) U/L ALT (12-78) U/L Alkaline Phosphatase (45-117) U/L Total Protein (6.4-8.2) gm/dl Albumin (3.4-5.0) gm/dl Globulin (2.5-4.0) gm/dl Albumin/Globulin Ratio (0.9-2) Lipase (73-393) U/L Urine Color Urine Appearance (Clear) Urine pH (4.5-7.5) Ur Specific [place] (1.000-1.030) Urine Protein (Negative) Urine Glucose (UA) (Negative) Urine Ketones (Negative) Urine Blood (Negative) Urine Nitrite (Negative) Urine Bilirubin (Negative) Urine Urobilinogen (Negative) Ur Leukocyte Esterase (Negative) Urine WBC (Auto) (0-5) /hpf Urine RBC (Auto) (0-4) /hpf U Hyaline Cast (Auto) (0-5) /lpf U Epithel Cells (Auto) (0-5) /lpf Urine Bacteria (Auto) (Negative) COVID-19 Eval Order SARS-CoV-2, RNA, NAAT (NEGATIVE) 01/04/20 01/04/20 01/03/20 Range/Units 00:32 00:32 21:27 WBC (4.8-10.8) K/uL RBC (4.2-5.4) M/uL Hgb (12.0-16.0) g/dL Hct (37-47) % MCV (80-100) fL MCH (25-34) pg MCHC (32-36) g/dL RDW Std Deviation (36.4-46.3) fL RDW Coeff of Philip (11.5-14.5) % Plt Count (130-400) K/uL MPV (7.4-10.4) fL Immature Gran % (Auto) % Neut % (Auto) % Lymph % (Auto) % [place] % (Auto) % Eos % (Auto) % Baso % (Auto) % Neut # (Auto) (1.4-6.5) K/uL Lymph # (Auto) (1.2-3.4) K/uL [place] # (Auto) (0.11-0.59) K/uL Eos # (Auto) (0-0.5) K/uL Baso # (Auto) (0-0.2) K/uL Immature Gran # (Auto) (0.00-0.02) K/uL PT (9.0-12.0) Seconds INR (0.9-1.1) Sodium (136-145) mmol/L Potassium 3.6 (3.5-5.1) mmol/L Chloride (98-107) mmol/L Carbon Dioxide (21-32) mmol/L Anion Gap (3-11) BUN (7-18) mg/dl Creatinine (0.6-1.2) mg/dl Est Cr Clr Drug Dosing Est GFR ( Amer) Est GFR (Non-Af Amer) BUN/Creatinine Ratio (10-20) Glucose (70-99) mg/dl Lactate (0.4-2.0) mmol/L Calcium (8.5-10.1) mg/dl Total Bilirubin (0.2-1) mg/dl AST 21 (15-37) U/L ALT (12-78) U/L Alkaline Phosphatase (45-117) U/L Total Protein (6.4-8.2) gm/dl Albumin (3.4-5.0) gm/dl Globulin (2.5-4.0) gm/dl Albumin/Globulin Ratio (0.9-2) Lipase (73-393) U/L Urine Color Urine Appearance (Clear) Urine pH (4.5-7.5) Ur Specific [place] (1.000-1.030) Urine Protein (Negative) Urine Glucose (UA) (Negative) Urine Ketones (Negative) Urine Blood (Negative) Urine Nitrite (Negative) Urine Bilirubin (Negative) Urine Urobilinogen (Negative) Ur Leukocyte Esterase (Negative) Urine WBC (Auto) (0-5) /hpf Urine RBC (Auto) (0-4) /hpf U Hyaline Cast (Auto) (0-5) /lpf U Epithel Cells (Auto) (0-5) /lpf Urine Bacteria (Auto) (Negative) COVID-19 Eval [facility] SARS-[facility]-2, RNA, NAAT NEGATIVE (NEGATIVE) 01/03/20 01/03/20 01/03/20 Range/Units 21:19 20:38 20:38 WBC (4.8-10.8) K/uL RBC (4.2-5.4) M/uL Hgb (12.0-16.0) g/dL Hct (37-47) % MCV (80-100) fL MCH (25-34) pg MCHC (32-36) g/dL RDW Std Deviation (36.4-46.3) fL RDW Coeff of Philip (11.5-14.5) % Plt Count (130-400) K/uL MPV (7.4-10.4) fL Immature Gran % (Auto) % Neut % (Auto) % Lymph % (Auto) % [place] % (Auto) % Eos % (Auto) % Baso % (Auto) % Neut # (Auto) (1.4-6.5) K/uL Lymph # (Auto) (1.2-3.4) K/uL [place] # (Auto) (0.11-0.59) K/uL Eos # (Auto) (0-0.5) K/uL Baso # (Auto) (0-0.2) K/uL Immature Gran # (Auto) (0.00-0.02) K/uL PT (9.0-12.0) Seconds INR (0.9-1.1) Sodium 141 (136-145) mmol/L Potassium (3.5-5.1) mmol/L Chloride 104 (98-107) mmol/L Carbon Dioxide 33 H (21-32) mmol/L Anion Gap 4.0 (3-11) BUN 26 H (7-18) mg/dl Creatinine 1.26 H (0.6-1.2) mg/dl Est Cr Clr Drug Dosing Not Reportable Est GFR ( Amer) 45.0 Est GFR (Non-Af Amer) 38.8 BUN/Creatinine Ratio 20.4 H (10-20) Glucose 97 (70-99) mg/dl Lactate 1.2 (0.4-2.0) mmol/L Calcium 9.5 (8.5-10.1) mg/dl Total Bilirubin 0.5 (0.2-1) mg/dl AST (15-37) U/L ALT 21 (12-78) U/L Alkaline Phosphatase 136 H (45-117) U/L Total Protein 7.6 (6.4-8.2) gm/dl Albumin 3.4 (3.4-5.0) gm/dl Globulin 4.2 H (2.5-4.0) gm/dl Albumin/Globulin Ratio 0.8 L (0.9-2) Lipase 122 (73-393) U/L Urine Color Yellow Urine Appearance Clear (Clear) Urine pH 8.5 H (4.5-7.5) Ur Specific [place] 1.011 (1.000-1.030) Urine Protein Negative (Negative) Urine Glucose (UA) Negative (Negative) Urine Ketones Negative (Negative) Urine Blood Negative (Negative) Urine Nitrite Negative (Negative) Urine Bilirubin Negative (Negative) Urine Urobilinogen Negative (Negative) Ur Leukocyte Esterase Trace H (Negative) Urine WBC (Auto) 5-10 H (0-5) /hpf Urine RBC (Auto) 0-4 (0-4) /hpf U Hyaline Cast (Auto) 0 (0-5) /lpf U Epithel Cells (Auto) 5-10 H (0-5) /lpf Urine Bacteria (Auto) 4+ H (Negative) COVID-19 Eval Order SARS-CoV-2, RNA, NAAT (NEGATIVE) 01/03/20 Range/Units 20:38 WBC 9.34 (4.8-10.8) K/uL RBC 4.58 (4.2-5.4) M/uL Hgb 14.1 (12.0-16.0) g/dL Hct 44.0 (37-47) % MCV 96.1 (80-100) fL MCH 30.8 (25-34) pg MCHC 32.0 (32-36) g/dL RDW Std Deviation 51.6 H (36.4-46.3) fL RDW Coeff of Philip 14.6 H (11.5-14.5) % Plt Count 216 (130-400) K/uL MPV 10.6 H (7.4-10.4) fL Immature Gran % (Auto) 0.5 % Neut % (Auto) 60.9 % Lymph % (Auto) 24.1 % [place] % (Auto) 12.8 % Eos % (Auto) 1.4 % Baso % (Auto) 0.3 % Neut # (Auto) 5.68 (1.4-6.5) K/uL Lymph # (Auto) 2.25 (1.2-3.4) K/uL [place] # (Auto) 1.20 H (0.11-0.59) K/uL Eos # (Auto) 0.13 (0-0.5) K/uL Baso # (Auto) 0.03 (0-0.2) K/uL Immature Gran # (Auto) 0.05 H (0.00-0.02) K/uL PT (9.0-12.0) Seconds INR (0.9-1.1) Sodium (136-145) mmol/L Potassium (3.5-5.1) mmol/L Chloride (98-107) mmol/L Carbon Dioxide (21-32) mmol/L Anion Gap (3-11) BUN (7-18) mg/dl Creatinine (0.6-1.2) mg/dl Est Cr Clr Drug Dosing Est GFR ( Amer) Est GFR (Non-Af Amer) BUN/Creatinine Ratio (10-20) Glucose (70-99) mg/dl Lactate (0.4-2.0) mmol/L Calcium (8.5-10.1) mg/dl Total Bilirubin (0.2-1) mg/dl AST (15-37) U/L ALT (12-78) U/L Alkaline Phosphatase (45-117) U/L Total Protein (6.4-8.2) gm/dl Albumin (3.4-5.0) gm/dl Globulin (2.5-4.0) gm/dl Albumin/Globulin Ratio (0.9-2) Lipase (73-393) U/L Urine Color Urine Appearance (Clear) Urine pH (4.5-7.5) Ur Specific [place] (1.000-1.030) Urine Protein (Negative) Urine Glucose (UA) (Negative) Urine Ketones (Negative) Urine Blood (Negative) Urine Nitrite (Negative) Urine Bilirubin (Negative) Urine Urobilinogen (Negative) Ur Leukocyte Esterase (Negative) Urine WBC (Auto) (0-5) /hpf Urine RBC (Auto) (0-4) /hpf U Hyaline Cast (Auto) (0-5) /lpf U Epithel Cells (Auto) (0-5) /lpf Urine Bacteria (Auto) (Negative) COVID-19 Eval Order SARS-CoV-2, RNA, NAAT (NEGATIVE) Medications Administered Current Inpatient Medications Acetaminophen (Acetaminophen 1000 Mg/100 Ml Iv) 1,000 mg IV Q8 PRN PRN Reason: As Needed for Fever or Pain Stop: 01/07/20 02:05 Last Admin: 01/04/20 04:50 Dose: 1,000 mg Documented by: Lidocaine HCl 60 ml/Diphenhydramine HCl 150 mg/ Al Hydrox/Mg Hydrox/Simethicone 60 ml/ Glycerin 60 ml/ BARCODE IDENTIFIER 1 ea 0 ml MT AC PRN PRN Reason: .SORE MOUTH Stop: 02/03/20 02:24 Hydralazine HCl (Hydralazine Hcl 20 Mg/Ml Vial) 10 mg IV Q4 PRN PRN Reason: Hypertension Stop: 02/03/20 02:05 Hydromorphone HCl (Hydromorphone Inj 0.5 Mg/0.5 Ml Syr) 0.5 mg IV Q3H PRN PRN Reason: Pain Stop: 01/18/20 02:05 Last Admin: 01/04/20 02:35 Dose: 0.5 mg Documented by: Promethazine HCl 6.25 mg/ (Sodium Chloride) 50.25 mls @ 201 mls/hr IV Q6H PRN PRN Reason: Nausea And Vomiting Stop: 02/03/20 08:15 Last Infusion: 01/04/20 09:58 Dose: Infused Documented by: Ondansetron HCl (Ondansetron Inj 2 Mg/Ml 2 Ml Vial) 4 mg IV Q6H PRN PRN Reason: Nausea And Vomiting Stop: 02/03/20 02:05 Last Admin: 01/04/20 04:50 Dose: 4 mg Documented by: Resident Activity Tracking Resident Involvement: Resident Care Provided Care Provided: Adult Hospital Medicine
--- NOTE | 2020-01-04 09:17 | CT Scan Report ---
ABDOMEN AND PELVIS CT WITHOUT CONTRAST CT DOSE: 450.39 mGy.cm HISTORY: Acute epigastric abdominal pain. Had neck cancer. SBO, parastomal hernia? colostomy, CKD TECHNIQUE: Multiaxial CT images of the abdomen and pelvis were performed without contrast. A dose lo wering technique was utilized adhering to the principles of ALARA. COMPARISON STUDY: PET CT 08/26/2019, CT abdomen and pelvis 01/14/2017, MRI lumbar spine 08/10/2018. FINDINGS: Cardiomegaly with coronary artery calcifications. Trace right pleural effusion. Mild intral obular septal thickening of the lung bases suggest pulmonary edema. There is no pneumatosis or pneumo peritoneum. Calcified granulomata of the liver and spleen. Moderately atrophic pancreas appears unrem arkable. Cholecystectomy. Unremarkable adrenal glands. The liver is otherwise unremarkable. Left kidney is unremarkable. Mild pelviectasis of the right kidney without nazia hydronephrosis. Mild to moderate urinary bladder distention. Unremarkable uterus. Calcified plaque of the aorta without a neurysm. No adenopathy. Small hiatal hernia. Moderately air and fluid-filled distended stomach. Multiple air and fluid-filled dilated loops of small bowel are noted within the abdomen and pelvis measuring up to 3.4 cm. Partial colectomy changes with left lower quadrant ostomy. Moderate fecal retention. Colonic diverticulosis. There is a large parastomal hernia redemonstrated which has increased in size from comparison, diast ases 7.9 cm. Decompressed loops of small bowel are seen exiting the hernia sac on image 199. There ma y be more than one site of obstruction present. Soft tissues are unremarkable. Severe compression def ormity with associated retropulsion at T12, unchanged. IMPRESSION: 1. High-grade small bowel obstruction secondary to a large parastomal hernia of the abdominal left lo wer quadrant. Decompressed loops of small bowel are seen exiting the hernia sac. A developing closed- loop obstruction is not excluded. 2. No pneumatosis or pneumoperitoneum. 3. Trace right pleural effusion. 4. Additional findings as above. ACT 112: Negative or not required by law. The above report was generated using voice recognition software. It may contain grammatical, syntax o r spelling errors. Electronically signed by: Jose Armando Lopez M.D. 01/04/2020 9:16 AM
--- NOTE | 2020-01-04 11:30 | Surgery Consultation ---
Date of Consultation January 04, 2020 Assessment & Plan (1) Parastomal hernia: (2) SBO (small bowel obstruction): pt is a 84 year-old female who was admitted to hospital for parastomal hernia with SBO, IMP: parastomal hernia , SBO, base on significant pt's comorbidities, recommended to transfer higher level care by colorectal surgeon, D/W benefits, risks and alternatives of the transfer with pt, pt agrees with the transfer, I answered all questions, D/W attending, Dr. Loyd. Present on Admission?: Yes History of Present Illness Attending Physician: Haseeb Briggs DO History of Present Illness General Chief complaint: Abdominal Pain Stated complaint: abd pain Time Seen by Provider: 01/03/20 20:15 Source: patient and EMS Mode of arrival: ambulatory Limitations: no limitations History of Present Illness Provider complaint: Abdominal pain Maximum Pain Intensity: [age]-year-old female who presents emergency department with complaints of significant abdominal pain and bloating. Patient has a colostomy and states there has been no stool output for 24 hours. Patient has been nauseated with a cramping type pain. She denies any vomiting, fevers, coughing or shortness of breath. Patient does have a history of small bowel obstruction and which is why she has the colostomy. Patient is on warfarin secondary to her history of atrial fibrillation. I ( Kishor Liang MD ) got a cinthia for consult SBO, I reviewed pt's H/P, labs, CT scan with pt, pt had colostomy for diverticulitis By Dr. Valdovinos 2 years ago, pt developed parastomal hernia after surgery, pt developed abdominal pain without stoma output last 24 hours, pt is still have some abdominal pain, no nausea, no vomiting. Home Medications Home Medications Medication Instructions Recorded Confirmed Type calcitonin (salmon) 200 unit INTRANASAL (ALT) DAILY 08/13/18 01/03/20 History calcium carbonate [Calcium 600] 600 mg PO BID 08/13/18 01/03/20 History cholecalciferol (vitamin D3) 2,000 unit PO DAILY 08/13/18 01/03/20 History [Vitamin D3] duloxetine 30 mg PO QPM 10/26/18 01/03/20 History pramipexole 0.5 mg tablet 0.5 mg PO BID tab 01/28/19 01/03/20 History famotidine 20 mg PO HS 02/01/19 01/03/20 History amiodarone 200 mg tablet 100 mg PO DAILY #90 tab 05/23/19 01/03/20 Rx hydralazine 50 mg tablet 50 mg PO TID #30 tab 08/22/19 01/03/20 Rx bumetanide 1 mg tablet 1 - 2 mg PO DAILY #90 tab 09/19/19 01/03/20 Rx potassium chloride 20 mEq 20 meq PO QAM #90 tab 09/23/19 01/03/20 Rx tablet,extended release(part/cryst) warfarin 3 mg tablet See Rx Instructions .ROUTE 09/30/19 01/03/20 Rx .COMPLEX #90 tab carvedilol 3.125 mg tablet 3.125 mg PO BIDM #180 tab 12/30/19 01/03/20 Rx Magic Swizzle 1 dose PO AC PRN 01/03/20 01/03/20 History gabapentin 100 mg PO DAILY 01/03/20 01/03/20 History levothyroxine [Synthroid] 100 mcg PO DAILY 01/03/20 01/03/20 History tramadol 50 mg PO Q6 PRN 01/03/20 01/03/20 History Allergies Allergy/AdvReac Type Severity Reaction Status Date / Time codeine Allergy Intermediate ITCHING Verified 01/03/20 23:15 Penicillins Allergy Intermediate HIVES Verified 01/03/20 23:15 Sulfa (Sulfonamide Allergy Intermediate fever Verified 01/03/20 23:15 Antibiotics) Past Med/Surg History Medical History (Updated 01/04/20 @ 01:08 by Jeanine Katz MD) Acute respiratory failure Anemia IRON INFUSION Anxiety Chronic systolic CHF (congestive heart failure) Colostomy in place GERD (gastroesophageal reflux disease) History of diverticulitis HTN (hypertension) Hypothyroidism Lumbar compression fracture On home oxygen therapy WEARS 1L HS VIA [place] Osteoarthritis Restless leg syndrome Sleep apnea CPAP Squamous cell carcinoma of oropharynx Stroke 2011 (CONT. 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) Surgical History History of bilateral tubal ligation History of cardiac cath NO STENTS History of colonoscopy History of colostomy COLOSTOMY INTACT History of dilatation and curettage History of endoscopic sinus surgery History of esophagogastroduodenoscopy (EGD) History of tooth extraction Hx of tonsillectomy S/P cholecystectomy Rattan teeth extracted Family History Mother Family history of diabetes mellitus Grandmother (Maternal) Family history of diabetes mellitus Other Family history non-contributory Social History Smoking Status: Former smoker Tobacco Type: Cigarettes Second Hand Exposure: No; Hx Alcohol Use: Yes Alcohol type: wine Hx Substance Use: No Preferred Language: Slovak Communication Ability: Effective Medical Clerical Assistant Required: No Beliefs That Will Affect Care: None marital status: Single Current Living Situation: Personal Care Facility Current Living Situation Comment: [facility] current occupational status: retired Feels Safe at Home: Yes Assistive Devices: CPAP, Glasses, Oxygen - at Night and Walker Review of Systems See HPI for pertinent positives & negatives. and A total of 10 systems reviewed and were otherwise negative Allergies Allergy/AdvReac Type Severity Reaction Status Date / Time codeine Allergy Intermediate ITCHING Verified 01/03/20 23:15 Penicillins Allergy Intermediate HIVES Verified 01/03/20 23:15 Sulfa (Sulfonamide Allergy Intermediate fever Verified 01/03/20 23:15 Antibiotics) Home Medications Home Medications Medication Instructions Recorded Confirmed Type calcitonin (salmon) 200 unit INTRANASAL (ALT) DAILY 08/13/18 01/03/20 History calcium carbonate [Calcium 600] 600 mg PO BID 08/13/18 01/03/20 History cholecalciferol (vitamin D3) 2,000 unit PO DAILY 08/13/18 01/03/20 History [Vitamin D3] duloxetine 30 mg PO QPM 10/26/18 01/03/20 History pramipexole 0.5 mg tablet 0.5 mg PO BID tab 01/28/19 01/03/20 History famotidine 20 mg PO HS 02/01/19 01/03/20 History amiodarone 200 mg tablet 100 mg PO DAILY #90 tab 05/23/19 01/03/20 Rx hydralazine 50 mg tablet 50 mg PO TID #30 tab 08/22/19 01/03/20 Rx bumetanide 1 mg tablet 1 - 2 mg PO DAILY #90 tab 09/19/19 01/03/20 Rx potassium chloride 20 mEq 20 meq PO QAM #90 tab 09/23/19 01/03/20 Rx tablet,extended release(part/cryst) warfarin 3 mg tablet See Rx Instructions .ROUTE 09/30/19 01/03/20 Rx .COMPLEX #90 tab carvedilol 3.125 mg tablet 3.125 mg PO BIDM #180 tab 12/30/19 01/03/20 Rx Magic Swizzle 1 dose PO AC PRN 01/03/20 01/03/20 History gabapentin 100 mg PO DAILY 01/03/20 01/03/20 History levothyroxine [Synthroid] 100 mcg PO DAILY 01/03/20 01/03/20 History tramadol 50 mg PO Q6 PRN 01/03/20 01/03/20 History Patient History Medical History Acute respiratory failure Anemia IRON INFUSION Anxiety Chronic systolic CHF (congestive heart failure) Colostomy in place GERD (gastroesophageal reflux disease) History of diverticulitis HTN (hypertension) Hypothyroidism Lumbar compression fracture On home oxygen therapy WEARS 1L HS VIA [place] Osteoarthritis Restless leg syndrome Sleep apnea CPAP Squamous cell carcinoma of oropharynx Stroke 2011 (CONT. 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) Surgical History History of bilateral tubal ligation History of cardiac cath NO STENTS History of colonoscopy History of colostomy COLOSTOMY INTACT History of dilatation and curettage History of endoscopic sinus surgery History of esophagogastroduodenoscopy (EGD) History of tooth extraction Hx of tonsillectomy S/P cholecystectomy Rattan teeth extracted Family History Mother Family history of diabetes mellitus Grandmother (Maternal) Family history of diabetes mellitus Other Family history non-contributory Social History Smoking Status: Former smoker Tobacco Type: Cigarettes Second Hand Exposure: No; Hx Alcohol Use: Yes Alcohol type: wine Hx Substance Use: No Preferred Language: Slovak Communication Ability: Effective Medical Clerical Assistant Required: No Beliefs That Will Affect Care: None marital status: Single Current Living Situation: Personal Care Facility Current Living Situation Comment: [facility] current occupational status: retired Other Information That Helps Us Care for You: No Feels Safe at Home: Yes Assistive Devices: Walker Review of Systems Review of Systems: All systems reviewed & are unremarkable except as noted in HPI & below Constitutional: as per Subjective / HPI Eyes: as per Subjective / HPI Ear, Nose, Mouth, Throat: as per Subjective / HPI Respiratory: as per Subjective / HPI obstructive sleep apnea, asthma Cardiovascular: as per Subjective / HPI Additional Comments: A-Fib, LBBB, HTN, CHF Gastrointestinal: as per Subjective / HPI colostomy, parastomal hernia, SBO Genitourinary: as per Subjective / HPI chronic kidney disease stage III Integumentary: as per Subjective / HPI Neurologic: as per Subjective / HPI Psychiatric: as per Subjective / HPI Endocrine: as per Subjective / HPI hypothyroidism Hematologic / Lymphatic: as per Subjective / HPI anemia Allergy / Immunological: as per Subjective / HPI Physical Exam Constitutional: WD/WN, vitals as above well developed and well nourished Eyes: PERRL, conjunctivae normal, anicteric sclerae ENMT: external ear and nose normal, oropharynx normal Neck: trachea midline, no thyromegaly Respiratory: normal respiratory effort, lungs clear to auscultation normal respiratory effort Cardiovascular: Rate/Rhythm: + irregularly irregular Gastrointestinal (Abdomen): Percussion/Palpation: abdomen soft parastomal hernia at LLQ, mild tenderness, the hernia is not reducible, no rebound pain, no redness, no gas or stool in bag, Musculoskeletal: no cyanosis or clubbing, extremities motor strength 5/5 Skin: no rashes, warm and dry Neurologic: awake Psychiatric: Orientation: alert and oriented x 3 Results & Data ([facility]) Vital Signs (Past 12 Hours) Vital Signs Temp Pulse Pulse Resp BP BP Pulse Ox 01/04/20 07:46 37.1 C 58 L 16 138/65 91 01/04/20 07:00 53 L 01/04/20 02:55 36.5 C 60 18 171/72 H 92 01/04/20 01:41 67 20 177/83 H 96 01/04/20 01:30 65 20 160/60 H 95 01/04/20 01:00 54 L 16 191/89 H 95 01/04/20 00:30 65 21 183/76 H 95 01/04/20 00:01 60 13 186/74 H 95 01/03/20 23:30 59 L 17 160/73 H 95 Laboratory Results labs Abnormal lab results 01/03/20 01/03/20 01/03/20 Range/Units 20:38 20:38 21:19 RBC (4.2-5.4) M/uL MCHC (32-36) g/dL RDW Std Deviation 51.6 H (36.4-46.3) fL RDW Coeff of Philip 14.6 H (11.5-14.5) % MPV 10.6 H (7.4-10.4) fL [place] # (Auto) 1.20 H (0.11-0.59) K/uL Immature Gran # (Auto) 0.05 H (0.00-0.02) K/uL PT (9.0-12.0) Seconds INR (0.9-1.1) Chloride (98-107) mmol/L Carbon Dioxide 33 H (21-32) mmol/L BUN 26 H (7-18) mg/dl Creatinine 1.26 H (0.6-1.2) mg/dl BUN/Creatinine Ratio 20.4 H (10-20) Glucose (70-99) mg/dl Alkaline Phosphatase 136 H (45-117) U/L Globulin 4.2 H (2.5-4.0) gm/dl Albumin/Globulin Ratio 0.8 L (0.9-2) Urine pH 8.5 H (4.5-7.5) Ur Leukocyte Esterase Trace H (Negative) Urine WBC (Auto) 5-10 H (0-5) /hpf U Epithel Cells (Auto) 5-10 H (0-5) /lpf Urine Bacteria (Auto) 4+ H (Negative) 01/04/20 01/04/20 01/04/20 Range/Units 05:39 05:39 05:39 RBC 4.07 L (4.2-5.4) M/uL MCHC 31.8 L (32-36) g/dL RDW Std Deviation 52.2 H (36.4-46.3) fL RDW Coeff of Philip 14.7 H (11.5-14.5) % MPV (7.4-10.4) fL [place] # (Auto) 0.61 H (0.11-0.59) K/uL Immature Gran # (Auto) (0.00-0.02) K/uL PT 22.0 H (9.0-12.0) Seconds INR 2.2 H (0.9-1.1) Chloride 108 H (98-107) mmol/L Carbon Dioxide 33 H (21-32) mmol/L BUN 22 H (7-18) mg/dl Creatinine (0.6-1.2) mg/dl BUN/Creatinine Ratio (10-20) Glucose 115 H (70-99) mg/dl Alkaline Phosphatase (45-117) U/L Globulin (2.5-4.0) gm/dl Albumin/Globulin Ratio (0.9-2) Urine pH (4.5-7.5) Ur Leukocyte Esterase (Negative) Urine WBC (Auto) (0-5) /hpf U Epithel Cells (Auto) (0-5) /lpf Urine Bacteria (Auto) (Negative) Diagnostic Findings ABDOMEN AND PELVIS CT WITHOUT CONTRAST CT DOSE: 450.39 mGy.cm HISTORY: Acute epigastric abdominal pain. Had neck cancer. SBO, parastomal hernia? colostomy, CKD TECHNIQUE: Multiaxial CT images of the abdomen and pelvis were performed without contrast. A dose lowering technique was utilized adhering to the principles of ALARA. COMPARISON STUDY: PET CT 08/26/2019, CT abdomen and pelvis 01/14/2017, MRI lumbar spine 08/10/2018. FINDINGS: Cardiomegaly with coronary artery calcifications. Trace right pleural effusion. Mild intralobular septal thickening of the lung bases suggest pulmonary edema. There is no pneumatosis or pneumoperitoneum. Calcified granulomata of the liver and spleen. Moderately atrophic pancreas appears unremarkable. Cholecystectomy. Unremarkable adrenal glands. The liver is otherwise unremarkable. Left kidney is unremarkable. Mild pelviectasis of the right kidney without nazia hydronephrosis. Mild to moderate urinary bladder distention. Unremarkable uterus. Calcified plaque of the aorta without aneurysm. No adenopathy. Small hiatal hernia. Moderately air and fluid-filled distended stomach. Multiple air and fluid-filled dilated loops of small bowel are noted within the abdomen and pelvis measuring up to 3.4 cm. Partial colectomy changes with left lower quadrant ostomy. Moderate fecal retention. Colonic diverticulosis. There is a large parastomal hernia redemonstrated which has increased in size from comparison, diastases 7.9 cm. Decompressed loops of small bowel are seen exiting the hernia sac on image 199. There may be more than one site of obstruction present. Soft tissues are unremarkable. Severe compression deformity with associated retropulsion at T12, unchanged. IMPRESSION: 1. High-grade small bowel obstruction secondary to a large parastomal hernia of the abdominal left lower quadrant. Decompressed loops of small bowel are seen exiting the hernia sac. A developing closed-loop obstruction is not excluded. 2. No pneumatosis or pneumoperitoneum. 3. Trace right pleural effusion. 4. Additional findings as above. ACT 112: Negative or not required by law. The above report was generated using voice recognition software. It may contain grammatical, syntax or spelling errors. (1) Parastomal hernia Obstruction and gangrene presence: with obstruction but without gangrene Qualified Code(s): K43.3 - Parastomal hernia with obstruction, without gangrene
[2020-01-04] MEDS ORDERED: HYDROmorphone INJ 0.5 MG/0.5 ML SYR IV STA (11:44)
[2020-01-04 12:32] VITALS: BP 165/65; TEMP 98.1; O2SAT 93
[2020-01-04 14:03] VITALS: PULSE 60
--- NOTE | 2020-01-04 14:03 | XRay Report ---
KUB HISTORY: Nasogastric tube placement. COMPARISON: Abdomen and pelvis CT 01/03/2020. FINDINGS: Left-sided parastomal hernia and small bowel obstruction again noted. Nasogastric tube term inates in the stomach. Prior cholecystectomy. No renal calculi. No ureteral calculi. No pneumoperito neum or pneumatosis. IMPRESSION: 1. Nasogastric tube terminates in the mid stomach. 2. Small bowel obstruction is again noted. ACT 112: Negative or not required by law. Electronically signed by: Ellis Oquendo M.D. 01/04/2020 2:02 PM
--- NOTE | 2020-01-04 14:05 | Discharge Summary ---
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 Pt's daughter at bedside provided some of the history. Pt states that she had been having diarrhea for the last few days, nonbloody, and had been changing the colostomy bag every 2 hours. She took some immodium which helped slow things down. However, this AM she developed 8/10 abdominal pain that is crampy and comes in waves. Associated with nausea, no vomitting. No fevers but feels like she might have had some chills. Of note daughter would like surgeons to know that mother had carotid stenosis that needs to be taken into account when considerin surgery. She would also like her brother, who is an ICU doc to be updated. Pt has never smoked, drinks occasional alcohol, and doesnt use recreational drugs. [facility] in a personal jail. Principal Diagnosis Small bowel obstruction secondary to parastomal hernia Discharge Exam Constitutional well developed and well nourished Eyes PERRL, conjunctivae normal, anicteric sclerae Respiratory normal respiratory effort, lungs clear to auscultation Cardiovascular Rate/Rhythm: regular rate and regular rhythm Heart Sounds: no gallop, no murmur and no cardiac rub Vessels: normal peripheral pulses Gastrointestinal (Abdomen) Inspection/Auscultation: + visible herniation and + hypoactive bowel sounds Percussion/Palpation: + abdomen tender (to deep palpation), abdomen soft and + tympanic to percussion; no guarding, abdomen not rigid, no fluid wave and abdomen not firm Psychiatric A+Ox3, euthymic affect Discharge Data Allergies Allergy/AdvReac Type Severity Reaction Status Date / Time codeine Allergy Intermediate ITCHING Verified 01/03/20 23:15 Penicillins Allergy Intermediate HIVES Verified 01/03/20 23:15 Sulfa (Sulfonamide Allergy Intermediate fever Verified 01/03/20 23:15 Antibiotics) Consultations 01/03/20 22:54 ED Decision to Admit Stat 01/04/20 02:06 Consult General Surgery Routine 01/04/20 12:31 Burn CD for patient Routine Ordered Studies 01/03/20 21:19 CT abd pelvis wo con Urgent Hospital Course (1) Sick sinus syndrome: Bertha Guillaume is a 84y/o female with a PMHx significant for per forated diverticulitis s/p colectomy and subsequent placement of a colostomy on 09/06/2019, 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 SBO/Parastomal Hernia -Pt with abd pain, nausea. Episodes of diarrhea with use of Immodium a few days ago. -Has colostomy bag after colectomy in August 2019 after perforated diverticulitis -CT abd pelvis: prelim read with findings of SBO likely secondary to parastomal hernia -NPO -Consult general surgery: concerned for increased complexity given secondary comorbidities recommending transfer to tertiary care center -Accepted [facility] after discussion with Dr. Avila of [facility] General Surgery -NG tube placed prior to transportation -Zofran 4mg IV prn for N/V HTN -given pt npo with SBO, hold home hydralazine 50mg TID -PRN IV hydralazine ordered with parameters Sick Sinus Syndrome/LBBB/Atrial Fibrillation -given pt npo with SBO, hold home amiodarone 100mg, carvedilol 3.125mg BID, warfarin -INR currently therapeutic at 2.8 -consider restart of warfarin as soon as possible Restless leg Syndrome -given pt npo with SBO, hold home pramiprexole, gabapentin, duloxetin Peripheral Edema -given pt npo with SBO, hold home bumex CKD Stage 3 -Pt with Cr of 1.2 -Baseline of ~1.4 -follows with nephrology Hx of tonsillar cancer, current SCC of base of tongue -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, current SCC of base of to ngue s/p one round of radiation therapy, -follows with oncology -given pt npo with SBO, hold home tramadol -continue home magic mouthwash -tylenol 1000mg IV prn, dilaudid 0.5mg q3h PRN for pain Hypothyroidism -hold home po synthroid (2) Anemia: (3) Asthma: (4) Obstructive sleep apnea: (5) Left bundle branch block (LBBB): (6) Restless legs syndrome: (7) Carotid stenosis: (8) Chronic diastolic congestive heart failure: (9) Peripheral edema: (10) Chronic kidney disease, stage III (moderate): (11) Paroxysmal atrial fibrillation: (12) HTN (hypertension): (13) Tonsillar cancer: (14) Hypothyroidism: (15) SBO (small bowel obstruction): Total Time Total Time Spent Total Time Spent (In Minutes): <30 (dr amaya did the majority of the discharge work) Discharge Plan Discharge Items Patient Disposition: Transfer Acute Care Hospital Reason For Visit: SBO Discharge Diagnosis: SBO secondary to parastomal hernia Activity: Per Instructions section Non-emergency contact: Primary Care Provider and [employer]razzo Mechanic Call non-emergency contact if: you have any medication questions, your symptoms worsen and your pain is concerning for you Follow-up/Referrals: Laci Yung MD [Primary Care Provider] - Diet: Other - See Diet Comment Diet Comment: NPO on transfer Addtl Attending Provider Instructions: Bertha Guillaume is a 84y/o female with a PMHx significant for perforated diverticulitis s/p colectomy and subsequent placement of a colostomy on 09/06/2019, 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 SBO/Parastomal Hernia -Pt with abd pain, nausea. Episodes of diarrhea with use of Immodium a few days ago. -Has colostomy bag after colectomy in August 2019 after perforated diverticulitis -CT abd pelvis: prelim read with findings of SBO likely secondary to parastomal hernia -NPO -Consult general surgery: concerned for increased complexity given secondary comorbidities recommending transfer to tertiary care center -Accepted [facility] after discussion with Dr. Avila of [facility] General Surgery -NG tube placed prior to transportation -Zofran 4mg IV prn for N/V Pending Studies at Discharge: No Stand-Alone Forms: My [facility] Skilled Items Patient informed of condition?: Yes DNR: No Discharge Level of Care: Other Communicable Disease: No Discharge Prognosis: Stable Lines: None Urinary Catheter: No Medications and DC Order Prescriptions: Continued amiodarone 200 mg tablet 100 mg PO DAILY Qty: 90 RF: 3 bumetanide 1 mg tablet 1 - 2 mg PO DAILY Qty: 90 RF: 3 potassium chloride 20 mEq tablet,ER particles/crystals 20 meq PO QAM Qty: 90 RF: 3 warfarin 3 mg tablet See Rx Instructions mg .ROUTE .COMPLEX Qty: 90 RF: 3 carvedilol 3.125 mg tablet 3.125 mg PO BIDM Qty: 180 RF: 3 hydralazine 50 mg tablet 50 mg PO TID Qty: 30 RF: 0 pramipexole 0.5 mg tablet 0.5 mg PO BID RF: 0 calcium carbonate [Calcium 600] 600 mg calcium (1,500 mg) Tablet 600 mg PO BID RF: 0 calcitonin (salmon) 200 unit/actuation Center Line,Non-Aerosol 200 unit intranasal (ALT) DAILY RF: 0 cholecalciferol (vitamin D3) [Vitamin D3] 2,000 unit Capsule 2,000 unit PO DAILY RF: 0 famotidine 20 mg Tablet 20 mg PO HS RF: 0 tramadol 50 mg tablet 50 mg PO Q6 PRN (Reason: Pain) RF: 0 levothyroxine [Synthroid] 100 mcg tablet 100 mcg PO DAILY RF: 0 gabapentin 100 mg Tablet 100 mg PO DAILY RF: 0 Magic Swizzle 1 dose PO AC PRN (Reason: sore mouth) RF: 0 duloxetine 30 mg Capsule,Delayed Release(Dr/Ec) 30 mg PO QPM RF: 0 Discharge Orders: Discharge Order (Routine); Ordered 01/04/20 Ordered By: Terence Amaya Admission Data Admit Date/Time: 01/03/20 23:56 Attending Provider: Haseeb Briggs Admit Provider: Ayla Ambriz Primary Care Provider: Laci Yung Other Providers: Chaim Aceves ; Kishor Liang Other Interventions: Discharge Summary Assessment (RN) Last Done: 01/04/20 14:02 Supervising Physician Co-Signing Physician Notes I personally examined the patient and verified all stern points of history and exam, discussed case, and agree with decision making with Dr Amaya. pain getting worse. surgery does not feel they can take care of situation here. vitals noted mildly uncomfortable abd tender but without guarding/rebound rigidity parastomal hernia/SBO - transfer to tertiary. otherwise as above Resident Activity Tracking Resident Involvement: Resident Care Provided Care Provided: Adult Hospital Medicine
--- NOTE | 2020-01-04 17:09 | Billing Data ---
Date of Service January 04, 2020 Coding Level of Care Code D/C Day Management <30 mins
--- NOTE | 2020-01-05 02:46 | Billing Data ---
Date of Service January 05, 2020 Coding Level of Care Code 39775 Initial Inpt Care Lvl 3
--- NOTE | 2020-01-05 06:25 | Electrocardiogram Report ---
Test Reason : Blood Pressure : / mmHG Vent. Rate : 059 BPM Atrial Rate : 059 BPM P-R Int : 194 ms QRS Dur : 154 ms QT Int : 496 ms P-R-T Axes : 078 -53 088 degrees QTc Int : 491 ms Poor data quality, interpretation may be adversely affected Sinus bradycardia with Premature atrial complexes Left axis deviation Left bundle branch block Abnormal ECG When compared with ECG of 22-AUG-2019 19:50, Premature atrial complexes are now Present Confirmed by Vincent March ([id number]) on 01/05/2020 6:25:30 AM Referred By: REFERRED SELF Confirmed By:Vincent March
== END 2020-01-04 14:36 | disposition short-term general hospital (02) | DRG 394 ==
LOC: ED 19:53 → SUATTDRO 23:56 → 2N 23:56